=== PATIENT | male | born 1950 | race Caucasian/White ===

== ENCOUNTER 2017-03-01 11:35 | Inpatient (IN) | payer MEDICARE ==
[2017-03-01] VITALS (22 sets, daily range): BP systolic 118–166; BP diastolic 58–81; PULSE 71–105; RESP 15–30; TEMP 98.1–99.2; O2SAT 88–95; Ht 180.3 cm; Wt 121.0 kg
[~2017-03-01] VITALS: Ht 180.3 cm; Wt 121.0 kg
[~2017-03-01 11:35] MED LIST: FERR-67 PO; HYDR-4246 PO; LIRA0.6P SQ; PROM25TA7 PO; ROPI0.5T4 PO; SIME80TA12 PO; SIMV20TA6 PO; TRAM50TA4 PO
[2017-03-01] MEDS ORDERED: DIPH25CA84 PO (11:49)
[2017-03-01] MEDS ORDERED: ASPI81TA2 PO (11:50)
--- OUTSIDE RECORDS SUMMARY | 2017-03-01 11:57 | XMS REPORT | Continuity of Care Document ---
Author Author [facility] Organization [facility] Address Unknown Phone Unavailable Care Team Providers Care Lead Generation Specialist Name Role Phone GLENN NAQVI MD Primary Care Physician [phone] Insurance Providers Payer Name Policy Number Subscriber Name Relationship [employer] Gold Hmo [id number] Alcides De Leon 16 Self Advance Directives Directive Response Recorded Date/Time Advanced Directives Type None 02/22/15 12:55am Ordered Resuscitation Status Full Code 02/22/15 12:38am Chief Complaint and Reason for Visit Chief Complaint DX Vomiting, bowel obstructions, fever Reason for Visit Fever Small bowel obstruction Vomiting DM (diabetes mellitus) HTN (hypertension) History of kidney stones CAD (coronary artery disease) H/O heart artery stent Leukocytosis Cholelithiases Elevated liver enzymes Problems Medical Problems Problem Onset Date Status Fever Unknown Active Small bowel obstruction Unknown Active Vomiting Unknown Active DM (diabetes mellitus) Unknown Active HTN (hypertension) Unknown Active History of kidney stones Unknown Active CAD (coronary artery disease) Unknown Active Leukocytosis Unknown Active Cholelithiases Unknown Active Elevated liver enzymes Unknown Active Surgical Problems Problem Onset Date Recorded Date/Time Status H/O heart artery stent Unknown 02/22/2015 9:23am Active Medications Medication Dose Route Sig Days/Qty Instructions Order Date Discontinued Date Status Ropinirole Hcl 1 Tab PO DAILY 01/26/10 Active Tramadol HCl 50 Mg PO PRN PAIN 02/22/15 Active Tramadol HCl 1-2 Tab PO Every 8 Hours PRN PAIN 02/22/15 Active Simvastatin 20 Mg PO BEDTIME Take 1 tablet, by mouth, 1 time a day (at BEDTIME). 02/22/15 Active Liraglutide 1.2 Mg SQ BEDTIME 02/22/15 Active Ferrous Sulfate 1 Tab PO TWICE DAILY WITH MEALS 02/22/15 Active Hydrocodone/Acetaminophen 1-2 Tab PO THREE TIMES A DAY PRN PAIN 02/22 Active Simethicone 80 Mg PO Q6H/0300,0900,1500,2100 PRN GAS 20 Qty Chew 1 tablet , every six hours. 02/22/15 Active Promethazine HCl 25 Mg PO Q6H/0300,0900,1500,2100 PRN NAUSEA 20 Qty Active Social History Social History Problem Response Recorded Date/Time Chewing Tobacco Status No 02/21/2015 11:15pm Hx Substance Use No 02/21/2015 11:15pm Hx Alcohol Use No 02/21/2015 11:15pm Has the pt used tobacco in the last 12 months No 02/22/2015 1:33am Tobacco Usage none 02/22/2015 12:46am Query Response Start Date Stop Date Smoking Status Former smoker Hospital Discharge Instructions Instructions: Care Instructions: Reason for Hospitalization: Gasteroenteritis I was in the hospital because (patient own words): NAUSEA/VOMIT/FEVER/DIARRHEA Discharge Diet: [place] diet, increased as able Discharge Activity: As tolerated Follow Up Appointments: Dr Naqvi in 1 week Condition at time of discharge: Good OFFICE WILL CALL WITH APT. CAROLYNE Banks in 1 week Patient Instructions: Fasting Lipid Panel in 6 weeks. See Script/Order. Take to Lab. Condition at time of discharge: Good - You may shower after 24 hours. - No tub baths or swimming for 2 weeks. Notify Physician If: Contact Dr. Gonzalez if any of the following occur: - Your pain is not adequately controlled. - You have persistent nausea or vomiting for more than 24 hours. - You have a fever over 101.5 degrees. - You develop redness, swelling, increasing pain, excessive bleeding, or excessive/foul smelling drainage at your incision site. - You develop dark urine, light stools, or yellowing of the skin or eyes. - You have pain and/or swelling in your feet, calves, or legs. - You have difficulty breathing, abnormal cough, or chest pain. During office hours, call [phone]. After hours, please call [facility] at [phone] and have the marking machine operator page Dr. Gonzalez or the covering surgeon. *In the event of an emergency, seek medical care at the nearest emergency room.* Condition at time of discharge: Good Plan of Care Discharge Date 02/22/15 7:25pm Disposition 01 DISCHARGED HOME, SELF-CARE Instructions/Education Provided DI for Nausea -- Adult Prescriptions See Medications Section Functional Status Query Response Date Recorded Physical Hygiene Self February 21, 2015 11:15pm Disabilities Visual February 21, 2015 11:15pm Devices Used Glasses February 21, 2015 11:15pm Dressing Self February 21, 2015 11:15pm Ambulation Self February 21, 2015 11:15pm Diet Self February 21, 2015 11:15pm Mental Status Alert February 22, 2015 12:46am Disabilities Visual February 21, 2015 11:15pm Devices Used Glasses February 21, 2015 11:15pm Physical Hygiene Self February 21, 2015 11:15pm Dressing Self February 21, 2015 11:15pm Ambulation Self February 21, 2015 11:15pm Diet Self February 21, 2015 11:15pm Allergies, Adverse Reactions, Alerts Allergen Type Severity Reaction Status Last Updated metoprolol succinate Allergy Unknown Active 02/21/15 Hydrochlorothiazide Allergy Unknown Active 02/21/15 Immunizations Name Given Type Hx Influenza Vaccination Y AUG 2014 Historical Hx Pneumococcal Vaccination Y AUG 2014 Historical Hx Influenza Vaccination Y AUG 2014 Historical Vital Signs Acute Vital Signs Vital Response Date/Time Temperature (Fahrenheit) 98.2 deg F (96.8 - 99.1) Temperature (Calculated Celsius) 36.01144 degrees C (36.0 - 37.3) Pulse Rate (adult) 68 bpm (60 - 100) Respiratory Rate 16 breaths/min (10 - 20) Height 6 ft 0 in Weight 253 lb Body Mass Index 34.0 kg/m^2 Results Test Source Date Result Interp. Ref. Range Comments Alanine Aminotransferase (ALT/SGPT) February 22, 2015 8:21am 70 U/L N 21- 72 Albumin February 22, 2015 8:21am 3.1 G/DL L 3.5-5.0 Albumin/Globulin Ratio February 22, 2015 8:21am 1.0 RATIO L 1.1-2.2 Alkaline Phosphatase February 22, 2015 8:21am 155 U/L DH 38-126 Amylase Level February 21, 2015 10:53pm 66 U/L N 30-110 Anion Gap February 22, 2015 8:21am 12 MEQ/L N 5-15 Anisocytosis February 22, 2015 8:21am 1+ - Aspartate Amino Transf (AST/SGOT) February 22, 2015 8:21am 51 U/L N 17-59 B-Type Natriuretic Peptide April 15, 2009 11:26am 71 PG/ML N 15-100 BUN/Creatinine Ratio February 22, 2015 8:21am 16 RATIO N 6-26 Band Neutrophils # February 22, 2015 8:21am 1.4 T/MM3 - Band Neutrophils % February 22, 2015 8:21am 17.0 % H 0-6 Basophils # (Auto) December 16, 2012 12:20pm 0.0 T/MM3 N 0-0.2 Basophils (%) (Auto) December 16, 2012 12:20pm 0.3 % N 0-2 Blood Urea Nitrogen February 22, 2015 8:21am 17.0 MG/DL N 9-20 Calcium Level February 22, 2015 8:21am 8.1 MG/DL L 8.4-10.2 Calculated Osmolality February 22, 2015 8:21am 279 MOSM/KG N 261-280 Carbon Dioxide Level February 22, 2015 8:21am 22 MEQ/L N 22-30 Chemistry Specimen Hemolysis February 22, 2015 8:21am < 15 0-25 0-25: No Hemolysis.26-70: Slight Hemolysis - can falsely elevate K and Urine Protein. 71-285: Moderate Hemolysis - can falsely elevate K, Troponin I, CA 19-9, PTH, CSF GLucose, and Urine Protein, and can falsely decrease Phenytoin. 286-999: Gross Hemolysis - can falsely elevate K, Troponin I, CA 19-9, PTH, CSF Glucose, and Urine Protine, and can falsely decrease Phenytoin. Recommend specimen recollection. Chloride Level February 22, 2015 8:21am 109 MEQ/L H 98-107 Creatinine February 22, 2015 8:21am 1.1 MG/DL N 0.8-1.5 EKG April 15, 2009 11:26am Complete - Eosinophils # (Auto) December 16, 2012 12:20pm 0.3 T/MM3 N 0-0.5 Eosinophils # (Manual) February 22, 2015 8:21am 0.2 T/MM3 N 0-0.5 Eosinophils % (Manual) February 22, 2015 8:21am 2.0 % N 0-4 Eosinophils (%) (Auto) December 16, 2012 12:20pm 2.1 % N 0-4 Globulin February 22, 2015 8:21am 3.2 G/DL N 2.4-3.6 Glomerular Filtration Rate Calc February 22, 2015 8:21am 67 - Glucometer February 22, 2015 5:05pm 103 mg/dL N 75-110 Glucose Level February 22, 2015 8:21am 137 MG/DL H 75-110 Hematocrit February 22, 2015 8:21am 33.7 % DL 41-53 Hemoglobin February 22, 2015 8:21am 10.2 GM/DL DL 13.5-17.5 Hypochromasia February 22, 2015 8:21am 1+ - Icterus Index February 22, 2015 8:21am < 2 0-7 Immature Granulocyte # (Auto) December 16, 2012 12:20pm 0.06 T/MM3 H 0.00-0.03 Immature Granulocyte % (Auto) December 16, 2012 12:20pm 0.5 % N 0.0-0.5 Lab Scanned Report September 09, 2014 9:33pm LAB TEST FORM REQUEST [id number] - Lipase February 21, 2015 10:53pm 48 U/L N 23-300 Lymphocytes # (Auto) December 16, 2012 12:20pm 1.8 T/MM3 N 1-4.8 Lymphocytes # (Manual) February 22, 2015 8:21am 0.5 T/MM3 L 1-4.8 Lymphocytes % (Manual) February 22, 2015 8:21am 6.0 % L 23-45 Lymphocytes (%) (Auto) December 16, 2012 12:20pm 14.6 % L 23-45 Mean Corpuscular Hemoglobin February 22, 2015 8:21am 23.7 UUG L 26-34 Mean Corpuscular Hemoglobin Concent February 22, 2015 8:21am 30.3 GM/DL L 31-37 Mean Corpuscular Volume February 22, 2015 8:21am 78.2 UM3 L 80-100 Mean Platelet Volume February 22, 2015 8:21am 9.9 UM3 N 9.4-12.4 Monocytes # (Auto) December 16, 2012 12:20pm 0.7 T/MM3 N 0-0.8 Monocytes # (Manual) February 22, 2015 8:21am 0.2 T/MM3 N 0-0.8 Monocytes % (Manual) February 22, 2015 8:21am 2.0 % N 0-9.0 Monocytes (%) (Auto) December 16, 2012 12:20pm 5.6 % N 0-9.0 Neutrophils # (Auto) December 16, 2012 12:20pm 9.3 T/MM3 H 1.8-7.7 Neutrophils # (Manual) February 22, 2015 8:21am 6.0 T/MM3 N 1.8-7.7 Neutrophils % (Manual) February 22, 2015 8:21am 73.0 % H 33-66 Neutrophils (%) (Auto) December 16, 2012 12:20pm 76.9 % H 33-66 Nucleated Red Blood Cells February 21, 2015 10:53pm 1 - Platelet Count February 22, 2015 8:21am 188 T/MM3 N 130-400 Platelet Function Assay January 26, 2010 6:48am 5 % - <20% inhibition: recommended pre-surgical level.>20% inhibition: indicates anti-platelet effect. NOTE: Test not reliable with NSAID use or low platelet counts. Not for use with inherited platelet disorders. Poikilocytosis February 22, 2015 8:21am 1+ - Potassium Level February 22, 2015 8:21am 4.0 MEQ/L DN 3.6-5 Prealbumin February 22, 2015 8:21am 12.4 MG/DL L 17.6-36.0 COMMENT blood in lab Procalcitonin February 22, 2015 12:48am 0.34 NG/ML - PCT </=0.5 ng/mL - sepsis not likely;PCT >0.5 and </=2 ng/mL - sepsis possible; PCT >2 ng/mL - sepsis likely; PCT >/=10 ng/mL - systemic inflammatory response - sepsis or septic shock highly indicated. RDW Standard Deviation February 22, 2015 8:21am 70.2 FL H 36.9-50.2 Red Blood Count February 22, 2015 8:21am 4.31 M/MM3 L 4.50-5.90 Red Cell Morphology Comment February 22, 2015 8:21am Abnormal - Sodium Level February 22, 2015 8:21am 143 MEQ/L N 134-144 Stone Analysis (T) April 17, 2009 8:00am Send out - Has specimen been collected/obtained? Y Stool C. difficile Toxin B Gene PCR February 22, 2015 1:50am Negative - If Toxin A is clinically indicated, treat accordingly. Tests Not Done April 15, 2009 7:40pm Not done - Has specimen been collected/obtained? Y Thyroid Stimulating Hormone (TSH) February 22, 2015 8:21am 0.39 MIU/L L 0.47-4.68 COMMENT blood in lab Total Bilirubin February 22, 2015 8:21am 0.80 MG/DL N 0.20-1.30 Total Protein February 22, 2015 8:21am 6.3 G/DL N 6.3-8.2 Turbidity February 22, 2015 8:21am < 20 0-20 Urinalysis Comment February 21, 2015 10:26pm Microscopic not ind. - Has specimen been collected/obtained? Y Urine Bacteria December 16, 2012 2:30pm 1+ H - Has specimen been collected/obtained? Y Urine Bilirubin February 21, 2015 10:26pm Negative - Has specimen been collected/obtained? Y Urine Blood February 21, 2015 10:26pm Negative - Has specimen been collected/obtained? Y Urine Collection Type February 21, 2015 10:26pm Voided-not cc-midstr - Has specimen been collected/obtained? Y Urine Color February 21, 2015 10:26pm Yellow - Has specimen been collected/obtained? Y Urine Culture Indicated December 16, 2012 2:30pm Cult reflexed &setup - Has specimen been collected/obtained? Y Urine Glucose (UA) February 21, 2015 10:26pm Negative - Has specimen been collected/obtained? Y Urine Ketones February 21, 2015 10:26pm Trace H - Has specimen been collected/obtained? Y Urine Leukocyte Esterase February 21, 2015 10:26pm Negative - Has specimen been collected/obtained? Y Urine Mucus December 16, 2012 2:30pm Present - Has specimen been collected/obtained? Y Urine Nitrite February 21, 2015 10:26pm Negative - Has specimen been collected/obtained? Y Urine Protein February 21, 2015 10:26pm Negative - Has specimen been collected/obtained? Y Urine RBC December 16, 2012 2:30pm 50-200 /HPF H - Has specimen been collected/obtained? Y Urine Random Creatinine April 17, 2009 10:30am 113.2 MG/DL - Has specimen been collected/obtained? YWhat is the Source? VOIDED Urine Random Sodium April 17, 2009 10:30am 60 MEQ/L N 30-90 Has specimen been collected/obtained? YWhat is the Source? VOIDED Urine Specific Ronald February 21, 2015 10:26pm >=1.030 H - Has specimen been collected/obtained? Y Urine Squamous Epithelial Cells December 16, 2012 2:30pm Few - Has specimen been collected/obtained? Y Urine Turbidity February 21, 2015 10:26pm Clear - Has specimen been collected/obtained? Y Urine Urobilinogen February 21, 2015 10:26pm 0.2 EU/DL - Has specimen been collected/obtained? Y Urine WBC December 16, 2012 2:30pm 0-1 /HPF - Has specimen been collected/obtained? Y Urine Yeast December 16, 2012 2:30pm 2+ H - Has specimen been collected /obtained? Y Urine pH February 21, 2015 10:26pm 5.5 - Has specimen been collected/ obtained? Y Venous Blood Lactate February 22, 2015 12:48am 2.1 MMOL/L N 0.6-2.2 White Blood Count February 22, 2015 8:21am 8.2 T/MM3 DN 4.5-11.0 Group A Streptococcus Culture Throat September 09, 2014 6:30pm Urine Culture Urine, Clean Catch Voided December 16, 2012 2:55pm Strep Mitis /Oralis Name: ALCIDES DE LEON Unit #: [id number] : [id number] Sex: M Loc / [facility] – [place], [place]: SRG DOS: 02/21/15 Signed Report #: [id number] DIAGNOSTIC IMAGING REPORT TYPE OF EXAM: CT ABD/PELVIS W/CONTRAST ONLY Dictated By: CHIDI BANKS MD Indication: ITS.REASON: vomiting and diarrhea CT ABD/PELVIS W/CONTRAST ONLY: Comparison: Renal CT dated December 16, 2012 Technique: Axial CT images were performed through the abdomen and pelvis after the administration of intravenous contrast. Coronal and sagittal two- dimensional reformats. Contrast: Omnipaque 300 100 mL Findings: Motion artifact limits evaluation of the lung bases. No obvious enhancing liver mass. Slight nodularity to the liver contour. Significant motion artifact. Gallstones in the gallbladder. Lower esophageal segment is distended with fluid. The spleen, pancreas and adrenal glands are within normal limits. Tiny bilateral nonobstructing renal stones and some renal cortical atrophy. No acute inflammatory changes. No adenopathy in the abdomen or pelvis. Bladder is decompressed. No free fluid. Sigmoid diverticulosis. Bone windows show degenerative changes. No evidence of bowel obstruction. Some fluid-filled small and large bowel loops. Colonic diverticulosis without acute diverticulitis. Small fat-containing inguinal hernias. Bone windows show bilateral L5 spondylolysis and an age indeterminate superior endplate compression deformity at L5, which is new since December 2012. Impression: 1. Possible gastroenteritis. Early or partial small bowel obstruction cannot be entirely excluded but is felt to be less likely. 2. Findings suggesting cirrhosis. 3. Age-indeterminate L5 superior endplate compression fracture which is developed since December 2012. There is a preliminary report by [facility]. . Procedures No known history of procedures. Encounters Encounter Location Date/Time Discharged Inpatient [facility] 02/22/15 12:33am Recent Diagnosis Fever Small bowel obstruction Vomiting DM (diabetes mellitus) HTN (hypertension) History of kidney stones CAD (coronary artery disease) Leukocytosis Cholelithiases Elevated liver enzymes
--- OUTSIDE RECORDS SUMMARY | 2017-03-01 11:57 | XMS REPORT | Continuity of Care Document ---
Author Author [facility] Organization [facility] Address Unknown Phone Unavailable Allergies Active Description Code Type Severity Reaction Onset Reported/Identified Relationship to Patient Clinical Status Yes No Known Food Allergies Food Allergy N/A N/A 08/10/2013 Yes No Known Medication Allergies NKMA N/A N/A 09/09/2014 Yes iodine containing compounds NKMA N/A Nausea 10/29/2015 Medications Problems Date Dx Coded Attending Type Code Diagnosis Diagnosed By 08/10/2013 Kervin Thapa MD Final 250.00 DM2/NOS UNCOMP NSU 08/10/2013 Kervin Thapa MD Final 715.96 OSTEOARTHOSIS NOS-LOW LE 08/10/2013 Kervin Thapa MD Final V72.63 PRE-PX LABORATORY EXAM 08/10/2013 Kervin Thapa MD Final V72.81 PREOP CV EXAM Procedures Results Test Result Range Hemoglobin A1C - 05/24/16 09:49 Hemoglobin A1C 7.4 % 4.1-5.6 Estimated Average Glucose - 05/24/16 09:49 Estimated Average Glucose 165.7 mg/dL Hemoglobin A1C - 09/17/16 10:10 Hemoglobin A1C 7.3 % 4.1-5.6 Estimated Average Glucose - 09/17/16 10:10 Estimated Average Glucose 162.8 mg/dL Encounters ACCT No. Visit Date/Time Discharge Status Pt. Type Provider Facility Loc./Unit Complaint [id number] 08/10/2013 09:00:00 2012 23:59:59 CLS Outpatient Kervin Thapa MD [facility] on [address] [id number] 08/17/2013 07:30:00 Document Registration
--- OUTSIDE RECORDS SUMMARY | 2017-03-01 11:57 | XMS REPORT | Referral Summary ---
Author Author [facility] Organization [facility] Address Unknown Phone Unavailable Care Team Providers Care Musical Engineer Name Role Phone Kiran Jane Primary Care Physician [phone] Encounter [facility] [id number] Date(s): 10/24/15 - 10/24/15 [facility] [address] [place] [address] [facility] Discharge Diagnosis: Benign essential hypertension Discharge Diagnosis: Hyperlipidemia Discharge Diagnosis: Diabetes type 2, controlled Discharge Disposition: 01-Home or Self Care Attending Physician: Arabella Varghese APRN Admitting Physician: Arabella Varghese APRN Referring Physician: Arabella Varghese APRN Vital Signs Most recent to 1 oldest [Reference Range]: Peripheral Pulse 72 bpm Rate [60-100 bpm] (10/24/15 9:27 AM) Blood Pressure 128/80 mmHg [90-140/60-90 mmHg] (10/24/15 9:27 AM) Problem List Condition Effective Dates Status Health Status Informant Acute Active bronchitis(Confirmed ) Maxillary sinusitis, Active acute(Confirmed) Acute Active pharyngitis(Confirme d) Allergic Active rhinitis/Hay fever(Confirmed) anal Resolved fissure(Confirmed) Asthma(Confirmed) Active Benign essential Active hypertension (disorder)(Confirmed ) Hx of elevated BUN, Active and creatinine(Confirmed ) Chronic back Active pain(Confirmed) Chronic obstructive Active pulmonary disease (COPD)(Confirmed) Chronic kidney Active disease (CKD)(Confirmed) Compression Active fracture(Confirmed) Coronary artery Resolved disease(Confirmed) 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) High sun exposure Active 2-3 serious sunburns(Confirmed) Headaches(Confirmed) Resolved hx polyps, tubular Resolved adenoma(Confirmed) HYPERTENSION(Confirm Resolved ed) Hypertension(Confirm Active ed) Kidney Resolved stones(Confirmed) Migraine Active headaches(Confirmed) Hyperlipidemia(Confi Active rmed) Obesity(Confirmed) Active patient Obstructive sleep Active apnea, adult(Confirmed) Osteoarthritis(Confi Resolved rmed) Prostatism(Confirmed Resolved ) RLS(Confirmed) Active Stable Active angina(Confirmed) Stroke(Confirmed) Resolved Tension Active headaches(Confirmed) Diabetes type 2, Active controlled(Confirmed ) Type II diabetes Active mellitus uncontrolled (finding)(Confirmed) Right distal Active ureteral calculus(Confirmed) Allergies, Adverse Reactions, Alerts No Known Medication Allergies Medications ammonium lactate 12% topical cream See Instructions, cheryle Topical BID prn, # 140 g, 3 Refill(s), Pharmacy: [facility] Start Date: 11/29/14 Status: Ordered aspirin 81 mg, Oral, Daily, 0 Refill(s) Start Date: 04/26/14 Status: Ordered Calcium 500+D 2 tabs, Chewed, Daily, 0 Refill(s) Start Date: 04/19/15 Status: Ordered desonide 0.05% topical cream 1 cheryle, Topical, Daily, # 15 g, 1 Refill(s), Pharmacy: [facility] Start Date: 04/01/15 Status: Ordered desonide 0.05% topical gel 1 cheryle, Topical, apply to face bid prn, # 60 g, 0 Refill(s) Start Date: 04/26/14 Status: Ordered ferrous sulfate 325 mg (65 mg elemental iron) oral tablet 1 tabs, Oral, BID, # 60 tabs, 0 Refill(s), Pharmacy: [facility], 1 tabs Oral BID,x30 days Start Date: 02/02/15 Stop Date: 03/04/15 Status: Ordered Flomax 0.4 mg oral capsule 1 caps, Oral, Daily, # 90 caps, 1 Refill(s), [facility], 1 caps Oral Daily,x90 days Start Date: 03/01/15 Stop Date: 08/28/15 Status: Ordered ketoconazole 2% topical gel See Instructions, wash face, scalp and chest daily as needed, leave on 5 mins then wash off, 0 Refill(s) Start Date: 04/26/14 Status: Ordered ketoconazole 2% topical shampoo 1 cheryle, Topical, 2x/Wk, # 120 mL, 6 Refill(s), Pharmacy: [facility] Start Date: 04/01/15 Status: Ordered Nitrostat 0.4 mg sublingual tablet 1 tabs, SubLingual, q5min, as needed for chest pain, # 30 tabs, 3 Refill(s), Pharmacy: [facility], 1 tabs SubLingual q5min,PRN:as needed for chest pain Start Date: 09/09/14 Status: Ordered [place] 5 mg-325 mg oral tablet 1-2 tabs, Oral, TID, # 60 tabs, 0 Refill(s) Start Date: 09/06/15 Status: Ordered rOPINIRole 0.5 mg oral tablet See Instructions, TAKE ONE TABLET BY MOUTH ONCE DAILY, # 30 tabs, 5 Refill(s), eRx: [facility], TAKE ONE TABLET BY MOUTH ONCE DAILY Start Date: 06/01/15 Status: Ordered simvastatin 20 mg oral tablet 20 mg 1 tabs, Oral, Bedtime (once a day), Will need med check for next refill., # 90 tabs, 0 Refill(s), Pharmacy: [facility], 1 tabs Oral Bedtime ( once a day),x90 days,Instr:Will need med check for next refill. Start Date: 10/03/15 Stop Date: 12/31/15 Status: Ordered Ultram 50 mg oral tablet See Instructions, 1-2 tablets every 8 hrs as needed for pain, # 60 tabs, 0 Refill(s) Start Date: 05/27/15 Status: Ordered Victoza 18 mg/3 mL subcutaneous solution See Instructions, INJECT 1.2MG SUB-Q DAILY, # 6 unknown unit, 2 Refill(s), eRx: [facility], INJECT 1.2MG SUB-Q DAILY Start Date: 07/27/15 Status: Ordered Vitamin C 1,000 mg, Oral, BID, takes with iron, 0 Refill(s) Start Date: 03/01/15 Status: Ordered Results Chemistry Most recent to 1 oldest [Reference Range]: Hgb A1c [4.1-5.6 %] 7.0 % *HI* (10/24/15 10:02 AM) eAvg Glucose 154.2 mg/dL (10/24/15 10:02 AM) Immunizations Vaccine Date Refusal Reason tetanus/diphth/pertuss (Tdap) adult/adol 10/19/13 influenza virus vaccine, inactivated 10/15/14 influenza virus vaccine, live 09/24/13 influenza virus vaccine, live 11/20/12 pneumococcal 23-polyvalent vaccine 10/19/13 pneumococcal 23-polyvalent vaccine 07/08/01 tetanus-diphth toxoids (Td) adult/adol 06/29/02 zoster vaccine live 10/19/13 Procedures Procedure Date Related Diagnosis Body Site Colonoscopy 2013 Colonoscopy 2012 eye lid surgery blepth/ptosis ou 08/24/11 left temporal artery biopsy 01/26/10 heart cath 04/25/09 fissurectomy with sphincterectomy/colonoscopy pylonidal cystectomy rt carpal tunnel release rt knee scope, torn miniscus Social History Social History Type Response Smoking Status Former smoker1 1Quit smoking about 25 years ago. Assessment and Plan Extracted from: Title: Office Visit Note Author: Arabella Varghese CLINICAL RADIOLOGIST Date: 10/24/15 Assessment/Plan 1.Diabetes type 2, controlled 1. check blood sugars fasting and 2 hours after meals 3-7 days per week 2. continue same doses of victoza 3. rotate injection sites 4. monitor diet and exercise 5. monitor feet daily I discussed the patient with the preceptor. Ordered: Hemoglobin A1c Office Visit Level 3 Est 80073 2.Benign essential hypertension Ordered: Hemoglobin A1c Office Visit Level 3 Est 40418 3.Hyperlipidemia Ordered: Hemoglobin A1c Office Visit Level 3 Est 25305 Extracted from: Title: Ambulatory Patient Education Author: Arabella Varghese CLINICAL RADIOLOGIST Date: 10/24/15 Family Medicine Diabetes and Sick Day Management Blood sugar (glucose) can be more difficult to control when you are sick. Colds , fever, flu, nausea, vomiting, and diarrhea are all examples of common illnesses that can cause problems for people with diabetes. Loss of body fluids (dehydration) from fever, vomiting, diarrhea, infection, and the stress of a sickness can all cause blood glucose levels to increase. Because of this, it is very important to take your diabetes medicines and to eat some form of carbohydrate food when you are sick. Liquid or soft foods are often tolerated, and they help to replace fluids. HOME CARE INSTRUCTIONS These main guidelines are intended for managing a short-term (24 hours or less) sickness: Take your usual dose of insulin or oral diabetes medicine. An exception would be if you take any form of metformin. If you cannot eat or drink, you can become dehydrated and should not take this medicine. Continue to take your insulin even if you are unable to eat solid foods or are vomiting. Your insulin dose may stay the same, or it may need to be increased when you are sick. You will need to test your blood glucose more often, generally every 24 hours. If you have type 1 diabetes, test your urine for ketones every 4 hours. If you have type 2 diabetes, test your urine for ketones as directed by your health care provider. Eat some form of food that contains carbohydrates. The carbohydrates can be in solid or liquid form. You should eat 4550 g of carbohydrates every 3 4 hours. Replace fluids if you have a fever, vomit, or have diarrhea. Ask your health care provider for specific rehydration instructions. Watch carefully for the signs of ketoacidosis if you have type 1 diabetes. Call your health care provider if any of the following symptoms are present, especially in children: Moderate to large ketones in the urine along with a high blood glucose level. Severe nausea. Vomiting. Diarrhea. Abdominal pain. Rapid breathing. Drink extra liquids that do not contain sugar such as water. Be careful with jjip-hqe-efkulso medicines. Read the labels. They may contain sugar or types of sugars that can increase your blood glucose level. Food Choices for Illness All of the food choices below contain about 15 g of carbohydrates. Plan ahead and keep some of these foods around. to cup carbonated beverage containing sugar. Carbonated beverages will usually be better tolerated if they are opened and left at room temperature for a few minutes. of a twin frozen ice pop. cup regular gelatin. cup juice. cup ice cream or frozen yogurt. cup cooked cereal. cup sherbet. 1 cup clear broth or soup. 1 cup cream soup. cup regular custard. cup regular pudding. 1 cup sports drink. 1 cup plain yogurt. 1 slice toast. 6 squares saltine crackers. 5 vanilla wafers. SEEK MEDICAL CARE IF: You are unable to drink fluids, even small amounts. You have nausea and vomiting for more than 6 hours. You have diarrhea for more than 6 hours. Your blood glucose level is more than 240 mg/dL, even with additional insulin. There is a change in mental status. You develop an additional serious sickness. You have been sick for 2 days and are not getting better. You have a fever. SEEK IMMEDIATE MEDICAL CARE IF: You have difficulty breathing. You have moderate to large ketone levels. MAKE SURE YOU: Understand these instructions. Will watch your condition. Will get help right away if you are not doing well or get worse. Document Released: 10/30/2004 Document Revised: 03/14/2015 Document Reviewed: [facility] Patient Information 2015 [facility], [facility]. This information is not intended to replace advice given to you by your health care provider. Make sure you discuss any questions you have with your health care provider. No follow up information was provided.
--- OUTSIDE RECORDS SUMMARY | 2017-03-01 11:57 | XMS REPORT | Referral Summary ---
Author Author [facility] Organization [facility] Address Unknown Phone Unavailable Care Team Providers Care Bookmobile Clerk Name Role Phone Kiran Jane Primary Care Physician [phone] Encounter Date(s): 03/10/15 - 03/10/15 [facility] [address] , [facility] [address] [place], [place] [address] Discharge Diagnosis: Obstructive sleep apnea, adult Discharge Disposition: 01-Home or Self Care Attending Physician: Saulo Mujica MD Admitting Physician: Saulo Mujica MD Vital Signs Most recent to 1 oldest [Reference Range]: Peripheral Pulse 74 bpm Rate [60-100 bpm] (03/10/15 9:26 AM) Blood Pressure 100/60 mmHg [90-140/60-90 mmHg] (03/10/15 9:26 AM) SpO2 96 % (03/10/15 9:26 AM) Problem List Condition Effective Dates Status [...] Compression Active fracture(Confirmed) Coronary artery Resolved disease(Confirmed) alf current Active 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(Confirmed) High sun exposure Active 2-3 serious sunburns(Confirmed) Headaches(Confirmed) Resolved hx polyps, tubular Resolved adenoma(Confirmed) Hyperlipidemia(Confi Active rmed) HYPERTENSION(Confirm Resolved ed) Hypertension(Confirm Active ed) Kidney Resolved stones(Confirmed) Migraine Active headaches(Confirmed) Obesity(Confirmed) Active patient Obstructive sleep Active apnea, [...] prn, # 140 g, 3 Refill(s), Pharmacy: [facility] Start Date: 11/29/14 Status: Ordered aspirin 81 mg, Oral, Daily, 0 Refill(s) Start Date: 04/26/14 Status: Ordered Calcium 500+D 2 tabs, Chewed, Daily, 0 Refill(s) Start Date: 04/19/15 Status: Ordered desonide 0.05% topical cream 1 cheryle, Topical, Daily, # 15 g, 1 Refill(s), Pharmacy: [facility] Start Date: 04/01/15 Status: Ordered desonide 0.05% topical gel 1 cheryle, Topical, apply to face bid prn, # 60 g, 0 Refill(s) Start Date: 04/26/14 Status: Ordered ferrous sulfate 325 mg (65 mg elemental iron) oral tablet 1 tabs, Oral, BID, # 60 tabs, 0 Refill(s), Pharmacy: [facility], 1 tabs Oral BID,x30 days Start Date: 02/02/15 Stop Date: 03/04/15 Status: Ordered Flomax 0.4 mg oral capsule 1 caps, Oral, Daily, # 90 caps, 1 Refill(s), Pharmacy: [facility], 1 caps Oral Daily,x90 days Start Date: 03/01/15 Stop Date: 08/28/15 Status: Ordered ketoconazole 2% topical gel See Instructions, wash face, scalp and chest daily as needed, leave on 5 mins then wash off, 0 Refill(s) Start Date: 04/26/14 Status: Ordered ketoconazole 2% topical shampoo 1 cheryle, Topical, 2x/Wk, # 120 mL, 6 Refill(s), Pharmacy: [facility] Start Date: 04/01/15 Status: Ordered Nitrostat 0.4 mg sublingual tablet 1 tabs, SubLingual, q5min, as needed for chest pain, # 30 tabs, 3 Refill(s), Pharmacy: [facility], 1 tabs SubLingual q5min,PRN:as needed for chest pain Start Date: 09/09/14 Status: Ordered [place] 5 mg-325 mg oral tablet 1-2 tabs, Oral, TID, # 60 tabs, 0 Refill(s) Start Date: 09/06/15 Status: Ordered rOPINIRole 0.5 mg oral tablet See Instructions, TAKE ONE TABLET BY MOUTH ONCE DAILY, # 30 tabs, 5 Refill(s), eRx: [facility], TAKE ONE TABLET BY MOUTH ONCE DAILY Start Date: 06/01/15 Status: Ordered simvastatin 20 mg oral tablet See Instructions, TAKE ONE TABLET BY MOUTH ONCE DAILY NEEDS APPT PRIOR TO ADDITIONAL REFILLS, # 30 tabs, 0 Refill(s), Pharmacy: [facility], TAKE ONE TABLET BY MOUTH ONCE DAILY; NEEDS APPT PRIOR TO ADDITIONAL REFILLS Start Date: 07/27/15 Status: Ordered Ultram 50 mg oral tablet See Instructions, 1-2 tablets every 8 hrs as needed for pain, # 60 tabs, 0 Refill(s) Start Date: 05/27/15 Status: Ordered Victoza 18 mg/3 mL subcutaneous solution See Instructions, INJECT 1.2MG SUB-Q DAILY, # 6 unknown unit, 2 Refill(s), eRx: [facility], INJECT 1.2MG SUB-Q DAILY Start Date: 07/27/15 Status: Ordered Vitamin C 1,000 mg, Oral, BID, takes with iron, 0 Refill(s) Start Date: 03/01/15 Status: Ordered Results No data available for this section Immunizations Vaccine Date Refusal Reason tetanus/diphth/pertuss (Tdap) [...] Extracted from: Title: Office Visit Note Author: Saulo Mujica MD Date: 03/10/15 Assessment/Plan Obstructive sleep apnea, adult Assessment: Obstructive sleep apnea syndrome. The patient is complying with CPAP and he is benefiting. His pressure is too high. His machine is broken. A replacement machine would be appropriate. Given his fluctuating weight, an auto titrating machine is recommended. Plan: Those thoughts are discussed with the patient. I talked about Medicare rules. He will need to go to [place] to get his machine. A new CPAP is ordered at current pressure range of 7-15 cm. We we will see him back in 2 months to document compliance for Medicare. Referrals to Other Providers Referred by: Saulo Mujica MD
--- OUTSIDE RECORDS SUMMARY | 2017-03-01 11:57 | XMS REPORT | Referral Summary ---
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 Role Phone Kiran Jane Primary Care Physician [phone] Encounter VC Date(s): 09/06/15 - 09/06/15 [facility] [address] [place] [address] Discharge Diagnosis: Rib pain on right side Discharge Diagnosis: Elevated alkaline phosphatase level Discharge Disposition: 01-Home or Self Care Attending Physician: Jumana Jacobs PA-C Admitting Physician: Jumana Jacobs PA-C Vital Signs Most recent to 1 oldest [Reference Range]: Temperature Tympanic 36.6 degC [36.6-38.1 degC] (09/06/15 10:39 AM) Peripheral Pulse 68 bpm Rate [60-100 bpm] (09/06/15 10:39 AM) Respiratory Rate 16 br/min [14-20 br/min] (09/06/15 10:39 AM) Blood Pressure 142/68 mmHg [90-140/60-90 mmHg] *HI* (09/06/15 10:39 AM) Problem List Condition Effective Dates Status [...] Compression Active fracture(Confirmed) Coronary artery Resolved disease(Confirmed) shelter current Active 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(Confirmed) High sun [...] prn, # 140 g, 3 Refill(s), Pharmacy: [email or web address] Start Date: 11/29/14 Status: Ordered aspirin 81 mg, Oral, Daily, 0 Refill(s) Start Date: 04/26/14 Status: Ordered Calcium 500+D 2 tabs, Chewed, Daily, 0 Refill(s) Start Date: 04/19/15 Status: Ordered desonide 0.05% topical cream 1 cheryle, Topical, Daily, # 15 g, 1 Refill(s), Pharmacy: [id number] Start Date: 04/01/15 Status: Ordered desonide 0.05% topical gel 1 cheryle, Topical, apply to face bid prn, # 60 g, 0 Refill(s) Start Date: 04/26/14 Status: Ordered ferrous sulfate 325 mg (65 mg elemental iron) oral tablet 1 tabs, Oral, BID, # 60 tabs, 0 Refill(s), Pharmacy: [email or web address], 1 tabs Oral BID,x30 days Start Date: 02/02/15 Stop Date: 03/04/15 Status: Ordered Flomax 0.4 mg oral capsule 1 caps, Oral, Daily, # 90 caps, 1 Refill(s), Pharmacy: [email or web address], 1 caps Oral Daily,x90 days Start Date: 03/01/15 Stop Date: 08/28/15 Status: Ordered ketoconazole 2% topical gel See Instructions, wash face, scalp and chest daily as needed, leave on 5 mins then wash off, 0 Refill(s) Start Date: 04/26/14 Status: Ordered ketoconazole 2% topical shampoo 1 cheryle, Topical, 2x/Wk, # 120 mL, 6 Refill(s), Pharmacy: [facility] [id number] Start Date: 04/01/15 Status: Ordered Nitrostat 0.4 mg sublingual tablet 1 tabs, SubLingual, q5min, as needed for chest pain, # 30 tabs, 3 Refill(s), Pharmacy: [facility] [id number], 1 tabs SubLingual q5min,PRN:as needed for chest pain Start Date: 09/09/14 Status: Ordered Saratoga 5 mg-325 mg oral tablet 1-2 tabs, Oral, TID, # 60 tabs, 0 Refill(s) Start Date: 09/06/15 Status: Ordered predniSONE 20 mg oral tablet 40 mg 2 tabs, Oral, Daily, X 3 days, # 6 tabs, 0 Refill(s), Pharmacy: [facility] [id number], 2 tabs Oral Daily,x3 days Start Date: 09/06/15 Stop Date: 09/09/15 Status: Ordered rOPINIRole 0.5 mg oral tablet See Instructions, TAKE ONE TABLET BY MOUTH ONCE DAILY, # 30 tabs, 5 Refill(s), eRx: [facility] [id number], TAKE ONE TABLET BY MOUTH ONCE DAILY Start Date: 06/01/15 Status: Ordered simvastatin 20 mg oral tablet See Instructions, TAKE ONE TABLET BY MOUTH ONCE DAILY NEEDS APPT PRIOR TO ADDITIONAL REFILLS, # 30 tabs, 0 Refill(s), Pharmacy: [facility] [id number], TAKE ONE TABLET BY MOUTH ONCE DAILY; NEEDS APPT PRIOR TO ADDITIONAL REFILLS Start Date: 07/27/15 Status: Ordered Ultram 50 mg oral tablet See Instructions, 1-2 tablets every 8 hrs as needed for pain, # 60 tabs, 0 Refill(s) Start Date: 05/27/15 Status: Ordered Victoza 18 mg/3 mL subcutaneous solution See Instructions, INJECT 1.2MG SUB-Q DAILY, # 6 unknown unit, 2 Refill(s), eRx: [facility] [id number], INJECT 1.2MG SUB-Q DAILY Start Date: 07/27/15 [...] ago. Assessment and Plan Extracted from: Title: Ambulatory Patient Education Author: Jumana Jacobs PA-C Date : 09/06/15 Family Medicine Costochondritis Costochondritis, sometimes called Tietze syndrome, is a swelling and irritation (inflammation) of the tissue (cartilage) that connects your ribs with your breastbone (sternum). It causes pain in the chest and rib area. Costochondritis usually goes away on its own over time. It can take up to 6 weeks or longer to get better, especially if you are unable to limit your activities. CAUSES Some cases of costochondritis have no known cause. Possible causes include: Injury (trauma). Exercise or activity such as lifting. Severe coughing. SIGNS AND SYMPTOMS Pain and tenderness in the chest and rib area. Pain that gets worse when coughing or taking deep breaths. Pain that gets worse with specific movements. DIAGNOSIS Your health care provider will do a physical exam and ask about your symptoms. Chest X-rays or other tests may be done to rule out other problems. TREATMENT Costochondritis usually goes away on its own over time. Your health care provider may prescribe medicine to help relieve pain. HOME CARE INSTRUCTIONS Avoid exhausting physical activity. Try not to strain your ribs during normal activity. This would include any activities using chest, abdominal, and side muscles, especially if heavy weights are used. Apply ice to the affected area for the first 2 days after the pain begins. Put ice in a plastic bag. Place a towel between your skin and the bag. Leave the ice on for 20 minutes, 23 times a day. Only take [id number] or prescription medicines as directed by your health care provider. SEEK MEDICAL CARE IF: You have redness or swelling at the rib joints. These are signs of infection. Your pain does not go away despite rest or medicine. SEEK IMMEDIATE MEDICAL CARE IF: Your pain increases or you are very uncomfortable. You have shortness of breath or difficulty breathing. You cough up blood. You have worse chest pains, sweating, or vomiting. You have a fever or persistent symptoms for more than 23 days. You have a fever and your symptoms suddenly get worse. MAKE SURE YOU: Understand these instructions. Will watch your condition. Will get help right away if you are not doing well or get worse. Document Released: 08/07/2006 Document Revised: 08/18/2014 Document Reviewed: [facility] Patient Information 2015 [employer] [facility]. This information is not intended to replace advice given to you by your health care provider. Make sure you discuss any questions you have with your health care provider. Nutrition Fatty Liver Fatty liver is the accumulation of fat in liver cells. It is also called hepatosteatosis or steatohepatitis. It is normal for your liver to contain some fat. If fat is more than 5 to 10% of your liver's weight, you have fatty liver. There are often no symptoms (problems) for years while damage is still occurring. People often learn about their fatty liver when they have medical tests for other reasons. Fat can damage your liver for years or even decades without causing problems. When it becomes severe, it can cause fatigue, weight loss, weakness, and confusion. This makes you more likely to develop more serious liver problems. The liver is the largest organ in the body. It does a lot of work and often gives no warning signs when it is sick until late in a disease. The liver has many important jobs including: Breaking down foods. Storing vitamins, iron, and other minerals. Making proteins. Making bile for food digestion. Breaking down many products including medications, alcohol and some poisons. CAUSES There are a number of different conditions, medications, and poisons that can cause a fatty liver. Eating too many calories causes fat to build up in the liver. Not processing and breaking fats down normally may also cause this. Certain conditions, such as obesity, diabetes, and high triglycerides also cause this. Most fatty liver patients tend to be middle-aged and over weight. Some causes of fatty liver are: Alcohol over consumption. Malnutrition. Steroid use. Valproic acid toxicity. Obesity. Mynor's syndrome. Poisons. Tetracycline in high dosages. . Diabetes. Hyperlipidemia. Rapid weight loss. Some people develop fatty liver even having none of these conditions. SYMPTOMS Fatty liver most often causes no problems. This is called asymptomatic. It can be diagnosed with blood tests and also by a liver biopsy. It is one of the most common causes of minor elevations of liver enzymes on routine blood tests. Specialized Imaging of the liver using ultrasound, CT (computed tomography ) scan, or MRI (magnetic resonance imaging) can suggest a fatty liver but a biopsy is needed to confirm it. A biopsy involves taking a small sample of liver tissue. This is done by using a needle. It is then looked at under a microscope by a specialist. TREATMENT It is important to treat the cause. Simple fatty liver without a medical reason may not need treatment. Weight loss, fat restriction, and exercise in overweight patients produces inconsistent results but is worth trying. Fatty liver due to alcohol toxicity may not improve even with stopping drinking. Good control of diabetes may reduce fatty liver. Lower your triglycerides through diet, medication or both. Eat a balanced, healthy diet. Increase your physical activity. Get regular checkups from a liver specialist. There are no medical or surgical treatments for a fatty liver or RILEY, but improving your diet and increasing your exercise may help prevent or reverse some of the damage. PROGNOSIS Fatty liver may cause no damage or it can lead to an inflammation of the liver. This is, called steatohepatitis. When it is linked to alcohol abuse, it is called alcoholic steatohepatitis. It often is not linked to alcohol. It is then called nonalcoholic steatohepatitis, or RILEY. Over time the liver may become scarred and hardened. This condition is called cirrhosis. Cirrhosis is serious and may lead to liver failure or cancer. RILEY is one of the leading causes of cirrhosis. About 10-20% of Americans have fatty liver and a smaller 2-5% has RILEY. Document Released: 12/13/2006 Document Revised: 01/19/2013 Document Reviewed: [facility] Patient Information 2015 [employer] [facility]. This information is not intended to replace advice given to you by your health care provider. Make sure you discuss any questions you have with your health care provider. No follow up information was provided. Extracted from: Title: Office Visit Note Author: Jumana Jacobs PA-C Date: 09/06/15 Assessment/Plan Elevated alkaline phosphatase level Briefly d/w pt about elevated liver enzymes. I believe mildly elevated AST and ALT are due to fatty liver disease. The elevated ALP is concerning to me. I wonder if it is possibly due to cancerous metastasis? I asked the pt to follow up with Dr. Weiner about this. Otherwise, the only other option I gave the pt was to recheck the levels. He will wait until his recheck appointment with Dr. Weiner. Rib pain on right side His pain seems too low for gallbladder pain, different than kidney stone pain, and there has been no injury. He also ate some greasy foods this AM, and pain did not flare or worsen. Possibly pain could be due to costochondritis? Since he is not able to take NSAID's, will treat with short course of prednisone, with pt's understanding that his BG levels will be elevated more than usual. He also needs refills on his Saratoga (usually gets #60 once a year, but had bowel obstruction and used more than he usually does for this pain). He will let us know if pain worsening or changing. Ordered: Office Visit Level 3 Est 05390 Orders: HYDROcodone-acetaminophen, 1-2 tabs, Oral, TID, # 60 tabs, 0 Refill(s) predniSONE, 40 mg 2 tabs, Oral, Daily, X 3 days, # 6 tabs, 0 Refill(s), Pharmacy: [id number], 2 tabs Oral Daily,x3 days
--- OUTSIDE RECORDS SUMMARY | 2017-03-01 11:58 | XMS REPORT | Referral Summary ---
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 Role Phone Kiran Jane Primary Care Physician [phone] Encounter Date(s): 05/05/15 - 05/05/15 [facility], [facility] [address] , [facility] [address] [place], [place] [address] Discharge Diagnosis: Obstructive sleep apnea, adult Discharge Disposition: 01-Home or Self Care Attending Physician: Amira Soto Admitting Physician: Amira Soto Referring Physician: David Jane MD Vital Signs Most recent to 1 oldest [Reference Range]: Peripheral Pulse 67 bpm Rate [60-100 bpm] (05/05/15 12:58 PM) Blood Pressure 160/68 mmHg [90-140/60-90 mmHg] *HI* (05/05/15 12:58 PM) SpO2 98 % (05/05/15 12:58 PM) Problem List Condition Effective Dates Status Health [...] Compression Active fracture(Confirmed) Coronary artery Resolved disease(Confirmed) senior living current Active 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(Confirmed) High sun [...] prn, # 140 g, 3 Refill(s), Pharmacy: [facility] Start Date: 11/29/14 Status: Ordered aspirin 81 mg, Oral, Daily, 0 Refill(s) Start Date: 04/26/14 Status: Ordered Calcium 500+D 2 tabs, Chewed, Daily, 0 Refill(s) Start Date: 04/19/15 Status: Ordered desonide 0.05% topical cream 1 cheryle, Topical, Daily, # 15 g, 1 Refill(s), Pharmacy: [facility] Start Date: 04/01/15 Status: Ordered desonide 0.05% topical gel 1 cheryle, Topical, apply to face bid prn, # 60 g, 0 Refill(s) Start Date: 04/26/14 Status: Ordered ferrous sulfate 325 mg (65 mg elemental iron) oral tablet 1 tabs, Oral, BID, # 60 tabs, 0 Refill(s), Pharmacy: [facility], 1 tabs Oral BID,x30 days Start Date: 02/02/15 Stop Date: 03/04/15 Status: Ordered Flomax 0.4 mg oral capsule 1 caps, Oral, Daily, # 90 caps, 1 Refill(s), Pharmacy: [facility], 1 caps Oral Daily,x90 days Start Date: 03/01/15 Stop Date: 08/28/15 Status: Ordered ketoconazole 2% topical gel See Instructions, wash face, scalp and chest daily as needed, leave on 5 mins then wash off, 0 Refill(s) Start Date: 04/26/14 Status: Ordered ketoconazole 2% topical shampoo 1 cheryle, Topical, 2x/Wk, # 120 mL, 6 Refill(s), Pharmacy: [facility] Start Date: 04/01/15 Status: Ordered Nitrostat 0.4 mg sublingual tablet 1 tabs, SubLingual, q5min, as needed for chest pain, # 30 tabs, 3 Refill(s), Pharmacy: [facility], 1 tabs SubLingual q5min,PRN:as needed for chest pain Start Date: 09/09/14 Status: Ordered Idanha 5 mg-325 mg oral tablet 1-2 tabs, Oral, TID, # 60 tabs, 0 Refill(s) Start Date: 09/06/15 Status: Ordered rOPINIRole 0.5 mg oral tablet See Instructions, TAKE ONE TABLET BY MOUTH ONCE DAILY, # 30 tabs, 5 Refill(s), eRx: [facility] [id number], TAKE ONE TABLET BY MOUTH ONCE DAILY Start Date: 06/01/15 Status: Ordered simvastatin 20 mg oral tablet See Instructions, TAKE ONE TABLET BY MOUTH ONCE DAILY NEEDS APPT PRIOR TO ADDITIONAL REFILLS, # 30 tabs, 0 Refill(s), Pharmacy: [facility] [id number], TAKE ONE TABLET BY MOUTH ONCE DAILY; NEEDS APPT PRIOR TO ADDITIONAL REFILLS Start Date: 07/27/15 Status: Ordered Ultram 50 mg oral tablet See Instructions, 1-2 tablets every 8 hrs as needed for pain, # 60 tabs, 0 Refill(s) Start Date: 05/27/15 Status: Ordered Victoza 18 mg/3 mL subcutaneous solution See Instructions, INJECT 1.2MG SUB-Q DAILY, # 6 unknown unit, 2 Refill(s), eRx: [facility] [place] [id number], INJECT 1.2MG SUB-Q DAILY Start Date: 07/27/15 [...] Extracted from: Title: Office Visit Note Author: Amira Soto Date: 05/05/15 Assessment/Plan Obstructive sleep apnea, adult - Adequate treatment with CPAP symptomatically and objectively at current pressure withexcellentadherence to therapy. He does meet Medicare requirements for ongoing treatment. Continue CPAP with all sleep at 7-15cm. He will work with RT today in regard to his mask as it is not fitting properly. Order to [facility] for supplies as needed. -CPAP download reviewed with the patient and patient is complying with and benefitting from treatment. -Avoid driving , partaking in hazardous activities, or operating heavy machinery if drowsy. -Continue appropriate cleaning of the machine/humidifier and update of all supplies including mask , tubing , and filters . -Return for follow-up in 1 year . Return/call sooner if any problems arise in the meantime.
--- OUTSIDE RECORDS SUMMARY | 2017-03-01 11:58 | XMS REPORT | Referral Summary ---
Author Author [facility] Organization [facility] Address Unknown Phone Unavailable Care Team Providers Care Jack Spooler Tender Name Role Phone Kiran Jane Primary Care Physician [phone] Encounter VC Date(s): 05/05/15 - 05/05/15 [facility] [address] [place] [address] Discharge Disposition: 01-Home or Self Care Attending Physician: David Jane MD Admitting Physician: David Jane MD Vital Signs Most recent to 1 oldest [Reference Range]: Blood Pressure 140/70 mmHg [90-140/60-90 mmHg] (05/05/15 2:18 PM) Problem List Condition Effective Dates Status [...] Compression Active fracture(Confirmed) Coronary artery Resolved disease(Confirmed) retirement current Active 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(Confirmed) High sun [...] Active ureteral calculus(Confirmed) Allergies, Adverse Reactions, Alerts Substance Reaction Severity Status iodine containing Nausea Active compounds Medications ammonium lactate 12% topical cream See Instructions, cheryle Topical BID prn, # 140 g, 3 Refill(s), Pharmacy: [facility] 242 Start Date: 11/29/14 Status: Ordered aspirin 81 mg, Oral, Daily, 0 Refill(s) Start Date: 04/26/14 Status: Ordered Calcium 500+D 2 tabs, Chewed, Daily, 0 Refill(s) Start Date: 04/19/15 Status: Ordered desonide 0.05% topical cream 1 cheryle, Topical, Daily, # 15 g, 1 Refill(s), Pharmacy: [place] [address] Start Date: 04/01/15 Status: Ordered desonide 0.05% topical gel 1 cheryle, Topical, apply to face bid prn, # 60 g, 0 Refill(s) Start Date: 04/26/14 Status: Ordered ferrous sulfate 325 mg (65 mg elemental iron) oral tablet 1 tabs, Oral, BID, # 60 tabs, 0 Refill(s), Pharmacy: [place] [address], 1 tabs Oral BID,x30 days Start Date: 02/02/15 Stop Date: 03/04/15 Status: Ordered Flomax 0.4 mg oral capsule 1 caps, Oral, Daily, # 90 caps, 1 Refill(s), Pharmacy: [facility] 242, 1 caps Oral Daily,x90 days Start Date: 03/01/15 Stop Date: 08/28/15 Status: Ordered ketoconazole 2% topical gel See Instructions, wash face, scalp and chest daily as needed, leave on 5 mins then wash off, 0 Refill(s) Start Date: 04/26/14 Status: Ordered ketoconazole 2% topical shampoo 1 cheryle, Topical, 2x/Wk, # 120 mL, 6 Refill(s), Pharmacy: [facility] 242 Start Date: 04/01/15 Status: Ordered Nitrostat 0.4 mg sublingual tablet 1 tabs, SubLingual, q5min, as needed for chest pain, # 30 tabs, 3 Refill(s), Pharmacy: [facility] 242, 1 tabs SubLingual q5min,PRN:as needed for chest pain Start Date: 09/09/14 Status: Ordered [place] 5 mg-325 mg oral tablet 1-2 tabs, Oral, TID, # 60 tabs, 0 Refill(s) Start Date: 09/06/15 Status: Ordered rOPINIRole 0.5 mg oral tablet See Instructions, TAKE ONE TABLET BY MOUTH ONCE DAILY, # 30 tabs, 5 Refill(s), eRx: [facility], TAKE ONE TABLET BY MOUTH ONCE DAILY Start Date: 06/01/15 Status: Ordered simvastatin 20 mg oral tablet 20 mg 1 tabs, Oral, Bedtime (once a day), Will need med check for next refill., # 90 tabs, 0 Refill(s), Pharmacy: [facility], 1 tabs Oral Bedtime ( [...] # 6 unknown unit, 2 Refill(s), eRx: [facility], INJECT 1.2MG SUB-Q DAILY Start [...] Procedures Procedure Date Related Diagnosis Body Site Colonoscopy, flexible; with removal of 10/29/15 tumor(s), polyp(s), or other lesion(s) by hot biopsy forceps Colonoscopy 2013 Colonoscopy 2012 eye lid surgery blepth/ptosis ou 08/24/11 left temporal artery biopsy 01/26/10 heart cath 04/25/09 fissurectomy with sphincterectomy/colonoscopy pylonidal cystectomy rt carpal tunnel release rt knee scope, torn miniscus Social History Social History Type Response Smoking Status Former smoker1 1Quit smoking about 25 years ago. Assessment and Plan Extracted from: Title: Ambulatory Patient Education Author: David Jane MD Date: Family Medicine Arterial Hypertension Arterial hypertension (high blood pressure ) is a condition of elevated pressure in your blood vessels. Hypertension over a long period of time is a risk factor for strokes, heart attacks, and heart failure. It is also the leading cause of kidney (renal ) failure. CAUSES In Adults -- Over 90% of all hypertension has no known cause. This is called essential or primary hypertension. In the other 10% of people with hypertension, the increase in blood pressure is caused by another disorder. This is called secondary hypertension . Important causes of secondary hypertension are: Heavy alcohol use. Obstructive sleep apnea. Hyperaldosterosim (Conn's syndrome). Steroid use. Chronic kidney failure. Hyperparathyroidism. Medications. Renal artery stenosis. Pheochromocytoma. Fincastle's disease. Coarctation of the aorta. Scleroderma renal crisis. Licorice (in excessive amounts). Drugs (cocaine, methamphetamine). Your caregiver can explain any items above that apply to you. In Children -- Secondary hypertension is more common and should always be considered. -- Few women of childbearing age have high blood pressure. However, up to 10% of them develop hypertension of . Generally, this will not harm the woman. It may be a sign of 3 complications of : preeclampsia, HELLP syndrome, and eclampsia. Follow up and control with medication is necessary. SYMPTOMS This condition normally does not produce any noticeable symptoms. It is usually found during a routine exam. Malignant hypertension is a late problem of high blood pressure. It may have the following symptoms: Headaches. Blurred vision. End-organ damage (this means your kidneys, heart, lungs, and other organs are being damaged). Stressful situations can increase the blood pressure. If a person with normal blood pressure has their blood pressure go up while being seen by their caregiver, this is often termed "white coat hypertension." Its importance is not known. It may be related with eventually developing hypertension or complications of hypertension. Hypertension is often confused with mental tension, stress, and anxiety. DIAGNOSIS The diagnosis is made by 3 separate blood pressure measurements. They are taken at least 1 week apart from each other. If there is organ damage from hypertension, the diagnosis may be made without repeat measurements. Hypertension is usually identified by having blood pressure readings: Above 140/90 mmHg measured in both arms, at 3 separate times, over a couple weeks. Over 130/80 mmHg should be considered a risk factor and may require treatment in patients with diabetes. Blood pressure readings over 120/80 mmHg are called "pre-hypertension" even in non-diabetic patients. To get a true blood pressure measurement, use the following guidelines. Be aware of the factors that can alter blood pressure readings. Take measurements at least 1 hour after caffeine. Take measurements 30 minutes after smoking and without any stress. This is another reason to quit smoking it raises your blood pressure. Use a proper cuff size. Ask your caregiver if you are not sure about your cuff size. Most home blood pressure cuffs are automatic. They will measure systolic and diastolic pressures. The systolic pressure is the pressure reading at the start of sounds. Diastolic pressure is the pressure at which the sounds disappear. If you are elderly, measure pressures in multiple postures. Try sitting, lying or standing. Sit at rest for a minimum of 5 minutes before taking measurements. You should not be on any medications like decongestants. These are found in many cold medications. Record your blood pressure readings and review them with your caregiver. If you have hypertension: Your caregiver may do tests to be sure you do not have secondary hypertension (see "causes" above). Your caregiver may also look for signs of metabolic syndrome. This is also called Syndrome X or Insulin Resistance Syndrome. You may have this syndrome if you have type 2 diabetes, abdominal obesity, and abnormal blood lipids in addition to hypertension. Your caregiver will take your medical and family history and perform a physical exam. Diagnostic tests may include blood tests (for glucose, cholesterol, potassium, and kidney function), a urinalysis, or an EKG. Other tests may also be necessary depending on your condition. PREVENTION There are important lifestyle issues that you can adopt to reduce your chance of developing hypertension: Maintain a normal weight. Limit the amount of salt (sodium ) in your diet. Exercise often. Limit alcohol intake. Get enough potassium in your diet. Discuss specific advice with your caregiver. Follow a DASH diet (dietary approaches to stop hypertension). This diet is rich in fruits, vegetables, and low-fat dairy products, and avoids certain fats. PROGNOSIS Essential hypertension cannot be cured. Lifestyle changes and medical treatment can lower blood pressure and reduce complications. The prognosis of secondary hypertension depends on the underlying cause. Many people whose hypertension is controlled with medicine or lifestyle changes can live a normal, healthy life. RISKS AND COMPLICATIONS While high blood pressure alone is not an illness, it often requires treatment due to its short- and long-term effects on many organs. Hypertension increases your risk for: CVAs or strokes (cerebrovascular accident ). Heart failure due to chronically high blood pressure (hypertensive cardiomyopathy ). Heart attack (myocardial infarction ). Damage to the retina (hypertensive retinopathy ). Kidney failure (hypertensive nephropathy ). Your caregiver can explain list items above that apply to you. Treatment of hypertension can significantly reduce the risk of complications. TREATMENT For overweight patients, weight loss and regular exercise are recommended. Physical fitness lowers blood pressure. Mild hypertension is usually treated with diet and exercise. A diet rich in fruits and vegetables, fat-free dairy products, and foods low in fat and salt (sodium ) can help lower blood pressure. Decreasing salt intake decreases blood pressure in a 1/3 of people. Stop smoking if you are a smoker. The steps above are highly effective in reducing blood pressure. While these actions are easy to suggest, they are difficult to achieve. Most patients with moderate or severe hypertension end up requiring medications to bring their blood pressure down to a normal level. There are several classes of medications for treatment. Blood pressure pills (antihypertensives ) will lower blood pressure by their different actions. Lowering the blood pressure by 10 mmHg may decrease the risk of complications by as much as 25%. The goal of treatment is effective blood pressure control. This will reduce your risk for complications. Your caregiver will help you determine the best treatment for you according to your lifestyle. What is excellent treatment for one person, may not be for you. HOME CARE INSTRUCTIONS Do not smoke. Follow the lifestyle changes outlined in the "Prevention" section. If you are on medications, follow the directions carefully. Blood pressure medications must be taken as prescribed. Skipping doses reduces their benefit. It also puts you at risk for problems. Follow up with your caregiver, as directed. If you are asked to monitor your blood pressure at home, follow the guidelines in the "Diagnosis" section above. SEEK MEDICAL CARE IF: You think you are having medication side effects. You have recurrent headaches or lightheadedness. You have swelling in your ankles. You have trouble with your vision. SEEK IMMEDIATE MEDICAL CARE IF: You have sudden onset of chest pain or pressure, difficulty breathing, or other symptoms of a heart attack. You have a severe headache. You have symptoms of a stroke (such as sudden weakness, difficulty speaking , difficulty walking). MAKE SURE YOU: Understand these instructions. Will watch your condition. Will get help right away if you are not doing well or get worse. Document Released: 10/28/2006 Document Revised: 01/19/2013 Document Reviewed: [facility] Patient Information 2014 [employer]. No follow up information was provided. Extracted from: Title: Office Visit Note Author: David Jane MD Date: 05/05/15 Assessment/Plan Chronic back pain This issue is stable and appropriate refills, lab, and f/u have been discussed. Coronary artery disease This issue is stable and appropriate refills, lab, and f/u have been discussed. HYPERTENSION This issue is stable and appropriate refills, lab, and f/u have been discussed. The patient reports their blood pressure has been stable at home and is not having any significant or related problems. There has been no chest pain, chest pressure, soa/sahni. Kidney stones The patient is here for an ongoing issue. They have been evaluated and treated in the past. Any past testing, xray's, lab, or consults have been reviewed if available. The patient may have been seen by an outside physician and/or IC too. He continues to have back pain. To [facility] for evaluation and treatment. He has been on flomax without improvement. CT already done. Type II diabetes mellitus uncontrolled (finding) This issue is stable and appropriate refills, lab, and f/u have been discussed. The patient was notified for the need for regular quarterly f/u of their diabetes. Further any pertinent medication, supplies, etc were refilled. Additionally, they are to have annual eye exams, foot exams, and regular care.
--- OUTSIDE RECORDS SUMMARY | 2017-03-01 11:58 | XMS REPORT | Referral Summary ---
Author Author [facility] Organization [facility] Address Unknown Phone Unavailable Care Team Providers Care Car Shakeout Operator Name Role Phone Kiran Jane Primary Care Physician [phone] Encounter VC Date(s): 09/28/15 - 09/28/15 [facility] [address] [place], [place] [address] Discharge Diagnosis: Personal history of colonic polyps Discharge Disposition: 01-Home or Self Care Attending Physician: Christophe Estevez MD Admitting Physician: Christophe Estevez MD Vital Signs No data available for this section Problem List Condition Effective Dates Status Health [...] Compression Active fracture(Confirmed) Coronary artery Resolved disease(Confirmed) longterm current Active 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(Confirmed) High sun [...] prn, # 140 g, 3 Refill(s), Pharmacy: [facility] 242 Start Date: 11/29/14 Status: Ordered aspirin 81 mg, Oral, Daily, 0 Refill(s) Start Date: 04/26/14 Status: Ordered Calcium 500+D 2 tabs, Chewed, Daily, 0 Refill(s) Start Date: 04/19/15 Status: Ordered desonide 0.05% topical cream 1 cheryle, Topical, Daily, # 15 g, 1 Refill(s), Pharmacy: [place] [address] Start Date: 04/01/15 Status: Ordered desonide 0.05% topical gel 1 cheryle, Topical, apply to face bid prn, # 60 g, 0 Refill(s) Start Date: 04/26/14 Status: Ordered ferrous sulfate 325 mg (65 mg elemental iron) oral tablet 1 tabs, Oral, BID, # 60 tabs, 0 Refill(s), Pharmacy: [place] [address], 1 tabs Oral BID,x30 days Start Date: 02/02/15 Stop Date: 03/04/15 Status: Ordered Flomax 0.4 mg oral capsule 1 caps, Oral, Daily, # 90 caps, 1 Refill(s), Pharmacy: [place] [address], 1 caps Oral Daily,x90 days Start Date: 03/01/15 Stop Date: 08/28/15 Status: Ordered ketoconazole 2% topical gel See Instructions, wash face, scalp and chest daily as needed, leave on 5 mins then wash off, 0 Refill(s) Start Date: 04/26/14 Status: Ordered ketoconazole 2% topical shampoo 1 cheryle, Topical, 2x/Wk, # 120 mL, 6 Refill(s), Pharmacy: [facility] 242 Start Date: 04/01/15 Status: Ordered Nitrostat 0.4 mg sublingual tablet 1 tabs, SubLingual, q5min, as needed for chest pain, # 30 tabs, 3 Refill(s), Pharmacy: [facility] 242, 1 tabs SubLingual q5min,PRN:as needed for chest pain Start Date: 09/09/14 Status: Ordered [place] 5 mg-325 mg oral tablet 1-2 tabs, Oral, TID, # 60 tabs, 0 Refill(s) Start Date: 09/06/15 Status: Ordered rOPINIRole 0.5 mg oral tablet See Instructions, TAKE ONE TABLET BY MOUTH ONCE DAILY, # 30 tabs, 5 Refill(s), eRx: [facility], TAKE ONE TABLET BY MOUTH ONCE DAILY Start Date: 06/01/15 Status: Ordered simvastatin 20 mg oral tablet See Instructions, TAKE ONE TABLET BY MOUTH ONCE DAILY NEEDS APPT PRIOR TO ADDITIONAL REFILLS, # 30 tabs, 0 Refill(s), Pharmacy: [facility], TAKE ONE TABLET BY MOUTH ONCE DAILY; NEEDS APPT PRIOR TO ADDITIONAL REFILLS Start Date: 07/27/15 Status: Ordered Ultram 50 mg oral tablet See Instructions, 1-2 tablets every 8 hrs as needed for pain, # 60 tabs, 0 Refill(s) Start Date: 05/27/15 Status: Ordered Victoza 18 mg/3 mL subcutaneous solution See Instructions, INJECT 1.2MG SUB-Q DAILY, # 6 unknown unit, 2 Refill(s), eRx: [facility], INJECT 1.2MG SUB-Q DAILY Start [...] Extracted from: Title: Office Visit Note Author: Christophe Estevez MD Date: 09/28/15 Assessment/Plan Personal history of colonic polyps I'm going to go ahead and set him up for colonoscopy. H e is due due to his history of having a prior advanced adenoma. We just to make sure that there is no obvious recurrence. We will also look at the priorfissure siteto be sure that the fissure has not recurred as well. Risks and benefits of colonoscopy were discussed with him. All of his questions were answered. He has elected to proceed. Ordered: Office Visit Level 3 Est 14888
--- OUTSIDE RECORDS SUMMARY | 2017-03-01 11:58 | XMS REPORT | Referral Summary ---
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 Active 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(Confirmed) High sun [...] prn, # 140 g, 3 Refill(s), Pharmacy: [facility] 242 Start Date: 11/29/14 Status: Ordered aspirin 81 mg, Oral, Daily, 0 Refill(s) Start Date: 04/26/14 Status: Ordered Calcium 500+D 2 tabs, Chewed, Daily, 0 Refill(s) Start Date: 04/19/15 Status: Ordered desonide 0.05% topical cream 1 cheryle, Topical, Daily, # 15 g, 1 Refill(s), Pharmacy: [facility] 242 Start Date: 04/01/15 Status: Ordered desonide 0.05% topical gel 1 cheryle, Topical, apply to face bid prn, # 60 g, 0 Refill(s) Start Date: 04/26/14 Status: Ordered ferrous sulfate 325 mg (65 mg elemental iron) oral tablet 1 tabs, Oral, BID, # 60 tabs, 0 Refill(s), Pharmacy: [facility], 1 tabs Oral BID,x30 days Start Date: 02/02/15 Stop Date: 03/04/15 Status: Ordered Flomax 0.4 mg oral capsule 1 caps, Oral, Daily, # 90 caps, 1 Refill(s), Pharmacy: [facility], 1 caps Oral Daily,x90 days Start Date: 03/01/15 Stop Date: 08/28/15 Status: Ordered ketoconazole 2% topical gel See Instructions, wash face, scalp and chest daily as needed, leave on 5 mins then wash off, 0 Refill(s) Start Date: 04/26/14 Status: Ordered ketoconazole 2% topical shampoo 1 cheryle, Topical, 2x/Wk, # 120 mL, 6 Refill(s), Pharmacy: [facility] 242 Start Date: 04/01/15 Status: Ordered Nitrostat 0.4 mg sublingual tablet 1 tabs, SubLingual, q5min, as needed for chest pain, # 30 tabs, 3 Refill(s), Pharmacy: [facility], 1 tabs SubLingual q5min,PRN:as needed for chest pain Start Date: 09/09/14 Status: Ordered [place] 5 mg-325 mg oral tablet 1-2 tabs, Oral, TID, # 60 tabs, 0 Refill(s) Start Date: 09/06/15 Status: Ordered rOPINIRole 0.5 mg oral tablet See Instructions, TAKE ONE TABLET BY MOUTH ONCE DAILY, # 30 tabs, 5 Refill(s), eRx: [facility], TAKE ONE TABLET BY MOUTH ONCE DAILY Start Date: 06/01/15 Status: Ordered simvastatin 20 mg oral tablet See Instructions, TAKE ONE TABLET BY MOUTH ONCE DAILY NEEDS APPT PRIOR TO ADDITIONAL REFILLS, # 30 tabs, 0 Refill(s), Pharmacy: [facility], TAKE ONE TABLET BY MOUTH [...] # 6 unknown unit, 2 Refill(s), eRx: [facility], INJECT 1.2MG SUB-Q [...] rules. He will need to go to [place] to get his machine. A new CPAP is ordered at current pressure range of 7-15 cm. We we will see him back in 2 months to document compliance for Medicare. Referrals to Other Providers Referred by: Saulo Mujica MD
--- OUTSIDE RECORDS SUMMARY | 2017-03-01 11:58 | XMS REPORT | Referral Summary ---
Author Author [facility] , [facility] Organization [facility] Address Unknown Phone Unavailable Care Team Providers Care Supercharger Mechanic Name Role Phone Kiran Jane Primary Care Physician [phone] Encounter Date(s): 04/01/15 - 04/01/15 [facility] , [facility] [address] [place], [place] [address] Discharge Diagnosis: Rhinophyma Discharge Diagnosis: Seborrheic dermatitis, unspecified Discharge Disposition: 01-Home or Self Care Attending Physician: Per Julio MD Admitting Physician: Per Julio MD Vital Signs No data available for [...] Compression Active fracture(Confirmed) Coronary artery Resolved disease(Confirmed) 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) High sun [...] BID, # 60 tabs, 0 Refill(s), Pharmacy: [place] [address], 1 tabs Oral BID,x30 days Start Date: 02/02/15 Stop Date: 03/04/15 Status: Ordered Flomax 0.4 mg oral capsule 1 caps, Oral, Daily, # 90 caps, 1 Refill(s), Pharmacy: [facility], 1 caps Oral Daily,x90 days Start [...] pain, # 30 tabs, 3 Refill(s), Pharmacy: [facility], 1 tabs SubLingual q5min,PRN:as needed for chest pain Start Date: 09/09/14 Status: Ordered [place] 5 mg-325 mg oral tablet 1-2 tabs, Oral, TID, # 60 tabs, 0 Refill(s) Start Date: 09/06/15 Status: Ordered rOPINIRole 0.5 mg oral tablet See Instructions, TAKE ONE TABLET BY MOUTH ONCE DAILY, # 30 tabs, 5 Refill(s), eRx: [facility], TAKE ONE TABLET BY MOUTH ONCE DAILY Start Date: 06/01/15 Status: Ordered simvastatin 20 mg oral tablet See Instructions, TAKE ONE TABLET BY MOUTH ONCE DAILY NEEDS APPT PRIOR TO ADDITIONAL REFILLS, # 30 tabs, 0 Refill(s), Pharmacy: [facility], TAKE ONE TABLET BY [...] # 6 unknown unit, 2 Refill(s), eRx: [facility], INJECT 1.2MG SUB-Q DAILY [...] Extracted from: Title: Office Visit Note Author: Per Julio MD Date: 04/01/15 Assessment/Plan Rhinophyma Seborrheic dermatitis, unspecified Orders: desonide topical, 1 cheryle, Topical, Daily, # 15 g, 1 Refill(s), Pharmacy : [facility]29 ketoconazole topical, 1 cheryle, Topical, 2x/Wk, # 120 mL, 6 Refill(s), Pharmacy: [facility]
--- OUTSIDE RECORDS SUMMARY | 2017-03-01 11:58 | XMS REPORT | Continuity of Care Document ---
Author Author Keysha Hollins LPN Ambulatory Address [facility] [place] [address] Phone Unavailable Care Team Providers Care Transition Lead Name Role Phone Victorinaalison David HEADLEY Unavailable Payers Payer name Insurance type Covered alliance party ID Authorization(s) Unknown Problems Condition Effective Dates (start - stop) Clinical Status Lumbago - *Chronic Calculus of kidney - *Chronic Chronic kidney disease, unspecified - *Chronic Hypertension, Benign - *Chronic Other and unspecified hyperlipidemia - *Chronic CAD, Unspecified - *Chronic COPD - *Chronic Diabetes Mellitus Type 2, Uncomplicated - *Chronic Diabetes Mellitus, Adult Onset, Uncontrolled - Chronic Hypertension, Benign - Chronic Diabetes Mellitus Type 2, Uncomplicated - *Chronic Other and unspecified hyperlipidemia - *Chronic Anemia - *Chronic Dizziness - Episodic Encounter for therapeutic drug monitoring - *Routine Diabetes Mellitus, Adult Onset, Uncontrolled - *Chronic Hypertension, Benign - *Chronic CAD, Unspecified - *Chronic Renal Insufficiency, Acute - *Chronic Other and unspecified hyperlipidemia - *Chronic Well male exam - *Acute Calculus of kidney - *Resolved Unilat ing hernia - *Controlled Calculus of kidney - *Resolved Diabetes Mellitus Type 2, Uncomplicated - *Chronic Hypertension, Benign - *Chronic Other and unspecified hyperlipidemia - *Chronic Obesity - *Chronic BPH - *Chronic Pneumonia Vaccine - NEED FOR PROPHYLACTIC VACCINATION WITH COMBINED [id number] ( DTP) (DTAP) VACCINE - NEED FOR PROPHYLACTIC VACCINATION AND INOCULATION, OTHER VIRAL DISEASES - Dizziness - *Chronic Hypertension, benign - *Chronic Orthostatic hypotension - *Acute Hypertension, Benign - *Chronic CAD, Unspecified - *Chronic Other and unspecified hyperlipidemia - *Chronic Diabetes Mellitus, Adult Onset, Uncontrolled - *Chronic Osteoarthrosis, generalized, involving unspecified site - * Chronic Obesity - *Chronic Influenza Vaccine - Calculus of kidney - *Chronic Hypertension, Benign - *Chronic Other and unspecified hyperlipidemia - *Chronic Diabetes Mellitus Type 2, Uncomplicated - *Chronic Osteoarthrosis, generalized, involving unspecified site - * Chronic CAD, Unspecified - *Chronic BPH - *Chronic Upper Respiratory Infection, Acute - *Chronic Dizziness - *Acute Anemia - *Chronic Anal fissure - Healing Personal history of colonic polyps - Healing Personal history of colonic polyps - *Acute Hypotension, unspecified - Episodic Encounter for therapeutic drug monitoring - *Chronic Dizziness - *Acute Anal fissure - *Stable Special screening for malignant neoplasms, colon - *Acute Diabetes Mellitus, Adult Onset, Uncontrolled - *Chronic CAD, Unspecified - *Chronic Lumbago - *Chronic Calculus of kidney - *Chronic Chronic kidney disease, Stage III (moderate) - Moderate Hypertension, Benign - *Chronic Other and unspecified hyperlipidemia - *Chronic Osteoarthrosis, generalized, involving unspecified site - * Chronic Diabetes Mellitus, Adult Onset, Uncontrolled - *Chronic Hypertension, Benign - *Chronic Other and unspecified hyperlipidemia - *Chronic Renal Insufficiency, Acute - *Chronic CAD, Unspecified - *Chronic Anal fissure - *Chronic Personal history of colonic polyps - *Chronic Diabetes Mellitus, Adult Onset, Uncontrolled - *Chronic Hypertension, Benign - *Chronic Other and unspecified hyperlipidemia - *Chronic Renal Insufficiency, Acute - *Chronic Family History Family Member Diagnosis Age At Onset Status Brother (Alive) severe spinal arthritis (Unknown) Mother (Alive) Dementia 78 (Unknown) Father (Alive) unspecified vasculititis 73 (Unknown) Paternal grandfather (Alive) Cancer, skin (Unknown) Social History Social History Element Description Quantity Unknown Allergies, Adverse Reactions, Alerts Substance Reaction Severity Status Unknown Medications Medication Instructions Dosage Effective Dates (start - stop) Status Aspirin Low-Strength 81 mg chewable tablet chew 1 tablet (81MG) by oral route every day 81 MG - Active Ultram 50 mg tablet TAKE 1-2 TABLETS EVERY 8 HOURS NEEDED FOR PAIN. Sep - Active Flomax 0.4 mg capsule take 1 capsule (0.4MG) by oral route every day 0.4 MG - No Longer Active simvastatin 20 mg tablet Take 1 tablet by mouth every day. - Active Requip 0.5 mg tablet Take 1 tablet by mouth every day. - Active glipizide 10 mg tablet one tab 10 minutes prior to breakfast and supper - Active Tradjenta 5 mg tablet take 1 tablet (5MG) by oral route every day 5 MG Aug - Active doxycycline hyclate 100 mg capsule take 1 capsule (100MG) by oral route every 12 hours 100 MG - Active prednisone 20 mg tablet take 1 tablet (20MG) by oral route every day 20 MG - Active Flomax 0.4 mg capsule take 1 capsule (0.4MG) by oral route every day 0.4 MG - Active Suprep 17.5 gram-3.13 gram-1.6 gram Oral Solution TAKE INDICATED - Active Immunizations Vaccine Date Status Comments Tdap (Boostrix r) completed Zoster completed Pneumo (2 yrs or older)(PPV) completed Flu (split) (3 yrs or older) completed pneumo (2 yrs or older) (PPV23) completed - Completed reason: source unspecified Td (adult) completed - Completed reason: source unspecified Flu (split) (3 yrs or older) completed Results Test Name Date and Time Measure Units Reference Range Abnormal Flag Comments Panel Description: CBC WBC 10:54:00 12.9 K/uL 4.8-10.8 H RBC 10:54:00 4.48 M/uL 4.60-6.20 L HGB 10:54:00 12.7 g/dl 14.0-18.0 L HCT 10:54:00 39.1 % 42.0-52.0 L MCV 10:54:00 87.3 fL 82.0-99.0 MCH 10:54:00 28.3 pg 27.0-32.0 MCHC 10:54:00 32.5 g/dL 32.0-36.0 RDW 10:54:00 15.3 % 11.5-14.5 H MPV 10:54:00 11.3 fL 8.8-14.8 Platelet Count 10:54:00 220 K/uL 150-400 Immature Granulocytes 10:54:00 0.3 % 0.0-1.0 Absolute Neutrophils 10:54:00 9.99 THOUS 1.90-7.00 H Absolute Lymphocytes 10:54:00 1.64 THOUS 0.80-3.30 Absolute Monocytes 10:54:00 0.90 THOUS 0.30-1.00 Absolute Eosinophils 10:54:00 0.27 THOUS 0.00-0.50 Absolute Basophils 10:54:00 0.04 THOUS 0.00-0.20 Neutrophils 10:54:00 78 % 51-75 H Lymphocytes 10:54:00 13 % 20-46 L Monocytes 10:54:00 7 % 4-11 Eosinophils 10:54:00 2 % 0-4 Basophils 10:54:00 0 % 0-2 Testing performed at [facility] [address] [place] [address] Presentation Team Member Darren Tate MD Panel Description: Chemistry Profile Glucose 10:54:00 184 mg/dL 70-99 H BUN 10:54:00 18 mg/dL 8-26 Creatinine 10:54:00 1.32 mg/dL 0.72-1.25 H Calcium 10:54:00 9.6 mg/dL 8.9-10.5 Sodium 10:54:00 140 mEq/L 135-144 Potassium 10:54:00 4.6 mEq/L 3.5-5.2 Chloride 10:54:00 105 mEq/L 99-111 CO2 10:54:00 26 mEq/L 23-31 Albumin 10:54:00 3.7 g/dL 3.4-4.8 Bilirubin Total 10:54:00 0.5 mg/dL 0.2-1.2 Alkaline Phosphatase 10:54:00 208 U/L 40-150 H Protein 10:54:00 6.9 g/dL 6.2-8.1 ALT (SGPT) 10:54:00 32 U/L 0-55 AST (SGOT) 10:54:00 42 U/L 5-34 H Anion Gap 10:54:00 9 3-20 Globulin 10:54:00 3.2 g/dL 1.8-4.0 Testing performed at [facility] [address] [place], [place] [id number] Presentation Team Member Darren Tate MD Panel Description: Lipid Profile-[facility] Cholesterol 10:54:00 137 mg/dL 0-199 Triglycerides 10:54:00 134 mg/dL 0-149 HDL Cholesterol 10:54:00 31 mg/dL 40-84 L LDL Cholesterol 10:54:00 79 mg/dL 0-130 VLDL Cholesterol 10:54:00 27 mg/dL 0-28 Cardiac Risk 10:54:00 4.4 0.0-5.7 Testing performed at [facility] [address] [place] [address] Presentation Team Member Darren Tate MD Panel Description: Non-HDL Cholesterol-[facility] Non-HDL Cholesterol 10:54:00 106 mg/dL 0-159 Testing performed at [facility] [address] [place] [address] Presentation Team Member Darren Tate MD Panel Description: EGFR-[facility] eGFR 10:54:00 54 mL/min >60 A Multiply eGFR results by 1.21 for race.Testing performed at [facility] [address] [place] [address] Presentation Team Member Darren Tate MD Panel Description: Direct Bilirubin Bilirubin Direct 10:54:00 0.3 mg/dL 0.0-0.5 Testing performed at [facility] [address] [place] [address] Presentation Team Member Darren Tate MD Panel Description: Prostatic Specific Antigen-[facility] PSA 10:54:00 0.2 ng/mL 0.0-4.5 AUA PSA Best Practice Guidelines: Age-Adjusted PSA Values by Ethnic GroupAge Range Asians - Caucasians [id number] 0-2.0 0-2.0 0-2.550-59 0-3.0 0-4.0 0-3.560-69 0-4.0 0-4.5 0-4.570-79 0-5.0 0-5.5 0-6.5Testing performed at [facility] [address] [place] [address] Presentation Team Member Darren Tate MD Panel Description: Urinalysis with Reflex Microscopic Appearance 10:54:00 Clear Color 10:54:00 Yellow Glucose, Urine 10:54:00 Negative Negative Ketones 10:54:00 Negative Negative Blood 10:54:00 Negative Negative Protein 10:54:00 Negative Negative Nitrites 10:54:00 Negative Negative Bilirubin 10:54:00 Negative Negative Specific [place] 10:54:00 1.018 1.003-1.03 pH 10:54:00 5.0 5.0-8.0 Urobilinogen 10:54:00 0.2 mg/dL <1.0 Leukocyte Esterase 10:54:00 Negative Negative Testing performed at [facility] [address] [facility] [address] Presentation Team Member Darren Tate MD Vital Signs Date / Time: Height Weight Pulse Rate Blood Pressure Temperature /10:30:00 71.22 in 248.00 lbs 130/70 mm[Hg] 97.7 F Procedures Procedure Date Unknown Encounters Encounter Location Date Patient Visit [facility] Patient [facility] Patient Visit [facility] Patient Visit [facility] Patient Visit [facility] Patient Visit [facility] Surg Patient Visit [facility] Patient Visit [facility] Patient Visit [facility] Patient [facility] Patient Visit [facility] Surg Patient Visit [facility] Surg Patient [facility] Patient Visit [facility] Surg Patient Visit [facility] ASC Patient [facility] Patient Visit [facility] Patient Visit [facility] ASC Patient Visit [facility] Patient Visit [facility] Patient Visit [facility] Advance Directives Directive Effective Date Unknown
--- OUTSIDE RECORDS SUMMARY | 2017-03-01 11:58 | XMS REPORT | Referral Summary ---
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(Confirmed) High [...] 140 g, 3 Refill(s), Pharmacy: [facility] 242 Start Date: 11/29/14 Status: Ordered aspirin 81 mg, Oral, Daily, 0 Refill(s) Start Date: 04/26/14 Status: Ordered Calcium 500+D 2 tabs, Chewed, Daily, 0 Refill(s) Start Date: 04/19/15 Status: Ordered desonide 0.05% topical cream 1 cheryle, Topical, Daily, # 15 g, 1 Refill(s), Pharmacy: [facility] 242 Start Date: 04/01/15 Status: Ordered desonide 0.05% topical gel 1 cheryle, Topical, apply to face bid prn, # 60 g, 0 Refill(s) Start Date: 04/26/14 Status: Ordered ferrous sulfate 325 mg (65 mg elemental iron) oral tablet 1 tabs, Oral, BID, # 60 tabs, 0 Refill(s), Pharmacy: [place] [id number], 1 tabs Oral BID,x30 days Start Date: 02/02/15 Stop Date: 03/04/15 Status: Ordered Flomax 0.4 mg oral capsule 1 caps, Oral, Daily, # 90 caps, 1 Refill(s), Pharmacy: [facility], 1 caps Oral Daily,x90 days Start Date: 03/01/15 Stop Date: 08/28/15 Status: Ordered ketoconazole 2% topical gel See Instructions, wash face, scalp and chest daily as needed, leave on 5 mins then wash off, 0 Refill(s) Start Date: 04/26/14 Status: Ordered ketoconazole 2% topical shampoo 1 cheryle, Topical, 2x/Wk, # 120 mL, 6 Refill(s), Pharmacy: [facility] 242 Start Date: 04/01/15 Status: Ordered Nitrostat 0.4 mg sublingual tablet 1 tabs, SubLingual, q5min, as needed for chest pain, # 30 tabs, 3 Refill(s), Pharmacy: [facility], 1 tabs SubLingual q5min,PRN:as needed for chest pain Start Date: 09/09/14 Status: Ordered [place] 5 mg-325 mg oral tablet 1-2 tabs, Oral, TID, # 60 tabs, 0 Refill(s) Start Date: 09/06/15 Status: Ordered rOPINIRole 0.5 mg oral tablet See Instructions, TAKE ONE TABLET BY MOUTH ONCE DAILY, # 30 tabs, 5 Refill(s), eRx: [facility], TAKE ONE TABLET BY MOUTH ONCE DAILY Start Date: 06/01/15 Status: Ordered simvastatin 20 mg oral tablet See Instructions, TAKE ONE TABLET BY MOUTH ONCE DAILY NEEDS APPT PRIOR TO ADDITIONAL REFILLS, # 30 tabs, 0 Refill(s), Pharmacy: [facility], TAKE ONE TABLET BY MOUTH [...] # 6 unknown unit, 2 Refill(s), eRx: [facility], INJECT 1.2MG SUB-Q DAILY Start [...] # 15 g, 1 Refill(s), Pharmacy : [facility] ketoconazole topical, 1 cheryle, Topical, 2x/Wk, # 120 mL, 6 Refill(s), Pharmacy: [facility]
--- OUTSIDE RECORDS SUMMARY | 2017-03-01 11:58 | XMS REPORT | Continuity of Care Document ---
Author Author Keysha Hollins LPN Ambulatory Address [facility] [place] [address] Phone Unavailable Care Team Providers Care Tool Mechanic Name Role Phone Victorinaalison David HEADLEY Unavailable Payers Payer name Insurance type Covered democrat ID Authorization(s) Unknown Problems Condition Effective Dates (start - stop) Clinical Status Well male exam - *Acute Calculus of kidney - *Resolved Unilat ing hernia - *Controlled Calculus of kidney - *Resolved Diabetes Mellitus Type 2, Uncomplicated - *Chronic Hypertension, Benign - *Chronic Other and unspecified hyperlipidemia - *Chronic Obesity - *Chronic BPH - *Chronic Pneumonia Vaccine - NEED FOR PROPHYLACTIC VACCINATION WITH COMBINED [id number] ( DTP) (DTAP) VACCINE - NEED FOR PROPHYLACTIC VACCINATION AND INOCULATION, OTHER VIRAL DISEASES - Diabetes Mellitus, Adult Onset, Uncontrolled - Chronic Hypertension, Benign - Chronic Diabetes Mellitus Type 2, Uncomplicated - *Chronic Other and unspecified hyperlipidemia - *Chronic Anemia - *Chronic Dizziness - Episodic Encounter for therapeutic drug monitoring - *Routine Diabetes Mellitus, Adult Onset, Uncontrolled - *Chronic Hypertension, Benign - *Chronic CAD, Unspecified - *Chronic Renal Insufficiency, Acute - *Chronic Other and unspecified hyperlipidemia - *Chronic Lumbago - *Chronic Calculus of kidney - *Chronic Chronic kidney disease, unspecified - *Chronic Hypertension, Benign - *Chronic Other and unspecified hyperlipidemia - *Chronic CAD, Unspecified - *Chronic COPD - *Chronic Diabetes Mellitus Type 2, Uncomplicated - *Chronic Dizziness - *Chronic Hypertension, benign - *Chronic [...] Dosage Effective Dates (start - stop) Status doxycycline hyclate 100 mg capsule take 1 capsule (100MG) by oral route every 12 hours 100 MG - Active prednisone 20 mg tablet take 1 tablet (20MG) by oral route every day 20 MG - Active Flomax 0.4 mg capsule take 1 capsule (0.4MG) by oral route every day 0.4 MG - Active Flomax 0.4 mg capsule [...] every day 5 MG Aug - Active Aspirin Low-Strength 81 mg chewable tablet chew 1 tablet (81MG) by oral route every day 81 MG - Active Ultram 50 mg tablet TAKE 1-2 TABLETS EVERY 8 HOURS NEEDED FOR PAIN. Sep - Active Suprep 17.5 gram-3.13 gram-1.6 gram oral solution TAKE INDICATED - Active Immunizations Vaccine Date [...] Measure Units Reference Range Abnormal Flag Comments Unknown Vital Signs Date / Time: Height Weight Pulse Rate Blood Pressure Temperature /11:01:00 71.00 in 246.00 lbs 120/70 mm[Hg] 97.8 F Procedures Procedure Date PNEUMOCOCCAL VACCINE,ADULT,SQ OR IM TDAP VACCINE >7 IM ZOSTER VACC, SC Encounters Encounter Location Date Patient Visit [facility] Patient Visit [facility] Patient Visit [facility] Patient Visit [facility] Patient Visit [facility] Patient Visit [facility] Surg Patient Visit [facility] Patient [facility] Patient [facility] Patient [facility] Patient Visit [facility] Surg Patient Visit [facility] Surg Patient [facility] Patient Visit [facility] Surg Patient Visit [facility] ASC Patient [facility] Patient Visit [facility] Patient Visit [facility] ASC Patient Visit [facility] End[facility] Patient Visit [facility] Patient Visit [facility] Advance Directives Directive Effective Date Unknown
--- OUTSIDE RECORDS SUMMARY | 2017-03-01 11:59 | XMS REPORT | Referral Summary ---
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(Confirmed) High sun [...] prn, # 140 g, 3 Refill(s), Pharmacy: [facility] 242 Start Date: 11/29/14 Status: Ordered aspirin 81 mg, Oral, Daily, 0 Refill(s) Start Date: 04/26/14 Status: Ordered Calcium 500+D 2 tabs, Chewed, Daily, 0 Refill(s) Start Date: 04/19/15 Status: Ordered desonide 0.05% topical cream 1 cheryle, Topical, Daily, # 15 g, 1 Refill(s), Pharmacy: [facility] 242 Start Date: 04/01/15 Status: Ordered desonide 0.05% topical gel 1 cheryle, Topical, apply to face bid prn, # 60 g, 0 Refill(s) Start Date: 04/26/14 Status: Ordered ferrous sulfate 325 mg (65 mg elemental iron) oral tablet 1 tabs, Oral, BID, # 60 tabs, 0 Refill(s), Pharmacy: [place] [address], 1 tabs Oral BID,x30 days Start Date: 02/02/15 Stop Date: 03/04/15 Status: Ordered Flomax 0.4 mg oral capsule 1 caps, Oral, Daily, # 90 caps, 1 Refill(s), Pharmacy: [facility] 242, 1 caps Oral Daily,x90 days Start Date: 03/01/15 Stop Date: 08/28/15 Status: Ordered ketoconazole 2% topical gel See Instructions, wash face, scalp and chest daily as needed, leave on 5 mins then wash off, 0 Refill(s) Start Date: 04/26/14 Status: Ordered ketoconazole 2% topical shampoo 1 cheryle, Topical, 2x/Wk, # 120 mL, 6 Refill(s), Pharmacy: [facility] 242 Start Date: 04/01/15 Status: Ordered Nitrostat 0.4 mg sublingual tablet 1 tabs, SubLingual, q5min, as needed for chest pain, # 30 tabs, 3 Refill(s), Pharmacy: [facility], 1 tabs SubLingual q5min,PRN:as needed for chest pain Start Date: 09/09/14 Status: Ordered [place] 5 mg-325 mg oral tablet 1-2 tabs, Oral, TID, # 60 tabs, 0 Refill(s) Start Date: 09/06/15 Status: Ordered rOPINIRole 0.5 mg oral tablet See Instructions, TAKE ONE TABLET BY MOUTH ONCE DAILY, # 30 tabs, 5 Refill(s), eRx: [facility], TAKE ONE TABLET BY MOUTH ONCE DAILY Start Date: 06/01/15 Status: Ordered simvastatin 20 mg oral tablet See Instructions, TAKE ONE TABLET BY MOUTH ONCE DAILY NEEDS APPT PRIOR TO ADDITIONAL REFILLS, # 30 tabs, 0 Refill(s), Pharmacy: [facility], TAKE ONE TABLET BY [...] # 6 unknown unit, 2 Refill(s), eRx: [facility], INJECT 1.2MG SUB-Q DAILY [...] # 15 g, 1 Refill(s), Pharmacy : [facility] ketoconazole topical, 1 cheryle, Topical, 2x/Wk, # 120 mL, 6 Refill(s), Pharmacy: [facility]
--- OUTSIDE RECORDS SUMMARY | 2017-03-01 11:59 | XMS REPORT | Referral Summary ---
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 current Active 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(Confirmed) High sun [...] prn, # 140 g, 3 Refill(s), Pharmacy: [facility] 242 Start Date: 11/29/14 Status: Ordered aspirin 81 mg, Oral, Daily, 0 Refill(s) Start Date: 04/26/14 Status: Ordered Calcium 500+D 2 tabs, Chewed, Daily, 0 Refill(s) Start Date: 04/19/15 Status: Ordered desonide 0.05% topical cream 1 cheryle, Topical, Daily, # 15 g, 1 Refill(s), Pharmacy: [facility] 242 Start Date: 04/01/15 Status: Ordered desonide 0.05% topical gel 1 cheryle, Topical, apply to face bid prn, # 60 g, 0 Refill(s) Start Date: 04/26/14 Status: Ordered ferrous sulfate 325 mg (65 mg elemental iron) oral tablet 1 tabs, Oral, BID, # 60 tabs, 0 Refill(s), Pharmacy: [facility], 1 tabs Oral BID,x30 days Start Date: 02/02/15 Stop Date: 03/04/15 Status: Ordered Flomax 0.4 mg oral capsule 1 caps, Oral, Daily, # 90 caps, 1 Refill(s), Pharmacy: [facility], 1 caps Oral Daily,x90 days Start Date: 03/01/15 Stop Date: 08/28/15 Status: Ordered ketoconazole 2% topical gel See Instructions, wash face, scalp and chest daily as needed, leave on 5 mins then wash off, 0 Refill(s) Start Date: 04/26/14 Status: Ordered ketoconazole 2% topical shampoo 1 cheryle, Topical, 2x/Wk, # 120 mL, 6 Refill(s), Pharmacy: [facility] 242 Start Date: 04/01/15 Status: Ordered Nitrostat 0.4 mg sublingual tablet 1 tabs, SubLingual, q5min, as needed for chest pain, # 30 tabs, 3 Refill(s), Pharmacy: [facility], 1 tabs SubLingual q5min,PRN:as needed for chest pain Start Date: 09/09/14 Status: Ordered [place] 5 mg-325 mg oral tablet 1-2 tabs, Oral, TID, # 60 tabs, 0 Refill(s) Start Date: 09/06/15 Status: Ordered rOPINIRole 0.5 mg oral tablet See Instructions, TAKE ONE TABLET BY MOUTH ONCE DAILY, # 30 tabs, 5 Refill(s), eRx: [facility], TAKE ONE TABLET BY MOUTH ONCE DAILY Start Date: 06/01/15 Status: Ordered simvastatin 20 mg oral tablet See Instructions, TAKE ONE TABLET BY MOUTH ONCE DAILY NEEDS APPT PRIOR TO ADDITIONAL REFILLS, # 30 tabs, 0 Refill(s), Pharmacy: [facility], TAKE ONE TABLET BY [...] # 6 unknown unit, 2 Refill(s), eRx: [facility], INJECT 1.2MG SUB-Q DAILY [...] rules. He will need to go to [place] to get his machine. A new CPAP is ordered at current pressure range of 7-15 cm. We we will see him back in 2 months to document compliance for Medicare. Referrals to Other Providers Referred by: Saulo Mujica MD
--- OUTSIDE RECORDS SUMMARY | 2017-03-01 11:59 | XMS REPORT | Referral Summary ---
Author Author [facility] Organization [facility] Address Unknown Phone Unavailable Care Team Providers Care Huc Ob Name Role Phone Kiran Jane Primary Care Physician [phone] Encounter Date(s): 03/10/15 - 03/10/15 [facility] [address] , [facility] [address] [place], [place] [address] Discharge Diagnosis: Obstructive sleep apnea, adult [...] Compression Active fracture(Confirmed) Coronary artery Resolved disease(Confirmed) halfway current Active 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(Confirmed) High sun [...] 140 g, 3 Refill(s), Pharmacy: [facility] 242 Start Date: 11/29/14 Status: Ordered aspirin 81 mg, Oral, Daily, 0 Refill(s) Start Date: 04/26/14 Status: Ordered Calcium 500+D 2 tabs, Chewed, Daily, 0 Refill(s) Start Date: 04/19/15 Status: Ordered desonide 0.05% topical cream 1 cheryle, Topical, Daily, # 15 g, 1 Refill(s), Pharmacy: [facility] 242 Start Date: 04/01/15 Status: Ordered desonide 0.05% topical gel 1 cheryle, Topical, apply to face bid prn, # 60 g, 0 Refill(s) Start Date: 04/26/14 Status: Ordered ferrous sulfate 325 mg (65 mg elemental iron) oral tablet 1 tabs, Oral, BID, # 60 tabs, 0 Refill(s), Pharmacy: [facility], 1 tabs Oral BID,x30 days Start Date: 02/02/15 Stop Date: 03/04/15 Status: Ordered Flomax 0.4 mg oral capsule 1 caps, Oral, Daily, # 90 caps, 1 Refill(s), Pharmacy: [facility], 1 caps Oral Daily,x90 days Start Date: 03/01/15 Stop Date: 08/28/15 Status: Ordered ketoconazole 2% topical gel See Instructions, wash face, scalp and chest daily as needed, leave on 5 mins then wash off, 0 Refill(s) Start Date: 04/26/14 Status: Ordered ketoconazole 2% topical shampoo 1 cheryle, Topical, 2x/Wk, # 120 mL, 6 Refill(s), Pharmacy: [facility] 242 Start Date: 04/01/15 Status: Ordered Nitrostat 0.4 mg sublingual tablet 1 tabs, SubLingual, q5min, as needed for chest pain, # 30 tabs, 3 Refill(s), Pharmacy: [facility], 1 tabs SubLingual q5min,PRN:as needed for chest pain Start Date: 09/09/14 Status: Ordered [place] 5 mg-325 mg oral tablet 1-2 tabs, Oral, TID, # 60 tabs, 0 Refill(s) Start Date: 09/06/15 Status: Ordered rOPINIRole 0.5 mg oral tablet See Instructions, TAKE ONE TABLET BY MOUTH ONCE DAILY, # 30 tabs, 5 Refill(s), eRx: [id number], TAKE ONE TABLET BY MOUTH ONCE DAILY Start Date: 06/01/15 Status: Ordered simvastatin 20 mg oral tablet See Instructions, TAKE ONE TABLET BY MOUTH ONCE DAILY NEEDS APPT PRIOR TO ADDITIONAL REFILLS, # 30 tabs, 0 Refill(s), Pharmacy: [facility], TAKE ONE TABLET BY [...] # 6 unknown unit, 2 Refill(s), eRx: [facility], INJECT 1.2MG SUB-Q DAILY [...] rules. He will need to go to [place] to get his machine. A new CPAP is ordered at current pressure range of 7-15 cm. We we will see him back in 2 months to document compliance for Medicare. Referrals to Other Providers Referred by: Saulo Mujica MD
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
--- OUTSIDE RECORDS SUMMARY | 2017-03-01 11:59 | XMS REPORT | Referral Summary ---
Author Author [facility], Endocrinology Organization [facility], Endocrinology Address Unknown Phone Unavailable Care Team Providers Care Drafter Structural Name Role Phone Kiran Jane Primary Care Physician [phone] Encounter [facility] [id number] Date(s): 09/17/16 - 09/17/16 [facility]dock, Endocrinology [address] [place] [address] [facility] Discharge Diagnosis: Diabetes type 2, controlled Discharge Diagnosis: Chronic kidney disease (CKD) Discharge Diagnosis: Chronic kidney disease, stage 2 (mild) Discharge Disposition: 01-Home or Self Care Attending Physician: Arabella Varghese APRN Admitting Physician: Arabella Varghese APRN Vital Signs Most recent to 1 oldest [Reference Range]: Peripheral Pulse 68 bpm Rate [60-100 bpm] (09/17/16 9:16 AM) Blood Pressure 108/60 mmHg [90-140/60-90 mmHg] (09/17/16 9:16 AM) Problem List Condition Effective Dates Status Health Status Informant Acute Active bronchitis(Confirmed ) Maxillary sinusitis, Active acute(Confirmed) Acute Active pharyngitis(Confirme d) Allergic Active rhinitis/Hay fever(Confirmed) anal Resolved fissure(Confirmed) Asthma(Confirmed) Active Benign essential Active hypertension (disorder)(Confirmed ) Hx of elevated BUN, Active and creatinine(Confirmed ) Chronic back Active pain(Confirmed) Chronic kidney Active disease (CKD)(Confirmed) Chronic obstructive Active pulmonary disease (COPD)(Confirmed) Compression Active fracture(Confirmed) Coronary artery Resolved disease(Confirmed) penitentiary current Active 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(Confirmed) High sun [...] prn, # 140 g, 3 Refill(s), Pharmacy: [facility] Start Date: 11/29/14 Status: Ordered aspirin 81 mg, Oral, Daily, 0 Refill(s) Start Date: 04/26/14 Status: Ordered Calcium 500+D 2 tabs, Chewed, Daily, 0 Refill(s) Start Date: 04/19/15 Status: Ordered desonide 0.05% topical gel 1 cheryle, Topical, apply to face bid prn, # 60 g, 0 Refill(s) Start Date: 04/26/14 Status: Ordered ferrous sulfate 325 mg (65 mg elemental iron) oral tablet 1 tabs, Oral, BID, # 60 tabs, 0 Refill(s), Pharmacy: [facility], 1 tabs Oral BID,x30 days Start Date: 02/02/15 Stop Date: 03/04/15 Status: Ordered Flomax 0.4 mg oral capsule 1 caps, Oral, Daily, # 90 caps, 1 Refill(s), Pharmacy: [facility], 1 caps Oral Daily,x90 days Start Date: 03/01/15 Stop Date: 08/28/15 Status: Ordered Nitrostat 0.4 mg sublingual tablet 1 tabs, SubLingual, q5min, as needed for chest pain, # 30 tabs, 3 Refill(s), Pharmacy: [facility], 1 tabs SubLingual q5min,PRN:as needed for chest pain Start Date: 09/09/14 Status: Ordered [place] 5 mg-325 mg oral tablet 1-2 tabs, Oral, TID, # 60 tabs, 0 Refill(s) Start Date: 06/21/16 Status: Ordered promethazine-codeine 6.25 mg-10 mg/5 mL oral syrup 5 mL, Oral, q4hr, as needed for cough, # 120 mL, 0 Refill(s), called to pharmacy (Rx) Start Date: 06/21/16 Status: Ordered rOPINIRole 0.5 mg oral tablet See Instructions, TAKE ONE TABLET BY MOUTH ONCE DAILY, # 30 tabs, 4 Refill(s), eRx: [facility], TAKE ONE TABLET BY MOUTH ONCE DAILY Start Date: 04/16/16 Status: Ordered simvastatin 20 mg oral tablet See Instructions, TAKE ONE TABLET BY MOUTH ONCE DAILY AT BEDTIME, # 90 tabs, eRx : [facility], TAKE ONE TABLET BY MOUTH ONCE DAILY AT BEDTIME Start Date: 07/17/16 Status: Ordered Ultram 50 mg oral tablet See Instructions, 1-2 tablets every 8 hrs as needed for pain, # 60 tabs, 0 Refill(s) Start Date: 05/27/15 Status: Ordered Victoza 18 mg/3 mL subcutaneous solution See Instructions, INJECT 1.2MG SUB-Q DAILY, # 6 unknown unit, 11 Refill(s), eRx : [facility], INJECT 1.2MG SUB-Q DAILY Start Date: 11/18/15 Status: Ordered Vitamin C 1,000 mg, Oral, BID, takes with iron, 0 Refill(s) Start Date: 03/01/15 Status: Ordered Results Chemistry Most recent to 1 oldest [Reference Range]: Hgb A1c [4.1-5.6 %] 7.3 % *HI* (09/17/16 10:10 AM) eAvg Glucose 162.8 mg/dL (09/17/16 10:10 AM) Immunizations Vaccine Date Refusal Reason tetanus/diphth/pertuss [...] Title: Office Visit Note Author: Arabella Varghese REVENUE CYCLE MANAGER Date: 09/17/16 Assessment/Plan 1.Diabetes type 2, controlled 1. check blood sugars fasting and 2 hours after meals 3-7 days per week 2. continue current dose of victoza 3. monitor diet closely, keep grams of carbs per meal between 35-40 and keep snacks at 15 grams 4. exercise as tolerated 5. rotate injection sites I discussed the patient with the preceptor. Ordered: Hemoglobin A1c Office Visit Level 3 Est 13095 2.Chronic kidney disease (CKD), Chronic kidney disease, stage 2 (mild) Ordered: Hemoglobin A1c Office Visit Level 3 Est 26058 Extracted from: Title: Ambulatory Patient Education Author: Arabella Varghese REVENUE CYCLE MANAGER Date: 09/17/16 Family Medicine Diabetes Mellitus and Food It is important for you to manage your blood sugar (glucose) level. Your blood glucose level can be greatly affected by what you eat. Eating healthier foods in the appropriate amounts throughout the day at about the same time each day will help you control your blood glucose level. It can also help slow or prevent worsening of your diabetes mellitus. Healthy eating may even help you improve the level of your blood pressure and reach or maintain a healthy weight. General recommendations for healthful eating and cooking habits include: Eating meals and snacks regularly. Avoid going long periods of time without eating to lose weight. Eating a diet that consists mainly of plant-based foods, such as fruits, vegetables, nuts, legumes, and whole grains. Using low-heat cooking methods, such as baking, instead of high-heat cooking methods, such as deep frying. Work with your dietitian to make sure you understand how to use the Nutrition Facts information on food labels. HOW CAN FOOD AFFECT ME? Carbohydrates Carbohydrates affect your blood glucose level more than any other type of food. Your dietitian will help you determine how many carbohydrates to eat at each meal and teach you how to count carbohydrates. Counting carbohydrates is important to keep your blood glucose at a healthy level, especially if you are using insulin or taking certain medicines for diabetes mellitus. Alcohol Alcohol can cause sudden decreases in blood glucose (hypoglycemia), especially if you use insulin or take certain medicines for diabetes mellitus. Hypoglycemia can be a life-threatening condition. Symptoms of hypoglycemia ( sleepiness, dizziness, and disorientation) are similar to symptoms of having too much alcohol. If your health care provider has given you approval to drink alcohol, do so in moderation and use the following guidelines: Women should not have more than one drink per day, and men should not have more than two drinks per day. One drink is equal to: 12 oz of beer. 5 oz of wine. 1 oz of hard liquor. Do not drink on an empty stomach. Keep yourself hydrated. Have water, diet soda, or unsweetened iced tea. Regular soda, juice, and other mixers might contain a lot of carbohydrates and should be counted. WHAT FOODS ARE NOT RECOMMENDED? As you make food choices, it is important to remember that all foods are not the same. Some foods have fewer nutrients per serving than other foods, even though they might have the same number of calories or carbohydrates. It is difficult to get your body what it needs when you eat foods with fewer nutrients. Examples of foods that you should avoid that are high in calories and carbohydrates but low in nutrients include: Trans fats (most processed foods list trans fats on the Nutrition Facts label). Regular soda. Juice. Candy. Sweets, such as cake, pie, doughnuts, and cookies. Fried foods. WHAT FOODS CAN I EAT? Eat nutrient-rich foods, which will nourish your body and keep you healthy. The food you should eat also will depend on several factors, including: The calories you need. The medicines you take. Your weight. Your blood glucose level. Your blood pressure level. Your cholesterol level. You should eat a variety of foods, including: Protein. Lean cuts of meat. Proteins low in saturated fats, such as fish, egg whites, and beans. Avoid processed meats. Fruits and vegetables. Fruits and vegetables that may help control blood glucose levels, such as apples, mangoes, and yams. Dairy products. Choose fat-free or low-fat dairy products, such as milk, yogurt, and cheese. Grains, bread, pasta, and rice. Choose whole grain products, such as multigrain bread, whole oats, and brown rice. These foods may help control blood pressure. Fats. Foods containing healthful fats, such as nuts, avocado, olive oil, canola oil, and fish. DOES EVERYONE WITH DIABETES MELLITUS HAVE THE SAME MEAL PLAN? Because every person with diabetes mellitus is different, there is not one meal plan that works for everyone. It is very important that you meet with a dietitian who will help you create a meal plan that is just right for you. This information is not intended to replace advice given to you by your health care provider. Make sure you discuss any questions you have with your health care provider. Document Released: 07/25/2006 Document Revised: 11/18/2015 Document Reviewed: [employer] Patient Education 2016 [employer] No follow up information was provided.
--- OUTSIDE RECORDS SUMMARY | 2017-03-01 11:59 | XMS REPORT | Referral Summary ---
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 Role Phone Kiran Jane Primary Care Physician [phone] Encounter [facility] Date(s): 03/30/16 - 03/30/16 [facility] Newton [address] [place] [address] Discharge Disposition: 01-Home or Self Care Attending Physician: David Jane MD Admitting Physician: David Jane MD Vital Signs Most recent to 1 oldest [Reference Range]: Blood Pressure 120/60 mmHg [90-140/60-90 mmHg] (03/30/16 1:18 PM) Problem List Condition Effective Dates Status [...] 140 g, 3 Refill(s), Pharmacy: [facility] Start Date: 11/29/14 Status: Ordered aspirin 81 mg, Oral, Daily, 0 Refill(s) Start Date: 04/26/14 Status: Ordered Calcium 500+D 2 tabs, Chewed, Daily, 0 Refill(s) Start Date: 04/19/15 Status: Ordered desonide 0.05% topical cream 1 cheryle, Topical, Daily, # 15 g, 1 Refill(s), Pharmacy: [place] [id number] Start Date: 04/01/15 Status: Ordered desonide 0.05% topical gel 1 cheryle, Topical, apply to face bid prn, # 60 g, 0 Refill(s) Start Date: 04/26/14 Status: Ordered ferrous sulfate 325 mg (65 mg elemental iron) oral tablet 1 tabs, Oral, BID, # 60 tabs, 0 Refill(s), Pharmacy: [place] [address], 1 tabs Oral BID,x30 days Start Date: 02/02/15 Stop Date: 03/04/15 Status: Ordered Flomax 0.4 mg oral capsule 1 caps, Oral, Daily, # 90 caps, 1 Refill(s), Pharmacy: [facility], 1 caps Oral Daily,x90 days Start Date: 03/01/15 Stop Date: 08/28/15 Status: Ordered ketoconazole 2% topical gel See Instructions, wash face, scalp and chest daily as needed, leave on 5 mins then wash off, 0 Refill(s) Start Date: 04/26/14 Status: Ordered ketoconazole 2% topical shampoo 1 cheryle, Topical, 2x/Wk, # 120 mL, 6 Refill(s), Pharmacy: [facility] Start Date: 04/01/15 Status: Ordered Nitrostat 0.4 mg sublingual tablet 1 tabs, SubLingual, q5min, as needed for chest pain, # 30 tabs, 3 Refill(s), Pharmacy: [facility], 1 tabs SubLingual q5min,PRN:as needed for chest pain Start Date: 09/09/14 Status: Ordered [place] 5 mg-325 mg oral tablet 1-2 tabs, Oral, TID, # 60 tabs, 0 Refill(s) Start Date: 09/06/15 Status: Ordered rOPINIRole 0.5 mg oral tablet See Instructions, TAKE ONE TABLET BY MOUTH ONCE DAILY, # 30 tabs, 0 Refill(s), Pharmacy: [facility], TAKE ONE TABLET BY MOUTH ONCE DAILY Start Date: 03/14/16 Status: Ordered simvastatin 20 mg oral tablet 20 mg 1 tabs, Oral, Bedtime (once a day), Will need med check for next refill., # 90 tabs, 0 Refill(s), Pharmacy: [facility], 1 tabs Oral Bedtime ( once a day),x90 days,Instr:Will need med check for next refill. Start Date: 10/03/15 Stop Date: 12/31/15 Status: Ordered simvastatin 20 mg oral tablet See Instructions, TAKE ONE TABLET BY MOUTH ONCE DAILY AT BEDTIME, # 90 tabs, eRx : [facility], TAKE ONE TABLET BY MOUTH ONCE DAILY AT BEDTIME Start Date: 01/11/16 Status: Ordered Ultram 50 mg oral tablet See Instructions, 1-2 tablets every 8 hrs as needed for pain, # 60 tabs, 0 Refill(s) Start Date: 05/27/15 Status: Ordered Victoza 18 mg/3 mL subcutaneous solution See Instructions, INJECT 1.2MG SUB-Q DAILY, # 6 unknown unit, 11 Refill(s), eRx : [facility], INJECT 1.2MG SUB-Q [...] Patient Education Author: David Jane MD Date: Nephrology Chronic Kidney Disease Chronic kidney disease occurs when the kidneys are damaged over a long period. The kidneys are two organs that lie on either side of the spine between the middle of the back and the front of the abdomen. The kidneys: Remove wastes and extra water from the blood. Produce important hormones. These help keep bones strong, regulate blood pressure, and help create red blood cells. Balance the fluids and chemicals in the blood and tissues. A small amount of kidney damage may not cause problems, but a large amount of damage may make it difficult or impossible for the kidneys to work the way they should. If steps are not taken to slow down the kidney damage or stop it from getting worse, the kidneys may stop working permanently. Most of the time, chronic kidney disease does not go away. However, it can often be controlled, and those with the disease can usually live normal lives. CAUSES The most common causes of chronic kidney disease are diabetes and high blood pressure (hypertension). Chronic kidney disease may also be caused by: Diseases that cause the kidneys' filters to become inflamed. Diseases that affect the immune system. Genetic diseases. Medicines that damage the kidneys, such as anti-inflammatory medicines. Poisoning or exposure to toxic substances. A reoccurring kidney or urinary infection. A problem with urine flow. This may be caused by: Cancer. Kidney stones. An enlarged prostate in males. SIGNS AND SYMPTOMS Because the kidney damage in chronic kidney disease occurs slowly, symptoms develop slowly and may not be obvious until the kidney damage becomes severe. A person may have a kidney disease for years without showing any symptoms. Symptoms can include: Swelling (edema) of the legs, ankles, or feet. Tiredness (lethargy). Nausea or vomiting. Confusion. Problems with urination, such as: Decreased urine production. Frequent urination, especially at night. Frequent accidents in children who are potty trained. Muscle twitches and cramps. Shortness of breath. Weakness. Persistent itchiness. Loss of appetite. Metallic taste in the mouth. Trouble sleeping. Slowed development in children. Short stature in children. DIAGNOSIS Chronic kidney disease may be detected and diagnosed by tests, including blood, urine, imaging, or kidney biopsy tests. TREATMENT Most chronic kidney diseases cannot be cured. Treatment usually involves relieving symptoms and preventing or slowing the progression of the disease. Treatment may include: A special diet. You may need to avoid alcohol and foods thatare salty and high in potassium. Medicines. These may: Lower blood pressure. Relieve anemia. Relieve swelling. Protect the bones. HOME CARE INSTRUCTIONS Follow your prescribed diet. Your health care provider may instruct you to limit daily salt (sodium) and protein intake. Take medicines only as directed by your health care provider. Do not take any new medicines (prescription, nkvo-wqe-kzshhug, or nutritional supplements) unless approved by your health care provider. Many medicines can worsen your kidney damage or need to have the dose adjusted. Quit smoking if you smoke. Talk to your health care provider about a smoking cessation program. Keep all follow-up visits as directed by your health care provider. Monitor your blood pressure. Start or continue an exercise plan. Get immunizations as directed by your health care provider. Take vitamin and mineral supplements as directed by your health care provider. SEEK IMMEDIATE MEDICAL CARE IF: Your symptoms get worse or you develop new symptoms. You develop symptoms of end-stage kidney disease. These include: Headaches. Abnormally dark or light skin. Numbness in the hands or feet. Easy bruising. Frequent hiccups. Menstruation stops. You have a fever. You have decreased urine production. You havepain or bleeding when urinating. MAKE SURE YOU: Understand these instructions. Will watch your condition. Will get help right away if you are not doing well or get worse. FOR MORE INFORMATION [place] [employer]: www.aakp.org National Kidney Foundation: www.kidney.org [place] [employer]: www.akfinc.org Life [employer] [facility] Program: www.lifeoptions.org and www.kidneyschool.org This information is not intended to replace advice given to you by your health care provider. Make sure you discuss any questions you have with your health care provider. Document Released: 08/06/2009 Document Revised: 08/16/2015 Document Reviewed: [employer] Patient Information 2015 [employer]. No follow up information was provided. Extracted from: Title: Office Visit Note Author: David Jane MD Date: 03/30/16 Assessment/Plan Accidental fall from ladder The patient's issue is nearly or completely resolved. There is no further issues or testing desired by them at this time. Acute pain of right foot Xray pending. We discussed several options for treatment for this condition. The patient declined any changes or other treatments at this time. Benign essential hypertension (disorder) This issue was reviewed, appears stable, and current therapy continued except as mentioned. Appropriate lab was reviewed from the most recent appropriate entry and lab was ordered if needed in the cpoe/nursing orders, and follow up recommended generally in 90 days and no later then six months. The patient reports their blood pressure has been stable at home and is not having any significant or related problems. There has been no chest pain, chest pressure, soa/sahni. Ordered: CBC w/ Differential Comprehensive Metabolic Panel Urinalysis with Culture if Indicated Chronic kidney disease (CKD) This issue was reviewed, appears stable, and current therapy continued except as mentioned. Appropriate lab was reviewed from the most recent appropriate entry and lab was ordered if needed in the cpoe /nursing orders, and follow up recommended generally in 90 days and no later then six months. Lab pending. Coronary artery disease This issue was reviewed, appears stable, and current therapy continued except as mentioned. Appropriate lab was reviewed from the most recent appropriate entry and lab was ordered if needed in the cpoe/nursing orders, and follow up recommended generally in 90 days and no later then six months. Seeing Cardiology shortly. Diabetes type 2, controlled This issue was reviewed, appears stable, and current therapy continued except as mentioned. Appropriate lab was reviewed from the most recent appropriate entry and lab was ordered if needed in the cpoe /nursing orders, and follow up recommended generally in 90 days and no later then six months. The patient was notified for the need for regular quarterly f/u of their diabetes. Further any pertinent medication, supplies, etc were refilled. Additionally, they are to have annual eye exams, foot exams, and regular care. Seeing Dr. Castro in April. Ordered: TSH with Reflex Free T4 Kidney stones The patient's issue is nearly or completely resolved. There is no further issues or testing desired by them at this time. Lab pending. Ordered: Uric Acid Obesity Diet and exercise as tolerated and feasible. Consider medication when interested. We discussed several options for treatment for this condition. The patient declined any changes or other treatments at this time. Discussed increasing his victoza and declined due to cost. Consider jardiance/invokana. Obstructive sleep apnea, adult This issue was reviewed, appears stable, and current therapy continued except as mentioned. Appropriate lab was reviewed from the most recent appropriate entry and lab was ordered if needed in the cpoe /nursing orders, and follow up recommended generally in 90 days and no later then six months. Using cpap. Orders: XR Foot Complete Right
--- OUTSIDE RECORDS SUMMARY | 2017-03-01 11:59 | XMS REPORT | Referral Summary ---
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(Confirmed) High sun [...] prn, # 140 g, 3 Refill(s), Pharmacy: [facility] Start Date: 11/29/14 Status: Ordered aspirin 81 mg, Oral, Daily, 0 Refill(s) Start Date: 04/26/14 Status: Ordered Calcium 500+D 2 tabs, Chewed, Daily, 0 Refill(s) Start Date: 04/19/15 Status: Ordered desonide 0.05% topical cream 1 cheryle, Topical, Daily, # 15 g, 1 Refill(s), Pharmacy: [facility] Start Date: 04/01/15 Status: Ordered desonide 0.05% topical gel 1 cheryle, Topical, apply to face bid prn, # 60 g, 0 Refill(s) Start Date: 04/26/14 Status: Ordered ferrous sulfate 325 mg (65 mg elemental iron) oral tablet 1 tabs, Oral, BID, # 60 tabs, 0 Refill(s), Pharmacy: [place] [address], 1 tabs Oral BID,x30 days Start Date: 02/02/15 Stop Date: 03/04/15 Status: Ordered Flomax 0.4 mg oral capsule 1 caps, Oral, Daily, # 90 caps, 1 Refill(s), Pharmacy: [facility], 1 caps Oral Daily,x90 days Start Date: 03/01/15 Stop Date: 08/28/15 Status: Ordered ketoconazole 2% topical gel See Instructions, wash face, scalp and chest daily as needed, leave on 5 mins then wash off, 0 Refill(s) Start Date: 04/26/14 Status: Ordered ketoconazole 2% topical shampoo 1 cheryle, Topical, 2x/Wk, # 120 mL, 6 Refill(s), Pharmacy: [facility] Start Date: 04/01/15 Status: Ordered Nitrostat 0.4 mg sublingual tablet 1 tabs, SubLingual, q5min, as needed for chest pain, # 30 tabs, 3 Refill(s), Pharmacy: [facility], 1 tabs SubLingual q5min,PRN:as needed for chest pain Start Date: 09/09/14 Status: Ordered [place] 5 mg-325 mg oral tablet 1-2 tabs, Oral, TID, # 60 tabs, 0 Refill(s) Start Date: 09/06/15 Status: Ordered rOPINIRole 0.5 mg oral tablet See Instructions, TAKE ONE TABLET BY MOUTH ONCE DAILY, # 30 tabs, 5 Refill(s), eRx: [facility], TAKE ONE TABLET BY MOUTH ONCE DAILY Start Date: 06/01/15 Status: Ordered simvastatin 20 mg oral tablet See Instructions, TAKE ONE TABLET BY MOUTH ONCE DAILY NEEDS APPT PRIOR TO ADDITIONAL REFILLS, # 30 tabs, 0 Refill(s), Pharmacy: [facility], TAKE ONE TABLET BY [...] # 6 unknown unit, 2 Refill(s), eRx: [facility], INJECT 1.2MG SUB-Q DAILY [...] # 15 g, 1 Refill(s), Pharmacy : [facility] ketoconazole topical, 1 cheryle, Topical, 2x/Wk, # 120 mL, 6 Refill(s), Pharmacy: [facility]
--- OUTSIDE RECORDS SUMMARY | 2017-03-01 12:00 | XMS REPORT | Continuity of Care Document ---
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 Name Role Phone David Jane PP Unavailable Payers Payer name Insurance type Covered democrat ID Authorization(s) Unknown Problems Condition Effective Dates (start - stop) Clinical Status Diabetes Mellitus, Adult Onset, Uncontrolled - *Chronic Hypertension, Benign - *Chronic Other and unspecified hyperlipidemia - *Chronic Renal Insufficiency, Acute - *Chronic Diabetes Mellitus, Adult Onset, Uncontrolled - Chronic Hypertension, Benign - Chronic Diabetes Mellitus Type 2, Uncomplicated - *Chronic Other and unspecified hyperlipidemia - *Chronic Anemia - *Chronic Dizziness - Episodic Encounter for therapeutic drug monitoring - *Routine Lumbago - *Chronic Calculus of kidney - *Chronic Chronic kidney disease, unspecified - *Chronic Hypertension, Benign - *Chronic Other and unspecified hyperlipidemia - *Chronic CAD, Unspecified - *Chronic COPD - *Chronic Diabetes Mellitus Type 2, Uncomplicated - *Chronic Seborrheic dermatitis, unspecified - *Chronic Nevus, non-neoplastic - *Chronic Other seborrheic keratosis - *Chronic Other specified diseases of sebaceous glands - *Chronic Dizziness - *Chronic Hypertension, benign [...] *Chronic Upper Respiratory Infection, Acute - *Chronic Well male exam - *Acute Calculus of kidney - *Resolved Unilat ing hernia - *Controlled Calculus of kidney - *Resolved Diabetes Mellitus Type 2, Uncomplicated - *Chronic Hypertension, Benign - *Chronic Other and unspecified hyperlipidemia - *Chronic Obesity - *Chronic BPH - *Chronic Pneumonia Vaccine - NEED FOR PROPHYLACTIC VACCINATION WITH COMBINED [id number] ( DTP) (DTAP) VACCINE - NEED FOR PROPHYLACTIC VACCINATION AND INOCULATION, OTHER VIRAL DISEASES - Dizziness - *Acute Anemia - *Chronic Anal fissure - Healing Personal history of colonic polyps - Healing Diabetes Mellitus, Adult Onset, Uncontrolled - *Chronic Hypertension, Benign - *Chronic CAD, Unspecified - *Chronic Renal Insufficiency, Acute - *Chronic Other and unspecified hyperlipidemia - *Chronic Personal history of colonic polyps - *Acute Hypotension, unspecified - Episodic Encounter for therapeutic drug monitoring - *Chronic Dizziness - *Acute Personal history of colonic polyps - *Stable Anal fissure - *Stable Special screening for [...] Dosage Effective Dates (start - stop) Status Victoza 3-Jordy 0.6 mg/0.1 mL (18 mg/3 mL) subcutaneous pen injector inject 0.3 milliliter (1.8MG) by subcutaneous route every day 1.8 MG - No Longer Active Victoza 3-Jordy 0.6 mg/0.1 mL (18 mg/3 mL) subcutaneous pen injector inject 0.3 milliliter (1.8MG) by subcutaneous route every day 1.8 MG - No Longer Active simvastatin 20 mg tablet Take 1 tablet by mouth every day. - Active Requip 0.5 mg tablet Take 1 tablet by mouth every day. - Active Aspirin Low-Strength 81 mg chewable tablet chew 1 tablet (81MG) by oral route every day 81 MG - Active Ultram 50 mg tablet TAKE 1-2 TABLETS EVERY 8 HOURS NEEDED FOR PAIN. Sep - Active Flomax 0.4 mg capsule take 1 capsule (0.4MG) by oral route every day 0.4 MG - Active STOOL SOFTENER (unknown strength) - Active Novolog Mix 70-30 FlexPen 100 unit/mL subcutaneous pen inject by subcutaneous route 36 am and 18 pm - Active ammonium lactate 12 % topical cream Apply to affected area BID PRN 2013 - Active ketoconazole 2 % shampoo Wash Face, Scalp and chest daily as needed. Leave on 5 minutes then wash off. - Active desonide 0.05 % topical cream Apply to face BID PRN. - Active Immunizations Vaccine Date Status Comments Flu (split) (3 yrs or older) completed Tdap (Boostrix r) completed Pneumo (2 yrs or older)(PPV) completed Zoster completed Flu (split) (3 yrs or older) completed Td (adult) completed - Completed reason: source unspecified pneumo (2 yrs or older) (PPV23) completed - Completed reason: source unspecified Results Test Name Date and Time Measure Units Reference Range Abnormal Flag Comments Panel Description: Hemoglobin A4b-DLR Hemoglobin A1C 11:19:00 5.3 % 4.1-5.6 Testing performed at [facility] Reference Lab [address] [address] Senior Warehouse Clerk Darren Tate MD Panel Description: EAG Calculation-AMS Estimated Average Glucose 11:19:00 105.4 mg/dL Testing performed at [facility] Reference Lab [address] [facility] [address] Senior Warehouse Clerk Darren Tate MD Vital Signs Date / Time: Height Weight Pulse Rate Blood Pressure Temperature /10:03:00 71.14 in 238.20 lbs 60 /min 112/60 mm[Hg] Procedures Procedure Date Unknown Encounters Encounter Location Date Patient Visit [facility] Patient Visit [facility] Patient Visit [facility] Patient Visit [facility] Patient Visit [facility] Patient [facility] Patient [facility] Patient [facility]urg Patient [facility] Patient [facility] Patient Visit [facility] Patient Visit [facility] Patient Visit [facility] Patient Visit [facility] Advance Directives Directive Effective Date Unknown
--- OUTSIDE RECORDS SUMMARY | 2017-03-01 12:00 | XMS REPORT | Referral Summary ---
Author Author [facility], Endocrinology Organization [facility], Endocrinology Address Unknown Phone Unavailable Care Team Providers Care Baseball Sewer Hand Name Role Phone Kiran Jane Primary Care Physician [phone] Encounter [facility] [id number] Date(s): 02/07/16 - 02/07/16 [facility], Endocrinology [address] [place] [address] [facility] Discharge Diagnosis: Diabetes type 2, controlled Discharge Diagnosis: Benign essential hypertension Discharge Diagnosis: Mixed hyperlipidemia Discharge Diagnosis: Screening for thyroid disorder Discharge Disposition: 01-Home or Self Care Attending Physician: Arabella Varghese APRN Admitting Physician: Arabella Varghese APRN Vital Signs Most recent to 1 oldest [Reference Range]: Peripheral Pulse 72 bpm Rate [60-100 bpm] (02/07/16 9:09 AM) Blood Pressure 120/70 mmHg [90-140/60-90 mmHg] (02/07/16 9:09 AM) Problem List Condition Effective Dates Status [...] prn, # 140 g, 3 Refill(s), [facility] Start Date: 11/29/14 Status: Ordered aspirin 81 mg, Oral, Daily, 0 Refill(s) Start Date: 04/26/14 Status: Ordered Calcium 500+D 2 tabs, Chewed, Daily, 0 Refill(s) Start Date: 04/19/15 Status: Ordered desonide 0.05% topical cream 1 cheryle, Topical, Daily, # 15 g, 1 Refill(s), Pharmacy: [facility] Start Date: 04/01/15 Status: Ordered desonide 0.05% topical gel 1 cheryle, Topical, apply to face bid prn, # 60 g, 0 Refill(s) Start Date: 04/26/14 Status: Ordered ferrous sulfate 325 mg (65 mg elemental iron) oral tablet 1 tabs, Oral, BID, # 60 tabs, 0 Refill(s), Pharmacy: [facility], 1 tabs Oral BID,x30 days Start Date: 02/02/15 Stop Date: 03/04/15 Status: Ordered Flomax 0.4 mg oral capsule 1 caps, Oral, Daily, # 90 caps, 1 Refill(s), Pharmacy: [facility], 1 caps Oral Daily,x90 days Start Date: 03/01/15 Stop Date: 08/28/15 Status: Ordered ketoconazole 2% topical gel See Instructions, wash face, scalp and chest daily as needed, leave on 5 mins then wash off, 0 Refill(s) Start Date: 04/26/14 Status: Ordered ketoconazole 2% topical shampoo 1 cheryle, Topical, 2x/Wk, # 120 mL, 6 Refill(s), Pharmacy: [facility] Start Date: 04/01/15 Status: Ordered Nitrostat 0.4 mg sublingual tablet 1 tabs, SubLingual, q5min, as needed for chest pain, # 30 tabs, 3 Refill(s), Pharmacy: [facility] 2428, 1 tabs SubLingual q5min,PRN:as needed for chest pain Start Date: 09/09/14 Status: Ordered Hancock 5 mg-325 mg oral tablet 1-2 tabs, Oral, TID, # 60 tabs, 0 Refill(s) Start Date: 09/06/15 Status: Ordered rOPINIRole 0.5 mg oral tablet See Instructions, TAKE ONE TABLET BY MOUTH ONCE DAILY, # 30 tabs, 2 Refill(s), eRx: [facility], TAKE ONE TABLET BY MOUTH ONCE DAILY Start Date: 12/12/15 Status: Ordered simvastatin 20 mg oral tablet 20 mg 1 tabs, Oral, Bedtime (once a day), Will need med check for next refill., # 90 tabs, 0 Refill(s), Pharmacy: [place] [id number], 1 tabs Oral Bedtime ( once a day),x90 days,Instr:Will need med check for next refill. Start Date: 10/03/15 Stop Date: 12/31/15 Status: Ordered simvastatin 20 mg oral tablet See Instructions, TAKE ONE TABLET BY MOUTH ONCE DAILY AT BEDTIME, # 90 tabs, eRx : [facility], TAKE ONE TABLET BY MOUTH ONCE DAILY AT BEDTIME Start Date: 01/11/16 Status: Ordered Ultram 50 mg oral tablet See Instructions, 1-2 tablets every 8 hrs as needed for pain, # 60 tabs, 0 Refill(s) Start Date: 05/27/15 Status: Ordered Victoza 18 mg/3 mL subcutaneous solution See Instructions, INJECT 1.2MG SUB-Q DAILY, # 6 unknown unit, 11 Refill(s), eRx : [facility], INJECT 1.2MG SUB-Q DAILY Start Date: 11/18/15 Status: Ordered Vitamin C 1,000 mg, Oral, BID, takes with iron, 0 Refill(s) Start Date: 03/01/15 Status: Ordered Results Chemistry Most recent to 1 oldest [Reference Range]: ALT [0-55 U/L] 40 U/L (02/07/16 9:59 AM) AST [5-34 U/L] 39 U/L *HI* (02/07/16 9:59 AM) T4 Free [0.7-1.5 0.9 ng/dL ng/dL] (02/07/16 9:59 AM) TSH [0.35-4.94] 2.57 (02/07/16 9:59 AM) Hgb A1c [4.1-5.6 %] 6.8 % *HI* (02/07/16 9:59 AM) eAvg Glucose 148.5 mg/dL (02/07/16 9:59 AM) Immunizations Vaccine Date Refusal Reason tetanus/diphth/pertuss [...] Title: Office Visit Note Author: Arabella Varghese SCHOOL CURRICULUM DEVELOPER Date: 02/07/16 Assessment/Plan 1.Diabetes type 2, controlled 1. check blood sugars fasting and 2 hours after meals 3-7 days per week 2. continue same dose of victoza 3. rotate injection sites 4. monitor diet and exercise 5. monitor feet daily I discussed the patient with the preceptor. Ordered: Albumin/Creatinine Ratio, Urine ALT AST Free T4 Hemoglobin A1c Office Visit Level 3 Est [id number] Return to Clinic TSH 3rd Generation 2.Benign essential hypertension Ordered: Albumin/Creatinine Ratio, Urine ALT AST Free T4 Hemoglobin A1c Office Visit Level 3 Est [id number] Return to Clinic TSH 3rd Generation 3.Mixed hyperlipidemia Ordered: Albumin/Creatinine Ratio, Urine ALT AST Free T4 Hemoglobin A1c Office Visit Level 3 Est [id number] Return to Clinic TSH 3rd Generation 4.Screening for thyroid disorder Ordered: Albumin/Creatinine Ratio, Urine ALT AST Free T4 Hemoglobin A1c Office Visit Level 3 Est [id number] Return to Clinic TSH 3rd Generation Extracted from: Title: Ambulatory Patient Education Author: Arabella Varghese APRN Date: Family Medicine Blood Glucose Monitoring Monitoring your blood glucose (also know as blood sugar) helps you to manage your diabetes. It also helps you and your health care provider monitor your diabetes and determine how well your treatment plan is working. WHY SHOULD YOU MONITOR YOUR BLOOD GLUCOSE? It can help you understand how food, exercise, and medicine affect your blood glucose. It allows you to know what your blood glucose is at any given moment. You can quickly tell if you are having low blood glucose (hypoglycemia) or high blood glucose (hyperglycemia). It can help you and your health care provider know how to adjust your medicines. It can help you understand how to manage an illness or adjust medicine for exercise. WHEN SHOULD YOU TEST? Your health care provider will help you decide how often you should check your blood glucose. This may depend on the type of diabetes you have, your diabetes control, or the types of medicines you are taking. Be sure to write down all of your blood glucose readings so that this information can be reviewed with your health care provider. See below for examples of testing times that your health care provider may suggest. Type 1 Diabetes Test at least 2 times per day if your diabetes is well controlled, if you are using an insulin pump, or if you perform multiple daily injections. If your diabetes is not well controlled or if you are sick, you may need to test more often. It is a good idea to also test: Before every insulin injection. Before and after exercise. Between meals and 2 hours after a meal. Occasionally between 2:00 a.m. and 3:00 a.m. Type 2 Diabetes If you are taking insulin, test at least 2 times per day. However, it is best to test before every insulin injection. If you take medicines by mouth (orally), test 2 times a day. If you are on a controlled diet, test once a day. If your diabetes is not well controlled or if you are sick, you may need to monitor more often. HOW TO MONITOR YOUR BLOOD GLUCOSE Supplies Needed Blood glucose meter. Test strips for your meter. Each meter has its own strips. You must use the strips that go with your own meter. A pricking needle (lancet). A device that holds the lancet (lancing device). A journal or log book to write down your results. Procedure Wash your hands with soap and water. Alcohol is not preferred. Prick the side of your finger (not the tip) with the lancet. Gently milk the finger until a small drop of blood appears. Follow the instructions that come with your meter for inserting the test strip, applying blood to the strip, and using your blood glucose meter. Other Areas to Get Blood for Testing Some meters allow you to use other areas of your body (other than your finger) to test your blood. These areas are called alternative sites. The most common alternative sites are: The forearm. The thigh. The back area of the lower leg. The palm of the hand. The blood flow in these areas is slower. Therefore, the blood glucose values you get may be delayed, and the numbers are different from what you would get from your fingers. Do not use alternative sites if you think you are having hypoglycemia. Your reading will not be accurate. Always use a finger if you are having hypoglycemia. Also, if you cannot feel your lows (hypoglycemia unawareness), always use your fingers for your blood glucose checks. ADDITIONAL TIPS FOR GLUCOSE MONITORING Do not reuse lancets. Always carry your supplies with you. All blood glucose meters have a 24-hour "hotline" number to call if you have questions or need help. Adjust (calibrate) your blood glucose meter with a control solution after finishing a few boxes of strips. BLOOD GLUCOSE RECORD KEEPING It is a good idea to keep a daily record or log of your blood glucose readings. Most glucose meters, if not all, keep your glucose records stored in the meter. Some meters come with the ability to download your records to your home computer. Keeping a record of your blood glucose readings is especially helpful if you are wanting to look for patterns. Make notes to go along with the blood glucose readings because you might forget what happened at that exact time. Keeping good records helps you and your health care provider to work together to achieve good diabetes management. This information is not intended to replace advice given to you by your health care provider. Make sure you discuss any questions you have with your health care provider. Document Released: 10/30/2004 Document Revised: 08/16/2015 Document Reviewed: Exit[employer] Patient Information 2015 [place], [facility]. No follow up information was provided.
--- OUTSIDE RECORDS SUMMARY | 2017-03-01 12:00 | XMS REPORT | Referral Summary ---
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) High sun [...] prn, # 140 g, 3 Refill(s), Pharmacy: [facility] 242 Start Date: 11/29/14 Status: Ordered aspirin 81 mg, Oral, Daily, 0 Refill(s) Start Date: 04/26/14 Status: Ordered Calcium 500+D 2 tabs, Chewed, Daily, 0 Refill(s) Start Date: 04/19/15 Status: Ordered desonide 0.05% topical cream 1 cheryle, Topical, Daily, # 15 g, 1 Refill(s), Pharmacy: [facility] 242 Start Date: 04/01/15 Status: Ordered desonide 0.05% topical gel 1 cheryle, Topical, apply to face bid prn, # 60 g, 0 Refill(s) Start Date: 04/26/14 Status: Ordered ferrous sulfate 325 mg (65 mg elemental iron) oral tablet 1 tabs, Oral, BID, # 60 tabs, 0 Refill(s), Pharmacy: [place] [address], 1 tabs Oral BID,x30 days Start Date: 02/02/15 Stop Date: 03/04/15 Status: Ordered Flomax 0.4 mg oral capsule 1 caps, Oral, Daily, # 90 caps, 1 Refill(s), Pharmacy: [facility], 1 caps Oral Daily,x90 days Start Date: 03/01/15 Stop Date: 08/28/15 Status: Ordered ketoconazole 2% topical gel See Instructions, wash face, scalp and chest daily as needed, leave on 5 mins then wash off, 0 Refill(s) Start Date: 04/26/14 Status: Ordered ketoconazole 2% topical shampoo 1 cheryle, Topical, 2x/Wk, # 120 mL, 6 Refill(s), Pharmacy: [facility] 242 Start Date: 04/01/15 Status: Ordered Nitrostat 0.4 mg sublingual tablet 1 tabs, SubLingual, q5min, as needed for chest pain, # 30 tabs, 3 Refill(s), Pharmacy: [facility], 1 tabs SubLingual q5min,PRN:as needed for chest pain Start Date: 09/09/14 Status: Ordered Gaffney 5 mg-325 mg oral tablet 1-2 tabs, Oral, TID, # 60 tabs, 0 Refill(s) Start Date: 09/06/15 Status: Ordered rOPINIRole 0.5 mg oral tablet See Instructions, TAKE ONE TABLET BY MOUTH ONCE DAILY, # 30 tabs, 5 Refill(s), eRx: [facility], TAKE ONE TABLET BY MOUTH ONCE DAILY Start Date: 06/01/15 Status: Ordered simvastatin 20 mg oral tablet See Instructions, TAKE ONE TABLET BY MOUTH ONCE DAILY NEEDS APPT PRIOR TO ADDITIONAL REFILLS, # 30 tabs, 0 Refill(s), Pharmacy: [facility], TAKE ONE TABLET BY [...] # 6 unknown unit, 2 Refill(s), eRx: [facility], INJECT 1.2MG SUB-Q DAILY [...] # 15 g, 1 Refill(s), Pharmacy : [facility] ketoconazole topical, 1 cheryle, Topical, 2x/Wk, # 120 mL, 6 Refill(s), Pharmacy: [facility]
--- OUTSIDE RECORDS SUMMARY | 2017-03-01 12:00 | XMS REPORT | Continuity of Care Document ---
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 - Active Requip 0.5 mg tablet Take 1 tablet by mouth every day. - Active Analpram-HC 2.5 %-1 % Rectal Cream Apply 3 times a day. - Active glipizide 10 mg tablet [...] route every day 0.4 MG - Active Immunizations Vaccine Date Status Comments [...] Height Weight Pulse Rate Blood Pressure Temperature /10:14:00 72.00 in 250.00 lbs Procedures Procedure Date Unknown Encounters Encounter Location Date Patient Visit [facility] Surg Patient Visit [facility] Patient Visit [facility] Patient Visit [facility] Patient Visit [facility] Patient Visit [facility] Patient Visit [facility] Patient Visit [facility] Patient Visit [facility] Patient [facility]urg Patient Visit [facility] Patient Visit [facility]urg Patient Visit [facility] Patient Visit [facility] Patient Visit [facility] Patient Visit [facility] Patient Visit [facility] Patient Visit [facility] Patient Visit [facility] Advance Directives Directive Effective Date Unknown
--- OUTSIDE RECORDS SUMMARY | 2017-03-01 12:00 | XMS REPORT | Referral Summary ---
Author Author [facility] , Dermatology Organization [facility] D[facility]atology Address Unknown Phone Unavailable Care Team Providers Care Bakery Associate Name Role Phone Kiran Jane Primary Care Physician [phone] Encounter Date(s): 04/01/15 - 04/01/15 [facility] , Dermatology [address] [place], [place] [address] Discharge Diagnosis: Rhinophyma Discharge Diagnosis: Seborrheic [...] fracture(Confirmed) Coronary artery Resolved disease(Confirmed) long term current Active 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(Confirmed) High sun [...] prn, # 140 g, 3 Refill(s), Pharmacy: [facility] 242 Start Date: 11/29/14 Status: Ordered aspirin 81 mg, Oral, Daily, 0 Refill(s) Start Date: 04/26/14 Status: Ordered Calcium 500+D 2 tabs, Chewed, Daily, 0 Refill(s) Start Date: 04/19/15 Status: Ordered desonide 0.05% topical cream 1 cheryle, Topical, Daily, # 15 g, 1 Refill(s), Pharmacy: [facility] 242 Start Date: 04/01/15 Status: Ordered desonide 0.05% topical gel 1 cheryle, Topical, apply to face bid prn, # 60 g, 0 Refill(s) Start Date: 04/26/14 Status: Ordered ferrous sulfate 325 mg (65 mg elemental iron) oral tablet 1 tabs, Oral, BID, # 60 tabs, 0 Refill(s), Pharmacy: [place] [id number], 1 tabs Oral BID,x30 days Start Date: 02/02/15 Stop Date: 03/04/15 Status: Ordered Flomax 0.4 mg oral capsule 1 caps, Oral, Daily, # 90 caps, 1 Refill(s), Pharmacy: [facility] 242, 1 caps Oral Daily,x90 days Start Date: 03/01/15 Stop Date: 08/28/15 Status: Ordered ketoconazole 2% topical gel See Instructions, wash face, scalp and chest daily as needed, leave on 5 mins then wash off, 0 Refill(s) Start Date: 04/26/14 Status: Ordered ketoconazole 2% topical shampoo 1 cheryle, Topical, 2x/Wk, # 120 mL, 6 Refill(s), Pharmacy: [facility] 242 Start Date: 04/01/15 Status: Ordered Nitrostat 0.4 mg sublingual tablet 1 tabs, SubLingual, q5min, as needed for chest pain, # 30 tabs, 3 Refill(s), Pharmacy: [facility] 242, 1 tabs SubLingual q5min,PRN:as needed for chest pain Start Date: 09/09/14 Status: Ordered [place] 5 mg-325 mg oral tablet 1-2 tabs, Oral, TID, # 60 tabs, 0 Refill(s) Start Date: 09/06/15 Status: Ordered rOPINIRole 0.5 mg oral tablet See Instructions, TAKE ONE TABLET BY MOUTH ONCE DAILY, # 30 tabs, 5 Refill(s), eRx: [facility], TAKE ONE TABLET BY MOUTH ONCE DAILY Start Date: 06/01/15 Status: Ordered simvastatin 20 mg oral tablet See Instructions, TAKE ONE TABLET BY MOUTH ONCE DAILY NEEDS APPT PRIOR TO ADDITIONAL REFILLS, # 30 tabs, 0 Refill(s), Pharmacy: [facility], TAKE ONE TABLET BY [...] # 6 unknown unit, 2 Refill(s), eRx: [facility], INJECT 1.2MG SUB-Q DAILY [...] # 15 g, 1 Refill(s), Pharmacy : [facility] ketoconazole topical, 1 cheryle, Topical, 2x/Wk, # 120 mL, 6 Refill(s), Pharmacy: [facility]
--- OUTSIDE RECORDS SUMMARY | 2017-03-01 12:00 | XMS REPORT | Referral Summary ---
Author Author [facility], Family Medicine Organization [facility] Address Unknown Phone Unavailable Care Team Providers Care Conditioner Tumbler Name Role Phone Kiran Jane Primary Care Physician [phone] Encounter VC Date(s): 04/25/15 - 04/25/15 [facility] [address] [place] [address] Discharge Disposition: 01-Home or Self Care Attending Physician: David Jane MD Admitting Physician: David Jane MD Vital Signs Most recent to 1 oldest [Reference Range]: Blood Pressure 140/70 mmHg [90-140/60-90 mmHg] (04/25/15 3:56 PM) Problem List Condition Effective Dates Status [...] 140 g, 3 Refill(s), Pharmacy: [facility] 242 Start Date: 11/29/14 Status: Ordered aspirin 81 mg, Oral, Daily, 0 Refill(s) Start Date: 04/26/14 Status: Ordered Calcium 500+D 2 tabs, Chewed, Daily, 0 Refill(s) Start Date: 04/19/15 Status: Ordered desonide 0.05% topical cream 1 cheryle, Topical, Daily, # 15 g, 1 Refill(s), Pharmacy: [place] [address] Start Date: 04/01/15 Status: Ordered desonide 0.05% topical gel 1 cheryle, Topical, apply to face bid prn, # 60 g, 0 Refill(s) Start Date: 04/26/14 Status: Ordered ferrous sulfate 325 mg (65 mg elemental iron) oral tablet 1 tabs, Oral, BID, # 60 tabs, 0 Refill(s), Pharmacy: [place] [address], 1 tabs Oral BID,x30 days Start Date: 02/02/15 Stop Date: 03/04/15 Status: Ordered Flomax 0.4 mg oral capsule 1 caps, Oral, Daily, # 90 caps, 1 Refill(s), Pharmacy: [facility], 1 caps Oral Daily,x90 days Start Date: 03/01/15 Stop Date: 08/28/15 Status: Ordered ketoconazole 2% topical gel See Instructions, wash face, scalp and chest daily as needed, leave on 5 mins then wash off, 0 Refill(s) Start Date: 04/26/14 Status: Ordered ketoconazole 2% topical shampoo 1 cheryle, Topical, 2x/Wk, # 120 mL, 6 Refill(s), Pharmacy: [facility] 242 Start Date: 04/01/15 Status: Ordered Nitrostat 0.4 mg sublingual tablet 1 tabs, SubLingual, q5min, as needed for chest pain, # 30 tabs, 3 Refill(s), Pharmacy: [facility] 242, 1 tabs SubLingual q5min,PRN:as needed for chest pain Start Date: 09/09/14 Status: Ordered [place] 5 mg-325 mg oral tablet 1-2 tabs, Oral, TID, # 60 tabs, 0 Refill(s) Start Date: 09/06/15 Status: Ordered rOPINIRole 0.5 mg oral tablet See Instructions, TAKE ONE TABLET BY MOUTH ONCE DAILY, # 30 tabs, 5 Refill(s), eRx: [facility], TAKE ONE TABLET BY MOUTH ONCE DAILY Start Date: 06/01/15 Status: Ordered simvastatin 20 mg oral tablet 20 mg 1 tabs, Oral, Bedtime (once a day), Will need med check for next refill., # 90 tabs, 0 Refill(s), Pharmacy: [facility], 1 tabs Oral Bedtime ( [...] # 6 unknown unit, 2 Refill(s), eRx: [facility], INJECT 1.2MG SUB-Q DAILY Start [...] blepth/ptosis ou 08/24/11 left temporal artery biopsy 3/18/10 heart cath 04/25/09 fissurectomy with sphincterectomy/colonoscopy pylonidal cystectomy rt carpal tunnel release rt knee scope, torn miniscus Social History Social History Type Response Smoking Status Former smoker1 1Quit smoking about 25 years ago. Assessment and Plan Extracted from: Title: Ambulatory Patient Education Author: David Jane MD Date: Emergency Medicine Abdominal Pain, Adult Many things can cause abdominal pain. Usually, abdominal pain is not caused by a disease and will improve without treatment. It can often be observed and treated at home. Your health care provider will do a physical exam and possibly order blood tests and X-rays to help determine the seriousness of your pain. However, in many cases, more time must pass before a clear cause of the pain can be found. Before that point, your health care provider may not know if you need more testing or further treatment. HOME CARE INSTRUCTIONS Monitor your abdominal pain for any changes. The following actions may help to alleviate any discomfort you are experiencing: Only take vkny-xof-cbqiuho or prescription medicines as directed by your health care provider. Do not take laxatives unless directed to do so by your health care provider. Try a clear liquid diet (broth, tea, or water) as directed by your health care provider. Slowly move to a bland diet as tolerated. SEEK MEDICAL CARE IF: You have unexplained abdominal pain. You have abdominal pain associated with nausea or diarrhea. You have pain when you urinate or have a bowel movement. You experience abdominal pain that wakes you in the night. You have abdominal pain that is worsened or improved by eating food. You have abdominal pain that is worsened with eating fatty foods. SEEK IMMEDIATE MEDICAL CARE IF: Your pain does not go away within 2 hours. You have a fever. You keep throwing up (vomiting ). Your pain is felt only in portions of the abdomen, such as the right side or the left lower portion of the abdomen. You pass bloody or black tarry stools. MAKE SURE YOU: Understand these instructions. Will watch your condition. Will get help right away if you are not doing well or get worse. Document Released: 08/07/2006 Document Revised: 08/18/2014 Document Reviewed: [facility] Patient Information 2014 [email or web address] [facility]. No follow up information was provided. Extracted from: Title: Office Visit Note Author: David Jane MD Date: 04/25/15 Assessment/Plan Abdominal pain The patient is here for an ongoing issue. They have been evaluated and treated in the past. Any past testing, xray's, lab, or consults have been reviewed if available. The patient may have been seen by an outside physician and/or IC too. CT pending. History of kidney stones. To [facility] if needed. Has norco. Ordered: CT Abdomen w/ + w/o Pelvis w/ + w/o Cont Back pain See above. CT pending. Ordered: CT Abdomen w/ + w/o Pelvis w/ + w/o Cont Kidney stones See above. Has norco and flomax. Type II diabetes mellitus uncontrolled (finding) This issue is stable and appropriate refills, lab, and f/u have been discussed. The patient was notified for the need for regular quarterly f/u of their diabetes. Further any pertinent medication, supplies, etc were refilled. Additionally, they are to have annual eye exams, foot exams, and regular care.
--- OUTSIDE RECORDS SUMMARY | 2017-03-01 12:00 | XMS REPORT | Continuity of Care Document ---
Author Author Pat Colmenares RN Ambulatory Address [facility] [place] [address] Phone Unavailable Care Team Providers Care It Risk Analyst Name Role Phone David Jane PP Unavailable Payers Payer name Insurance type Covered constitution party ID Authorization(s) Unknown Problems Condition Effective Dates (start - stop) Clinical Status Personal history of colonic polyps - *Stable Diabetes Mellitus, Adult Onset, Uncontrolled - Chronic [...] - NEED FOR PROPHYLACTIC VACCINATION WITH COMBINED [id number] ( DTP) (DTAP) VACCINE - NEED FOR [...] drug monitoring - *Chronic Dizziness - *Acute Diabetes Mellitus, Adult Onset, Uncontrolled - *Chronic Hypertension, Benign - *Chronic Other and unspecified hyperlipidemia - *Chronic Renal Insufficiency, Acute - *Chronic Anal fissure - *Stable Special screening for [...] route every day 0.4 MG - Active Victoza 3-Jordy 0.6 mg/0.1 mL (18 mg/3 mL) subcutaneous pen injector inject 0.3 milliliter (1.2MG) by subcutaneous route every day 1.8 MG - Active Immunizations Vaccine Date Status [...] Height Weight Pulse Rate Blood Pressure Temperature /07:09:00 72.00 in 241.41 lbs 135/69 mm[Hg] Procedures Procedure Date Unknown Encounters Encounter Location Date Patient Visit [facility] Patient Visit [facility] Patient Visit [facility] Patient Visit [facility] Patient Visit [facility] [place] [facility] Patient Visit [facility] Patient [facility] Patient [facility] Patient [facility] Patient [facility] Patient Visit [facility] Patient Visit [facility] Patient Visit [facility] Patient Visit [facility] Patient [facility] Patient Visit [facility] S[facility] Patient Visit [facility] Patient Visit [facility] Patient Visit [facility] Patient Visit [facility] Patient Visit [facility] [place] Patient Visit [facility] Patient Visit [facility] Advance Directives Directive Effective Date Unknown
--- OUTSIDE RECORDS SUMMARY | 2017-03-01 12:00 | XMS REPORT | Referral Summary ---
Author Author [facility], Endocrinology Organization [facility], Endocrinology Address Unknown Phone Unavailable Care Team Providers Care Paper And Pulp Mill Operator Name Role Phone Kiran Jane Primary Care Physician [phone] Encounter Date(s): 05/24/16 - 05/24/16 [facility], Endocrinology [address] [place] [address] [facility] Discharge Diagnosis: Diabetes type 2, controlled Discharge Diagnosis: Benign essential hypertension (disorder) Discharge Diagnosis: Mixed hyperlipidemia Discharge Disposition: 01-Home or Self Care Attending Physician: Arabella Varghese APRN Admitting Physician: Arabella Varghese APRN Vital Signs Most recent to 1 oldest [Reference Range]: Peripheral Pulse 72 bpm Rate [60-100 bpm] (05/24/16 9:06 AM) Blood Pressure 120/72 mmHg [90-140/60-90 mmHg] (05/24/16 9:06 AM) Problem List Condition Effective Dates Status [...] Compression Active fracture(Confirmed) Coronary artery Resolved disease(Confirmed) 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 [place] [address] Start Date: 04/01/15 Status: Ordered desonide 0.05% topical gel 1 cheryle, Topical, apply to face bid prn, # 60 g, 0 Refill(s) Start Date: 04/26/14 Status: Ordered ferrous sulfate 325 mg (65 mg elemental iron) oral tablet 1 tabs, Oral, BID, # 60 tabs, 0 Refill(s), Pharmacy: [facility], 1 tabs Oral BID,x30 days Start Date: 02/02/15 Stop Date: 03/04/15 Status: Ordered Flomax 0.4 mg oral capsule 1 caps, Oral, Daily, # 90 caps, 1 Refill(s), Pharmacy: [facility], 1 caps Oral Daily,x90 days Start Date: 03/01/15 Stop Date: 08/28/15 Status: Ordered ketoconazole 2% topical gel See Instructions, wash face, scalp and chest daily as needed, leave on 5 mins then wash off, 0 Refill(s) Start Date: 04/26/14 Status: Ordered ketoconazole 2% topical shampoo 1 cheryle, Topical, 2x/Wk, # 120 mL, 6 Refill(s), [facility] Start Date: 04/01/15 Status: Ordered Nitrostat 0.4 mg sublingual tablet 1 tabs, SubLingual, q5min, as needed for chest pain, # 30 tabs, 3 Refill(s), Pharmacy: [facility] 242, 1 tabs SubLingual q5min,PRN:as needed for chest pain Start Date: 09/09/14 Status: Ordered [place] 5 mg-325 mg oral tablet 1-2 tabs, Oral, TID, # 60 tabs, 0 Refill(s) Start Date: 09/06/15 Status: Ordered rOPINIRole 0.5 mg oral tablet See Instructions, TAKE ONE TABLET BY MOUTH ONCE DAILY, # 30 tabs, 4 Refill(s), eRx: [facility] 242, TAKE ONE TABLET BY MOUTH ONCE DAILY Start Date: 04/16/16 Status: Ordered simvastatin 20 mg oral tablet See Instructions, TAKE ONE TABLET BY MOUTH ONCE DAILY AT BEDTIME, # 90 tabs, eRx : [facility] 2428, TAKE ONE TABLET BY MOUTH ONCE DAILY AT BEDTIME Start Date: 01/11/16 Status: Ordered simvastatin 20 mg oral tablet See Instructions, TAKE ONE TABLET BY MOUTH ONCE DAILY AT BEDTIME, # 90 tabs, eRx : [facility] 2428, TAKE ONE TABLET BY MOUTH ONCE DAILY AT BEDTIME Start Date: 04/12/16 Status: Ordered Ultram 50 mg oral tablet See Instructions, 1-2 tablets every 8 hrs as needed for pain, # 60 tabs, 0 Refill(s) Start Date: 05/27/15 Status: Ordered Victoza 18 mg/3 mL subcutaneous solution See Instructions, INJECT 1.2MG SUB-Q DAILY, # 6 unknown unit, 11 Refill(s), eRx : [facility] 2428, INJECT 1.2MG SUB-Q DAILY Start Date: 11/18/15 Status: Ordered Vitamin C 1,000 mg, Oral, BID, takes with iron, 0 Refill(s) Start Date: 03/01/15 Status: Ordered Results Chemistry Most recent to 1 oldest [Reference Range]: Hgb A1c [4.1-5.6 %] 7.4 % *HI* (05/24/16 9:49 AM) eAvg Glucose 165.7 mg/dL (05/24/16 9:49 AM) Immunizations Vaccine Date Refusal Reason tetanus/diphth/pertuss [...] Title: Office Visit Note Author: Arabella Varghese WORKERS COMPENSATION SPECIALIST Date: 05/24/16 Assessment/Plan 1.Diabetes type 2, controlled 1. check blood sugars fasting and 2 hours after meals 3-7 days per week 2. continue victoza and will have pt apply for drug assistance 3. will need to check Metabolic profile before considering medication change 4. needs to rotate injection sites 5. monitor diet and exercise 6. monitor feet daily I discussed the patient with the preceptor. Ordered: Basic Metabolic Panel Hemoglobin A1c Office Visit Level 3 Est 18732 Return to Clinic 2.Benign essential hypertension (disorder) Ordered: Basic Metabolic Panel Hemoglobin A1c Office Visit Level 3 Est 18114 Return to Clinic 3.Mixed hyperlipidemia Ordered: Basic Metabolic Panel Hemoglobin A1c Office Visit Level 3 Est 55607 Return to Clinic Extracted from: Title: Ambulatory Patient Education Author: Arabella Varghese WORKERS COMPENSATION SPECIALIST Date: Home Health Care Diabetes and Exercise Exercising regularly is important. It is not just about losing weight. It has many health benefits, such as: Improving your overall fitness, flexibility, and endurance. Increasing your bone density. Helping with weight control. Decreasing your body fat. Increasing your muscle strength. Reducing stress and tension. Improving your overall health. People with diabetes who exercise gain additional benefits because exercise: Reduces appetite. Improves the body's use of blood sugar (glucose). Helps lower or control blood glucose. Decreases blood pressure. Helps control blood lipids (such as cholesterol and triglycerides). Improves the body's use of the hormone insulin by: Increasing the body's insulin sensitivity. Reducing the body's insulin needs. Decreases the risk for heart disease because exercising: Lowers cholesterol and triglycerides levels. Increases the levels of good cholesterol (such as high-density lipoproteins [HDL]) in the body. Lowers blood glucose levels. YOUR ACTIVITY PLAN Choose an activity that you enjoy, and set realistic goals. To exercise safely, you should begin practicing any new physical activity slowly, and gradually increase the intensity of the exercise over time. Your health care provider or staff development educator can help create an activity plan that works for you. General recommendations include: Encouraging children to engage in at least 60 minutes of physical activity each day. Stretching and performing strength training exercises, such as yoga or weight lifting, at least 2 times per week. Performing a total of at least 150 minutes of moderate-intensity exercise each week, such as brisk walking or water aerobics. Exercising at least 3 days per week, making sure you allow no more than 2 consecutive days to pass without exercising. Avoiding long periods of inactivity (90 minutes or more). When you have to spend an extended period of time sitting down, take frequent breaks to walk or stretch. RECOMMENDATIONS FOR EXERCISING WITH TYPE 1 OR TYPE 2 DIABETES Check your blood glucose before exercising. If blood glucose levels are greater than 240 mg/dL, check for urine ketones. Do not exercise if ketones are present. Avoid injecting insulin into areas of the body that are going to be exercised. For example, avoid injecting insulin into: The arms when playing tennis. The legs when jogging. Keep a record of: Food intake before and after you exercise. Expected peak times of insulin action. Blood glucose levels before and after you exercise. The type and amount of exercise you have done. Review your records with your health care provider. Your health care provider will help you to develop guidelines for adjusting food intake and insulin amounts before and after exercising. If you take insulin or oral hypoglycemic agents, watch for signs and symptoms of hypoglycemia. They include: Dizziness. Shaking. Sweating. Chills. Confusion. Drink plenty of water while you exercise to prevent dehydration or heat stroke. Body water is lost during exercise and must be replaced. Talk to your health care provider before starting an exercise program to make sure it is safe for you. Remember, almost any type of activity is better than none. This information is not intended to replace advice given to you by your health care provider. Make sure you discuss any questions you have with your health care provider. Document Released: 01/17/2005 Document Revised: 11/18/2015 Document Reviewed: [facility] Patient Information 2016 [employer], [facility]. No follow up information was provided.
--- OUTSIDE RECORDS SUMMARY | 2017-03-01 12:01 | XMS REPORT | Referral Summary ---
Author Organization Unknown Address Unknown Phone Unavailable Care Team Providers Care Forest Products Gatherer Name Role Phone Kiran Jane Primary Care Physician [phone] Encounter [facility] Date(s): 12/22/14 - 12/22/14 [facility] Too, Family [address] [place] [address] Discharge Diagnosis: HYPERTENSION Discharge Diagnosis: Back pain NOS Discharge Diagnosis: Anemia Discharge Diagnosis: Abnormal laboratory test Discharge Diagnosis: ANEMIA, UNSPECIFIED Discharge Diagnosis: Hyperlipidemia Discharge Diagnosis: Coronary artery disease Discharge Diagnosis: Type II diabetes mellitus uncontrolled (finding) Discharge Diagnosis: Anemia Discharge Diagnosis: Chronic kidney disease (CKD) Discharge Disposition: Home or Self Care Attending Physician: David Jane MD Admitting Physician: David Jane MD Vital Signs Most recent to 1 oldest [Reference Range]: Blood Pressure 140/70 mmHg [90-140/60-90 mmHg] (12/22/14 2:18 PM) Problem List Condition Effective Dates [...] prn, # 140 g, 3 Refill(s), Pharmacy: [facility] Special Instructions: cheryle Topical BID [...] pain, # 30 tabs, 3 Refill(s), Pharmacy: [facility], 1 tabs SubLingual q5min,PRN:as needed for chest pain Start Date: 09/09/14 Status: Ordered [place] 5 mg-325 mg oral tablet 1-2 tabs, Oral, TID, # 60 tabs, 0 Refill(s) Start Date: 12/16/14 Status: Ordered Requip 0.5 mg oral tablet 1 tabs, Oral, Daily, 0 Refill(s) Start Date: 04/26/14 Status: Ordered simvastatin 20 mg oral tablet 1 tabs, Oral, Daily, # 90 tabs, 0 Refill(s), Pharmacy: [facility], 1 tabs Oral Daily Start [...] Daily, # 2 Each, 5 Refill(s), Pharmacy: [facility], 1.2 mg SubCutaneous Daily Start Date: 11/09/14 Status: Ordered Results No data available for [...] Patient Education Author: David Jane MD Date: 09/25 Family Medicine Chronic Back Pain When back pain lasts longer than 3 months, it is called chronic back pain. People with chronic back pain often go through certain periods that are more intense (flare-ups ). CAUSES Chronic back pain can be caused by wear and tear (degeneration ) on different structures in your back. These structures include: The bones of your spine (vertebrae ) and the joints surrounding your spinal cord and nerve roots (facets ). The strong, fibrous tissues that connect your vertebrae (ligaments ). Degeneration of these structures may result in pressure on your nerves. This can lead to constant pain. HOME CARE INSTRUCTIONS Avoid bending, heavy lifting, prolonged sitting, and activities which make the problem worse. Take brief periods of rest throughout the day to reduce your pain. Lying down or standing usually is better than sitting while you are resting. Take rdrl-xbi-fesxxbi or prescription medicines only as directed by your caregiver. SEEK IMMEDIATE MEDICAL CARE IF: You have weakness or numbness in one of your legs or feet. You have trouble controlling your bladder or bowels. You have nausea, vomiting, abdominal pain, shortness of breath, or fainting. Document Released: 12/05/2005 Document Revised: 01/19/2013 Document Reviewed: ExitCare Patient Information 2014 [employer]. No follow up information was provided. Extracted from: Title: Office Visit Note Author: David Jane MD Date: 12/22/14 Assessment/Plan Abnormal laboratory test All pertinent lab recent, historical, and outside lab was reviewed if possible and available. Sed rate and alk phos mildly elevated. MRI pending. Anemia Hemoccult pending. Back to Dr. Estevez for sure if positive. Anemia To Dr. Estevez ifblood is in the stool or to Dr. Weiner if negative. Ordered: Occult Blood X 3, Stool Back pain NOS MRI lumbar spine pending in am tomorrow for severe back pain. Doing ok with pain meds for now. Ordered: MRI Spine Lumbar w/o Contrast Chronic kidney disease (CKD) This issue is stable and appropriate refills, lab , and f/u have been discussed. Coronary artery disease This issue is stable and appropriate refills, lab, and f/u have been discussed. Hyperlipidemia This issue is stable and appropriate refills, lab, and f/u have been discussed. HYPERTENSION This issue is stable and appropriate refills, lab, and f/u have been discussed. The patient reports their blood pressure has been stable at home and is not having any significant or related problems. There has been no chest pain, chest pressure, soa/sahni. Type II diabetes mellitus uncontrolled (finding) This issue is stable and appropriate refills, lab, and f/u have been discussed. The patient was notified for the need for regular quarterly f/u of their diabetes. Further any pertinent medication, supplies, etc were refilled. Additionally, they are to have annual eye exams, foot exams, and regular care.
--- OUTSIDE RECORDS SUMMARY | 2017-03-01 12:01 | XMS REPORT | Referral Summary ---
Author Author [facility] Organization [facility] Address Unknown Phone Unavailable Care Team Providers Care Bander And Cellophaner Machine Name Role Phone Kiran Jane Primary Care Physician [phone] Encounter [facility] [id number] Date(s): 05/11/15 - 05/11/15 [facility] [address] [place], [place] [address] Discharge Diagnosis: Obesity Discharge Diagnosis: Tobacco use disorder Discharge Diagnosis: Hyperlipidemia Discharge Diagnosis: Kidney stones Discharge Diagnosis: Asthma Discharge Diagnosis: Chronic kidney disease (CKD) Discharge Diagnosis: Benign essential hypertension (disorder) Discharge Diagnosis: Chronic back pain Discharge Diagnosis: Diabetes type 2, controlled Discharge Diagnosis: Compression fracture Discharge Diagnosis: BPH (benign prostatic hypertrophy) with urinary obstruction Discharge Diagnosis: Hypertension. 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) High sun [...] prn, # 140 g, 3 Refill(s), Pharmacy: [facility] Start Date: 11/29/14 Status: Ordered aspirin 81 mg, Oral, Daily, 0 Refill(s) Start Date: 04/26/14 Status: Ordered Calcium 500+D 2 tabs, Chewed, Daily, 0 Refill(s) Start Date: 04/19/15 Status: Ordered desonide 0.05% topical cream 1 cheryle, Topical, Daily, # 15 g, 1 Refill(s), Pharmacy: [facility] Start Date: 04/01/15 Status: Ordered desonide 0.05% topical gel 1 cheryle, Topical, apply to face bid prn, # 60 g, 0 Refill(s) Start Date: 04/26/14 Status: Ordered ferrous sulfate 325 mg (65 mg elemental iron) oral tablet 1 tabs, Oral, BID, # 60 tabs, 0 Refill(s), Pharmacy: [facility], 1 tabs Oral BID,x30 days Start Date: 02/02/15 Stop Date: 03/04/15 Status: Ordered Flomax 0.4 mg oral capsule 1 caps, Oral, Daily, # 90 caps, 1 Refill(s), Pharmacy: [facility], 1 caps Oral Daily,x90 days Start Date: 03/01/15 Stop Date: 08/28/15 Status: Ordered ketoconazole 2% topical gel See Instructions, wash face, scalp and chest daily as needed, leave on 5 mins then wash off, 0 Refill(s) Start Date: 04/26/14 Status: Ordered ketoconazole 2% topical shampoo 1 cheryle, Topical, 2x/Wk, # 120 mL, 6 Refill(s), Pharmacy: [facility] 242 Start Date: 04/01/15 Status: Ordered Nitrostat 0.4 mg sublingual tablet 1 tabs, SubLingual, q5min, as needed for chest pain, # 30 tabs, 3 Refill(s), Pharmacy: [facility], 1 tabs SubLingual q5min,PRN:as needed for chest pain Start Date: 09/09/14 Status: Ordered [place] 5 mg-325 mg oral tablet 1-2 tabs, Oral, TID, # 60 tabs, 0 Refill(s) Start Date: 09/06/15 Status: Ordered rOPINIRole 0.5 mg oral tablet See Instructions, TAKE ONE TABLET BY MOUTH ONCE DAILY, # 30 tabs, 5 Refill(s), eRx: [facility], TAKE ONE TABLET BY MOUTH ONCE DAILY Start Date: 06/01/15 Status: Ordered simvastatin 20 mg oral tablet 20 mg 1 tabs, Oral, Bedtime (once a day), Will need med check for next refill., # 90 tabs, 0 Refill(s), Pharmacy: [facility], 1 tabs Oral Bedtime ( once a [...] 6 unknown unit, 11 Refill(s), eRx : [facility], INJECT 1.2MG SUB-Q DAILY Start [...] about 25 years ago. Assessment and Plan No data available for this section
--- OUTSIDE RECORDS SUMMARY | 2017-03-01 12:01 | XMS REPORT | Referral Summary ---
Author Author [facility] Organization [facility] Address Unknown Phone Unavailable Care Team Providers Care Core Dropper Name Role Phone Kiran Jane Primary Care Physician [phone] Encounter Date(s): 10/29/15 - 10/29/15 [facility] [address] [place], [place] [address] Discharge Diagnosis: Encounter for screening colonoscopy Discharge Diagnosis: Diverticulosis Discharge Diagnosis: Personal history of colonic polyps Discharge Disposition: 01-Home or Self Care Attending Physician: Christophe Estevez MD Admitting Physician: Christophe Estevez MD Vital Signs Most recent to 1 oldest [Reference Range]: Temperature Tympanic 36.6 degC [36.6-38.1 degC] (10/29/15 7:02 AM) Peripheral Pulse 73 bpm Rate [60-100 bpm] (10/29/15 7:02 AM) Respiratory Rate 20 br/min [14-20 br/min] (10/29/15 7:02 AM) Blood Pressure 142/87 mmHg [90-140/60-90 mmHg] *HI* (10/29/15 7:02 AM) SpO2 97 % (10/29/15 7:02 AM) Problem List Condition Effective Dates Status [...] prn, # 140 g, 3 Refill(s), Pharmacy: [facility] 242 Start Date: 11/29/14 Status: Ordered aspirin 81 mg, Oral, Daily, 0 Refill(s) Start Date: 04/26/14 Status: Ordered Calcium 500+D 2 tabs, Chewed, Daily, 0 Refill(s) Start Date: 04/19/15 Status: Ordered desonide 0.05% topical cream 1 cheryle, Topical, Daily, # 15 g, 1 Refill(s), Pharmacy: [facility]27 Start Date: 04/01/15 Status: Ordered desonide 0.05% topical gel 1 cheryle, Topical, apply to face bid prn, # 60 g, 0 Refill(s) Start Date: 04/26/14 Status: Ordered ferrous sulfate 325 mg (65 mg elemental iron) oral tablet 1 tabs, Oral, BID, # 60 tabs, 0 Refill(s), Pharmacy: [facility], 1 tabs Oral BID,x30 days Start Date: 02/02/15 Stop Date: 03/04/15 Status: Ordered Flomax 0.4 mg oral capsule 1 caps, Oral, Daily, # 90 caps, 1 Refill(s), Pharmacy: [facility], 1 caps Oral Daily,x90 days Start Date: 03/01/15 Stop Date: 08/28/15 Status: Ordered ketoconazole 2% topical gel See Instructions, wash face, scalp and chest daily as needed, leave on 5 mins then wash off, 0 Refill(s) Start Date: 04/26/14 Status: Ordered ketoconazole 2% topical shampoo 1 cheryle, Topical, 2x/Wk, # 120 mL, 6 Refill(s), Pharmacy: [facility]28 Start Date: 04/01/15 Status: Ordered Nitrostat 0.4 mg sublingual tablet 1 tabs, SubLingual, q5min, as needed for chest pain, # 30 tabs, 3 Refill(s), Pharmacy: [facility], 1 tabs SubLingual q5min,PRN:as needed for chest pain Start Date: 09/09/14 Status: Ordered [place] 5 mg-325 mg oral tablet 1-2 tabs, [...] refill., # 90 tabs, 0 Refill(s), Pharmacy: [facility], 1 tabs Oral Bedtime [...] recent to 1 oldest [Reference Range]: Blood Glucose, 147 mg/dL Capillary [74-106 *HI* mg/dL] (10/29/15 7:13 AM) Immunizations Vaccine Date Refusal Reason tetanus/diphth/pertuss [...] Extracted from: Title: Ambulatory Patient Education Author: Christophe Estevez MD Date: 10/29 [facility] [phone] [facility] [phone] Endoscopy discharge instructions Diet Start with liquids, then light foods, then progress to normal foods. Medication Resume routine medications. Follow- up Care If any problems occur or if you have any further questions, please contact your physician. In an emergency, call [phone] ([phone]), if you cannot reach your physician. If you find that you cannot contact your physician, but feel that your signs and symptoms warrant a physicians attention, go to an Emergency room which is the closest to you. You have had: X Colonoscopy Upper Endoscopy Liver Biopsy You should rest today. You have had sedating medicines. Until tomorrow please: Do NOT drive or operate hazardous machinery or power tools. Do NOT drink alcoholic beverages, not even beer or wine. Do NOT make important or legal decisions. Do NOT shower or bathe as this may cause dizziness. Because of the sedation you have received, we ask that a responsible adult be with you for the rest of the day for your safety and protection. Call your doctor promptly if you have: Redness or swelling at IV site. If fever over 101degree Pain not relieved by pain medication by Tylenol. Coughing or spitting up blood. Persistent nausea and vomiting. Excessive blood with bowel movement. Findings: You had sigmoid diverticulosis. I recommend a healthy high fiber diet. I removed one small polyp. Further reccomendations will follow pending pathology. No follow up information was provided.
--- OUTSIDE RECORDS SUMMARY | 2017-03-01 12:01 | XMS REPORT | Referral Summary ---
Author Organization Unknown Address Unknown Phone Unavailable Care Team Providers Care Sustainability Executive Director Name Role Phone Kiran Jane Primary Care Physician [phone] Encounter Date(s): 03/01/15 - 03/01/15 [facility], Too, Family [address] [place] [address] Discharge Diagnosis: Chronic back pain Discharge Diagnosis: Compression fracture Discharge Diagnosis: Chronic kidney disease (CKD) Discharge Diagnosis: SBO (small bowel obstruction) Discharge Diagnosis: Acute gastroenteritis Discharge Diagnosis: Diabetes type 2, controlled Discharge Diagnosis: Benign essential hypertension (disorder) Discharge Diagnosis: Anemia Discharge Disposition: Home or Self Care Attending Physician: David Jane MD Admitting Physician: David Jane MD Vital Signs Most recent to 1 oldest [Reference Range]: Blood Pressure 120/70 mmHg [90-140/60-90 mmHg] (03/01/15 9:33 AM) Problem List Condition Effective Dates Status [...] prn, # 140 g, 3 Refill(s), Pharmacy: [facility] Special Instructions: cheryle Topical BID prn Start Date: 11/29/14 Status: Ordered aspirin 81 mg, Oral, Daily, 0 Refill(s) Start Date: 04/26/14 Status: Ordered desonide 0.05% topical gel 1 cheryle, Topical, apply to face bid prn, # 60 g, 0 Refill(s) Special Instructions: apply to face bid prn Start Date: 04/26/14 Status: Ordered ferrous sulfate 325 mg (65 mg elemental iron) oral tablet 1 tabs, Oral, BID, # 60 tabs, 0 Refill(s), Pharmacy: [facility], 1 tabs Oral BID,x30 days Start Date: 02/02/15 Stop Date: 03/04/15 Status: Ordered Flomax 0.4 mg oral capsule 1 caps, Oral, Daily, # 90 caps, 1 Refill(s), Pharmacy: [facility], 1 caps Oral Daily,x90 [...] pain, # 30 tabs, 3 Refill(s), Pharmacy: [facility], 1 tabs SubLingual q5min,PRN:as needed for chest pain Start Date: 09/09/14 Status: Ordered [place] 5 mg-325 mg oral tablet 1-2 tabs, Oral, TID, # 60 tabs, 0 Refill(s) Start Date: 02/02/15 Status: Ordered Requip 0.5 mg oral tablet 1 tabs, Oral, Daily, # 30 tabs, 3 Refill(s), Pharmacy: [facility], 1 tabs Oral Daily Start Date: 01/25/15 Status: Ordered simvastatin 20 mg oral tablet 1 tabs, Oral, Daily, # 90 tabs, 1 Refill(s), Pharmacy: [facility], 1 tabs Oral Daily Start Date: 02/02/15 Status: Ordered Ultram 50 mg oral tablet See Instructions, 1-2 tablets every 8 hrs as needed for pain, # 60 tabs, 0 Refill(s) Special Instructions: 1-2 tablets every 8 hrs as needed for pain Start Date: 12/16/14 Status: Ordered Victoza 18 mg/3 mL subcutaneous solution 1.2 mg, SubCutaneous, Daily, # 2 Each, 5 Refill(s), Pharmacy: [facility], 1.2 mg SubCutaneous Daily Start Date: 11/09/14 Status: Ordered Vitamin C 1,000 mg, Oral, BID, takes with iron, 0 Refill(s) Special Instructions: takes with iron Start Date: 03/01/15 Status: Ordered Results No [...] Author: David Jane MD Date: Family Medicine Back Pain, Adult Low back pain is very common. About 1 in 5 people have back pain.The cause of low back pain is rarely dangerous. The pain often gets better over time.About half of people with a sudden onset of back pain feel better in just 2 weeks. About 8 in 10 people feel better by 6 weeks. CAUSES Some common causes of back pain include: Strain of the muscles or ligaments supporting the spine. Wear and tear (degeneration ) of the spinal discs. Arthritis. Direct injury to the back. DIAGNOSIS Most of the time, the direct cause of low back pain is not known.However, back pain can be treated effectively even when the exact cause of the pain is unknown.Answering your caregiver's questions about your overall health and symptoms is one of the most accurate ways to make sure the cause of your pain is not dangerous. If your caregiver needs more information, he or she may order lab work or imaging tests (X-rays or MRIs).However, even if imaging tests show changes in your back, this usually does not require surgery. HOME CARE INSTRUCTIONS For many people, back pain returns.Since low back pain is rarely dangerous, it is often a condition that people can learn to manageon their own. Remain active. It is stressful on the back to sit or receiving and processing supervisor one place. Do not sit, drive, or receiving and processing supervisor one place for more than 30 minutes at a time. Take short walks on level surfaces as soon as pain allows.Try to increase the length of time you walk each day. Do not stay in bed.Resting more than 1 or 2 days can delay your recovery. Do not avoid exercise or work.Your body is made to move.It is not dangerous to be active, even though your back may hurt.Your back will likely heal faster if you return to being active before your pain is gone. Pay attention to your body when you bend and lift. Many people have less discomfortwhen lifting if they bend their knees, keep the load close to their bodies,and avoid twisting. Often, the most comfortable positions are those that put less stress on your recovering back. Find a comfortable position to sleep. Use a firm mattress and lie on your side with your knees slightly bent. If you lie on your back, put a pillow under your knees. Only take txxs-gmq-usuhvuu or prescription medicines as directed by your caregiver. Apqq-orv-gwzpenx medicines to reduce pain and inflammation are often the most helpful.Your caregiver may prescribe muscle relaxant drugs.These medicines help dull your pain so you can more quickly return to your normal activities and healthy exercise. Put ice on the injured area. Put ice in a plastic bag. Place a towel between your skin and the bag. Leave the ice on for 15-20 minutes, 03-04 times a day for the first 2 to 3 days. After that, ice and heat may be alternated to reduce pain and spasms. Ask your caregiver about trying back exercises and gentle massage. This may be of some benefit. Avoid feeling anxious or stressed.Stress increases muscle tension and can worsen back pain.It is important to recognize when you are anxious or stressed and learn ways to manage it.Exercise is a great option. SEEK MEDICAL CARE IF: You have pain that is not relieved with rest or medicine. You have pain that does not improve in 1 week. You have new symptoms. You are generally not feeling well. SEEK IMMEDIATE MEDICAL CARE IF: You have pain that radiates from your back into your legs. You develop new bowel or bladder control problems. You have unusual weakness or numbness in your arms or legs. You develop nausea or vomiting. You develop abdominal pain. You feel faint. Document Released: 10/28/2006 Document Revised: 04/28/2013 Document Reviewed: ExitCare Patient Information 2014 [employer] No follow up information was provided. Extracted from: Title: Office Visit Note Author: David Jane MD Date: 03/01/15 Assessment/Plan Acute gastroenteritis The patient's issue is nearly or completely resolved. There is no further issues or testing desired by them at this time. Cdiff testing was negative at [facility]. Anemia This issue is stable and appropriate refills, lab, and f/u have been discussed. Seeing [facility]. Benign essential hypertension (disorder) This issue is stable and appropriate refills, lab, and f/u have been discussed. The patient reports their blood pressure has been stable at home and is not having any significant or related problems. There has been no chest pain, chest pressure, soa/sahni. Chronic back pain This issue is stable and appropriate refills, lab, and f/u have been discussed. The patient's issue is nearly or completely resolved. There is no further issues or testing desired by them at this time. Chronic kidney disease (CKD) This issue is stable and appropriate refills, lab , and f/u have been discussed. Diabetes type 2, controlled This issue is stable and appropriate refills, lab , and f/u have been discussed. The patient was notified for the need for regular quarterly f/u of their diabetes. Further any pertinent medication, supplies, etc were refilled. Additionally, they are to have annual eye exams, foot exams, and regular care. SBO (small bowel obstruction) The patient's issue is nearly or completely resolved. There is no further issues or testing desired by them at this time. [facility] records reviewed.
--- OUTSIDE RECORDS SUMMARY | 2017-03-01 12:01 | XMS REPORT | Referral Summary ---
Author Organization Unknown Address Unknown Phone Unavailable Care Team Providers Care School Bus Operator Name Role Phone Kiran Jane Primary Care Physician [phone] Encounter Date(s): 03/10/15 - 03/10/15 [facility], [place] [address], [facility] [address] [place], [place] [address] Discharge Diagnosis: Obstructive sleep apnea, adult Discharge Disposition: Home or Self Care Attending Physician: Saulo Mujica MD Admitting Physician: Saulo Mujica MD Vital Signs Most recent to 1 oldest [Reference Range]: Peripheral Pulse 74 bpm Rate [60-100 bpm] (03/10/15 9:26 AM) Blood Pressure 100/60 mmHg [90-140/60-90 mmHg] (03/10/15 9:26 AM) Most recent to 1 oldest [Reference Range]: SpO2 96 % (03/10/15 9:26 AM) Problem [...] Compression Active fracture(Confirmed) Coronary artery Resolved disease(Confirmed) 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 current Active 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(Confirmed) High sun exposure Active 2-3 serious sunburns(Confirmed) Headaches(Confirmed) Resolved hx polyps, tubular Resolved adenoma(Confirmed) Hyperlipidemia(Confi Active rmed) HYPERTENSION(Confirm Resolved ed) Hypertension(Confirm Active ed) Kidney Resolved stones(Confirmed) Migraine Active headaches(Confirmed) Obstructive sleep Active apnea, adult(Confirmed) Osteoarthritis(Confi Resolved [...] prn, # 140 g, 3 Refill(s), Pharmacy: [facility] Special Instructions: cheryle Topical BID [...] BID, # 60 tabs, 0 Refill(s), Pharmacy: [facility], 1 tabs Oral BID,x30 days Start Date: 02/02/15 Stop Date: 03/04/15 Status: Ordered Flomax 0.4 mg oral capsule 1 caps, Oral, Daily, # 90 caps, 1 Refill(s), Pharmacy: [facility], 1 caps Oral [...] pain, # 30 tabs, 3 Refill(s), Pharmacy: [facility], 1 tabs SubLingual q5min,PRN:as needed for chest pain Start Date: 09/09/14 Status: Ordered Montgomery 5 mg-325 mg oral tablet 1-2 tabs, Oral, TID, # 60 tabs, 0 Refill(s) Start Date: 02/02/15 Status: Ordered Requip 0.5 mg oral tablet 1 tabs, Oral, Daily, # 30 tabs, 3 Refill(s), Pharmacy: [facility], 1 tabs Oral Daily Start Date: 01/25/15 Status: Ordered simvastatin 20 mg oral tablet 1 tabs, Oral, Daily, # 90 tabs, 1 Refill(s), Pharmacy: [facility], 1 tabs Oral Daily Start [...] Daily, # 2 Each, 5 Refill(s), Pharmacy: [facility], 1.2 mg SubCutaneous Daily Start [...] Related Diagnosis Body Site Colonoscopy 2013 Colonoscopy 2013 eye lid surgery blepth/ptosis ou 08/24/11 left temporal artery biopsy 01/26/10 heart cath 04/25/09 fissurectomy with sphincterectomy/colonoscopy pylonidal cystectomy rt carpal tunnel release rt knee scope, torn miniscus Social History Social History Type Response Smoking Status Former smoker1 1Quit smoking about 25 years ago. Assessment and Plan No data available for this section
--- OUTSIDE RECORDS SUMMARY | 2017-03-01 12:01 | XMS REPORT | Referral Summary ---
Author Author [facility] Organization [facility] Address Unknown Phone Unavailable Care Team Providers Care Managed Services Consultant Name Role Phone Kiran Jane Primary Care Physician [phone] Encounter Date(s): 04/01/15 - 04/01/15 [facility] , [facility] [address] [place], [place] [address] Discharge Diagnosis: Rhinophyma Discharge Diagnosis: Seborrheic [...] prn, # 140 g, 3 Refill(s), Pharmacy: [facility] 242 Start Date: 11/29/14 Status: Ordered aspirin 81 mg, Oral, Daily, 0 Refill(s) Start Date: 04/26/14 Status: Ordered Calcium 500+D 2 tabs, Chewed, Daily, 0 Refill(s) Start Date: 04/19/15 Status: Ordered desonide 0.05% topical cream 1 cheryle, Topical, Daily, # 15 g, 1 Refill(s), Pharmacy: [facility] 242 Start Date: 04/01/15 Status: Ordered desonide 0.05% topical gel 1 cheryle, Topical, apply to face bid prn, # 60 g, 0 Refill(s) Start Date: 04/26/14 Status: Ordered ferrous sulfate 325 mg (65 mg elemental iron) oral tablet 1 tabs, Oral, BID, # 60 tabs, 0 Refill(s), Pharmacy: [place] [address], 1 tabs Oral BID,x30 days Start Date: 02/02/15 Stop Date: 03/04/15 Status: Ordered Flomax 0.4 mg oral capsule 1 caps, Oral, Daily, # 90 caps, 1 Refill(s), Pharmacy: [facility] 242, 1 caps Oral Daily,x90 days Start Date: 03/01/15 Stop Date: 08/28/15 Status: Ordered ketoconazole 2% topical gel See Instructions, wash face, scalp and chest daily as needed, leave on 5 mins then wash off, 0 Refill(s) Start Date: 04/26/14 Status: Ordered ketoconazole 2% topical shampoo 1 cheryle, Topical, 2x/Wk, # 120 mL, 6 Refill(s), Pharmacy: [facility] 242 Start Date: 04/01/15 Status: Ordered Nitrostat 0.4 mg sublingual tablet 1 tabs, SubLingual, q5min, as needed for chest pain, # 30 tabs, 3 Refill(s), Pharmacy: [facility] 242, 1 tabs SubLingual q5min,PRN:as needed for chest pain Start Date: 09/09/14 Status: Ordered [place] 5 mg-325 mg oral tablet 1-2 tabs, Oral, TID, # 60 tabs, 0 Refill(s) Start Date: 09/06/15 Status: Ordered rOPINIRole 0.5 mg oral tablet See Instructions, TAKE ONE TABLET BY MOUTH ONCE DAILY, # 30 tabs, 5 Refill(s), [facility], TAKE ONE TABLET BY MOUTH ONCE DAILY Start Date: 06/01/15 Status: Ordered simvastatin 20 mg oral tablet See Instructions, TAKE ONE TABLET BY MOUTH ONCE DAILY NEEDS APPT PRIOR TO ADDITIONAL REFILLS, # 30 tabs, 0 Refill(s), Pharmacy: [facility], TAKE ONE TABLET [...] # 6 unknown unit, 2 Refill(s), eRx: [facility], INJECT 1.2MG SUB-Q [...] # 15 g, 1 Refill(s), Pharmacy : [email or web address] 242 ketoconazole topical, 1 cheryle, Topical, 2x/Wk, # 120 mL, 6 Refill(s), Pharmacy: [email or web address]
--- OUTSIDE RECORDS SUMMARY | 2017-03-01 12:01 | XMS REPORT | Referral Summary ---
Author Author [facility], [facility] Organization [facility] Address Unknown Phone Unavailable Care Team Providers Care Mailing Jogger Name Role Phone Kiran Jane Primary Care Physician [phone] Encounter VC Date(s): 06/21/16 - 06/21/16 [facility], [address] [place] [address] Discharge Disposition: 01-Home or Self Care Attending Physician: David Jane MD Admitting Physician: David Jane MD Vital Signs Most recent to 1 oldest [Reference Range]: Blood Pressure 130/70 mmHg [90-140/60-90 mmHg] (06/21/16 4:02 PM) Problem List Condition Effective Dates Status [...] Compression Active fracture(Confirmed) Coronary artery Resolved disease(Confirmed) 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 Active 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(Confirmed) High sun [...] 140 g, 3 Refill(s), Pharmacy: [facility] 2428 Start Date: 11/29/14 Status: Ordered aspirin [...] BID, # 60 tabs, 0 Refill(s), Pharmacy: [facility], 1 tabs Oral BID,x30 days Start Date: 02/02/15 Stop Date: 03/04/15 Status: Ordered Flomax 0.4 mg oral capsule 1 caps, Oral, Daily, # 90 caps, 1 Refill(s), Pharmacy: [facility], 1 caps Oral Daily,x90 days Start Date: 03/01/15 Stop Date: 08/28/15 Status: Ordered Nitrostat 0.4 mg sublingual tablet 1 tabs, SubLingual, q5min, as needed for chest pain, # 30 tabs, 3 Refill(s), Pharmacy: [facility], 1 tabs SubLingual q5min,PRN:as needed for chest pain Start Date: 09/09/14 Status: Ordered [place] 5 mg-325 mg oral tablet 1-2 tabs, Oral, TID, # 60 tabs, 0 Refill(s) Start Date: 06/21/16 Status: Ordered predniSONE 20 mg oral tablet 20 mg 1 tabs, Oral, Daily, X 5 days, # 5 tabs, 0 Refill(s), Pharmacy: [facility], 1 tabs Oral Daily,x5 days Start Date: 06/21/16 Stop Date: 06/26/16 Status: Ordered promethazine-codeine 6.25 mg-10 mg/5 mL oral syrup 5 mL, Oral, q4hr, as needed for cough, # 120 mL, 0 Refill(s), called to pharmacy (Rx) Start Date: 06/21/16 Status: Ordered rOPINIRole 0.5 mg oral tablet See Instructions, TAKE ONE TABLET BY MOUTH ONCE DAILY, # 30 tabs, 4 Refill(s), eRx: [facility], TAKE ONE TABLET BY MOUTH ONCE DAILY Start Date: 04/16/16 Status: Ordered simvastatin 20 mg oral tablet See Instructions, TAKE ONE TABLET BY MOUTH ONCE DAILY AT BEDTIME, # 90 tabs, eRx : [facility], TAKE ONE TABLET [...] 6 unknown unit, 11 Refill(s), [facility] : [facility], INJECT 1.2MG SUB-Q DAILY Start Date: 11/18/15 Status: Ordered Vitamin C 1,000 mg, Oral, BID, takes with iron, 0 Refill(s) Start Date: 03/01/15 Status: Ordered Results Chemistry Most recent to 1 oldest [Reference Range]: Estimated Creatinine 62.73 mL/min Clearance (06/21/16 4:05 PM) Immunizations Vaccine Date Refusal Reason tetanus/diphth/pertuss (Tdap) [...] Patient Education Author: David Jane MD Date: 09/26 Family Medicine Asthma, Adult Asthma is a recurring condition in which the airways tighten and narrow. Asthma can make it difficult to breathe. It can cause coughing, wheezing, and shortness of breath. Asthma episodes, also called asthma attacks, range from minor to life-threatening. Asthma cannot be cured, but medicines and lifestyle changes can help control it. CAUSES Asthma is believed to be caused by inherited (genetic) and environmental factors , but its exact cause is unknown. Asthma may be triggered by allergens, lung infections, or irritants in the air. Asthma triggers are different for each person. Common triggers include: Animal dander. Dust mites. Cockroaches. Pollen from trees or grass. Mold. Smoke. Air pollutants such as dust, household cotton presser, hair sprays, aerosol sprays, paint fumes, strong chemicals, or strong odors. Cold air, weather changes, and winds (which increase molds and pollens in the air). Strong emotional expressions such as crying or laughing hard. Stress. Certain medicines (such as aspirin) or types of drugs (such as beta- blockers). Sulfites in foods and drinks. Foods and drinks that may contain sulfites include dried fruit, potato chips, and sparkling grape juice. Infections or inflammatory conditions such as the flu, a cold, or an inflammation of the nasal membranes (rhinitis). Gastroesophageal reflux disease (GERD). Exercise or strenuous activity. SYMPTOMS Symptoms may occur immediately after asthma is triggered or many hours later. Symptoms include: Wheezing. Excessive nighttime or wood inspector coughing. Frequent or severe coughing with a common cold. Chest tightness. Shortness of breath. DIAGNOSIS The diagnosis of asthma is made by a review of your medical history and a physical exam. Tests may also be performed. These may include: Lung function studies. These tests show how much air you breathe in and out. Allergy tests. Imaging tests such as X-rays. TREATMENT Asthma cannot be cured, but it can usually be controlled. Treatment involves identifying and avoiding your asthma triggers. It also involves medicines. There are 2 classes of medicine used for asthma treatment: Controller medicines. These prevent asthma symptoms from occurring. They are usually taken every day. Reliever or rescue medicines. These quickly relieve asthma symptoms. They are used as needed and provide short-term relief. Your health care provider will help you create an asthma action plan. An asthma action plan is a written plan for managing and treating your asthma attacks. It includes a list of your asthma triggers and how they may be avoided. It also includes information on when medicines should be taken and when their dosage should be changed. An action plan may also involve the use of a device called a peak flow meter. A peak flow meter measures how well the lungs are working. It helps you monitor your condition. HOME CARE INSTRUCTIONS Take medicines only as directed by your health care provider. Speak with your health care provider if you have questions about how or when to take the medicines. Use a peak flow meter as directed by your health care provider. Record and keep track of readings. Understand and use the action plan to help minimize or stop an asthma attack without needing to seek medical care. Control your home environment in the following ways to help prevent asthma attacks: Do not smoke. Avoid being exposed to secondhand smoke. Change your heating and air conditioning filter regularly. Limit your use of fireplaces and wood stoves. Get rid of pests (such as roaches and mice) and their droppings. Throw away plants if you see mold on them. Clean your floors and dust regularly. Use unscented cleaning products. Try to have someone else vacuum for you regularly. Stay out of rooms while they are being vacuumed and for a short while afterward. If you vacuum, use a dust mask from a hardware store, a double-layered or microfilter vacuum drum cleaner bag, or a vacuum drum cleaner with a HEPA filter. Replace carpet with wood, tile, or vinyl corry. Carpet can trap dander and dust. Use allergy-proof pillows, mattress covers, and box spring covers. Wash bed sheets and blankets every week in hot water and dry them in a dryer. Use blankets that are made of polyester or cotton. Clean bathrooms and jenn with bleach. If possible, have someone repaint the harrison in these rooms with mold-resistant paint. Keep out of the rooms that are being cleaned and painted. Wash hands frequently. SEEK MEDICAL CARE IF: You have wheezing, shortness of breath, or a cough even if taking medicine to prevent attacks. The colored mucus you cough up (sputum) is thicker than usual. Your sputum changes from clear or white to yellow, green, tinoco, or bloody. You have any problems that may be related to the medicines you are taking (such as a rash, itching, swelling, or trouble breathing). You are using a reliever medicine more than 23 times per week. Your peak flow is still at 5079% of your personal best after following your action plan for 1 hour. You have a fever. SEEK IMMEDIATE MEDICAL CARE IF: You seem to be getting worse and are unresponsive to treatment during an asthma attack. You are short of breath even at rest. You get short of breath when doing very little physical activity. You have difficulty eating, drinking, or talking due to asthma symptoms. You develop chest pain. You develop a fast heartbeat. You have a bluish color to your lips or fingernails. You are light-headed, dizzy, or faint. Your peak flow is less than 50% of your personal best. MAKE SURE YOU: Understand these instructions. Will watch your condition. Will get help right away if you are not doing well or get worse. This information is not intended to replace advice given to you by your health care provider. Make sure you discuss any questions you have with your health care provider. Document Released: 10/28/2006 Document Revised: 11/18/2015 Document Reviewed: [facility] Patient Information 2016 [employer] [facility]. No follow up information was provided. Extracted from: Title: Office Visit Note Author: David Jane MD Date: 06/21/16 Assessment/Plan Acute bronchitis Zpack and prednisone 20mg po daily for five days was given. Phen w/cod for cough given. A work/school note was offered and deferred by the patient. CXR and rocephin offered and declined. Benign essential hypertension (disorder) This issue was [...] pressure, soa/sahni. Chronic back pain This issue was reviewed, appears stable, and current therapy continued except as mentioned. Appropriate lab was reviewed from the most recent appropriate entry and lab was ordered if needed in the cpoe/nursing orders, and follow up recommended generally in 90 days and no later then six months. Refilled norco. Chronic kidney disease (CKD) This issue was reviewed, appears stable, and current therapy continued except as mentioned. Appropriate lab was reviewed from the most recent appropriate entry and lab was ordered if needed in the cpoe /nursing orders, and follow up recommended generally in 90 days and no later then six months. GFR normal at this time. Chronic obstructive pulmonary disease (COPD) This issue was reviewed, appears stable, and current therapy continued except as mentioned. Appropriate lab was reviewed from the most recent appropriate entry and lab was ordered if needed in the cpoe/nursing orders, and follow up recommended generally in 90 days and no later then six months. Diabetes type 2, controlled This issue was [...] eye exams, foot exams, and regular care. Kidney stones The patient's issue is nearly or completely resolved. There is no further issues or testing desired by them at this time. Orders: HYDROcodone-acetaminophen, 1-2 tabs, Oral, TID, # 60 tabs, 0 Refill(s) predniSONE, 20 mg 1 tabs, Oral, Daily, X 5 days, # 5 tabs, 0 Refill(s), Pharmacy: [facility], 1 tabs Oral Daily,x5 days promethazine-codeine, 5 mL, Oral, q4hr, as needed for cough, # 120 mL, 0 Refill(s), called to pharmacy (Rx)
--- OUTSIDE RECORDS SUMMARY | 2017-03-01 12:01 | XMS REPORT | Referral Summary ---
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 Active 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(Confirmed) High sun [...] prn, # 140 g, 3 Refill(s), Pharmacy: [facility] 242 Start Date: 11/29/14 Status: Ordered aspirin 81 mg, Oral, Daily, 0 Refill(s) Start Date: 04/26/14 Status: Ordered Calcium 500+D 2 tabs, Chewed, Daily, 0 Refill(s) Start Date: 04/19/15 Status: Ordered desonide 0.05% topical cream 1 cheryle, Topical, Daily, # 15 g, 1 Refill(s), Pharmacy: [facility] 242 Start Date: 04/01/15 Status: Ordered desonide 0.05% topical gel 1 cheryle, Topical, apply to face bid prn, # 60 g, 0 Refill(s) Start Date: 04/26/14 Status: Ordered ferrous sulfate 325 mg (65 mg elemental iron) oral tablet 1 tabs, Oral, BID, # 60 tabs, 0 Refill(s), Pharmacy: [place] [address], 1 tabs Oral BID,x30 days Start Date: 02/02/15 Stop Date: 03/04/15 Status: Ordered Flomax 0.4 mg oral capsule 1 caps, Oral, Daily, # 90 caps, 1 Refill(s), Pharmacy: [facility] 242, 1 caps Oral Daily,x90 days Start Date: 03/01/15 Stop Date: 08/28/15 Status: Ordered ketoconazole 2% topical gel See Instructions, wash face, scalp and chest daily as needed, leave on 5 mins then wash off, 0 Refill(s) Start Date: 04/26/14 Status: Ordered ketoconazole 2% topical shampoo 1 cheryle, Topical, 2x/Wk, # 120 mL, 6 Refill(s), Pharmacy: [facility] 242 Start Date: 04/01/15 Status: Ordered Nitrostat 0.4 mg sublingual tablet 1 tabs, SubLingual, q5min, as needed for chest pain, # 30 tabs, 3 Refill(s), Pharmacy: [facility] 242, 1 tabs SubLingual q5min,PRN:as needed for chest pain Start Date: 09/09/14 Status: Ordered [place] 5 mg-325 mg oral tablet 1-2 tabs, Oral, TID, # 60 tabs, 0 Refill(s) Start Date: 09/06/15 Status: Ordered rOPINIRole 0.5 mg oral tablet See Instructions, TAKE ONE TABLET BY MOUTH ONCE DAILY, # 30 tabs, 5 Refill(s), eRx: [facility], TAKE ONE TABLET BY MOUTH ONCE DAILY Start Date: 06/01/15 Status: Ordered simvastatin 20 mg oral tablet 20 mg 1 tabs, Oral, Bedtime (once a day), Will need med check for next refill., # 90 tabs, 0 Refill(s), Pharmacy: [facility], 1 tabs Oral Bedtime [...] # 6 unknown unit, 2 Refill(s), eRx: [facility], INJECT 1.2MG SUB-Q DAILY [...] # 15 g, 1 Refill(s), Pharmacy : [facility]20 ketoconazole topical, 1 cheryle, Topical, 2x/Wk, # 120 mL, 6 Refill(s), Pharmacy: [facility]25
--- OUTSIDE RECORDS SUMMARY | 2017-03-01 12:02 | XMS REPORT | Referral Summary ---
Author Author [facility] [place] Organization [facility] [place] Address Unknown Phone Unavailable Care Team Providers Care Galley Hand Name Role Phone Kiran Jane Primary Care Physician [phone] Encounter Date(s): 04/19/16 - 04/19/16 [facility] [place] [address] [place], [place] [address] Discharge Disposition: 01-Home or Self Care Attending Physician: Amira Soto Admitting Physician: Amira Soto Vital Signs Most recent to 1 oldest [Reference Range]: Peripheral Pulse 75 bpm Rate [60-100 bpm] (04/19/16 9:35 AM) Blood Pressure 132/74 mmHg [90-140/60-90 mmHg] (04/19/16 9:35 AM) SpO2 96 % (04/19/16 9:35 AM) Problem List Condition Effective Dates Status [...] Compression Active fracture(Confirmed) Coronary artery Resolved disease(Confirmed) 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 Active 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(Confirmed) High sun [...] prn, # 140 g, 3 Refill(s), Pharmacy: [facility] 242 Start Date: 11/29/14 Status: Ordered aspirin 81 mg, Oral, Daily, 0 Refill(s) Start Date: 04/26/14 Status: Ordered Calcium 500+D 2 tabs, Chewed, Daily, 0 Refill(s) Start Date: 04/19/15 Status: Ordered desonide 0.05% topical cream 1 cheryle, Topical, Daily, # 15 g, 1 Refill(s), Pharmacy: [facility] [id number] Start Date: 04/01/15 Status: Ordered desonide 0.05% topical gel 1 cheryle, Topical, apply to face bid prn, # 60 g, 0 Refill(s) Start Date: 04/26/14 Status: Ordered ferrous sulfate 325 mg (65 mg elemental iron) oral tablet 1 tabs, Oral, BID, # 60 tabs, 0 Refill(s), Pharmacy: [facility] 242, 1 tabs Oral BID,x30 days Start Date: 02/02/15 Stop Date: 03/04/15 Status: Ordered Flomax 0.4 mg oral capsule 1 caps, Oral, Daily, # 90 caps, 1 Refill(s), Pharmacy: [facility], 1 caps Oral Daily,x90 days Start Date: 03/01/15 Stop Date: 08/28/15 Status: Ordered ketoconazole 2% topical gel See Instructions, wash face, scalp and chest daily as needed, leave on 5 mins then wash off, 0 Refill(s) Start Date: 04/26/14 Status: Ordered ketoconazole 2% topical shampoo 1 cheryle, Topical, 2x/Wk, # 120 mL, 6 Refill(s), Pharmacy: [facility] 242 Start Date: 04/01/15 Status: Ordered Nitrostat 0.4 mg sublingual tablet 1 tabs, SubLingual, q5min, as needed for chest pain, # 30 tabs, 3 Refill(s), Pharmacy: [facility] [address], 1 tabs SubLingual q5min,PRN:as needed for chest pain Start Date: 09/09/14 Status: Ordered [place] 5 mg-325 mg oral tablet 1-2 tabs, Oral, TID, # 60 tabs, 0 Refill(s) Start Date: 09/06/15 Status: Ordered rOPINIRole 0.5 mg oral tablet See Instructions, TAKE ONE TABLET BY MOUTH ONCE DAILY, # 30 tabs, 4 Refill(s), eRx: [facility] [id number], TAKE ONE TABLET BY MOUTH ONCE DAILY Start Date: 04/16/16 Status: Ordered simvastatin 20 mg oral tablet 20 mg 1 tabs, Oral, Bedtime (once a day), Will need med check for next refill., # 90 tabs, 0 Refill(s), Pharmacy: [facility] [address], 1 tabs Oral Bedtime ( once a day),x90 days,Instr:Will need med check for next refill. Start Date: 10/03/15 Stop Date: 12/31/15 Status: Ordered simvastatin 20 mg oral tablet See Instructions, TAKE ONE TABLET BY MOUTH ONCE DAILY AT BEDTIME, # 90 tabs, eRx : [facility] [address], TAKE ONE TABLET BY MOUTH ONCE DAILY AT BEDTIME Start Date: 01/11/16 Status: Ordered simvastatin 20 mg oral tablet See Instructions, TAKE ONE TABLET BY MOUTH ONCE DAILY AT BEDTIME, # 90 tabs, eRx : [place] [address], TAKE ONE TABLET BY MOUTH ONCE DAILY AT BEDTIME Start Date: 04/12/16 Status: Ordered Ultram 50 mg oral tablet See Instructions, 1-2 tablets every 8 hrs as needed for pain, # 60 tabs, 0 Refill(s) Start Date: 05/27/15 Status: Ordered Victoza 18 mg/3 mL subcutaneous solution See Instructions, INJECT 1.2MG SUB-Q DAILY, # 6 unknown unit, 11 Refill(s), eRx : [place] [address], INJECT 1.2MG SUB-Q DAILY Start Date: 11/18/15 [...]
--- OUTSIDE RECORDS SUMMARY | 2017-03-01 12:02 | XMS REPORT ---
Author Author Boo Meehan Organization [facility] Address [address] [place] [address] Care Team Providers Care Latexer Name Role Phone Boo Meehan Unavailable [phone] PROBLEMS Type Condition ICD9-CM Code JCN07-BM Code Onset Dates Condition Status SNOMED Code Problem Angina Pectoris 413.9 Active 823358992 Problem s/p stenting, coronary V45.82 Active 727788309 Problem Orthostatic hypotension 458.0 Active 25142711 Problem Hyperlipidemia 272.4 Active 36215725 Problem Coronary Artery Disease 414.01 Active 21316099 Problem Dyspnea on effort R06.09 Active 78335263 Problem Coronary atherosclerosis of [place] coronary artery I25.10 Active 258093777 Problem H/O heart artery stent Z95.5 Active 029645553 Problem Hyperlipidemia, unspecified E78.5 Active 86990401 Problem Angina pectoris, unspecified I20.9 Active 506008556 Problem Orthostatic hypotension I95.1 Active 82065824 ALLERGIES Unknown Allergies SOCIAL HISTORY No smoking Hx information available PLAN OF CARE VITAL SIGNS MEDICATIONS Unknown Medications RESULTS No Results PROCEDURES No Known procedures IMMUNIZATIONS No Known Immunizations
--- OUTSIDE RECORDS SUMMARY | 2017-03-01 12:02 | XMS REPORT | Referral Summary ---
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 Name Role Phone Kiran Jane Primary Care Physician [phone] Encounter VC Date(s): 09/06/15 - 09/06/15 [facility] [address] [place] [address] Discharge Diagnosis: Rib pain on right [...] Compression Active fracture(Confirmed) Coronary artery Resolved disease(Confirmed) [facility] current Active 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(Confirmed) High sun [...] prn, # 140 g, 3 Refill(s), Pharmacy: [facility] Start Date: 11/29/14 Status: Ordered aspirin 81 mg, Oral, Daily, 0 Refill(s) Start Date: 04/26/14 Status: Ordered Calcium 500+D 2 tabs, Chewed, Daily, 0 Refill(s) Start Date: 04/19/15 Status: Ordered desonide 0.05% topical cream 1 cheryle, Topical, Daily, # 15 g, 1 Refill(s), Pharmacy: [facility] 242 Start Date: 04/01/15 Status: Ordered desonide 0.05% topical gel 1 cheryle, Topical, apply to face bid prn, # 60 g, 0 Refill(s) Start Date: 04/26/14 Status: Ordered ferrous sulfate 325 mg (65 mg elemental iron) oral tablet 1 tabs, Oral, BID, # 60 tabs, 0 Refill(s), Pharmacy: [facility], 1 tabs Oral BID,x30 days Start Date: 02/02/15 Stop Date: 03/04/15 Status: Ordered Flomax 0.4 mg oral capsule 1 caps, Oral, Daily, # 90 caps, 1 Refill(s), Pharmacy: [facility], 1 caps Oral Daily,x90 days Start Date: 03/01/15 Stop Date: 08/28/15 Status: Ordered ketoconazole 2% topical gel See Instructions, wash face, scalp and chest daily as needed, leave on 5 mins then wash off, 0 Refill(s) Start Date: 04/26/14 Status: Ordered ketoconazole 2% topical shampoo 1 cheryle, Topical, 2x/Wk, # 120 mL, 6 Refill(s), Pharmacy: [facility] [address] Start Date: 04/01/15 Status: Ordered Nitrostat 0.4 mg sublingual tablet 1 tabs, SubLingual, q5min, as needed for chest pain, # 30 tabs, 3 Refill(s), Pharmacy: [facility] [address], 1 tabs SubLingual q5min,PRN:as needed for chest pain Start Date: 09/09/14 Status: Ordered [place] 5 mg-325 mg oral tablet 1-2 tabs, Oral, TID, # 60 tabs, 0 Refill(s) Start Date: 09/06/15 Status: Ordered rOPINIRole 0.5 mg oral tablet See Instructions, TAKE ONE TABLET BY MOUTH ONCE DAILY, # 30 tabs, 0 Refill(s), Pharmacy: [facility] [address], TAKE ONE TABLET BY MOUTH ONCE DAILY Start Date: 03/14/16 Status: Ordered simvastatin 20 mg oral tablet 20 mg 1 tabs, Oral, Bedtime (once a day), Will need med check for next refill., # 90 tabs, 0 Refill(s), Pharmacy: [facility] [address], 1 tabs Oral Bedtime ( once a day),x90 days,Instr:Will need med check for next refill. Start Date: 10/03/15 Stop Date: 12/31/15 Status: Ordered simvastatin 20 mg oral tablet See Instructions, TAKE ONE TABLET BY MOUTH ONCE DAILY AT BEDTIME, # 90 tabs, eRx : [place] [address], TAKE ONE TABLET BY MOUTH ONCE DAILY AT BEDTIME Start Date: 01/11/16 Status: Ordered Ultram 50 mg oral tablet See Instructions, 1-2 tablets every 8 hrs as needed for pain, # 60 tabs, 0 Refill(s) Start Date: 05/27/15 Status: Ordered Victoza 18 mg/3 mL subcutaneous solution See Instructions, INJECT 1.2MG SUB-Q DAILY, # 6 unknown unit, 11 Refill(s), eRx : [facility] [place] [address], INJECT 1.2MG SUB-Q DAILY Start Date: 11/18/15 [...] minutes, 23 times a day. Only take [id number] or prescription medicines as directed by your [...] Released: 08/07/2006 Document Revised: 08/18/2014 Document Reviewed: ExitCare Patient Information 2015 [email or web address]. This information is not intended to replace [...] Released: 12/13/2006 Document Revised: 01/19/2013 Document Reviewed: ExitCare Patient Information 2015 [employer] [facility]. This information is not intended to replace [...] usual. He also needs refills on his [place] (usually gets #60 once a year, but had bowel obstruction and used more than he usually does for this pain). He will let us know if pain worsening or changing. Ordered: Office Visit Level 3 Est [id number] Orders: HYDROcodone-acetaminophen, 1-2 tabs, Oral, TID, # 60 tabs, 0 Refill(s) predniSONE, 40 mg 2 tabs, Oral, Daily, X 3 days, # 6 tabs, 0 Refill(s), Pharmacy: [facility], 2 tabs Oral Daily,x3 days
--- OUTSIDE RECORDS SUMMARY | 2017-03-01 12:02 | XMS REPORT | Referral Summary ---
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 Role Phone Kiran Jane Primary Care Physician [phone] Encounter Date(s): 05/05/15 - 05/05/15 [facility] [address] , [facility] [address] [place], [place] [address] [[email or web address] Discharge Diagnosis: Obstructive sleep apnea, adult Discharge Disposition: 01-Home or Self Care Attending Physician: Amira oSto Admitting Physician: Amira Soto Referring Physician: David [...] Compression Active fracture(Confirmed) Coronary artery Resolved disease(Confirmed) skilled nursing current Active 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(Confirmed) High sun [...] 140 g, 3 Refill(s), Pharmacy: [facility] [address] Start Date: 11/29/14 Status: Ordered aspirin 81 mg, Oral, Daily, 0 Refill(s) Start Date: 04/26/14 Status: Ordered Calcium 500+D 2 tabs, Chewed, Daily, 0 Refill(s) Start Date: 04/19/15 Status: Ordered desonide 0.05% topical cream 1 cheryle, Topical, Daily, # 15 g, 1 Refill(s), Pharmacy: [facility] Start Date: 04/01/15 Status: Ordered desonide 0.05% topical gel 1 cheryle, Topical, apply to face bid prn, # 60 g, 0 Refill(s) Start Date: 04/26/14 Status: Ordered ferrous sulfate 325 mg (65 mg elemental iron) oral tablet 1 tabs, Oral, BID, # 60 tabs, 0 Refill(s), Pharmacy: [facility], 1 tabs Oral BID,x30 days Start Date: 02/02/15 Stop Date: 03/04/15 Status: Ordered Flomax 0.4 mg oral capsule 1 caps, Oral, Daily, # 90 caps, 1 Refill(s), Pharmacy: [facility], 1 caps Oral Daily,x90 days Start Date: 03/01/15 Stop Date: 08/28/15 Status: Ordered ketoconazole 2% topical gel See Instructions, wash face, scalp and chest daily as needed, leave on 5 mins then wash off, 0 Refill(s) Start Date: 04/26/14 Status: Ordered ketoconazole 2% topical shampoo 1 cheryle, Topical, 2x/Wk, # 120 mL, 6 Refill(s), Pharmacy: [facility] Start Date: 04/01/15 Status: Ordered Nitrostat 0.4 mg sublingual tablet 1 tabs, SubLingual, q5min, as needed for chest pain, # 30 tabs, 3 Refill(s), Pharmacy: [facility], 1 tabs SubLingual q5min,PRN:as needed for chest pain Start Date: 09/09/14 Status: Ordered [place] 5 mg-325 mg oral tablet 1-2 tabs, Oral, TID, # 60 tabs, 0 Refill(s) Start Date: 09/06/15 Status: Ordered rOPINIRole 0.5 mg oral tablet See Instructions, TAKE ONE TABLET BY MOUTH ONCE DAILY, # 30 tabs, 5 Refill(s), eRx: [facility], TAKE ONE TABLET BY MOUTH ONCE DAILY Start Date: 06/01/15 Status: Ordered simvastatin 20 mg oral tablet 20 mg 1 tabs, Oral, Bedtime (once a day), Will need med check for next refill., # 90 tabs, 0 Refill(s), Pharmacy: [facility] [address], 1 tabs Oral Bedtime ( once a [...] # 6 unknown unit, 2 Refill(s), eRx: [facility], INJECT 1.2MG SUB-Q DAILY [...] from: Title: Office Visit Note Author: Amira Soot Date: 05/05/15 Assessment/Plan Obstructive sleep apnea, adult [...]
--- OUTSIDE RECORDS SUMMARY | 2017-03-01 12:02 | XMS REPORT | Referral Summary ---
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 Name Role Phone Kiran Jane Primary Care Physician [phone] Encounter Date(s): 06/02/15 - 06/02/15 [facility], Endocrinology [address] [place] [address] [facility] Discharge Diagnosis: Diabetes type 2, controlled Discharge Diagnosis: Hyperlipidemia Discharge Diagnosis: Benign essential hypertension Discharge Disposition: 01-Home or Self Care Attending Physician: Arabella Varghese APRN Admitting Physician: Arabella Varghese APRN Referring Physician: Arabella Varghese APRN Vital Signs Most recent to 1 oldest [Reference Range]: Peripheral Pulse 76 bpm Rate [60-100 bpm] (06/02/15 9:38 AM) Blood Pressure 130/80 mmHg [90-140/60-90 mmHg] (06/02/15 9:38 AM) Problem List Condition Effective Dates Status [...] Active fracture(Confirmed) Coronary artery Resolved disease(Confirmed) 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 Active 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(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) High sun [...] prn, # 140 g, 3 Refill(s), Pharmacy: [email or web address] Start Date: 11/29/14 Status: Ordered aspirin 81 mg, Oral, Daily, 0 Refill(s) Start Date: 04/26/14 Status: Ordered Calcium 500+D 2 tabs, Chewed, Daily, 0 Refill(s) Start Date: 04/19/15 Status: Ordered desonide 0.05% topical cream 1 cheryle, Topical, Daily, # 15 g, 1 Refill(s), Pharmacy: [facility] Start Date: 04/01/15 Status: Ordered desonide 0.05% topical gel 1 cheryle, Topical, apply to face bid prn, # 60 g, 0 Refill(s) Start Date: 04/26/14 Status: Ordered ferrous sulfate 325 mg (65 mg elemental iron) oral tablet 1 tabs, Oral, BID, # 60 tabs, 0 Refill(s), Pharmacy: [facility], 1 tabs Oral BID,x30 days Start Date: 02/02/15 Stop Date: 03/04/15 Status: Ordered Flomax 0.4 mg oral capsule 1 caps, Oral, Daily, # 90 caps, 1 Refill(s), Pharmacy: [facility], 1 caps Oral Daily,x90 days Start Date: 03/01/15 Stop Date: 08/28/15 Status: Ordered ketoconazole 2% topical gel See Instructions, wash face, scalp and chest daily as needed, leave on 5 mins then wash off, 0 Refill(s) Start Date: 04/26/14 Status: Ordered ketoconazole 2% topical shampoo 1 cheryle, Topical, 2x/Wk, # 120 mL, 6 Refill(s), Pharmacy: [email or web address] Start Date: 04/01/15 Status: Ordered Nitrostat 0.4 mg sublingual tablet 1 tabs, SubLingual, q5min, as needed for chest pain, # 30 tabs, 3 Refill(s), Pharmacy: [facility], 1 tabs SubLingual q5min,PRN:as needed for chest pain Start Date: 09/09/14 Status: Ordered [place] 5 mg-325 mg oral tablet 1-2 tabs, Oral, TID, # 60 tabs, 0 Refill(s) Start Date: 09/06/15 Status: Ordered rOPINIRole 0.5 mg oral tablet See Instructions, TAKE ONE TABLET BY MOUTH ONCE DAILY, # 30 tabs, 2 Refill(s), eRx: [facility], TAKE ONE TABLET BY MOUTH ONCE DAILY Start Date: 12/12/15 Status: Ordered simvastatin 20 mg oral tablet 20 mg 1 tabs, Oral, Bedtime (once a day), Will need med check for next refill., # 90 tabs, 0 Refill(s), Pharmacy: [place] [facility] [address], 1 tabs Oral Bedtime ( once a [...] 6 unknown unit, 11 Refill(s), eRx : [place] [facility] [id number], INJECT 1.2MG SUB-Q DAILY Start Date: 11/18/15 Status: Ordered Vitamin C 1,000 mg, Oral, BID, takes with iron, 0 Refill(s) Start Date: 03/01/15 Status: Ordered Results Chemistry Most recent to 1 oldest [Reference Range]: ALT [0-55 U/L] 41 U/L (06/02/15 10:33 AM) AST [5-34 U/L] 38 U/L *HI* (06/02/15 10:33 AM) Hgb A1c [4.1-5.6 %] 6.7 % *HI* (06/02/15 10:33 AM) eAvg Glucose 145.6 mg/dL (06/02/15 10:33 AM) Immunizations Vaccine Date Refusal Reason tetanus/diphth/pertuss [...] Title: Office Visit Note Author: Arabella Varghese CENTRAL SUPPLY MANAGER Date: 06/02/15 Assessment/Plan 1.Diabetes type 2, controlled 1. check blood sugars fasting and 2 hours after meals 3-7 days per week 2. continue same dose of victoza 3. rotate injection sites 4. monitor diet and exercise 5. monitor feet daily .res Ordered: Hemoglobin A1c Office Visit Level 3 Est 98460 2.Benign essential hypertension Ordered: Office Visit Level 3 Est 17008 3.Hyperlipidemia Ordered: Office Visit Level 3 Est 25229 Extracted from: Title: Ambulatory Patient Education Author: Arabella Varghese CENTRAL SUPPLY MANAGER Date: Family Medicine How to Avoid Diabetes Problems You can do a lot to prevent or slow down diabetes problems. Following your diabetes plan and taking care of yourself can reduce your risk of serious or life-threatening complications. Below, you will find certain things you can do to prevent diabetes problems. MANAGE YOUR DIABETES Follow your caregiver's, nurse educator's, and dietitian's instructions for managing your diabetes. They will teach you the basics of diabetes care. They can help answer questions you may have. Learn about diabetes and make healthy choices regarding eating and physical activity. Monitor your blood glucose level regularly. Your caregiver will help you decide how often to check your blood glucose level depending on your treatment goals and how well you are meeting them. DO NOT SMOKE Smoking and diabetes are a dangerous combination. Smoking raises your risk for diabetes problems. If you quit smoking, you will lower your risk for heart attack, stroke, nerve disease, and kidney disease. Your cholesterol and your blood pressure levels may improve. Your blood circulation will also improve. If you smoke, ask your caregiver for help in quitting. KEEP YOUR BLOOD PRESSURE UNDER CONTROL Keeping your blood pressure under control will help prevent damage to your eyes , kidneys, heart, and blood vessels. Blood pressure consists of two numbers. The top number should be below 120, and the bottom number should be below 80 ( 120/80). Keep your blood pressure as close to these numbers as you can. If you already have kidney disease, you may want even lower blood pressure to protect your kidneys. Talk to your caregiver to make sure that your blood pressure goal is right for your needs. Meal planning, medicines, and exercise can help you reach your blood pressure target. Have your blood pressure checked at every visit with your caregiver. KEEP YOUR CHOLESTEROL UNDER CONTROL Normal cholesterol levels will help prevent heart disease and stroke. These are the biggest health problems for people with diabetes. Keeping cholesterol levels under control can also help with blood flow. Have your cholesterol level checked at least once a year. Meal planning, exercise, and medicines can help you reach your cholesterol targets. SCHEDULE AND KEEP YOUR ANNUAL PHYSICAL EXAMS AND EYE EXAMS Your caregiver will tell you how often he or she wants to see you depending on your plan of treatment. It is important that you keep these appointments so that possible problems can be identified early and complications can be avoided or treated. Every visit with your caregiver should include your weight, blood pressure , and an evaluation of your blood glucose control. Your hemoglobin A1c should be checked: At least twice a year if you are at your goal. Every 3 months if there are changes in treatment. If you are not meeting your goals. Your blood lipids should be checked yearly. You should also be checked yearly to see if you have protein in your urine (microalbumin). Schedule a dilated eye exam if you have type 1 diabetes within 5 years of your diagnosis and then yearly. Schedule a dilated eye exam if you have type 2 diabetes at diagnosis and then yearly. All exams thereafter can be extended to every 2 to 3 years if one or more exams have been normal. KEEP YOUR VACCINES CURRENT The flu vaccine is recommended yearly. The formula for the vaccine changes every year and needs to be updated for the best protection against current viruses. In addition, you should get a vaccination against pneumonia at least once in your life. However, there are some instances where another vaccine is recommended. Check with your caregiver. TAKE CARE OF YOUR FEET Diabetes may cause you to have a poor blood supply (circulation) to your legs and feet. Because of this, the skin may be thinner, break easier, and heal more slowly. You also may have nerve damage in your legs and feet causing decreased feeling. You may not notice minor injuries to your feet that could lead to serious problems or infections. Taking care of your feet is very important. Visual foot exams are performed at every routine medical visit. The exams check for cuts, injuries, or other problems with the feet. A comprehensive foot exam should be done yearly. This includes visual inspection as well as assessing foot pulses and testing for loss of sensation. You should also do the following: Inspect your feet daily for cuts, calluses, blisters, ingrown toenails, and signs of infection, such as redness, swelling, or pus. Wash and dry your feet thoroughly, especially between the toes. Avoid soaking your feet regularly in hot water baths. Moisturize dry skin with lotion, avoiding areas between your toes. Cut toenails straight across and file the edges. Avoid shoes that do not fit well or have areas that irritate your skin. Avoid going barefooted or wearing only socks. Your feet need protection. TAKE CARE OF YOUR TEETH People with poorly controlled diabetes are more likely to have gum (periodontal ) disease. These infections make diabetes harder to control. Periodontal diseases, if left untreated, can lead to tooth loss. Binger your teeth twice a day, floss, and see your dentist for checkups and cleaning every 6 months, or 2 times a year. ASK YOUR CAREGIVER ABOUT TAKING ASPIRIN Taking aspirin daily is recommended to help prevent cardiovascular disease in people with and without diabetes. Ask your caregiver if this would benefit you and what dose he or she would recommend. DRINK RESPONSIBLY Moderate amounts of alcohol (less than 1 drink per day for adult women and less than 2 drinks per day for adult men) have a minimal effect on blood glucose if ingested with food. It is important to eat food with alcohol to avoid hypoglycemia. People should avoid alcohol if they have a history of alcohol abuse or dependence, if they are , and if they have liver disease, pancreatitis, advanced neuropathy, or severe hypertriglyceridemia. LESSEN STRESS Living with diabetes can be stressful. When you are under stress, your blood glucose may be affected in two ways: Stress hormones may cause your blood glucose to rise. You may be distracted from taking good care of yourself. It is a good idea to be aware of your stress level and make changes that are necessary to help you better manage challenging situations. Support groups, planned relaxation, a hobby you enjoy, meditation, healthy relationships, and exercise all work to lower your stress level. If your efforts do not seem to be helping, get help from your caregiver or a trained mental health professional. Document Released: 07/15/2012 Document Revised: 10/14/2013 Document Reviewed: [employer] Patient Information 2015 [place], [facility]. This information is not intended to replace advice given to you by your health care provider. Make sure you discuss any questions you have with your health care provider. No follow up information was provided.
--- OUTSIDE RECORDS SUMMARY | 2017-03-01 12:02 | XMS REPORT | Referral Summary ---
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(Confirmed) High sun [...] 140 g, 3 Refill(s), Pharmacy: [facility] 242 Start Date: 11/29/14 Status: Ordered aspirin 81 mg, Oral, Daily, 0 Refill(s) Start Date: 04/26/14 Status: Ordered Calcium 500+D 2 tabs, Chewed, Daily, 0 Refill(s) Start Date: 04/19/15 Status: Ordered desonide 0.05% topical cream 1 cheryle, Topical, Daily, # 15 g, 1 Refill(s), Pharmacy: [facility] 242 Start Date: 04/01/15 Status: Ordered desonide 0.05% topical gel 1 cheryle, Topical, apply to face bid prn, # 60 g, 0 Refill(s) Start Date: 04/26/14 Status: Ordered ferrous sulfate 325 mg (65 mg elemental iron) oral tablet 1 tabs, Oral, BID, # 60 tabs, 0 Refill(s), Pharmacy: [place] [address], 1 tabs Oral BID,x30 days Start Date: 02/02/15 Stop Date: 03/04/15 Status: Ordered Flomax 0.4 mg oral capsule 1 caps, Oral, Daily, # 90 caps, 1 Refill(s), Pharmacy: [facility] 242, 1 caps Oral Daily,x90 days Start Date: 03/01/15 Stop Date: 08/28/15 Status: Ordered ketoconazole 2% topical gel See Instructions, wash face, scalp and chest daily as needed, leave on 5 mins then wash off, 0 Refill(s) Start Date: 04/26/14 Status: Ordered ketoconazole 2% topical shampoo 1 cheryle, Topical, 2x/Wk, # 120 mL, 6 Refill(s), Pharmacy: [facility] 242 Start Date: 04/01/15 Status: Ordered Nitrostat 0.4 mg sublingual tablet 1 tabs, SubLingual, q5min, as needed for chest pain, # 30 tabs, 3 Refill(s), Pharmacy: [facility] 242, 1 tabs SubLingual q5min,PRN:as needed for chest pain Start Date: 09/09/14 Status: Ordered [place] 5 mg-325 mg oral tablet 1-2 tabs, Oral, TID, # 60 tabs, 0 Refill(s) Start Date: 09/06/15 Status: Ordered rOPINIRole 0.5 mg oral tablet See Instructions, TAKE ONE TABLET BY MOUTH ONCE DAILY, # 30 tabs, 5 Refill(s), eRx: [facility], TAKE ONE TABLET BY MOUTH ONCE DAILY Start Date: 06/01/15 Status: Ordered simvastatin 20 mg oral tablet See Instructions, TAKE ONE TABLET BY MOUTH ONCE DAILY NEEDS APPT PRIOR TO ADDITIONAL REFILLS, # 30 tabs, 0 Refill(s), Pharmacy: [facility], TAKE ONE TABLET [...] # 6 unknown unit, 2 Refill(s), eRx: [facility], INJECT 1.2MG SUB-Q [...] # 15 g, 1 Refill(s), Pharmacy : [facility]26 ketoconazole topical, 1 cheryle, Topical, 2x/Wk, # 120 mL, 6 Refill(s), Pharmacy: [facility]
--- OUTSIDE RECORDS SUMMARY | 2017-03-01 12:02 | XMS REPORT | Referral Summary ---
Author Author [facility], Family Medicine Organization [facility] Address Unknown Phone Unavailable Care Team Providers Care Director Instructional Material Name Role Phone Kiran Jane Primary Care Physician [phone] Encounter VC Date(s): 04/19/15 - 04/19/15 [facility] Newton [address] [place] [address] Discharge Disposition: 01-Home or Self Care Attending Physician: David Jane MD Admitting Physician: David Jane MD Vital Signs Most recent to 1 oldest [Reference Range]: Blood Pressure 140/80 mmHg [90-140/60-90 mmHg] (04/19/15 8:06 AM) Problem List Condition Effective Dates Status [...] Active fracture(Confirmed) Coronary artery Resolved disease(Confirmed) 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 Active 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(Confirmed) High sun [...] prn, # 140 g, 3 Refill(s), Pharmacy: [facility] 242 Start Date: 11/29/14 Status: Ordered aspirin 81 mg, Oral, Daily, 0 Refill(s) Start Date: 04/26/14 Status: Ordered Calcium 500+D 2 tabs, Chewed, Daily, 0 Refill(s) Start Date: 04/19/15 Status: Ordered desonide 0.05% topical cream 1 cheryle, Topical, Daily, # 15 g, 1 Refill(s), Pharmacy: [facility] [id number] Start Date: 04/01/15 Status: Ordered desonide 0.05% topical gel 1 cheryle, Topical, apply to face bid prn, # 60 g, 0 Refill(s) Start Date: 04/26/14 Status: Ordered ferrous sulfate 325 mg (65 mg elemental iron) oral tablet 1 tabs, Oral, BID, # 60 tabs, 0 Refill(s), Pharmacy: [facility] [address], 1 tabs Oral BID,x30 days Start Date: 02/02/15 Stop Date: 03/04/15 Status: Ordered Flomax 0.4 mg oral capsule 1 caps, Oral, Daily, # 90 caps, 1 Refill(s), Pharmacy: [facility], 1 caps Oral Daily,x90 days Start Date: 03/01/15 Stop Date: 08/28/15 Status: Ordered ketoconazole 2% topical gel See Instructions, wash face, scalp and chest daily as needed, leave on 5 mins then wash off, 0 Refill(s) Start Date: 04/26/14 Status: Ordered ketoconazole 2% topical shampoo 1 cheryle, Topical, 2x/Wk, # 120 mL, 6 Refill(s), Pharmacy: [facility] 242 Start Date: 04/01/15 Status: Ordered Nitrostat 0.4 mg sublingual tablet 1 tabs, SubLingual, q5min, as needed for chest pain, # 30 tabs, 3 Refill(s), Pharmacy: [facility] 242, 1 tabs SubLingual q5min,PRN:as needed for chest pain Start Date: 09/09/14 Status: Ordered [place] 5 mg-325 mg oral tablet 1-2 tabs, Oral, TID, # 60 tabs, 0 Refill(s) Start Date: 09/06/15 Status: Ordered rOPINIRole 0.5 mg oral tablet See Instructions, TAKE ONE TABLET BY MOUTH ONCE DAILY, # 30 tabs, 5 Refill(s), eRx: [facility], TAKE ONE TABLET BY MOUTH ONCE DAILY Start Date: 06/01/15 Status: Ordered simvastatin 20 mg oral tablet 20 mg 1 tabs, Oral, Bedtime (once a day), Will need med check for next refill., # 90 tabs, 0 Refill(s), Pharmacy: [facility], 1 tabs Oral [...] # 6 unknown unit, 2 Refill(s), eRx: [facility], INJECT 1.2MG SUB-Q DAILY Start Date: 07/27/15 Status: Ordered Vitamin C 1,000 mg, Oral, BID, takes with iron, 0 Refill(s) Start Date: 03/01/15 Status: Ordered Results Hematology Most recent to 1 oldest [Reference Range]: WBC [4.8-10.8 7.8 10*3/uL 10*3/uL] (04/19/15 8:27 AM) RBC [4.60-6.20 4.77 10*6/uL 10*6/uL] (04/19/15 8:27 AM) Hgb [14.0-18.0 13.6 gm/dL gm/dL] *LOW* (04/19/15 8:27 AM) Hct [42.0-52.0 %] 41.1 % *LOW* (04/19/15 8:27 AM) MCV [82.0-99.0 fL] 86.2 fL (04/19/15 8: AM) MCH [27.0-32.0 pg] 28.5 pg (04/19/15 8: AM) MCHC [32.0-36.0 33.1 gm/dL gm/dL] (04/19/15 8: AM) RDW [11.5-14.5 %] 20.5 % *HI* (04/19/15 8: AM) Platelet [150-400 175 10*3/uL 10*3/uL] (04/19/15 8:27 AM) MPV [8.8-14.8 fL] 11.0 fL (04/19/15: AM) Immature 0.1 % Granulocytes (04/19/15 AM) [0.0-1.0 %] Neutrophils [51-75 67 % %] (04/19/15 8: AM) Lymphocytes [20-46 20 % %] (04/19/15 8: AM) Monocytes [4-11 %] 9 % (04/19/15 8:27 AM) Eosinophils [0-4 %] 3 % (04/19/15: AM) Basophils [0-2 %] 1 % (04/19/15 8: AM) Neutro Absolute 5.27 10*3 [1.90-7.00 10*3] (04/19/15 8:27 AM) Lymph Absolute 1.54 10*3 [0.80-3.30 10*3] (04/19/15 8:27 AM) [place] Absolute 0.73 10*3 [0.30-1.00 10*3] (04/19/15 8:27 AM) Eos Absolute 0.24 10*3 [0.00-0.50 10*3] (04/19/15 8:27 AM) Baso Absolute 0.05 10*3 [0.00-0.20 10*3] (04/19/15 8:27 AM) Chemistry Most recent to 1 oldest [Reference Range]: Sodium Lvl [135-144 142 mEq/L mEq/L] (04/19/15 8:27 AM) Potassium Lvl 4.2 mEq/L [3.5-5.2 mEq/L] (04/19/15 8:27 AM) Chloride [99-111 109 mEq/L mEq/L] (04/19/15 8:27 AM) CO2 [23-31 mEq/L] 25 mEq/L (04/19/15 8:27 AM) AGAP [3-20] 8 (04/19/15 8:27 AM) BUN [8-26 mg/dL] 19 mg/dL (04/19/15 8:27 AM) Glucose Lvl [70-99 124 mg/dL mg/dL] *HI* (04/19/15 8:27 AM) Creatinine Lvl 1.20 mg/dL [0.72-1.25 mg/dL] (04/19/15 8:27 AM) eGFR [>60 mL/min] >60 mL/min 1 (04/19/15 8:27 AM) Calcium Lvl 9.4 mg/dL [8.9-10.5 mg/dL] (04/19/15 8:27 AM) Albumin Lvl [3.4-4.8 3.9 gm/dL gm/dL] (04/19/15 8:27 AM) Total Protein 7.1 gm/dL [6.2-8.1 gm/dL] (04/19/15 8:27 AM) Globulin [1.8-4.0 3.2 gm/dL gm/dL] (04/19/15 8:27 AM) ALT [0-55 U/L] 43 U/L (04/19/15 8:27 AM) AST [5-34 U/L] 36 U/L *HI* (04/19/15 8:27 AM) Alk Phos [40-150 199 U/L U/L] *HI* (04/19/15 8:27 AM) Bili Total [0.2-1.2 0.5 mg/dL mg/dL] (04/19/15 8:27 AM) Amylase Lvl [25-125 57 U/L U/L] (04/19/15 8:27 AM) 1Result Comment: Multiply eGFR results by 1.21 for race. Urinalysis Most recent to 1 oldest [Reference Range]: UA Color Yellow (04/19/15 8:35 AM) UA Appear Clear (04/19/15 8:35 AM) UA pH [5.0-8.0] 5.5 (04/19/15 8:35 AM) UA Leuk Est Negative [Negative] (04/19/15 8:35 AM) UA Nitrite Negative [Negative] (04/19/15 8:35 AM) UA Protein Negative [Negative] (04/19/15 8:35 AM) UA Glucose Negative [Negative] (04/19/15 8:35 AM) UA Ketones Negative [Negative] (04/19/15 8:35 AM) UA Urobilinogen 1.0 mg/dL [<1.0 mg/dL] (04/19/15 8:35 AM) UA Bili [Negative] Negative (04/19/15 8:35 AM) UA Blood [Negative] Negative (04/19/15 8:35 AM) UA Spec Grav 1.017 [1.003-1.030] (04/19/15 8:35 AM) Type Voided (04/19/15 8:35 AM) Immunizations Vaccine Date Refusal Reason tetanus/diphth/pertuss [...] Patient Education Author: David Jane MD Date: 04/19/15 Family Medicine Arterial Hypertension Arterial hypertension (high [...] failure. Hyperparathyroidism. Medications. Renal artery stenosis. Pheochromocytoma. Mynor's disease. Coarctation of the aorta. Scleroderma renal [...] Released: 10/28/2006 Document Revised: 01/19/2013 Document Reviewed: [facility] Patient Information 2014 [employer] [facility]. No follow up information was provided. Extracted from: Title: Office Visit Note Author: David Jane MD Date: 04/19/15 Assessment/Plan Abdominal pain Lab and xray pending. Trial of keflex 500mg po qid for five days for now. Consider abd/pelvic CT scan.Close f/u. ER if worse. Ordered: Amylase Level CBC w/ Differential Comprehensive Metabolic Panel Urinalysis with Culture if Indicated XR Abdomen AP Elevated blood sugar This issue is stable and appropriate refills, lab, and f/ u have been discussed. HYPERTENSION This issue is stable and appropriate refills, lab, and f/u have been discussed. The patient reports their blood pressure has been stable at home and is not having any significant or related problems. There has been no chest pain, chest pressure, soa/sahni. Osteoarthritis This issue is stable and appropriate refills, lab, and f/u have been discussed. [place] refilled. Right distal ureteral calculus The patient's issue is nearly or completely resolved. There is no further issues or testing desired by them at this time. KUB pending. Type II diabetes mellitus uncontrolled (finding) This issue is stable and appropriate refills, lab, and f/u have been discussed. The patient was notified for the need for regular quarterly f/u of their diabetes. Further any pertinent medication, supplies, etc were refilled. Additionally, they are to have annual eye exams, foot exams, and regular care. Orders: cephalexin, 500 mg 1 caps, Oral, QID, X 5 days, # 20 caps, 0 Refill(s) , Pharmacy: [facility], 1 caps Oral QID,x5 days HYDROcodone-acetaminophen, 1-2 tabs, Oral, TID, # 60 tabs, 0 Refill(s)
--- NOTE | 2017-03-01 12:05 | NUR ---
PROVIDER DR. MACIEL IN ROOM WITH PT.
[2017-03-01 12:06] LABS: BASOPHILS % (AUTO) 0.2 % (0-2); EOSINOPHILS # (AUTO) 0.1 T/MM3 (0-0.5); EOSINOPHILS % (AUTO) 0.6 % (0-4); HCT - HEMATOCRIT 46.3 % (41-53); HGB - HEMOGLOBIN 15.5 GM/DL (13.5-17.5); IMMATURE GRANULOCYTE # (AUTO) 0.02 T/MM3 (0.00-0.03); IMMATURE GRANULOCYTE % (AUTO) 0.2 % (0.0-0.5); LYMPHOCYTES # (AUTO) 1.4 T/MM3 (1-4.8); LYMPHOCYTES % (AUTO) 11.1 % (23-45); MEAN CORPUSCULAR HGB 31.4 UUG (26-34); MEAN CORPUSCULAR HGB CONC(MCHC 33.5 GM/DL (31-37); MEAN CORPUSCULAR VOLUME 93.7 UM3 (80-100); MEAN PLATELET VOLUME 11.1 UM3 (9.4-12.4); MONOCYTES % (AUTO) 8.2 % (0-9.0); NEUTROPHILS #(AUTO)-ABSOLUTE 9.9 T/MM3 (1.8-7.7); NEUTROPHILS % (AUTO) 79.7 % (33-66); RED BLOOD COUNT 4.94 M/MM3 (4.50-5.90); WBC - WHITE BLOOD COUNT 12.4 T/MM3 (4.5-11.0)
--- OUTSIDE RECORDS SUMMARY | 2017-03-01 12:10 | XMS REPORT | Continuity of Care Document ---
Author Author [facility] Organization [facility] Address Unknown Phone Unavailable Allergies Active Description Code Type Severity Reaction Onset Reported/Identified Relationship to Patient Clinical Status Yes No Known Medication Allergies NKMA N/A N/A 09/09/2014 Yes iodine containing compounds NKMA N/A Nausea 10/29/2015 Medications Problems Procedures Results Test Result Range Hemoglobin A1C - 05/24/16 09:49 Hemoglobin A1C 7.4 % 4.1-5.6 Estimated Average Glucose - 05/24/16 09:49 Estimated Average Glucose 165.7 mg/dL Hemoglobin A1C - 09/17/16 10:10 Hemoglobin A1C 7.3 % 4.1-5.6 Estimated Average Glucose - 09/17/16 10:10 Estimated Average Glucose 162.8 mg/dL Encounters ACCT No. Visit Date/Time Discharge Status Pt. Type Provider Facility Loc./Unit Complaint [id number] 01/13/2014 09:59:00 01/13/2014 23 :59:59 CLS Outpatient [id number] 01/04/2014 07:08:00 01/04/2014 23 :59:59 CLS Outpatient [id number] 10/19/2013 11:00:00 10/19/2013 23 :59:59 CLS Outpatient [id number] 10/06/2013 10:29:00 10/06/2013 23 :59:59 CLS Outpatient [id number] 09/02/2013 10:11:00 09/02/2013 23 :59:59 CLS Outpatient
--- OUTSIDE RECORDS SUMMARY | 2017-03-01 12:10 | XMS REPORT | Continuity of Care Document ---
Author Author [facility] Organization [facility] Address Unknown Phone Unavailable Care Team Providers Care Information Systems Project Manager Name Role Phone GLENN NAQVI MD Primary Care Physician [phone] Insurance Providers Payer Name Policy Number Subscriber Name Relationship Medicarehumana Gold Hmo [id number] Alcides De Leon 16 Self Advance Directives [...] because (patient own words): NAUSEA/VOMIT/FEVER/DIARRHEA Discharge Diet: [place] diet, increased as able Discharge Activity: As [...] or chest pain. During office hours, call [phone]. After hours, please call [facility] at [phone] and have the compotype operator page Dr. Gonzalez or the covering [...] F (96.8 - 99.1) Temperature (Calculated Celsius) 36.22082 degrees C (36.0 - 37.3) Pulse Rate [...] 09, 2014 9:33pm LAB TEST FORM REQUEST [id number] - Lipase February 21, 2015 10:53pm 48 [...] YWhat is the Source? VOIDED Urine Specific [place] February 21, 2015 10:26pm >=1.030 H - [...] /Oralis Name: ALCIDES DE LEON Unit #: [id number] : 1950 Sex: M Loc / [facility] [place]: [place]G DOS: 02/21/15 Signed Report #: [id number] DIAGNOSTIC IMAGING REPORT TYPE OF EXAM: CT [...] 2012. There is a preliminary report by [facility]. . Procedures No known history of procedures. Encounters Encounter Location Date/Time Discharged Inpatient [facility] 02/22/15 12:33am Recent Diagnosis Fever Small bowel obstruction Vomiting DM (diabetes mellitus) HTN (hypertension) History of kidney stones CAD (coronary artery disease) Leukocytosis Cholelithiases Elevated liver enzymes
[2017-03-01 12:14] LABS: ALBUMIN 3.7 G/DL (3.5-5.0); ALBUMIN/GLOBULIN RATIO 0.9 RATIO (1.1-2.2); ALKALINE PHOSPHATASE 233 U/L (38-126); ALT (SGPT) 49 U/L (21-72); ANION GAP 14 MEQ/L (5-15); AST (SGOT) 44 U/L (17-59); BUN/CREATININE RATIO 12 RATIO (6-26); CHLORIDE 103 MEQ/L (98-107); CO2 - CARBON DIOXIDE 22 MEQ/L (22-30); CREATININE 1.1 MG/DL (0.8-1.5); GLOMERULAR FILTRATION RATE 67; GLUCOSE 297 MG/DL (75-110); LIPASE 95 U/L (23-300); POTASSIUM 4.2 MEQ/L (3.6-5); SODIUM 139 MEQ/L (134-144); TOTAL PROTEIN 7.8 G/DL (6.3-8.2)
[2017-03-01] MEDS ORDERED: NORMAL SALINE 500 ML IV ONE (12:15)
--- NOTE | 2017-03-01 12:20 | NUR ---
CT PT TO CT PER COT.
--- NOTE | 2017-03-01 12:32 | NUR ---
RETURN CT PT RETURNED FROM CT PER COT.
--- NOTE | 2017-03-01 12:36 | ERPDOC ---
Departure Disposition Decision Date: Mar 01, 2017 Disposition Decision Time: 13:45 Disposition: 02 TO [facility] Impression Impression Impression: Primary Impression: Acute cholecystitis Severity: Moderate Condition: Improved Seen By: Physician only Referrals: GLENN NAQVI MD (PCP) Problems/Meds/Labs Reviewed?: Yes Medications reviewed and manag: Yes Follow up care ordered?: Yes Mental Status: Alert, Oriented HPI - Abdominal Pain General Chief Complaint: Abdominal Pain Stated Complaint: RIGHT SIDE PAIN Time Seen by Provider: 11:45 Source: patient History/Exam Limitations: no limitations HPI - Abdominal Pain Initial Comments 66-year-old male is sent to the emergency department for further evaluation treatment after being seen at his primary care physician's office earlier today. Patient was seen by Dr. Arias and referred to the emergency Department. Patient notes generalized abdominal discomfort. Patient states that the greatest pain is in the right upper quadrant and diffuse across the lower abdomen. Pain is moderate. Pain is sharp. Pain does not radiate. Patient notes that the pain increases with direct palpation and manipulation of the affected area. Patient also notes the pain increases with movement. Patient denies any trauma, travel, poorly prepared food, or recent antibiotic use. No other complaints or associated symptoms. Patient was at home when the symptoms began. Symptoms have been persistent in nature since onset in a gradual manner. Symptoms began on Saturday of this past week which is also the day of his last bowel movement. Patient does also note that he was taking an increased amount of narcotic pain medication secondary to injuring his back earlier in the week. The back pain has resolved. Occurred At: home Onset: Gradual Allergies: Coded Allergies: hydrochlorothiazide (Verified Allergy, Unknown, 03/01/17) metoprolol succinate (Verified Allergy, Unknown, 03/01/17) Past History Past Medical History Metabolic: diabetes, hypertension GI: gallbladder disease Male: kidney stones Musculoskeletal: back pain Surgical History General: colonoscopy Cardiac: cardiac stent Family History Family History: Negative Vaccines Hx Influenza Vaccination: Yes (AUG 2014) Hx Pneumococcal Vaccination: Yes (AUG 2014) Social History Smoking Status: Never smoker Substance Use Type: does not use Alcohol Intake: none Review of Systems Constitutional Constitutional: DENIES: chills, fever Eyes General: DENIES: erythema, exudate, pain Lids/Accessories: DENIES: erythema, swelling Vision: DENIES: acuity, blurring ENMT Ears: DENIES: drainage, erythema Hearing: DENIES: hearing loss Balance: DENIES: ataxia, falling to one side Sinuses: DENIES: congestion, pain Nose: DENIES: nosebleeds, pain Mouth/Throat: DENIES: painful swallowing, sore throat Teeth: DENIES: pain Jaw: DENIES: pain Cardiovascular Cardiac: DENIES: chest pain, dyspnea on exertion Rhythm/Rate: DENIES: irregular beat, palpitations Vascular: DENIES: pedal edema, unilateral swelling Pulmonary Respiratory: DENIES: cough, dyspnea, pleuritic chest pain, sputum GI Upper Abdomen: pain, DENIES: nausea, vomiting Lower Abdomen: pain, DENIES: diarrhea General: DENIES: dysuria, frequency Musculoskeletal General: DENIES: joint pain, tenderness Integumentary Skin: DENIES: itching, rash Neurological General: DENIES: headache, numbness, weakness Psychiatric Psychiatric: DENIES: emotional instability, suicidal ideation/attempt Endocrine Endocrine: DENIES: polydipsia, polyphagia Hematologic/Lymphatic Hematologic/Lymphatic: DENIES: frequent nosebleeds, lymphadenopathy Allergic/Immunological Allergic/Immunoligical: DENIES: allergic reactions, hives Physical Exam General General Nourishment: well nourished, well developed, appears stated age, no acute distress, adult General Body Habitus: well groomed Vitals and Pain First Documented Vital Signs Date Time Temp Pulse Resp B/P Pulse Ox O2 Delivery O2 Flow Rate FiO2 03/01/17 11:37 97.7 96 20 170/85 95 Room Air Weight: Kilograms: 116.200 Height (feet): 6 Height (inches): 2.00 Triage Pain Scale: RN VS reviewed by Provider: Yes Normal Exams: Head: Normocephalic w/o trauma Eyes: Pupils are PERRLA w/ EOMI, No scleral icterus, irritation, or foreign bodies noted ENMT: No facial trauma, nasal exudates, pharyngeal erythema, or exudates are noted Dental: No fractured, loose, or missing teeth noted Neck: Full range of motion, without adenopathy, JVD, bruits or thyromegaly Chest/Resp: Clear all iyer, with good airflow, and symmetry bilaterally CV: Regular rate and rhythm, without murmur or gallop, Pulses 2+ all extremities, capillary refill, <2 seconds all ext., no pedal edema noted Abdomen: Bowel sounds positive, non-distended, no hepatosplenomegaly, masses or bruits noted Lymphatic: No lymphadenopathy, or lymphedema noted Musculoskeletal: No tenderness, or deformity noted, good range of motion, all extremities Integumentary: No rashes, hives, or bruising noted, hair and nails, without abnormality Neurologic: Patient is alert, and oriented, cranial nerves, motor/sensory/ cerebellar, exams w/o gross deficits, to observation Psychiatric: Patient exhibits, appropriate attention, emotion and affect Abdomen (brief) Comments Generalized tenderness to palpation with greatest tenderness in the RUQ. No rebound or guarding. No CVAT. Soft. Progress Results/Orders Orders Procedure Category Date Status Time Cbc W/Auto LAB 03/01/17 Complete Diff-Reflex Manual Cmp - Comprehensive LAB 03/01/17 Complete Metabolic Lipase LAB 03/01/17 Complete Iv Lock (Ed Only) EDM 03/01/17 Transmitted 12:08 Normal Saline (Ns) PHA 03/01/17 Complete 12:15 EKG EKG 03/01/17 Logged Troponin I W LAB 03/01/17 Complete Hemolysis Index Us Gallbladder US 03/01/17 Resulted 12:10 Ct Abd/Pelvis W/O CT 03/01/17 Resulted Contrast 12:10 UA, LAB 03/01/17 Complete Dip&Micro(Complete) & 12:31 Npo Now ANGLE 03/01/17 In Process 13:12 Npo: Nothing By Mouth DIET 03/01/17 Transmitted Dinner Fentanyl (Fentanyl) PHA 03/01/17 Complete 13:45 Ondansetron Inj PHA 03/01/17 Complete (Zofran) 13:45 Ertapenem (Invanz) PHA 03/01/17 In Process 14:00 Place In Facility: ED ADM 03/01/17 Transmitted 13:53 Lab Results Laboratory Tests Test 03/01/17 11:56 03/01/17 12:00 03/01/17 12:31 Troponin I < 0.012ng/ml Chemistry Specimen Hemolysis < 15 < 15 White Blood Count 12.4T/MM3 Red Blood Count 4.94M/MM3 Hemoglobin 15.5GM/DL Hematocrit 46.3% Mean Corpuscular Volume 93.7UM3 Mean Corpuscular Hemoglobin 31.4UUG Mean Corpuscular Hemoglobin Concent 33.5GM/DL RDW Standard Deviation 49.0FL Platelet Count 120T/MM3 Mean Platelet Volume 11.1UM3 Immature Granulocyte % (Auto) 0.2% Neutrophils (%) (Auto) 79.7% Lymphocytes (%) (Auto) 11.1% Monocytes (%) (Auto) 8.2% Eosinophils (%) (Auto) 0.6% Basophils (%) (Auto) 0.2% Absolute Immature Granulocyte (auto 0.02T/MM3 Absolute Neutrophils (auto) 9.9T/MM3 Absolute Lymphocytes (auto) 1.4T/MM3 Absolute Monocytes (auto) 1.0T/MM3 Absolute Eosinophils (auto) 0.1T/MM3 Absolute Basophils (auto) 0.0T/MM3 Turbidity < 20 Sodium Level 139MEQ/L Potassium Level 4.2MEQ/L Chloride Level 103MEQ/L Carbon Dioxide Level 22MEQ/L Anion Gap 14MEQ/L Blood Urea Nitrogen 13.0MG/DL Creatinine 1.1MG/DL Glomerular Filtration Rate Calc 67 BUN/Creatinine Ratio 12RATIO Glucose Level 297MG/DL Calculated Osmolality 279MOSM/KG Calcium Level 9.0MG/DL Total Bilirubin 2.60MG/DL Icterus Index < 2 Aspartate Amino Transf (AST/SGOT) 44U/L Alanine Aminotransferase (ALT/SGPT) 49U/L Alkaline Phosphatase 233U/L Total Protein 7.8G/DL Albumin 3.7G/DL Globulin 4.1G/DL Albumin/Globulin Ratio 0.9RATIO Lipase 95U/L Urine Collection Type Cleancatch-midstream Urine Color Yellow Urine Turbidity Clear Urine pH 5.5 Urine Specific [place] 1.025 Urine Protein 1+ Urine Glucose (UA) 2+ Urine Ketones Trace Urine Blood 1+ Urine Nitrite Negative Urine Bilirubin 1+ Urine Urobilinogen 1.0EU/DL Urine Leukocyte Esterase Negative Urine RBC 3-5/HPF Urine WBC None seen/HPF Urine Squamous Epithelial Cells 10-20 Urine Bacteria Negative Urine Mucus Present Urine Culture Indicated Cult not indicated Medications Current ED Medications Sodium Chloride (NS) 500 ml @ 999 mls/hr Q31M ONCE IV Last administered on 13:24; Start 03/01/17 at 12:15; Stop 03/01/17 at 12:45; Status DC Fentanyl (Fentanyl) 50 mcg O ONCE IV Last administered on 03/01/17 13:42; Start 03/01/17 at 13:45; Stop 03/01/17 at 13:46; Status DC Ondansetron HCl (Zofran) 4 mg O ONCE IV Last administered on 03/01/17t 13:42; Start 03/01/17 at 13:45; Stop 03/01/17 at 13:46; Status DC Progress Progress Labs / imaging were discussed in detail with the patient and family and questions are answered. Patient is given IV hydration. Patient is given parental narcotic and antiemetic medications intravenously in the emergency department with improvement of symptoms. Patient was given Invanz 1 g IV 1 in the emergency Department. Patient is made nothing by mouth. Patient is admitted to the service of Dr. Roy after discussion with him in improved condition. Patient and family are in agreement with the current plan of management. Patient is admitted to the hospital in improved condition. There are no further orders from the accepting physician who is in agreement with the current plan of management. EKG EKG : Rate: 60-100 Rhythm: sinus [place]: normal QRS: RBBB Intervals: normal ST/T: normal Interpreted by: signing physician CT CT : CT: Abd/Pelvis no contrast Interpretation: Abnormal, Reviewed Written Report (acute cholecystitis.) Ultrasound US : Ultrasound: Gallbladder US Interpretation: Abnormal, Reviewed Written Report (acute cholecystitis.) PAVAN MACIEL DO Mar 01, 2017 12:36
--- NOTE | 2017-03-01 12:36 | NUR ---
ULTRASOUND ULATRASOUND IN ROOM WITH PT.
[2017-03-01 12:44] LABS: BLOOD, URINE 1+ (NEGATIVE); COLOR,URINE YELLOW (YELLOW); LEUKOCYTE ESTERASE ,URINE NEGATIVE (NEGATIVE); NITRITE,URINE NEGATIVE (NEGATIVE)
--- NOTE | 2017-03-01 12:48 | DI ---
Indication: ITS.REASON: r sided pain PROCEDURE: CT ABD/PELVIS W/O CONTRAST: Encounter: Initial Comparison: CT abdomen and pelvis dated February 21, 2015 Technique: Axial CT images were performed through the abdomen and pelvis without intravenous contrast. Coronal and sagittal two-dimensional reformats. Automated Exposure Control and Iterative Reconstruction dose reducing techniques were utilized. Findings: Coronary artery stent and coronary artery calcifications. Scarring and atelectasis in both lung bases. Increased pleural fat in the left base has developed since the prior study without clear etiology. This is probably of no real clinical importance. The liver is nodular and appears cirrhotic. Two large gallstones again seen within the gallbladder. A 9 mm stone appears wedged in the gallbladder neck. There is adjacent inflammation which has developed since the prior study. The spleen, pancreas and adrenal glands are within normal limits. Scattered small bilateral nonobstructing renal stones measuring 2 to 3 mm seen throughout both kidneys. Small left renal cyst is unchanged. No evidence of obstructing renal or ureteral stone. Ureters appear normal. No abdominal or pelvic lymphadenopathy. Scattered arterial atherosclerotic plaque. Bladder is decompressed. Small bilateral fat-containing inguinal hernias. No evidence of a bowel obstruction. Sigmoid diverticulosis without evidence of acute diverticulitis. Large amount of stool in the cecum with fecalization of the distal small bowel suggesting chronic slow motility. Bone windows show degenerative changes in the spine. Impression: Acute cholecystitis. Surgical consultation is recommended. .
[2017-03-01 12:51] LABS: BACTERIA,URINE NEGATIVE (NEGATIVE); MUCUS,URINE PRESENT; WBC,URINE NONE SEEN /HPF (0-5)
--- NOTE | 2017-03-01 13:09 | DI ---
Indication: ITS.REASON: R sided pain PROCEDURE: US GALLBLADDER: Encounter: Initial Comparison: CT abdomen and pelvis from today Technique: Grayscale and color Doppler sonographic imaging of the right upper quadrant of the abdomen was performed. Findings: Hepatic parenchyma is nodular and cirrhotic without evidence for focal mass. The gallbladder is abnormal with two shadowing gallstones. One stone is seen lodged in the gallbladder neck measuring 1.6 cm in diameter. Sonographic Looney's sign was positive. Gallbladder wall is abnormally thickened at just over 3 mm. Both the intra and extrahepatic biliary system are of normal caliber with the common duct measuring 3 mm in dimension. Visualized portions of the head and body of the pancreas are unremarkable. The right kidney is present without collecting system dilatation. The right kidney measures 10.6 cm in length. Impression: Acute cholecystitis. Emergent surgical consultation is recommended. .
[2017-03-01] MEDS ORDERED: ONDANSETRON 4mg/2ml INJECTION IV ONE (13:45)
[2017-03-01] MEDS ORDERED: FENTANYL 100mcg/2ml INJECTION IV ONE (13:45)
[2017-03-01] MEDS ORDERED: ERTAPENEM 1 G in NORMAL SALINE 100 ML IV ONE (14:00)
--- OUTSIDE RECORDS SUMMARY | 2017-03-01 14:01 | XMS REPORT | Continuity of Care Document ---
Author Author [facility] Organization [facility] Address Unknown Phone Unavailable Allergies Active Description [...] Status Pt. Type Provider Facility Loc./Unit Complaint [id number] 08/10/2013 09:00:00 2012 23:59:59 CLS Outpatient Kervin Thapa MD [facility] [address] [id number] 08/17/2013 07:30:00 Document Registration
--- OUTSIDE RECORDS SUMMARY | 2017-03-01 14:02 | XMS REPORT | Continuity of Care Document ---
Author Author [facility] Organization [facility] Address Unknown Phone Unavailable Care Team Providers Care It Technical Support Specialist Name Role Phone GLENN NAQVI MD Primary Care Physician [phone] Insurance Providers Payer Name Policy Number Subscriber Name Relationship Medicarehumana Gold Hmo [id number] Alcides De Leon 16 Self Advance Directives [...] because (patient own words): NAUSEA/VOMIT/FEVER/DIARRHEA Discharge Diet: [place] diet, increased as able Discharge Activity: As [...] or chest pain. During office hours, call [phone]. After hours, please call [facility] at [phone] and have the glove operator page Dr. Gonzalez or the covering [...] F (96.8 - 99.1) Temperature (Calculated Celsius) 36.28516 degrees C (36.0 - 37.3) Pulse Rate [...] 09, 2014 9:33pm LAB TEST FORM REQUEST [id number] - Lipase February 21, 2015 10:53pm 48 [...] YWhat is the Source? VOIDED Urine Specific [place] February 21, 2015 10:26pm >=1.030 H - [...] /Oralis Name: ALCIDES DE LEON Unit #: [id number] : 1950 Sex: M [place] [facility] [place]: 02/21/15 Signed Report #: [id number] DIAGNOSTIC IMAGING REPORT TYPE OF EXAM: CT [...] 2012. There is a preliminary report by [facility]. . Procedures No known history of procedures. Encounters Encounter Location Date/Time Discharged Inpatient [facility] 02/22/15 12:33am Recent Diagnosis Fever Small bowel obstruction Vomiting DM (diabetes mellitus) HTN (hypertension) History of kidney stones CAD (coronary artery disease) Leukocytosis Cholelithiases Elevated liver enzymes
--- NOTE | 2017-03-01 14:40 | NUR ---
ARRIVAL ARRIVES TO ROOM 134 VIA CART. PATIENT TRANSFERS SELF FROM CART TO BED. O2 RA. ANTIBIOTICS STARTED IN ER AND CURRENTLY INFUSING. PATIENT AND SPOUSE ORIENTED TO SURROUNDINGS. BED IN LOWEST POSITION, CALL LIGHT WITHIN REACH, SIDE RAILS UP X2, AND BED ALARM ACTIVATED.
--- NOTE | 2017-03-01 16:06 | HPPDOC ---
HPI - Adult Date DATE: 03/01/17 TIME: 15:55 General Chief Complaint: RUQ pain History of Present Illness Per Dr. Roy Past Medical History Past Medical History Patient's Medical History: (1) Restless leg syndrome (2) Asthma (3) Rosacea (4) Depression (5) Migraine headache (6) TIA (transient ischemic attack) Permanent Comment: confusion in 2002, and dizziness in 2008 Last Edited By: Charissa Palacios on Mar 01, 2017 15:58 (7) History of kidney stones (8) DM (diabetes mellitus) (9) HTN (hypertension) (10) CAD (coronary artery disease) (11) Sleep apnea with use of continuous positive airway pressure (CPAP) (12) GERD (gastroesophageal reflux disease) Surgical History Patient's Surgical History: -04-25-2009 heart cath with drug-eluding stent in left antrior descending. -right carpal tunnel release. -right knee arthroscopy for torn meniscus,. -pilonidal cystectomy. -l3- left temporal artery biopsy Current Medications Home Meds Reported Medications Aspirin (Aspirin) 81 Mg Tab.chew, 0.5 MG PO DAILY 03/01/17 Diphenhydramine HCl (Benadryl) 25 Mg Capsule, 50 MG PO HS 03/01/17 Hydrocodone/Acetaminophen ([place] 5-325 Tablet) 1 Each Tablet, 1-2 TAB PO TID Y for PAIN, TAB 02/22/15 Liraglutide (Victoza 2-Jordy) 18 Mg/Syringe Inj, 1.2 MG SQ HS 02/22/15 Simvastatin (Simvastatin) 20 Mg Tablet, 20 MG PO HS 02/22/15 Ropinirole Hcl (Requip) 0.5 Mg Tablet, 0.5 MG PO HS 01/26/10 Allergies: Coded Allergies: hydrochlorothiazide (Verified Allergy, Unknown, 03/01/17) metoprolol succinate (Verified Allergy, Unknown, 03/01/17) iodine (Verified Adverse Reaction, Severe, VOMITING, 03/01/17) IV IODINE WITH CONTRAST Family History Family History: mother ided age 78 of dementia. father age 73of unspecified vasculitis, Social History Smoking Status: Former smoker (quit in 1988) Substance Use Type: does not use Alcohol Intake: none Marital Status: Current Occupational Status: retired Advance Directives: No DPOA for Healthcare Only GS Review of Systems Cardiovascular REPORTS palpitations, REPORTS irregular heart beat (history of a-fib in the past ) Respiratory REPORTS sleep apnea, REPORTS use of CPAP Gastrointestional REPORTS constipation, REPORTS other (see HPI) Musculoskeletal REPORTS back pain, REPORTS joint pain Psychiatric REPORTS depression Endocrine REPORTS diabetes 10-point Review of Systems otherwise negative except HPI GS Physical Exam Vital Signs Date Time Temp Pulse Resp B/P Pulse Ox O2 Delivery O2 Flow Rate FiO2 03/01/17 14:53 71 18 03/01/17 14:44 98.9 141/77 93 Room Air Height (Feet): 5 Height (Inches): 11.00 Weight (Kilograms): 118.600 BMI 36.5 Laboratory Laboratory Tests 03/01/17 12:00 Laboratory Tests 03/01/17 12:00 GS Assessment & Plan Code Status Full Code Hospital Course Summary Disclaimer The visit summary below is not to be considered part of the above Progress Note. CHARISSA PALACIOS APRN Mar 01, 2017 16:00
[2017-03-01 16:43] LABS: INR 1.2 (0.76-1.04); PROTHROMBIN TIME 13.1 SEC (9.31-12.49); PTT 29.6 SEC (24-36)
[2017-03-01] MEDS ORDERED: PROPOFOL 200mg 20 ML IV ONE (16:58)
[2017-03-01] MEDS ORDERED: FENTANYL 250mcg/5ml INJECTION ONE ×2 (16:58→19:46)
[2017-03-01] MEDS ORDERED: ROCURONIUM 50mg/5ml INJECTION IV ONE ×2 (16:59→18:54)
--- NOTE | 2017-03-01 17:00 | NUR ---
TO OR PT TRANSPORTED TO OR AT THIS TIME VIA WHEELCHAIR AND ACCOMPANIED BY STAFF. FABIANA PRESENT UPON TRANSFER. VITAL SIGNS STABLE ON ROOM AIR. INFORMED CONSENT PREVIOUSLY OBTAINED. WILL CONTINUE TO MONITOR.
[2017-03-01] MEDS ORDERED: NORMAL SALINE 1,000 ML IV ONE (17:04)
--- NOTE | 2017-03-01 17:13 | ANESPREOP ---
Anesthesia Record Date and Time DATE: 03/01/17 TIME: 17:10 Proposed Surgical Procedure NPO since: 1000 Allergies: Coded Allergies: hydrochlorothiazide (Verified Allergy, Unknown, 03/01/17) metoprolol succinate (Verified Allergy, Unknown, 03/01/17) Ht/Wt/BMI Height: 5 ' 11.00 " Weight: 118.600 kg BMI: 36.5 kg/m2 Vital Signs Date Time Temp Pulse Resp B/P Pulse Ox O2 Delivery O2 Flow Rate FiO2 03/01/17 14:53 71 18 03/01/17 14:44 98.9 141/77 93 Room Air Medications Aspirin (Aspirin) 81 Mg Tab.chew, 0.5 MG PO DAILY, (Reported) Last Taken: on 02/28/172229 Diphenhydramine HCl (Benadryl) 25 Mg Capsule, 50 MG PO HS, (Reported) Last Taken: on 02/28/172229 Hydrocodone/Acetaminophen ([place] 5-325 Tablet) 1 Each Tablet, 1-2 TAB PO TID PRN for PAIN, (Reported) Last Taken: on 02/28/172229 Liraglutide (Victoza 2-Jordy) 18 Mg/Syringe Inj, 1.2 MG SQ HS, (Reported) Last Taken: on 02/28/172229 Ropinirole Hcl (Requip) 0.5 Mg Tablet, 0.5 MG PO HS, (Reported) Simvastatin (Simvastatin) 20 Mg Tablet, 20 MG PO HS, (Reported) Last Taken: on 02/28/172229 Currently on Beta Rhea: No Medical/Surgical History Anesthesia PMH: Reports: *ASHD (CAD with stent x 1 nine years ago. Patient stated had nuclear stress test a month ago which was negative), *Diabetes ( blood sugar 142), *Dyspnea (PRIOR TO HEART CATH W STENT), *Hypertension, Arthritis, CVA/Stroke/TIA (3 TIA'S-NO RESIDUAL), Obesity, Reflux (occasionally) , Renal Disease (KIDNEY STONES), Sleep Apnea (C PAP) Smoking Status: Never smoker (quit in 1988) Use Chewing Tobacco?: No Second Hand Exposure: No Substance Use Type: does not use Alcohol Intake: rarely Past Surgical History Orthopedic Surgeries: Yes - CARPAL TUNNEL SYNDROME Abdominal Surgeries: No Genitourinary Surgeries: No Cardiac Surgeries: Yes - 2 HEART CATH 1 STENT PLACEMENT Endocrine Surgeries: No Reproductive Surgeries: No Neurological Surgeries: No Ear Surgeries: No Nose Surgeries: No Throat Surgeries: No Other Surgeries: Yes - carpal tunnel surgery and cyst removed from tail bone Anesthesia Adverse Reactions: FOUND none Family Hx of Anesthesia Advers: none Hx of Motion Sickness: No Pertinent Findings Laboratory Tests 03/01/17 12:00 Test 03/01/17 16:29 Activated Partial Thromboplast Time 29.6SEC (24-36) Prothromb Time International Ratio 1.20 (0.76-1.04) Physical Exam Respiratory: Bilat breath sounds equal, Lungs clear Cardiovascular: FOUND Regular rate, rhythm Airway Assessment Mallampati Score: II TMD: 3 Fingerbreadths Neck Extension: Fair Overall Assessment: No Airway Concerns ASA: 3, E Plan Anesthesia Plan: GETA Discussion Discussed risks/options/alternatives of anesthesia and questions answered. Patient consents. Nursing pain assessment noted. Present: Family Member Attestation Statement Prior to the delivery of any anesthetic medication, I examined the patient, developed the plan, obtained the patient's consent and discussed the risk and benefits of the procedure with the patient/guardian. ASHLEY DIAZ CRNA Mar 01, 2017 17:13
[2017-03-01] MEDS ORDERED: BUPIVACAINE 0.25%/EPI 1:200,000 30ml SDV ONE (17:19)
[2017-03-01] MEDS ORDERED: SALINE FLUSH 10ml SYRINGE ONE (17:19)
[2017-03-01] MEDS ORDERED: FAMOTIDINE 20mg in NS 50ml IV ONE (17:30)
[2017-03-01] MEDS ORDERED: IOHEXOL 300 MG/ML 50ml INJECTION ONE (17:32)
[2017-03-01] MEDS ORDERED: DiphenhydrAMINE 50 MG/ML INJECTION ONE (17:42)
[2017-03-01] MEDS ORDERED: DEXAMETHASONE 4mg/ml - 1ml INJECTION ONE (17:42)
[2017-03-01] MEDS ORDERED: SUGAMMADEX 200 MG/2 ML INJECTION IV ONE (18:19)
[2017-03-01] MEDS ORDERED: ONDANSETRON 4mg/2ml INJECTION ONE (18:19)
--- NOTE | 2017-03-01 18:23 | HPF ---
FINDINGS Mr. Kim is a 66-year-old gentleman whom I was asked to see earlier today through the emergency room as a result of his history and physical findings of right upper quadrant abdominal pain in conjunction with abnormal radiographic evaluation revealing evidence for acute cholecystitis. Patient informs me that on Saturday of this week he had "thrown his back out." Patient states he began to take some pain pills and had developed some constipation. Patient states on he began to notice that he was experiencing a fair amount of discomfort within his right upper quadrant. Patient states that today the pain has continued to become worse in nature. Pain is made worse by "taking a deep breath in." Pain is also made worse with movement. Denies specific alleviating features. He has not had any element of nausea or vomiting in association with the pain. He has not had pain similar to this in the past. He does state that he has had a "few kidney stones in the past that hurt just as bad." PAST MEDICAL HISTORY, PAST SURGICAL HISTORY, MEDICATIONS, ALLERGIES, SOCIAL HISTORY, FAMILY HISTORY, REVIEW OF SYSTEMS Performed by my nurse practitioner, Julio Cesar Palacios APRN PHYSICAL EXAMINATION Mr. Kim is a 66-year-old male who does not appear to be in acute distress. VITAL SIGNS: Temperature 98.9, pulse 71, respirations 18, blood pressure 141/77, SAO2 93% on room air. HEENT: Normocephalic. Pupils are equally round and react to light and accommodation. NECK: Supple without lymphadenopathy. CHEST: Clear to auscultation bilaterally. HEART: Regular rate and rhythm. Normal S1 and S2 without gallops, murmurs or clicks. ABDOMEN: Soft. Patient does display a fair amount of tenderness with palpation within the right upper quadrant. I do not appreciate evidence for hepatomegaly. The patient does have a positive Looney sign. There is no evidence for rebound tenderness or involuntary guarding upon palpation. EXTREMITIES: Without clubbing, cyanosis, or edema. NEURO: Cranial nerves II-XII grossly intact. Patient is without focal motor or sensory deficits. LABORATORY/RADIOGRAPHIC EVALUATION The patient had a CBC upon admission. His white count was elevated at 12.4. Hemoglobin is 15.5. CMP was obtained and his total bilirubin was elevated at 2.6. Alkaline phosphatase was elevated at 233. AST and ALT were elevated. Lipase was normal at 95. From a radiographic standpoint the patient had a CT scan obtained through the ER. Findings were consistent with that of acute cholecystitis. The patient was found to have two large gallstones seen within the gallbladder. One stone appeared to be within the neck of the gallbladder. There was some adjacent inflammation as well noted in the pericholecystic region. There did appear to be a component of some cirrhosis of the liver. Gallbladder ultrasound was obtained. The gallbladder was abnormal, showing two shadowing gallstones. One stone was described as being lodged in the neck of the gallbladder and was 1.6 cm in diameter. Gallbladder was abnormally thickened at just over 3 mm. Again, the liver parenchyma appeared to be nodular and cirrhotic in nature. ASSESSMENT 66-year-old gentleman with acute cholecystitis. PLAN Robotic-assisted laparoscopic cholecystectomy with intraoperative cholangiogram. I informed the patient and his that it was my clinical intuition, given his physical findings and radiographic findings, that he was indeed suffering from acute cholecystitis. It was therefore my recommendation to the patient and his that he should undergo surgical intervention. I did discuss with the patient and his in detail what a robotic-assisted laparoscopic cholecystectomy entailed and its associated risks which included but was not inclusive of bleeding, infection, potential conversion to an open procedure, as well as potential injury to adjacent structures, especially the common bile duct. The patient and understood and agreed at this time. DIONNE
[2017-03-01] MEDS ORDERED: HYDROMORPHONE 2mg/ml INJECTION ONE (18:35)
[2017-03-01] MEDS ORDERED: ONDANSETRON 4mg/2ml INJECTION IV PRN ×2 (21:00→21:30)
[2017-03-01] MEDS ORDERED: HYDROMORPHONE 2mg/ml INJECTION IV PRN (21:00)
[2017-03-01] MEDS ORDERED: HYDROCODONE/APAP 5 mg/325 mg TABLET PO PRN (21:30)
[2017-03-01] MEDS ORDERED: METOCLOPRAMIDE 10mg/2ml INJECTION IV PRN (21:30)
--- NOTE | 2017-03-01 21:31 | GSPOSTPN ---
Procedure Procedure Date: Mar 01, 2017 Surgeon: Kirill Assisting Surgeon: Julio Cesar Palacios Anesthesia: Local, GETA ASA: 3, E Procedure Robotic assisted laparoscopic cholecystectomy with FireFly imaging GS Diagnosis Postop Diagnosis Acute gangrenous cholecystitis cholelithiasis, Hydrops of the gallbladder, hyperbilirubinemia Complications Complications Estimated Blood Loss See Anesthesia Record. Vital Signs See Anesthesia and PACU record. NEHEMIAH PALACIOS HOUSING QUALITY STANDARD INSPECTOR Mar 01, 2017 21:31
--- NOTE | 2017-03-01 21:32 | NUR ---
PACU Pt arrives to CCU1 at this time via bed, accompanied by OR nurses and anesthesiologist. ANTONIO Guajardo, here to put in orders. PULLBOAT ENGINEER to recover. VSS. BGM obtained on arrival. Result of 192.
[2017-03-01 21:55] LABS: HGB - HEMOGLOBIN 15.2 GM/DL (13.5-17.5)
[2017-03-01] MEDS: ROPINIROLE 0.5 MG TABLET PO SCH (22:00)
--- NOTE | 2017-03-01 22:23 | ANESPO ---
Post-Op Note Date 03/01/17 Time: 22:22 Status Pt Participated in Evaluation: Pt participated in person Vital Signs Date Time Temp Pulse Resp B/P Pulse Ox O2 Delivery O2 Flow Rate FiO2 03/01/17 21:55 105 18 162/81 91 Room Air 03/01/17 21:50 6.00 03/01/17 21:32 99.1 Respiratory Function: Airway patent, Regular respirations Cardiovascular Function: Regular pulse Mental Status: Alert/oriented Pain Level Intensity: 3 Hydration: IV infusing Complications during Recovery None apparent Post-Anesthesia Notes Patient sent to ICU per surgeon. Patient doing well, denies pain at this time. Follow-Up Instructions Instructions Per Surgeon ASHLEY DIAZ CRNA Mar 01, 2017 22:23
--- NOTE | 2017-03-01 22:25 | NUR ---
Recovery Complete Recovery completed at this time by PACU. This RN resumes cares. Report received. Pt awake to voice, asleep off and on. Rates pain as minimal. C/o being "hot and sweaty." RN removes covers and provides fan. ERIC drains x2 with moderate serosanguineous drainage. Dressings to abdomen x4 c/d/i. Nuñez in place, adequate output thus far. SCDs in place. IV to right forearm intact.
[2017-03-01] MEDS: D5-1/2 NS KCL 20 MEQ 1,000 ML IV SCH (22:38)
[2017-03-01] MEDS: KETOROLAC 15mg/ml INJECTION IV PRN (22:39)
[2017-03-02] VITALS (21 sets, daily range): BP systolic 105–170; BP diastolic 56–80; PULSE 61–86; RESP 16–34; TEMP 96.5–98.4; O2SAT 84–96
[2017-03-02] MEDS: KETOROLAC 15mg/ml INJECTION IV PRN ×3 (05:06→20:12)
[2017-03-02] MEDS: MORPHINE SULFATE 4 MG SYRINGE IV PRN ×2 (05:07→09:47)
[2017-03-02 05:23] LABS: HCT - HEMATOCRIT 43.8 % (41-53); HGB - HEMOGLOBIN 14.3 GM/DL (13.5-17.5); MEAN CORPUSCULAR HGB 31.4 UUG (26-34); MEAN CORPUSCULAR HGB CONC(MCHC 32.6 GM/DL (31-37); MEAN CORPUSCULAR VOLUME 96.3 UM3 (80-100); MEAN PLATELET VOLUME 11.2 UM3 (9.4-12.4); RED BLOOD COUNT 4.55 M/MM3 (4.50-5.90); WBC - WHITE BLOOD COUNT 18.2 T/MM3 (4.5-11.0)
--- NOTE | 2017-03-02 05:23 | NUR ---
Status Pt slept off and on tonight, awakes easily for cares. C/o abdominal pain. PRN Toradol and Morphine administered. Pt's brought home cpap for sleep. Required 6L O2 connected. When off cpap, pt was on 6L O2/NC. A&Ox3 and appropriate. Dressings to abdomen c/d/i. ERIC drains - right lateral had 60cc drainage while left lateral only 15cc. Nuñez to dependent drainage, output adequate. BGM this morning of 222, however note that pt did not have his Victoza prior to bedtime last night. D51/2NS+20KCl@125 infusing to new IV in right hand. Right forearm IV infiltrated. VSS. NSR with HR in the 60s.
[2017-03-02 05:30] LABS: ALBUMIN 3.3 G/DL (3.5-5.0); ALBUMIN/GLOBULIN RATIO 0.8 RATIO (1.1-2.2); ALKALINE PHOSPHATASE 189 U/L (38-126); ALT (SGPT) 41 U/L (21-72); ANION GAP 9 MEQ/L (5-15); AST (SGOT) 40 U/L (17-59); BUN/CREATININE RATIO 11 RATIO (6-26); CALCIUM 8.5 MG/DL (8.4-10.2); CHLORIDE 107 MEQ/L (98-107); CO2 - CARBON DIOXIDE 25 MEQ/L (22-30); CREATININE 1.4 MG/DL (0.8-1.5); GLOMERULAR FILTRATION RATE 50; GLUCOSE 293 MG/DL (75-110); POTASSIUM 5.2 MEQ/L (3.6-5); SODIUM 141 MEQ/L (134-144); TOTAL PROTEIN 7.2 G/DL (6.3-8.2)
[2017-03-02 06:24] LABS: TOTAL CELLS COUNTED 100 %
[2017-03-02 06:25] LABS: ANISOCYTOSIS 1+; BAND NEUTROPHILS # 0.4 T/MM3; LYMPHOCYTES # (MANUAL) 1.1 T/MM3 (1-4.8); MONOCYTES # (MANUAL) 0.5 T/MM3 (0-0.8); NEUTROPHILS #(MANUAL)-ABSOLUTE 16.2 T/MM3 (1.8-7.7); POIKILOCYTOSIS 1+
[2017-03-02] MEDS: D5-1/2 NS KCL 20 MEQ 1,000 ML IV SCH (07:13)
--- NOTE | 2017-03-02 08:00 | NUR ---
STATUS AM cares provided. Patient alert and oriented and feels like pain is under control. Assisted to chair.
[2017-03-02] MEDS: ERTAPENEM 1 G in NS 100 ML IV SCH (08:20)
[2017-03-02] MEDS: PANTOPRAZOLE 40mg INJECTION IV SCH (08:20)
[2017-03-02] MEDS ORDERED: ERTAPENEM 1 G INJECTION IV SCH (09:00)
--- NOTE | 2017-03-02 10:05 | NUR ---
STATUS Continues up in chair. Had regular food for breakfast and tolerated well. MS given for discomfort.
--- NOTE | 2017-03-02 10:59 | OPNOTEF ---
DATE OF SERVICE 03/01/2017 SURGEON Kervin Roy MD ASSISTANTS MD Julio Cesar Causey APRN PREOPERATIVE DIAGNOSIS Acute cholecystitis. POSTOPERATIVE DIAGNOSIS Acute/gangrenous cholecystitis/hydrops of gallbladder. PROCEDURE Robotic-assisted laparoscopic cholecystectomy with use of Firefly biliary imaging. Attempted intraoperative cholangiography. ANESTHESIA General endotracheal. EBL/FLUIDS Please see chart. BRIEF HISTORY/INDICATIONS Mr. Kim is a 66-year-old gentleman who I was asked to see earlier today through the emergency room as a result of his history and physical findings of significant right upper quadrant abdominal pain and the radiographic findings indicative for acute cholecystitis. Upon examination the patient was indeed found to have localized tenderness to the right upper quadrant. He was found to have a positive Looney's sign. CT scan did show a stone lodged within the neck of the gallbladder. Liver enzymes were slightly elevated. Lipase was within normal limits. As a result of the above indications, it was recommended that the patient undergo surgical intervention/ cholecystectomy. Additionally upon radiographic evaluation, the patient was found to have some nodular appearance of the liver suggestive of cirrhosis. PT-INR and PTT were obtained preoperatively and found to be within normal limits. For completeness please refer to notes included in the patient's chart. FINDINGS Upon laparoscopy the liver edge was somewhat nodular in nature and indicative of early cirrhosis. The peritoneal surfaces, omentum, small bowel, and colon were visualized within normal limits. The gallbladder itself was not able to be initially visualized and was covered with omentum. Unfortunately the gallbladder was found to be markedly edematous and thickened in nature. There were considerable amounts of inflammatory changes present involving the infundibular portion of the gallbladder and the triangle of Calot. A rent was created within the gallbladder during the process of performing the cholecystectomy. This would be considered to be inherent to the procedure. Material that was spilled from the gallbladder was white mucusy-like material consistent with that of hydrops of the gallbladder. With very careful meticulous dissection, a robotic-assisted laparoscopic cholecystectomy was able to be completed. DESCRIPTION OF PROCEDURE After informed consent was obtained, patient was brought to the operative suite, placed on the table in a supine fashion. The abdomen was then prepped and draped in a sterile fashion. Formal time-out was then completed. Then, 0.25% Marcaine with epinephrine was injected just beneath the level of the umbilicus. A 2-cm curved incision was then made through the area of analgesia. Dissection was then carried down into the deep subcutaneous tissues and underlying fascia. The fascia was then grasped with two Leticia clamps and retracted anteriorly. A 1-cm incision was then made between two Leticia clamps. Hemostat was then introduced in the fascial incision and gently spread. A U stitch was then placed with 0 Vicryl. A 12-mm port was then placed through the fascial opening and pneumoperitoneum was established to a patient pressure of 15 mmHg utilizing carbon dioxide. Next, an additional 5-mm port was then placed along the right lateral abdominal wall. Two additional 8-mm da Linus ports were then placed within the right midabdomen as well as within the left upper quadrant. Each port site was preinjected with 0.25% Marcaine with epinephrine and placed under direct visualization. Patient was placed in reverse Trendelenburg position and rotated towards his left. Robot was then docked overlying the patient's right shoulder. As stated above, the liver edge was smooth without nodularities. The gallbladder itself was not able to initially be visualized. Utilizing a suction-tip catheter and a fenestrated bipolar grasper, the omentum covering the gallbladder was able to be dissected away so that one could then begin to see the fundal portion of the gallbladder. Fundal portion of the gallbladder was then grasped and retracted in a cephalad fashion. Gallbladder was found to be quite tense in nature. The wall of the gallbladder was partially gangrenous in nature, and by lifting the fundal portion of the gallbladder the gallbladder did tear resulting in a rent. The material expressed from the gallbladder was white mucusy-like material as stated above consistent with hydrops of the gallbladder. The omentum was able to be dissected free away from the gallbladder bluntly with the use of a suction-tip catheter. Duodenum was also found to be somewhat adherent near the duodenum of the gallbladder. Electrocautery was performed well away from the duodenum upon the midportion of the infundibulum of the gallbladder. The rind surrounding the gallbladder wall was incised. At no point in time was electrocautery performed adjacent to the hollow viscus of the transverse colon, duodenum, or stomach. Once an incision had been made upon the midportion of the infundibulum of the gallbladder, the duodenum was able to be bluntly dissected away from the gallbladder without incident. At this point in time, perhaps the next couple of hours were spent slowly dissecting out the triangle of Calot. Dissection was carried out high upon the infundibulum of the gallbladder. I had my administrative assistant front desk grasp the fundal portion of the gallbladder and retract the gallbladder in a cephalad and slightly lateral fashion. Additionally, utilizing a fenestrated bipolar grasper, the infundibulum of the gallbladder was also retracted laterally and caudally as to provide exposure of the triangle of Calot. Lateral and medial aspects of the infundibulum of the gallbladder were incised next to the liver edge. The gallbladder was found to have a very thick rind and was fairly vascular in nature as a result of the marked inflammatory process. Medially upon the infundibulum of the gallbladder the cystic artery was identified and dissected up onto the midportion of the infundibulum of the gallbladder. I elected to divide the cystic artery to facilitate dissection. Two Hem-o-efrain clips were placed upon the cystic artery upon the midportion of the infundibulum of the gallbladder and the cystic artery was then divided between the two clips. Dissection was then continued along the posterior aspect of the infundibulum both medially and laterally. Firefly biliary imaging was utilized but secondary to hydrops of the gallbladder the gallbladder itself did not fluorescence nor the infundibulum of the gallbladder. The material that was expressed from the gallbladder also did not fluorescence indicative of complete obstruction of the inlet of the gallbladder. After the next several hours the infundibular portion of the gallbladder was able to be dissected circumferentially to the point that the infundibulum was no longer adherent to the liver bed fossa. One could then begin to see the infundibulum as it began to "cone down" to form the cystic duct. The tissue, however, as the infundibulum began to "cone down" became quite adherent and fibrotic in nature and was very difficult to dissect. Next, I elected to attempt to perform an intraoperative cholangiogram. I made a "ductotomy" actually upon the distal aspect of the infundibulum of the gallbladder. The cholangiocatheter was placed within this ductotomy upon the distal aspect of the infundibulum of the gallbladder and advanced towards the cystic duct. Saline was then flushed and one could see some extravasation of the saline coming forth from a small opening just beneath the "ductotomy" upon the infundibular portion of the gallbladder. One could see that there was tissue beyond this small area where the extravasation was coming forth from. At this point time, I elected to go ahead and obtain an "intraoperative consult" from a surgical colleague to confirm my interpretation of the anatomy. Dr. Jacinto was kind enough to come into the operative suite and did evaluate the dissection that had been carried out at this point in time. He did agree that the infundibulum of the gallbladder had indeed been dissected out circumferentially and that it did appear to be "coning down" to form the cystic duct. Where the cystic duct was present, however, there were marked fibrosis and inflammatory changes present. After discussion it was my recommendation and conclusion that it would be best not to proceed with attempted further dissection of the apparent cystic duct as it coursed towards the common bile duct secondary to these marked inflammatory changes and the difficulty that one would encounter during this process of dissection. Dr. Jacinto also concurred. At this point in time, I elected to go ahead and divide the infundibulum of the gallbladder near its distal aspect. I then obtained two PDS Endoloop sutures and placed them around the transected portion of the infundibulum. This was done, of course, one at a time. I then had Dr. Jacinto grasp the infundibular portion of the gallbladder that had been transected once the PDS Endoloop had been placed around the infundibulum and advanced towards the junction of the infundibulum and the cystic duct. One could see that the PDS Endoloop was below where this site of extravasation had been noted involving the most distal aspect of the infundibulum of the gallbladder. PDS Endoloop was then secured at this location. As stated above, two PDS Endoloops were placed in a similar fashion. Irrigation was then performed and the PDS Endoloops that had been placed upon the cystic duct/infundibular junction were visualized and as stated above appeared to be below the area of extravasation and appeared to completely occlude the cystic duct/infundibular junction. At this point in time, robot was redocked on robotic arm #1 where the PDS Endoloops had been placed through. Gallbladder was then dissected off the liver bed fossa with the use of electrocautery. A portion of the posterior aspect of the fundal portion of the gallbladder was left adherent to the liver bed as a result of the marked inflammatory changes that were present and the fact that the patient did have some intraoperative findings indicative of cirrhosis of the liver. The mucosa that was left intact upon the liver bed fossa was cauterized and obliterated. Additional irrigation was performed and all irrigant was suctioned until clear. Gallbladder fossa was hemostatic in nature. The previously placed Hem-o-Efrain clip upon the cystic artery remained to be intact. One could see the PDS Endoloops upon the cystic duct/infundibular junction that also remained to be intact. At this point in time, the robot was then undocked. The gallbladder as well as a small stone that had been spilled during the process of the dissection was placed within a laparoscopic retrieval bag and the gallbladder and stone was removed from the infraumbilical port site. Laparoscope and port were then replaced and irrigation was performed and all irrigant was suctioned until clear. Gallbladder fossa remained to be hemostatic in nature. Given the marked inflammatory changes and the difficulty in the procedure, I elected to place two 19-Irish drains. Both drains were placed through the 8-mm da Linus ports and placed in a subhepatic location as well as along the lateral edge of the liver. The remaining port was then removed under direct visualization. Previously placed U stitch was then secured imbricating the fascia at the umbilical port site. Skin incisions were closed with nino. The drains were secured to the anterior abdominal wall with 2-0 Prolene. Patient tolerated the procedure without difficulty and is in the process of awakening from his anesthetic and will be sent back to the ICU once deemed in stable condition. Additionally, it should be noted that Julio Cesar Palacios APRN, was present throughout the entire case and played a pivotal role in providing assistance and exposure during the course of the procedure. DIONNE
--- NOTE | 2017-03-02 11:46 | NUR ---
CM CM IN TO VISIT WITH PT. HE IS ALERT AND ORIENTED. HIS IS PRESENT. PT PLANS TO DC HOME. HE DENIES DC NEEDS. HE IS GIVEN CM CONTACT INFORMATION. NINOE SCORE IS 9. Addendum: 03/02/17 at 1147 by SANTINO BHATIA RN Amended: Links added.
--- NOTE | 2017-03-02 13:36 | PNF ---
DATE OF SERVICE FINDINGS Mr. Kim today surprisingly states that he is feeling fairly well. He has some minimal discomfort within his right lower quadrant. He had eaten a regular breakfast. PHYSICAL EXAMINATION VITAL SIGNS: Afebrile. Normotensive. Please refer to EMR. HEENT: Normocephalic. Pupils are equally round and react to light and accommodation. CHEST: Clear to auscultation bilaterally. HEART: Regular rate and rhythm. Normal S1 and S2 without gallops, murmurs or clicks. ABDOMEN: Palpation of the abdomen does reveal some tenderness within the right upper quadrant. He does have a slight component of some voluntary guarding but no evidence for involuntary guarding or rebound tenderness. Attention was focused to ERIC drainage. Fortunately the ERIC drainage is nonbilious in nature and is serosanguineous. LABORATORY/RADIOGRAPH EVALUATION Patient had a CMP today, and his potassium is 5.2. Blood sugars were elevated this morning at 293. CBC was obtained and his white count was elevated at 18.2. ASSESSMENT A 66-year-old gentleman status post robotic-assisted laparoscopic cholecystectomy secondary to gangrenous cholecystitis. Patient doing well this morning. PLAN We will go ahead and consult the hospitalist system in regards to his medical management of his diabetes and other medical comorbidities. I do believe the patient could be transferred to the floor. We will continue with broad-spectrum antibiotic coverage given the finding of his gangrenous cholecystitis. We will repeat lab work tomorrow. Overall, I am pleased with the patient's appearance this morning. DIONNE
--- NOTE | 2017-03-02 13:54 | CONSPD ---
MARCO ZUÑIGA V 03/02/17 1335: Consultation Info Date DATE: 03/02/17 TIME: 13:24 Date of Consultation: Mar 02, 2017 Attending Physician: Irina Reason for Consultation: Management of DM, HTN HPI - Adult Date DATE: 03/02/17 TIME: 13:24 General Chief Complaint: acute cholecystitis History of Present Illness Patient is pleasant 66-year-old gentleman who was admitted under the care of Dr. Roy on 03/01/17 for acute cholecystitis. He underwent a robotic assisted Laparoscopic cholecystectomy was found to have acute gangrenous cholecystitis. Patient tolerated the procedure well and has been on Invanz for antimicrobial coverage. Given his existing medical comorbidities including hypertension and diabetes, the hospitalist services were consulted today for medical management. Did review this morning laboratory studies. WBC count is elevated 18.2, hemoglobin 14.3, hematocrit 43.8, platelet count 129, neutrophils 89%. Sodium is 141, potassium 5.2, BUN 16, creatinine 1.4. Fasting glucose this morning was elevated at 293. Hemoglobin A1c was obtained at 7.4. INR 1.20. Urinalysis showed 1+ protein, 2+ glucose, trace ketones, 1+ blood, 1+ bilirubin with 3-5 RBCs. Mr Kim is seen today, he is a pleasant gentleman with at the bedside. He does continue to have some mild postoperative abdominal pain. Is advancing diet this afternoon. No shortness of breath, chest pain or nausea. Past Medical History Past Medical History Patient's Medical History: (1) Restless leg syndrome (2) Asthma (3) Rosacea (4) Depression (5) Migraine headache (6) TIA (transient ischemic attack) Permanent Comment: confusion in 2002, and dizziness in 2008 Last Edited By: Charissa Palacios on Mar 01, 2017 15:58 (7) History of kidney stones (8) DM (diabetes mellitus) (9) HTN (hypertension) (10) CAD (coronary artery disease) (11) Sleep apnea with use of continuous positive airway pressure (CPAP) (12) GERD (gastroesophageal reflux disease) Surgical History Patient's Surgical History: Heart cath with drug-eluding stent in left antrior descending (04-25-2009) Right carpal tunnel release. Right knee arthroscopy for torn meniscus,. Pilonidal cystectomy. Left temporal artery biopsy-(01-27-2010) Current Medications Home Meds Reported Medications Aspirin (Aspirin) 81 Mg Tab.chew, 0.5 MG PO DAILY 03/01/17 Diphenhydramine HCl (Benadryl) 25 Mg Capsule, 50 MG PO HS 03/01/17 Hydrocodone/Acetaminophen ([place] 5-325 Tablet) 1 Each Tablet, 1-2 TAB PO TID Y for PAIN, TAB 02/22/15 Liraglutide (Victoza 2-Jordy) 18 Mg/Syringe Inj, 1.2 MG SQ HS 02/22/15 Simvastatin (Simvastatin) 20 Mg Tablet, 20 MG PO HS 02/22/15 Ropinirole Hcl (Requip) 0.5 Mg Tablet, 0.5 MG PO HS 01/26/10 Allergies: Coded Allergies: hydrochlorothiazide (Verified Allergy, Unknown, 03/01/17) metoprolol succinate (Verified Allergy, Unknown, 03/01/17) iodine (Verified Adverse Reaction, Severe, VOMITING, 03/01/17) IV IODINE WITH CONTRAST Family History Family History: Mother- age 78 of dementia Father_ age 73of unspecified vasculitis, history of alcoholism Social History Smoking Status: Never smoker (quit in 1988) Does patient use chewing tobac: No Second Hand Exposure: No Substance Use Type: does not use Alcohol Intake: none Marital Status: Sexuality: female partner Housing: house Current Occupational Status: retired Advance Directives: Yes Full Code, No DPOA for Healthcare Only Social History Comments Primary care provider Dr. Jane Review of Systems GI Upper Abdomen: pain, see HPI All Other Systems All Other Systems: Reviewed (remainder of 10-point ROS Neg.) Physical Exam General General Nourishment: well nourished, well developed Vital Signs Vital Signs Date Time Temp Pulse Resp B/P Pulse Ox O2 Delivery O2 Flow Rate FiO2 03/02/17 12:00 97.7 64 26 142/71 92 Room Air 03/02/17 08:00 4.00 Height (Feet): 5 Height (Inches): 11.00 Eyes Brief: FOUND: EOMI Respiratory Brief: FOUND: clear all iyer, equal bilaterally, NOT FOUND: wheezes Cardiovascular (brief) Cardiac Brief: FOUND: regular rate, regular rhythm, NOT FOUND: murmur, pedal edema Abdomen (brief) Abdominal Brief: FOUND: soft, tender (postop), NOT FOUND: BS normo active x4 ( hypoactive bowel sounds) Integumentary (brief) Integumentary Brief: FOUND: dry, pink, warm Neurologic (brief) Neurological Brief: FOUND: cranial 2-12 intact Neurologic RN Documented GCS Eye Opening: Verbal: Motor: Total: Psychiatric (brief) FOUND: alert, attentive, normal affect, oriented Laboratory Laboratory Tests Test 03/01/17 11:56 03/01/17 12:00 03/01/17 12:31 03/01/17 16:29 Troponin I < 0.012ng/ml Chemistry Specimen Hemolysis < 15 < 15 White Blood Count 12.4T/MM3 Red Blood Count 4.94M/MM3 Hemoglobin 15.5GM/DL Hematocrit 46.3% Mean Corpuscular Volume 93.7UM3 Mean Corpuscular Hemoglobin 31.4UUG Mean Corpuscular Hemoglobin Concent 33.5GM/DL RDW Standard Deviation 49.0FL Platelet Count 120T/MM3 Mean Platelet Volume 11.1UM3 Immature Granulocyte % (Auto) 0.2% Neutrophils (%) (Auto) 79.7% Lymphocytes (%) (Auto) 11.1% Monocytes (%) (Auto) 8.2% Eosinophils (%) (Auto) 0.6% Basophils (%) (Auto) 0.2% Absolute Immature Granulocyte (auto 0.02T/MM3 Absolute Neutrophils (auto) 9.9T/MM3 Absolute Lymphocytes (auto) 1.4T/MM3 Absolute Monocytes (auto) 1.0T/MM3 Absolute Eosinophils (auto) 0.1T/MM3 Absolute Basophils (auto) 0.0T/MM3 Turbidity < 20 Sodium Level 139MEQ/L Potassium Level 4.2MEQ/L Chloride Level 103MEQ/L Carbon Dioxide Level 22MEQ/L Anion Gap 14MEQ/L Blood Urea Nitrogen 13.0MG/DL Creatinine 1.1MG/DL Glomerular Filtration Rate Calc 67 BUN/Creatinine Ratio 12RATIO Glucose Level 297MG/DL Calculated Osmolality 279MOSM/KG Calcium Level 9.0MG/DL Total Bilirubin 2.60MG/DL Icterus Index < 2 Aspartate Amino Transf (AST/SGOT) 44U/L Alanine Aminotransferase (ALT/SGPT) 49U/L Alkaline Phosphatase 233U/L Total Protein 7.8G/DL Albumin 3.7G/DL Globulin 4.1G/DL Albumin/Globulin Ratio 0.9RATIO Lipase 95U/L Urine Collection Type Cleancatch-midstream Urine Color Yellow Urine Turbidity Clear Urine pH 5.5 Urine Specific [place] 1.025 Urine Protein 1+ Urine Glucose (UA) 2+ Urine Ketones Trace Urine Blood 1+ Urine Nitrite Negative Urine Bilirubin 1+ Urine Urobilinogen 1.0EU/DL Urine Leukocyte Esterase Negative Urine RBC 3-5/HPF Urine WBC None seen/HPF Urine Squamous Epithelial Cells 10-20 Urine Bacteria Negative Urine Mucus Present Urine Culture Indicated Cult not indicated Prothromb Time International Ratio 1.20 Activated Partial Thromboplast Time 29.6SEC Test 03/01/17 17:07 03/01/17 21:38 03/01/17 21:49 03/02/17 05:01 Glucometer 144mg/dL 192mg/dL Hemoglobin 15.2GM/DL 14.3GM/DL White Blood Count 18.2T/MM3 Red Blood Count 4.55M/MM3 Hematocrit 43.8% Mean Corpuscular Volume 96.3UM3 Mean Corpuscular Hemoglobin 31.4UUG Mean Corpuscular Hemoglobin Concent 32.6GM/DL RDW Standard Deviation 50.4FL Platelet Count 129T/MM3 Mean Platelet Volume 11.2UM3 Immature Granulocyte % (Auto) % Neutrophils (%) (Auto) % Lymphocytes (%) (Auto) % Monocytes (%) (Auto) % Eosinophils (%) (Auto) % Basophils (%) (Auto) % Absolute Immature Granulocyte (auto T/MM3 Absolute Neutrophils (auto) T/MM3 Absolute Lymphocytes (auto) T/MM3 Absolute Monocytes (auto) T/MM3 Absolute Eosinophils (auto) T/MM3 Absolute Basophils (auto) T/MM3 Neutrophils % (Manual) 89.0% Band Neutrophils % 2.0% Lymphocytes % (Manual) 6.0% Monocytes % (Manual) 3.0% Absolute Neutrophils (Manual) 16.2T/MM3 Band Neutrophils # 0.4T/MM3 Lymphocytes # (Manual) 1.1T/MM3 Monocytes # (Manual) 0.5T/MM3 Poikilocytosis 1+ Anisocytosis 1+ Red Cell Morphology Comment Abnormal Turbidity < 20 Sodium Level 141MEQ/L Potassium Level 5.2MEQ/L Chloride Level 107MEQ/L Carbon Dioxide Level 25MEQ/L Anion Gap 9MEQ/L Blood Urea Nitrogen 16.0MG/DL Creatinine 1.4MG/DL Glomerular Filtration Rate Calc 50 BUN/Creatinine Ratio 11RATIO Glucose Level 293MG/DL Hemoglobin A1c 7.4% Calculated Osmolality 283MOSM/KG Calcium Level 8.5MG/DL Total Bilirubin 2.00MG/DL Icterus Index < 2 Aspartate Amino Transf (AST/SGOT) 40U/L Alanine Aminotransferase (ALT/SGPT) 41U/L Alkaline Phosphatase 189U/L Total Protein 7.2G/DL Albumin 3.3G/DL Globulin 3.9G/DL Albumin/Globulin Ratio 0.8RATIO Chemistry Specimen Hemolysis < 15 Test 03/02/17 05:16 03/02/17 10:56 Glucometer 222mg/dL 206mg/dL Impression/Recommendation Problems: (1) Acute cholecystitis Status: Acute (2) Hyperglycemia Status: Acute (3) Leukocytosis Status: Acute (4) DM (diabetes mellitus) Status: Chronic (5) HTN (hypertension) Status: Chronic (6) CAD (coronary artery disease) Status: Chronic (7) Asthma Status: Chronic (8) TIA (transient ischemic attack) Status: Chronic (9) GERD (gastroesophageal reflux disease) Status: Chronic (10) Depression Status: Chronic (11) Migraine headache Status: Chronic (12) Restless leg syndrome Status: Chronic (13) Rosacea (14) History of kidney stones Status: Resolved (15) H/O heart artery stent Status: Resolved Recommendation Continued surgical management and postoperatively recommendations as per Dr Kirill Graf for antimicrobial coverage of the acute gangrenous cholecystitis. Continue to monitor leukocytosis. Hemoglobin A1c is found to be 7.4. Will resume patient's home dose of Victoza 1.2 milligrams at at bedtime. Will also add sliding scale Novalog insulin. Change diet to 1800 calorie ADA. Monitor Accu-checks with meals and at HS Zofran and Reglan as needed for nausea [place] and morphine as needed for pain control Monitor for postop bowel motivation Discussed with Dr Roy- Rosa Isela transfer patient out of CCU today. Recheck CBC and CMP tomorrow morning to follow leukocytosis, renal function and electrolytes. Appreciate medical consultation, the hospitalist services will continue to follow patient medical management during his stay at [facility]. At time of discharge his medical care will return to his primary care provider, TJ Kat MD 03/02/17 1443: Past Medical History Current Medications Home Meds Reported Medications Aspirin (Aspirin) 81 Mg Tab.chew, 0.5 MG PO DAILY 03/01/17 Diphenhydramine HCl (Benadryl) 25 Mg Capsule, 50 MG PO HS 03/01/17 Hydrocodone/Acetaminophen ([place] 5-325 Tablet) 1 Each Tablet, 1-2 TAB PO TID Y for PAIN, TAB 02/22/15 Liraglutide (Victoza 2-Jordy) 18 Mg/Syringe Inj, 1.2 MG SQ HS 02/22/15 Simvastatin (Simvastatin) 20 Mg Tablet, 20 MG PO HS 02/22/15 Ropinirole Hcl (Requip) 0.5 Mg Tablet, 0.5 MG PO HS 01/26/10 Allergies: Coded Allergies: hydrochlorothiazide (Verified Allergy, Unknown, 03/01/17) metoprolol succinate (Verified Allergy, Unknown, 03/01/17) iodine (Verified Adverse Reaction, Severe, VOMITING, 03/01/17) IV IODINE WITH CONTRAST Impression/Recommendation Recommendation Mr. Kim was seen and examined independently of Marco and the plan of care discussed; agree with the note above as an accurate reflection of our shared plan and decision making. Post-op from cholecystectomy with gangrenous GB; ERIC still intact on the right with serosanguinous drainage. Ate a "huge" lunch and now having some abdominal cramping and discomfort. Discussed need to go slowly given narcotic administration, insufflated air, risk for ileus. at bedside as well with appropriate questions. On exam he is awake and alert, NAD, conversant and pleasant. CV regular, nontachy. RESP clear bilaterally without rales, rhonchi, wheezing. Abdomen distended, soft, tender throughout without rebound, rigidity, guarding. Abdominal incisions bandaged and ERIC intact as above. Hyperactive bowel sounds present diffusely. No extremity edema. Will monitor blood sugars on victoza and correction scale aspart. No evidence of ileus currently but no bowel movement for several days; will give a dose of senna and schedule BID for stimulant laxative. Encouraged him to be judicious with intake, if still having discomfort would have liquids for dinner. We will continue to follow with you. Thank you for the consultation. MARCO ZUÑIGA APRN Mar 02, 2017 13:35 TJ GUIDRY MD Mar 02, 2017 14:43
[2017-03-02] MEDS ORDERED: SENNA + DOCUSATE TAB PO ONE (14:15)
[2017-03-02] MEDS ORDERED: POLYETHYL.GLYCOL 3350 PACKET 17gm PO PRN (14:15)
--- NOTE | 2017-03-02 14:45 | NUR ---
TRANSFER Patient transferred to Rm. 134 per orders. c/o feeling bloated w/ abd pain. Encouraged to amb
--- NOTE | 2017-03-02 14:49 | NUR ---
TRANSFER PATIENT TRANSFEREE TO ROOM 134 VIA WHEELCHAIR WITH PANKAJ HAGEN. PT SETTLED INTO BED AT THIS TIME. IVL'D AT THIS TIME. PT ON ROOM AIR AT THIS TIME.
[2017-03-02] MEDS: INSULIN ASPART 100 UNIT/ML SQ PRN (18:49)
--- NOTE | 2017-03-02 19:00 | NUR ---
PROGRESS NOTE PT IS ALERT AND ORIENTED X3, VITAL SIGNS STABLE, ON RA. THE PT IS UP X1 WITH GAITBELT. THE PT ARRIVED FROM CCU THIS SHIFT. PT HAS BOYLE CATHETER IN PLACE, THAT IS PATENT AND DRAINING ADEQUATE URINE OUTPUT. THE PT HAS NOT HAD A BOWEL MOVEMENT THIS SHIFT AND WAS STARTED ON A BOWEL REGIMEN. THE PT HAS HAD ELEVATED BGMS AND REQUIRED 3 UNITS OF NOVOLOG FOR A BGM OF 240. THE PT HAS 4 LAP SITES WITH DRESSING C/D/I. ERIC DRAINS PATENT. PT GIVEN FIRST DOSE OF SENNA THIS SHIFT. PT SITTING UP IN RECLINER, EATING DINNER, CALL LIGHT WITHIN REACH. NO OTHER CONCERNS NOTED.
--- NOTE | 2017-03-02 20:30 | NUR ---
STATUS PATIENT ALERT AND ORIENTED.PATIENT C/O FEELING BLOATED W/ABD PAIN. PATIENT AMBULATED SPRING WITH RN STANDBY ASSIST.PATIENT FELT SHORT OF BREATH. PATIENT REFUSED NORCO AND MORPHINE. PRN TORADOL WAS ADMINISTRATED. 2L O2 VIA NC. CONTINUE TO MONITOR.
[2017-03-02] MEDS: SENNA + DOCUSATE TAB PO SCH (21:59)
[2017-03-02] MEDS: LIRAGLUTIDE INJECTABLE PEN SQ SCH ×2 (22:00→22:01)
[2017-03-02] MEDS ORDERED: SENNA LIQUID 74 ML BOTTLE PO ONE (22:30)
[2017-03-02] MEDS: ROPINIROLE 0.5 MG TABLET PO SCH (22:33)
[2017-03-02] MEDS: SIMVASTATIN 20 MG TABLET PO SCH (22:33)
--- NOTE | 2017-03-02 22:40 | NUR ---
STATUS PATIENT C/O FELT BLOATED AND HE COULDN'T BREATH WITH O2 ON. PATIENT 'S VITAL SIGN STABLE. NOTIFIED DR CUNNINGHAM VIA PAGE.SENNA LIQUID WAS ADMINISTRATED PER DR BANSAL. CONTINUE TO MONITOR.
[2017-03-03] VITALS (7 sets, daily range): BP systolic 127–156; BP diastolic 67–84; PULSE 62–86; RESP 16–22; TEMP 96.5–99.3; O2SAT 91–96
--- NOTE | 2017-03-03 05:00 | NUR ---
Chart Check 24 hour chart check completed
[2017-03-03 05:35] LABS: BASOPHILS % (AUTO) 0.3 % (0-2); EOSINOPHILS # (AUTO) 0.1 T/MM3 (0-0.5); EOSINOPHILS % (AUTO) 1.2 % (0-4); HGB - HEMOGLOBIN 13.1 GM/DL (13.5-17.5); IMMATURE GRANULOCYTE # (AUTO) 0.02 T/MM3 (0.00-0.03); IMMATURE GRANULOCYTE % (AUTO) 0.2 % (0.0-0.5); LYMPHOCYTES # (AUTO) 1.7 T/MM3 (1-4.8); LYMPHOCYTES % (AUTO) 14.4 % (23-45); MEAN CORPUSCULAR HGB 31.7 UUG (26-34); MEAN CORPUSCULAR HGB CONC(MCHC 32.8 GM/DL (31-37); MEAN CORPUSCULAR VOLUME 96.9 UM3 (80-100); MEAN PLATELET VOLUME 11.6 UM3 (9.4-12.4); MONOCYTES % (AUTO) 8.6 % (0-9.0); NEUTROPHILS % (AUTO) 75.3 % (33-66); RED BLOOD COUNT 4.13 M/MM3 (4.50-5.90); WBC - WHITE BLOOD COUNT 11.9 T/MM3 (4.5-11.0)
[2017-03-03 05:48] LABS: ALBUMIN 3.1 G/DL (3.5-5.0); ALBUMIN/GLOBULIN RATIO 0.9 RATIO (1.1-2.2); ALKALINE PHOSPHATASE 162 U/L (38-126); ALT (SGPT) 42 U/L (21-72); ANION GAP 12 MEQ/L (5-15); AST (SGOT) 46 U/L (17-59); BUN/CREATININE RATIO 18 RATIO (6-26); CALCIUM 8.3 MG/DL (8.4-10.2); CHLORIDE 105 MEQ/L (98-107); CO2 - CARBON DIOXIDE 24 MEQ/L (22-30); CREATININE 1.2 MG/DL (0.8-1.5); GLOMERULAR FILTRATION RATE 60; GLUCOSE 170 MG/DL (75-110); POTASSIUM 4.2 MEQ/L (3.6-5); SODIUM 141 MEQ/L (134-144); TOTAL PROTEIN 6.7 G/DL (6.3-8.2)
[2017-03-03] MEDS: INSULIN ASPART 100 UNIT/ML SQ PRN ×3 (06:30→20:55)
--- NOTE | 2017-03-03 06:30 | NUR ---
STATUS PATIENT SLEPT WELL THROUGH NIGHT.NO BM . PATIENT USED CPAP DURING SLEEP. BOYLE CATHETER PATENT AND DRAINING ADEQUATE URINARY OUTPUT. EIRC DRAINS PATENT.ELEVATED BGMS AND REQUESTED 2 UNITS OF NOVOLOG FOR BGM 155. DENIES CHEST PAIN, N/V. ENCOURAGED TO USE IS. CALL LIGHT WITHIN REACH.BED ALARM ON. CONTINUE TO MONITOR.
[2017-03-03] MEDS: SENNA + DOCUSATE TAB PO SCH (09:00)
[2017-03-03] MEDS: KETOROLAC 15mg/ml INJECTION IV PRN ×2 (09:08→20:28)
[2017-03-03] MEDS: PANTOPRAZOLE 40mg INJECTION IV SCH (09:11)
[2017-03-03] MEDS: ERTAPENEM 1 G in NS 100 ML IV SCH (09:16)
[2017-03-03] MEDS ORDERED: SENNA LIQUID 74 ML BOTTLE PO ONE (11:45)
--- NOTE | 2017-03-03 11:49 | PNPDOC ---
Subjective Date DATE: 03/03/17 TIME: 11:45 Subjective Still having abdominal pain, distention, bloating. Had broth for breakfast today. Wants to be able to eat solids but discussed that this may make things worse. Denies flatus. No fevers, chills. Dyspneic at times but not hypoxic. Objective Vital Signs Vital signs Vital Signs Date Time Temp Pulse Resp B/P Pulse Ox O2 Delivery O2 Flow Rate FiO2 03/03/17 09:00 68 18 03/03/17 07:07 96.5 146/76 95 CPAP 03/02/17 23:50 2.00 Height (Feet): 5 Height (Inches): 11.00 Weight (Kilograms): 121.000 General General Appearance: Alert, Orientated x 3 Eyes (Brief) Eyes: FOUND: EOMI, PERRL, NOT FOUND: scleral icterus Respiratory (Brief) Respiratory: FOUND: clear all iyer, equal bilaterally, NOT FOUND: rales, wheezes Cardiovascular (Brief) Cardiac: FOUND: regular rate, regular rhythm, NOT FOUND: pedal edema Abdomen (Brief) Comments obese, distended, mildly tender throughout without rebound, guarding, rigidity BS audible in all quadrants but hypoactive Extremities (Brief) Extremity : Extremity Finding: FOUND: warm, NOT FOUND: cyanosis, edema Integumentary (Brief) Integumentary: FOUND: dry, NOT FOUND: rash Psychiatric (Brief) Psychiatric: FOUND: alert, attentive, normal affect, oriented Laboratory Laboratory Laboratory Tests 03/01/17 12:00 03/02/17 05:01 03/03/17 04:17 Laboratory Tests 03/01/17 12:00 03/01/17 21:49 03/02/17 05:01 03/03/17 04:17 Assessment & Plan Problems: (1) Acute cholecystitis Status: Acute (2) Hyperglycemia Status: Acute (3) Leukocytosis Status: Acute (4) DM (diabetes mellitus) Status: Chronic Assessment & Plan: On victoza chronically (5) HTN (hypertension) Status: Chronic (6) CAD (coronary artery disease) Status: Chronic (7) Asthma Status: Chronic (8) TIA (transient ischemic attack) Status: Chronic (9) GERD (gastroesophageal reflux disease) Status: Chronic (10) Depression Status: Chronic (11) Migraine headache Status: Chronic (12) Restless leg syndrome Status: Chronic (13) Rosacea (14) History of kidney stones Status: Resolved (15) H/O heart artery stent Status: Resolved Assessment Continued surgical management and postoperatively recommendations as per Dr Roy, will discuss abdominal pain with him today. Invanz for antimicrobial coverage of the acute gangrenous cholecystitis. Continue to monitor leukocytosis (improving). Hemoglobin A1c is found to be 7.4. Will continue patient's home dose of Victoza 1.2 milligrams at at bedtime in addition to correction scale insulin. Diabetic diet, will discuss with Dr. Roy if he needs to be on liquids today. Monitor Accu-checks with meals and at HS Zofran and Reglan as needed for nausea [place] and morphine as needed for pain control, encouraged judicious use to avoid development of ileus Monitor for postop bowel motivation, will given liquid senna BID for now and see if Dr. Roy would like to assess KUB. . Recheck CBC and CMP tomorrow morning to follow leukocytosis, renal function and electrolytes. Plan/Intensity of Service Labs and radiology reviewed, discussed with RN, patient. Will discuss further with Dr. Roy as well. Labs ordered for AM and medications adjusted. Code Status Full Code Hospital Course Summary Disclaimer The hospital course summary below is not to be considered part of the above Progress Note. Hospital Course Summary TJ GUIDRY MD Mar 03, 2017 11:48
--- NOTE | 2017-03-03 14:10 | NUR ---
BOYLE PT VERBALIZED UNDERSTANDING ORDER TO REMOVE BOYLE. TOLERATED WELL.
--- NOTE | 2017-03-03 15:56 | PNF ---
DATE 03/03/17 FINDINGS Mr. Kim this morning states that he is quite concerned that he has not had a bowel movement. He also states that he has noticed a little discomfort upon deep inspiration and feels as if he cannot breathe appropriately. PHYSICAL EXAMINATION VITAL SIGNS: Temperature 98.6, pulse 86, respirations 16, blood pressure 143/80, SAO2 96% on room air. ABDOMEN: Visualization of the abdomen did not reveal any marked abnormalities. ERIC drainage is serosanguineous in nature. There is no bilious contents noted within the ERIC drains. The abdomen was soft with only minimal incisional tenderness being present. LABORATORY/RADIOGRAPHIC EVALUATION The patient had a CMP today and his bilirubin is normal today at 1.1. AST and ALT normal at 46 and 42 respectively. Alk phos slightly elevated 162. CBC was obtained and his white count is on a downward trend 11.9 today. Overall hemoglobin stable at 13.1. ASSESSMENT 66-year-old gentleman status post laparoscopic cholecystectomy secondary to gangrenous cholecystitis. The patient progressing as expected. PLAN The patient was informed that I am not surprised that he is "not back to his complete normal self." I informed the patient that he did have a life-threatening severe cholecystitis present. I informed the patient that he was having a component of the splinting with deep breaths prior to surgery as a result of the marked inflammatory changes present involving the gallbladder. I would not expect for this inflammatory process to have completely resolved. The patient is not tachypneic. He has a good O2 sat on room air. I encouraged the patient to perform hourly incentive spirometer, deep breath and coughing and ambulate several times today. I do see that the medical team has also addressed these pulmonary concerns. I informed the patient that overall I am quite pleased with his progress at this juncture in time. His lab tests are improving including his leukocytosis and liver enzymes. He does not have any bilious drainage coming forth from his drains. The patient has been given some oral cathartics in regards to his complain of constipation. Will continue to follow the patient closely. DIONNE
--- NOTE | 2017-03-03 18:16 | NUR ---
SUMMARY PT HAS WALKED SAME DISTANCE 3 TIMES THIS SHIFT (529 FEET). PT DENIED DISCOMFORT OR DIZZINESS WITH WALKING. HAS BEEN ABLE TO PASS GAS BOTH RECTALLY AND ORALLY. TORADOL IV MANAGING PAIN WELL. LAP SITES REMAIN INTACT WITH NO S/SX OF INFECTION. PT ALSO TOLERATING CC DIET WITHOUT N/V
[2017-03-03] MEDS: LIRAGLUTIDE INJECTABLE PEN SQ SCH (20:28)
[2017-03-03] MEDS: ROPINIROLE 0.5 MG TABLET PO SCH (20:28)
[2017-03-03] MEDS: SIMVASTATIN 20 MG TABLET PO SCH (20:28)
[2017-03-04 04:09] VITALS: BP 136/67; PULSE 78; RESP 20; TEMP 98.7; O2SAT 94
[2017-03-04 05:25] LABS: BASOPHILS % (AUTO) 0.3 % (0-2); EOSINOPHILS # (AUTO) 0.2 T/MM3 (0-0.5); EOSINOPHILS % (AUTO) 1.9 % (0-4); HCT - HEMATOCRIT 41.1 % (41-53); HGB - HEMOGLOBIN 13.4 GM/DL (13.5-17.5); IMMATURE GRANULOCYTE # (AUTO) 0.02 T/MM3 (0.00-0.03); IMMATURE GRANULOCYTE % (AUTO) 0.2 % (0.0-0.5); LYMPHOCYTES # (AUTO) 1.4 T/MM3 (1-4.8); LYMPHOCYTES % (AUTO) 11.9 % (23-45); MEAN CORPUSCULAR HGB 31.3 UUG (26-34); MEAN CORPUSCULAR HGB CONC(MCHC 32.6 GM/DL (31-37); MONOCYTES # (AUTO) 1.2 T/MM3 (0-0.8); MONOCYTES % (AUTO) 10.7 % (0-9.0); NEUTROPHILS #(AUTO)-ABSOLUTE 8.5 T/MM3 (1.8-7.7); RED BLOOD COUNT 4.28 M/MM3 (4.50-5.90); WBC - WHITE BLOOD COUNT 11.4 T/MM3 (4.5-11.0)
[2017-03-04 05:35] LABS: ALBUMIN 3.1 G/DL (3.5-5.0); ALBUMIN/GLOBULIN RATIO 0.8 RATIO (1.1-2.2); ALKALINE PHOSPHATASE 199 U/L (38-126); ALT (SGPT) 43 U/L (21-72); ANION GAP 12 MEQ/L (5-15); AST (SGOT) 66 U/L (17-59); BUN/CREATININE RATIO 16 RATIO (6-26); CALCIUM 8.6 MG/DL (8.4-10.2); CHLORIDE 105 MEQ/L (98-107); CO2 - CARBON DIOXIDE 24 MEQ/L (22-30); CREATININE 1.3 MG/DL (0.8-1.5); GLOMERULAR FILTRATION RATE 55; GLUCOSE 173 MG/DL (75-110); POTASSIUM 4.5 MEQ/L (3.6-5); SODIUM 141 MEQ/L (134-144); TOTAL PROTEIN 6.8 G/DL (6.3-8.2)
--- NOTE | 2017-03-04 05:45 | NUR ---
SHIFT SUMMARY PT ALERT AND ORIENTED X3, VITAL SIGNS REMAIN STABLE ON ROOM AIR, PT WEARS A CPAP AT NIGHT. PT HAS VOIDED TWICE POST BOYLE WITH 1200 CC OUT IN TOTAL-DARK JORGE IN COLOR. PT AMBULATED ONCE ON THIS SHIFT PER HIS REQUEST. PT HAS SLEPT WELL THROUGH THE NIGHT ONLY REQUIRING ONE DOSE OF PRN IV PAIN MEDICATION. WILL CONTINUE TO MONITOR.
[2017-03-04] MEDS: INSULIN ASPART 100 UNIT/ML SQ PRN ×3 (06:02→14:56)
[2017-03-04] MEDS ORDERED: BISACODYL 10 MG SUPPOSITORY RECTALLY ONE (07:45)
--- NOTE | 2017-03-04 08:24 | NUR ---
Diet RD recommendation: [id number] kcal Estimated daily total energy requirement: 2579 kcal; Where RMR ([facility]) = 1984 kcal; Activity factor = 1.3 ; Injury factor = 1.0 Diet is -200 kcal d/t obesity.
--- NOTE | 2017-03-04 08:26 | NUR ---
Glycemic control A1c: 7.4 Diet: CC 1800, intake: 100% since 03/02; It is unlikely that low-calorie, consistent carb diet has contributed to hyperglycemia. SS insulin: 03/02 initiation; BG is controlled since surgical intervention.
[2017-03-04] MEDS: KETOROLAC 15mg/ml INJECTION IV PRN (08:44)
[2017-03-04 08:48] VITALS: BP 150/79; PULSE 86; RESP 18; TEMP 98.7; O2SAT 92
--- NOTE | 2017-03-04 09:27 | NUR ---
CHIDI CM IN TO VISIT WITH PT. HE IS ALERT AND ORIENTED. HIS IS PRESENT. PT PLANS TO RETURN HOME. HE CONTINUES TO DENY DC NEEDS.
[2017-03-04 10:00] VITALS: PULSE 86; RESP 18
[2017-03-04] MEDS: ERTAPENEM 1 G in NS 100 ML IV SCH (10:14)
[2017-03-04] MEDS: PANTOPRAZOLE 40mg INJECTION IV SCH (10:15)
[2017-03-04] MEDS ORDERED: NS 500 ML IV PRN (10:30)
--- NOTE | 2017-03-04 12:53 | PNPDOC ---
TOSHIA DEVRIES NETWORK DEVELOPER 03/04/17 1216: Subjective Date DATE: 03/04/17 TIME: 12:14 Subjective Alcides is feeling better. His pain is under reasonable control. His umbilical incision started bleeding, and his nurse has already paged Dr. Roy. He thinks that his breathing is better, and denies feeling short of breath. He doesn't feel dyspneic with activity. He denies weakness or dizziness. He had a bowel movement this am. Objective Vital Signs Vital signs Vital Signs Date Time Temp Pulse Resp B/P Pulse Ox O2 Delivery O2 Flow Rate FiO2 03/04/17 10:00 86 18 03/04/17 08:48 98.7 150/79 92 Room Air 03/02/17 23:50 2.00 Height (Feet): 5 Height (Inches): 11.00 Weight (Kilograms): 121.000 General General Appearance: Alert, Obese, Orientated x 3, Well Nourished, Well Developed, No Acute Distress Eyes (Brief) Eyes: FOUND: PERRL, NOT FOUND: scleral icterus ENMT (Brief) ENMT: FOUND: mucosa moist, NOT FOUND: pharnyx erythema Respiratory (Brief) Respiratory: FOUND: equal bilaterally, rales (bilateral) Cardiovascular (Brief) Cardiac: FOUND: regular rate, regular rhythm Abdomen (Brief) Abdominal: FOUND: BS normo active x4, distended (mild) Comments bloody drainage from umbilical incision, suspect hematoma. Dressing reinforced by nursing staff and Dr. Roy pageronnie. Extremities (Brief) Extremity : Extremity Finding: NOT FOUND: edema Musculoskeletal (Brief) Musculoskeletal: NOT FOUND: deformity, tenderness Integumentary (Brief) Integumentary: FOUND: dry, pink, warm Psychiatric (Brief) Psychiatric: FOUND: alert, attentive, normal affect, oriented Laboratory Laboratory Laboratory Tests 03/03/17 04:17 03/04/17 04:31 Laboratory Tests 03/03/17 04:17 03/04/17 04:31 Assessment & Plan Problems: (1) Acute cholecystitis Status: Acute Assessment & Plan: 03/01/17 Robotic-assisted laparoscopic cholecystectomy with use of Firefly biliary imaging. (2) Hyperglycemia Status: Acute (3) Leukocytosis Status: Acute (4) DM (diabetes mellitus) Status: Chronic Qualifiers: Diabetes mellitus type: type 2 Assessment & Plan: On victoza chronically (5) HTN (hypertension) Status: Chronic (6) CAD (coronary artery disease) Status: Chronic (7) Asthma Status: Chronic (8) TIA (transient ischemic attack) Status: Chronic (9) GERD (gastroesophageal reflux disease) Status: Chronic (10) Depression Status: Chronic (11) Migraine headache Status: Chronic (12) Restless leg syndrome Status: Chronic (13) Rosacea (14) History of kidney stones Status: Resolved (15) H/O heart artery stent Status: Resolved Plan/Intensity of Service Leukocytosis - continues to improve; 11.4 today. Continue Invanz. Hyperglycemia - improving since Victoza was resumed. Continue SSI. Constipation - had large BM this am. Dr. Roy was notified regarding bloody drainage from umbilical incision Continue to encourage IS and ambulation. DVT Prophylaxis: SCD'S Code Status Full Code Hospital Course Summary Disclaimer The hospital course summary below is not to be considered part of the above Progress Note. Hospital Course Summary 03/03 Continued surgical management and postoperatively recommendations as per Dr Roy, will discuss abdominal pain with him today. Invanz for antimicrobial coverage of the acute gangrenous cholecystitis. Continue to monitor leukocytosis (improving). Hemoglobin A1c is found to be 7.4. Will continue patient's home dose of Victoza 1.2 milligrams at at bedtime in addition to correction scale insulin. Diabetic diet, will discuss with Dr. Roy if he needs to be on liquids today. Monitor Accu-checks with meals and at HS Zofran and Reglan as needed for nausea [place] and morphine as needed for pain control, encouraged judicious use to avoid development of ileus Monitor for postop bowel motivation, will given liquid senna BID for now and see if Dr. Roy would like to assess KUB. . Recheck CBC and CMP tomorrow morning to follow leukocytosis, renal function and electrolytes. 03/04/17 Leukocytosis - continues to improve; 11.4 today. Continue Invanz. Hyperglycemia - improving since Victoza was resumed. Continue SSI. Constipation - had large BM this am. Dr. Roy was notified regarding bloody drainage from umbilical incision Continue to encourage IS and ambulation. KASSANDRA GAMBOA MD 03/04/17 1710: Assessment & Plan Assessment I have independently evaluated and examined this patient. I reviewed the chart, the patient's history, and the NETWORK DEVELOPER's documented findings as above. We discussed and formulated the assessment and plan as above with additions as below: Mr. Kim reports that he is tolerating food better today than he did yesterday. He denied dyspnea and is ambulating without lightheadedness. Respirations are nonlabored with good airflow and clear breath sounds. Abdomen is soft with active bowel sounds. Creatinine 1.3 with GFR of 55, slightly below baseline. Blood sugars remain slightly elevated ranging 173-202 today. Overall doing well, continue increased activity. Anticipate discharge soon. TOSHIA DEVRIES APRN Mar 04, 2017 12:16 KASSANDRA GAMBOA MD Mar 04, 2017 17:10
[2017-03-04 14:10] VITALS: BP 146/70; PULSE 78; RESP 16; TEMP 99.1; O2SAT 96
--- NOTE | 2017-03-04 15:33 | PNSURG ---
Subjective DATE: 03/04/17 TIME: 15:23 Interval History He is eating a regular lunch earlier today when saw him. There is trocar site pain, and the umbilical incision has oozed blood to saturate a single large bandaid. The other bandaids are dry. His breathing is better, and denies feeling short of breath. He denies weakness or dizziness. He had a bowel movement this am and that helped his overall feeling of well being. He is feeling like he may be close to ready for discharge. Objective Vital Signs Date Time Temp Pulse Resp B/P Pulse Ox O2 Delivery O2 Flow Rate FiO2 03/04/17 14:10 99.1 78 16 146/70 96 Room Air 03/02/17 23:50 2.00 Height (Feet): 5 Height (Inches): 11.00 Weight (Kilograms): 121.000 BMI 36.5 General Appearance: Alert, Awake, Orientated x 3 Respiratory: FOUND: rales Cardiac: FOUND: regular rate, regular rhythm Abdominal Brief: FOUND: appropriately tender (at trocar sites), soft Incision: FOUND: other (bloody oozing from umbilical incision enough to saturate one large bandaid), nino present, NOT FOUND: erythema Drains Present: FOUND Sagar Steiner (x2) Drain Output: FOUND: serosanguinous Laboratory Item Value Date Time Alanine Aminotransferase (ALT/SGPT) 43 U/L 03/04/17 0431 Aspartate Amino Transf (AST/SGOT) 66 U/L H 03/04/17 0431 Total Bilirubin 1.20 MG/DL 03/04/17 0431 Alanine Aminotransferase (ALT/SGPT) 42 U/L 03/03/17 0417 Aspartate Amino Transf (AST/SGOT) 46 U/L 03/03/17 0417 Total Bilirubin 1.10 MG/DL 03/03/17 0417 Alanine Aminotransferase (ALT/SGPT) 41 U/L 03/02/17 0501 Aspartate Amino Transf (AST/SGOT) 40 U/L 03/02/17 0501 Total Bilirubin 2.00 MG/DL H 03/02/17 0501 Alanine Aminotransferase (ALT/SGPT) 49 U/L 03/01/17 1200 Aspartate Amino Transf (AST/SGOT) 44 U/L 03/01/17 1200 Total Bilirubin 2.60 MG/DL H 03/01/17 1200 Laboratory Tests 03/02/17 05:01 03/03/17 04:17 03/04/17 04:31 Laboratory Tests 03/01/17 21:49 03/02/17 05:01 03/03/17 04:17 03/04/17 04:31 Procedure Procedure Date: Mar 01, 2017 Surgeon: Kirill Caballero Robotic assisted laparoscopic cholecystectomy with FireFly imaging GS Assessment & Plan Problems: (1) Cholelithiasis with acute cholecystitis without biliary obstruction Onset Date: ~ 02/2017 Status: Resolved (2) Depression Status: Chronic (3) Sleep apnea with use of continuous positive airway pressure (CPAP) Status: Chronic (4) DM (diabetes mellitus) Status: Chronic Qualifiers: Diabetes mellitus type: type 2 (5) HTN (hypertension) Status: Chronic (6) CAD (coronary artery disease) Status: Chronic (7) Elevated liver enzymes Status: Resolved (8) History of kidney stones Status: Resolved (9) GERD (gastroesophageal reflux disease) Status: Chronic (10) H/O heart artery stent Status: Resolved Assessment Doing well today, he would like to go home. States he maybe 50 [place] left at home, will use that prn for pain. He has learned out to manage the drains. Continue with Augemtin 875 BID for 7 days. Will see him on March 08 for drain management. Encourage IS and Acapella at home. DVT Prophylaxis: SCD'S Code Status Full Code Hospital Course Summary Disclaimer The visit summary below is not to be considered part of the above Progress Note. Hospital Course Summary 03-01-2017 ASSESSMENT 66-year-old gentleman with acute cholecystitis. PLAN Robotic-assisted laparoscopic cholecystectomy with intraoperative cholangiogram. I informed the patient and his that it was my clinical intuition, given his physical findings and radiographic findings, that he was indeed suffering from acute cholecystitis. It was therefore my recommendation to the patient and his that he should undergo surgical intervention. I did discuss with the patient and his in detail what a robotic-assisted laparoscopic cholecystectomy entailed and its associated risks which included but was not inclusive of bleeding, infection, potential conversion to an open procedure, as well as potential injury to adjacent structures, especially the common bile duct. The patient and understood and agreed at this time. 03/03 Continued surgical management and postoperatively recommendations as per Dr Roy, will discuss abdominal pain with him today. Invanz for antimicrobial coverage of the acute gangrenous cholecystitis. Continue to monitor leukocytosis (improving). Hemoglobin A1c is found to be 7.4. Will continue patient's home dose of Victoza 1.2 milligrams at at bedtime in addition to correction scale insulin. Diabetic diet, will discuss with Dr. Roy if he needs to be on liquids today. Monitor Accu-checks with meals and at HS Zofran and Reglan as needed for nausea [place] and morphine as needed for pain control, encouraged judicious use to avoid development of ileus Monitor for postop bowel motivation, will given liquid senna BID for now and see if Dr. Roy would like to assess KUB. . Recheck CBC and CMP tomorrow morning to follow leukocytosis, renal function and electrolytes. 03/04/17 Leukocytosis - continues to improve; 11.4 today. Continue Invanz. Hyperglycemia - improving since Victoza was resumed. Continue SSI. Constipation - had large BM this am. Dr. Roy was notified regarding bloody drainage from umbilical incision Continue to encourage IS and ambulation. Surgical: Doing well today, he would like to go home. States he maybe 50 [place] left at home, will use that prn for pain. He has learned out to manage the drains. Continue with Augemtin 875 BID for 7 days. Will see him on March 08 for drain management. Encourage IS and Acapella at home. Continue with general medical care through Dr. Jane. NEHEMIAH ARAIZA APRN Mar 04, 2017 15:26
[2017-03-04 16:35] VITALS: BP 148/76; PULSE 72; RESP 16; TEMP 98.7; O2SAT 91
[2017-03-04] MEDS ORDERED: POLY17PO6 PO (17:12)
[2017-03-04] MEDS ORDERED: AMOX-351 PO (17:12)
--- NOTE | 2017-03-04 17:21 | GSDISC ---
General Date Date DATE: 03/04/17 TIME: 17:16 Attending Physician Kervin Roy MD,Facs,Cws Admitting Physician Kervin Roy MD,Facs,Cws Consulting Physician Flora Arevalo MD Discharge Diagnosis: (1) Cholelithiasis with acute cholecystitis without biliary obstruction Status: Resolved (2) Sleep apnea with use of continuous positive airway pressure (CPAP) Status: Chronic (3) Elevated liver enzymes Status: Resolved (4) GERD (gastroesophageal reflux disease) Status: Chronic (5) Restless leg syndrome Status: Chronic (6) Depression Status: Chronic (7) DM (diabetes mellitus) Status: Chronic (8) HTN (hypertension) Status: Chronic (9) CAD (coronary artery disease) Status: Chronic (10) Leukocytosis Status: Acute Procedures Robotic assisted laparoscopic cholecystectomy with FireFly imaging Laboratory Laboratory Item Value Date Time Total Bilirubin 1.20 MG/DL 03/04/17 0431 Aspartate Amino Transf (AST/SGOT) 66 U/L H 03/04/17 0431 Alanine Aminotransferase (ALT/SGPT) 43 U/L 03/04/17 0431 Total Bilirubin 1.10 MG/DL 03/03/17 0417 Aspartate Amino Transf (AST/SGOT) 46 U/L 03/03/17 0417 Alanine Aminotransferase (ALT/SGPT) 42 U/L 03/03/17 0417 Total Bilirubin 2.00 MG/DL H 03/02/17 0501 Aspartate Amino Transf (AST/SGOT) 40 U/L 03/02/17 0501 Alanine Aminotransferase (ALT/SGPT) 41 U/L 03/02/17 0501 Alkaline Phosphatase 189 U/L H 03/02/17 0501 Total Bilirubin 2.60 MG/DL H 03/01/17 1200 Aspartate Amino Transf (AST/SGOT) 44 U/L 03/01/17 1200 Alanine Aminotransferase (ALT/SGPT) 49 U/L 03/01/17 1200 Alkaline Phosphatase 233 U/L H 03/01/17 1200 Troponin I < 0.012 ng/ml 03/01/17 1156 Lipase 95 U/L 03/01/17 1200 Prothromb Time International Ratio 1.20 H 03/01/17 1629 White Blood Count 11.4 T/MM3 H 03/04/17 0431 White Blood Count 11.9 T/MM3 H 03/03/17 0417 White Blood Count 18.2 T/MM3 H # 03/02/17 0501 White Blood Count 12.4 T/MM3 H 03/01/17 1200 Laboratory Tests Test 03/03/17 20:40 03/04/17 04:31 03/04/17 05:52 03/04/17 10:08 Glucometer 159mg/dL 171mg/dL 154mg/dL White Blood Count 11.4T/MM3 Red Blood Count 4.28M/MM3 Hemoglobin 13.4GM/DL Hematocrit 41.1% Mean Corpuscular Volume 96.0UM3 Mean Corpuscular Hemoglobin 31.3UUG Mean Corpuscular Hemoglobin Concent 32.6GM/DL RDW Standard Deviation 49.8FL Platelet Count 161T/MM3 Mean Platelet Volume 11.0UM3 Immature Granulocyte % (Auto) 0.2% Neutrophils (%) (Auto) 75.0% Lymphocytes (%) (Auto) 11.9% Monocytes (%) (Auto) 10.7% Eosinophils (%) (Auto) 1.9% Basophils (%) (Auto) 0.3% Absolute Immature Granulocyte (auto 0.02T/MM3 Absolute Neutrophils (auto) 8.5T/MM3 Absolute Lymphocytes (auto) 1.4T/MM3 Absolute Monocytes (auto) 1.2T/MM3 Absolute Eosinophils (auto) 0.2T/MM3 Absolute Basophils (auto) 0.0T/MM3 Turbidity < 20 Sodium Level 141MEQ/L Potassium Level 4.5MEQ/L Chloride Level 105MEQ/L Carbon Dioxide Level 24MEQ/L Anion Gap 12MEQ/L Blood Urea Nitrogen 21.0MG/DL Creatinine 1.3MG/DL Glomerular Filtration Rate Calc 55 BUN/Creatinine Ratio 16RATIO Glucose Level 173MG/DL Calculated Osmolality 278MOSM/KG Calcium Level 8.6MG/DL Total Bilirubin 1.20MG/DL Icterus Index < 2 Aspartate Amino Transf (AST/SGOT) 66U/L Alanine Aminotransferase (ALT/SGPT) 43U/L Alkaline Phosphatase 199U/L Total Protein 6.8G/DL Albumin 3.1G/DL Globulin 3.7G/DL Albumin/Globulin Ratio 0.8RATIO Chemistry Specimen Hemolysis < 15 Test 03/04/17 14:09 Glucometer 202mg/dL Pathology Pathology GB pathology pending at time of discharge. Radiology 03-01-27 GB sono Findings: Hepatic parenchyma is nodular and cirrhotic without evidence for focal mass. The gallbladder is abnormal with two shadowing gallstones. One stone is seen lodged in the gallbladder neck measuring 1.6 cm in diameter. Sonographic Looney's sign was positive. Gallbladder wall is abnormally thickened at just over 3 mm. Both the intra and extrahepatic biliary system are of normal caliber with the common duct measuring 3 mm in dimension. Visualized portions of the head and body of the pancreas are unremarkable. The right kidney is present without collecting system dilatation. The right kidney measures 10.6 cm in length. Impression: Acute cholecystitis. Emergent surgical consultation is recommended. 03-01 CT abdomen pelvis Findings: Coronary artery stent and coronary artery calcifications. Scarring and atelectasis in both lung bases. Increased pleural fat in the left base has developed since the prior study without clear etiology. This is probably of no real clinical importance. The liver is nodular and appears cirrhotic. Two large gallstones again seen within the gallbladder. A 9 mm stone appears wedged in the gallbladder neck. There is adjacent inflammation which has developed since the prior study. The spleen, pancreas and adrenal glands are within normal limits. Scattered small bilateral nonobstructing renal stones measuring 2 to 3 mm seen throughout both kidneys. Small left renal cyst is unchanged. No evidence of obstructing renal or ureteral stone. Ureters appear normal. No abdominal or pelvic lymphadenopathy. Scattered arterial atherosclerotic plaque. Bladder is decompressed. Small bilateral fat-containing inguinal hernias. No evidence of a bowel obstruction. Sigmoid diverticulosis without evidence of acute diverticulitis. Large amount of stool in the cecum with fecalization of the distal small bowel suggesting chronic slow motility. Bone windows show degenerative changes in the spine. Impression: Acute cholecystitis. Surgical consultation is recommended. Hospital Course 03-01-2017 ASSESSMENT 66-year-old gentleman with acute cholecystitis. PLAN Robotic-assisted laparoscopic cholecystectomy with intraoperative cholangiogram. I informed the patient and his that it was my clinical intuition, given his physical findings and radiographic findings, that he was indeed suffering from acute cholecystitis. It was therefore my recommendation to the patient and his that he should undergo surgical intervention. I did discuss with the patient and his in detail what a robotic-assisted laparoscopic cholecystectomy entailed and its associated risks which included but was not inclusive of bleeding, infection, potential conversion to an open procedure, as well as potential injury to adjacent structures, especially the common bile duct. The patient and understood and agreed at this time. 03/03 Continued surgical management and postoperatively recommendations as per Dr Roy, will discuss abdominal pain with him today. Invanz for antimicrobial coverage of the acute gangrenous cholecystitis. Continue to monitor leukocytosis (improving). Hemoglobin A1c is found to be 7.4. Will continue patient's home dose of Victoza 1.2 milligrams at at bedtime in addition to correction scale insulin. Diabetic diet, will discuss with Dr. Roy if he needs to be on liquids today. Monitor Accu-checks with meals and at HS Zofran and Reglan as needed for nausea [place] and morphine as needed for pain control, encouraged judicious use to avoid development of ileus Monitor for postop bowel motivation, will given liquid senna BID for now and see if Dr. Roy would like to assess KUB. . Recheck CBC and CMP tomorrow morning to follow leukocytosis, renal function and electrolytes. 03/04/17 Leukocytosis - continues to improve; 11.4 today. Continue Invanz. Hyperglycemia - improving since Victoza was resumed. Continue SSI. Constipation - had large BM this am. Dr. Roy was notified regarding bloody drainage from umbilical incision Continue to encourage IS and ambulation. Surgical: Doing well today, he would like to go home. States he maybe 50 [place] left at home, will use that prn for pain. He has learned out to manage the drains. Continue with Augemtin 875 BID for 7 days. Will see him on March 08 for drain management. Encourage IS and Acapella at home. Continue with general medical care through Dr. Jane. Home Meds Active Scripts Polyethylene Glycol 3350 (Miralax) 17 Gm Powd.pack, 1 PACKET PO DAILY for 10 Days, #30 PACKET 3 Refills Prov:NEHEMIAH ARAIZA APRN 03/04/17 Amoxicillin/Potassium Clav (Augmentin 875-125 Tablet) 1 Each Tablet, 1 TAB PO Q12H for 7 Days, #14 TAB TAKE WITH MEALS Prov:NEHEMIAH ARAIZA APRN 03/04/17 Reported Medications Aspirin (Aspirin) 81 Mg Tab.chew, 0.5 MG PO DAILY 03/01/17 Diphenhydramine HCl (Benadryl) 25 Mg Capsule, 50 MG PO HS 03/01/17 Hydrocodone/Acetaminophen ([place] 5-325 Tablet) 1 Each Tablet, 1-2 TAB PO TID Y for PAIN, TAB 02/22/15 Liraglutide (Victoza 2-Jordy) 18 Mg/Syringe Inj, 1.2 MG SQ HS 02/22/15 Simvastatin (Simvastatin) 20 Mg Tablet, 20 MG PO HS 02/22/15 Ropinirole Hcl (Requip) 0.5 Mg Tablet, 0.5 MG PO HS 01/26/10 Discharge Disposition good condition, discharged to home. NEHEMIAH ARAIZA PROCESS CHECKER Mar 04, 2017 17:19
--- NOTE | 2017-03-04 17:30 | NUR ---
DRESSING CHANGE PER REQUEST OF Tiffany ARAIZA PATIENT DRESSINGS WERE REMOVED AND COVERED WITH GAUZE AND MEDIPORE TAPE. PATIENT TOLERATED DRESSING CHANGE WELL. WILL CONTINUE TO MONITOR.
--- NOTE | 2017-03-04 17:50 | NUR ---
DISCHARGE PATIENT IS ALERT AND ORIENTED X3. PATIENT VITALS ARE STABLE AND PATIENT IS ON ROOM AIR. PATIENT DENIES CP, NAUSEA, AND SOA. DISCHARGE INSTRUCTIONS INCLUDE: CONTINUED MEDICATIONS, NEW MEDICATIONS, WHEN TO MAKE FOLLOW UP APPOINTMENT, REASONS TO CALL DOCTOR AND/OR SEEK IMMEDIATE CARE, SIGNS AND SYMPTOMS OF INFECTION, ACTIVITY/BATHING, DIET, DRAIN CARE AND MANAGEMENT. DI FOR LAPAROSCOPIC CHOLECYSTECTOMY AND ERIC DRAIN MANAGEMENT AND CARE GIVEN TO PATIENT. IV DISCONTINUED. PERSONAL BELONGINGS RETURNED AND ID BAND REMOVED. PATIENT AMBULATED TO ER ENTRANCE WITH THIS NURSE. PATIENT WAS TRANSPORTED HOME FOR SELF CARE BY .
--- NOTE | 2017-03-12 11:29 | NUR ---
ATTEMPTED POST HOSPITAL FOLLOW UP PHONE CALL, NO ANSWER, NO VOICE MAIL.
== END 2017-03-04 17:50 | disposition home or self-care (01) | DRG 419 ==
LOC: ED 11:35 → EDHOLD 13:55 → SRG 14:41 → CCU 21:04 → OBSVTOIN 03-02 10:50 → SRG 03-02 14:49
PROVIDERS: ADMIT Surgery; ATTEND Surgery
PROC: 8E0W4CZ Robotic Assisted Procedure of Trunk Region, Percutaneous Endoscopic Approach (ICD-10-PCS; 2017-03-01)
PROC: 0FT44ZZ Resection of Gallbladder, Percutaneous Endoscopic Approach (ICD-10-PCS; principal; 2017-03-01 18:05)
DX: K81.0 Acute cholecystitis (principal); E11.65 Type 2 diabetes mellitus with hyperglycemia; I10 Essential (primary) hypertension; J45.909 Unspecified asthma, uncomplicated; I25.10 Atherosclerotic heart disease of native coronary artery without angina pectoris; G25.81 Restless legs syndrome; G47.30 Sleep apnea, unspecified; K21.9 Gastro-esophageal reflux disease without esophagitis; F32.9 Major depressive disorder, single episode, unspecified; G43.909 Migraine, unspecified, not intractable, without status migrainosus; L71.9 Rosacea, unspecified; Z86.73 Personal history of transient ischemic attack (TIA), and cerebral infarction without residual deficits; Z79.82 Long term (current) use of aspirin; Z87.891 Personal history of nicotine dependence
CPT/HCPCS: 36000; 36415; 80053; 81001; 82948; 83036; 83690; 84484; 85018; 85025; 85610; 85730; 88304; 93005; 94667; 94668; 96361; 96365; 96375; 99218

== ENCOUNTER 2018-06-12 16:03 | Inpatient (IN) ==
--- OUTSIDE RECORDS SUMMARY | 2018-06-12 16:39 | External Medical Summary | Referral Summary ---
:1950 Author Organization [facility] Rick, Kiran lockhart, Senior Software Developer Address [address] [address] Care Team Providers Name Role Phone David Jane Primary Care Physician Encounter VC Date(s): 04/02/18 - 04/02/18 [facility] Rick, Kiran , Senior Software Developer [id number] [address] [place] Encounter Diagnosis Diabetes type 2, controlled (Discharge Diagnosis) - 04/02/18 Liver cancer (Discharge Diagnosis) - 04/02/18 Ascites (Discharge Diagnosis) - 04/02/18 Discharge Disposition: 01-Home or Self Care Attending Physician: Ksenia Ho MS, CURT, LD Admitting Physician: Ksenia Ho MS, RD, LD Referring Physician: Selvin Weiner MD Problem List Condition Effective Dates Status Health Status Informant Acute bronchitis(Confirmed) Active Maxillary sinusitis, Active acute(Confirmed) Acute pharyngitis(Confirmed) Active Allergic rhinitis/Hay Active fever(Confirmed) anal fissure(Confirmed) Resolved Asthma(Confirmed) Active Hx of elevated BUN, and Active creatinine(Confirmed) Chronic back pain(Confirmed) Active Chronic kidney disease Active (CKD)(Confirmed) Chronic obstructive pulmonary Active disease (COPD)(Confirmed) Compression fracture(Confirmed) Active Coronary artery disease(Confirmed) Resolved jail current use of Active insulin(Confirmed) Benign essential hypertension Active (disorder)(Confirmed) High sun exposure 2-3 serious Active sunburns(Confirmed) Headaches(Confirmed) Resolved S/p cholecystectomy(Confirmed) Active hx polyps, tubular Resolved adenoma(Confirmed) HYPERTENSION(Confirmed) Resolved Hypertension(Confirmed) Active Kidney stones(Confirmed) Resolved Hepatocellular carcinoma(Confirmed) Active Migraine headaches(Confirmed) Active Hyperlipidemia(Confirmed) Active Obesity(Confirmed) Active patient Obstructive sleep apnea, Active adult(Confirmed) Osteoarthritis(Confirmed) Resolved Prostatism(Confirmed) Resolved RLS(Confirmed) Active Stable angina(Confirmed) Active Stroke(Confirmed) Resolved Tension headaches(Confirmed) Active Diabetes type 2, Active controlled(Confirmed) Type II diabetes mellitus Active uncontrolled (finding)(Confirmed) Right distal ureteral Active calculus(Confirmed) Allergies, Adverse Reactions, Alerts Substance Reaction Severity Status iodine containing compounds Nausea Active Medications aspirin 81 mg, Oral, Daily, 0 Refill(s) Start Date: 04/26/14 Status: OrderedBenadryl 25 mg oral tablet See Instructions, as needed for allergy symptoms, TAKES PRN, 0 Refill(s) Start Date: 03/08/17 Status: OrderedFlomax 0.4 mg oral capsule 0.4 mg 1 caps, Oral, Daily, # 90 caps, 1 Refill(s), Pharmacy: [id number], 1 caps Oral Daily,x90 days Start Date: 05/01/17 Stop Date: 10/28/17 Status: Orderedketoconazole 2% topical cream 1 cheryle, Topical, Daily, # 30 g, 2 Refill(s), Pharmacy: [id number] Start Date: 04/03/17 Status: OrderedNorco 5 mg-325 mg oral tablet 1-2 tabs, Oral, TID, # 60 tabs, 0 Refill(s) Start Date: 08/30/17 Status: OrderedrOPINIRole 0.5 mg oral tablet 0.5 mg 1 tabs, Oral, Daily, # 90 tabs, 1 Refill(s), Pharmacy: [id number], 1 tabs Oral Daily Start Date: 05/01/17 Status: Orderedsimvastatin 20 mg oral tablet 20 mg 1 tabs, Oral, Bedtime (once a day), # 90 tabs, 1 Refill(s), Pharmacy: [facility], 1 tabs Oral Bedtime (once a day) Start Date: 05/01/17 Status: OrderedSORAfenib 200 mg oral tablet 400 mg 2 tabs, Oral, BID, from [facility], # 120 tabs, 0 Refill(s) Start Date: 06/07/17 Status: OrderedTresiba FlexTouch 100 units/mL subcutaneous solution See Instructions, 10 units daily, # 1 boxes, 10 Refill(s), Pharmacy: [id number], 10 units daily Start Date: 05/29/17 Status: Ordered Immunizations Given and Recorded Vaccine Date Status Refusal Reason influenza virus vaccine, inactivated 10/15/14 Recorded pneumococcal 23-polyvalent vaccine 10/19/13 Given pneumococcal 23-polyvalent vaccine 07/08/01 Recorded zoster vaccine live 10/19/13 Given pneumococcal 13-valent conjugate vaccine1 10/19/13 Given tetanus/diphth/pertuss (Tdap) adult/adol 10/19/13 Recorded influenza virus vaccine, live 09/24/13 Given influenza virus vaccine, live 11/20/12 Given tetanus-diphth toxoids (Td) adult/adol 06/29/02 Given 1Result Comment: [07/12/2015 Uncharted] Uploaded in Error - CC Procedures Procedure Date Related Diagnosis Body Site Status Colonoscopy 10/14/17 Completed Laparoscopic cholecystectomy1 03/01/17 Completed Colonoscopy, flexible; with removal of 10/29/15 Completed tumor(s), polyp(s), or other lesion(s) by hot biopsy forceps Colonoscopy 2013 Completed Colonoscopy 2012 Completed eye lid surgery blepth/ptosis ou 08/24/11 Completed left temporal artery biopsy 01/26/10 Completed heart cath 04/25/09 Completed fissurectomy with Completed sphincterectomy/colonoscopy pylonidal cystectomy Completed rt carpal tunnel release Completed rt knee scope, torn miniscus Completed 1necrotic, acute cholecystitis cholelithiasis Social History Social History Type Response Smoking Status Former smoker1 entered on: 09/09/14 1Quit smoking about 25 years ago. Assessment and Plan Extracted from: Title: Office Visit Note Author: Ksenia Ho MS, RD, LD Date: 04/02/18 Ga[place] is too decrease ascites and water retention, good blood sugar control and avoid fast weight loss. Goal weight 180 to 190 pounds. Diabetes type 2, controlled Eat 3 meals and 1 to 3 snacks a day. Include lean protein at all meals and evening snack, continue with increasing vegetables, plant base protein and use chicken, fish and nuts more often than red m eats. Use low fat cheese or daily foods.Discussed recipe ideas and low sodium seasoning and low fatideas. Handouts:plate method for portion control, low sodium guidelines,label tips and Oncology res ource handouts for education today.Follow up as needed, patient seems to have a good understanding of the information presented today.Spent [id number] minutes with patient today.Referring physi laura Weiner MD Supervising physician Daria Lange MD Location [address]
--- OUTSIDE RECORDS SUMMARY | 2018-06-12 16:39 | External Medical Summary | Referral Summary ---
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 current 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 (Discharge Diagnosis) - 06/04/18 Benign essential hypertension (disorder) (Discharge Diagnosis) - 06/04/18 Screening for thyroid disorder (Discharge Diagnosis) - 06/04/18 Discharge Disposition: 01-Home or Self Care Attending Physician: Arabella Varghese APRN Admitting Physician: Arabella Varghese APRN Vital Signs Most recent to oldest [Reference Range]: 1 Peripheral Pulse Rate [60-100 bpm] 76 bpm (06/04/18 9:41 AM) Blood Pressure [90-140/60-90 mmHg] 128/60 mmHg (06/04/18 9:41 AM) Problem List Condition Effective Dates Status Health Status Informant Acute bronchitis(Confirmed) Active Maxillary sinusitis, Active acute(Confirmed) Acute pharyngitis(Confirmed) Active Allergic rhinitis/Hay Active fever(Confirmed) anal fissure(Confirmed) Resolved Asthma(Confirmed) Active Hx of elevated BUN, and Active creatinine(Confirmed) Chronic back pain(Confirmed) Active Chronic kidney disease Active (CKD)(Confirmed) Chronic obstructive pulmonary Active disease (COPD)(Confirmed) Compression fracture(Confirmed) Active Coronary artery disease(Confirmed) Resolved buttermaker current use of Active insulin(Confirmed) Benign essential [...] Daily, # 90 caps, 1 Refill(s), Pharmacy: [facility], 1 caps Oral Daily,x90 days Start Date: 05/01/17 Stop Date: 10/28/17 Status: Orderedketoconazole 2% topical cream 1 cheryle, Topical, Daily, # 30 g, 2 Refill(s), Pharmacy: [facility] Start Date: 04/03/17 Status: OrderedNorco 5 mg-325 mg oral tablet 1-2 tabs, Oral, TID, # 60 tabs, 0 Refill(s) Start Date: 08/30/17 Status: OrderedrOPINIRole 0.5 mg oral tablet 0.5 mg 1 tabs, Oral, Daily, # 90 tabs, 1 Refill(s), Pharmacy: [facility], 1 tabs Oral Daily Start Date: 05/01/17 Status: Orderedsimvastatin 20 mg oral tablet 20 mg 1 tabs, Oral, Bedtime (once a day), # 90 tabs, 1 Refill(s), Pharmacy: [facility], 1 tabs Oral Bedtime (once a day) Start Date: 05/01/17 Status: OrderedSORAfenib 200 mg oral tablet 400 mg 2 tabs, Oral, BID, from [facility], # 120 tabs, 0 Refill(s) Start Date: 06/07/17 Status: OrderedTresiba FlexTouch 100 units/mL subcutaneous solution See Instructions, 6 units daily, # 1 boxes, 10 Refill(s), Pharmacy: [facility] Start Date: 05/29/17 Status: Ordered Results Chemistry Most recent to oldest [Reference Range]: 1 Sodium Lvl [135-144 mEq/L] 138 mEq/L (06/04/18 10:22 AM) Potassium Lvl [3.5-5.2 mEq/L] 3.6 mEq/L (06/04/18 10:22 AM) Chloride [99-111 mEq/L] 109 mEq/L (06/04/18 10:22 AM) CO2 [23-31 mEq/L] 22 mEq/L *LOW* (06/04/18 10:22 AM) AGAP [3-20 mEq/L] 7 mEq/L (06/04/18 10:22 AM) BUN [8-26 mg/dL] 17 mg/dL (06/04/18 10:22 AM) Glucose Lvl [70-99 mg/dL] 160 mg/dL *HI* (06/04/18 10:22 AM) Creatinine Lvl [0.72-1.25 mg/dL] 1.02 mg/dL (06/04/18 10:22 AM) eGFR [>60 mL/min] >60 mL/min 1 (06/04/18 10:22 AM) Calcium Lvl [8.4-10.2 mg/dL] 8.4 mg/dL (06/04/18 10:22 AM) T4 Free [0.7-1.5 ng/dL] 0.9 ng/dL (06/04/18 10:22 AM) TSH [0.35-4.94 mcIU/mL] 1.50 mcIU/mL (06/04/18 10:22 AM) Hgb A1c [4.1-5.6 %] 5.1 % (06/04/18 10:22 AM) eAvg Glucose 99.7 mg/dL (06/04/18 10:22 AM) 1Result Comment: Multiply eGFR results by 1.21 for race. Immunizations Given and Recorded Vaccine Date Status [...] Title: Office Visit Note Author: Arabella Varghese ELECTRICIAN STATION ASSISTANT Date: 06/04/18 1.Diabetes type 2, controlled 1.check blood sugars fasting and 2 hours after meals 3-7 days per week 2.continue current dose of insulin 3.rotate injection sites 4.monitor diet and exercise 5.monitor feet daily I discussed the patient with the preceptor. Ordered: Albumin/Creatinine Ratio, Urine Basic Metabolic Panel Free T4 Hemoglobin A1c Return to Clinic TSH 3rd Generation 2.buttermaker current 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 Ordered: Albumin/Creatinine Ratio, Urine Basic Metabolic Panel Free T4 Hemoglobin A1c Return to Clinic TSH 3rd Generation 3.Benign essential hypertension (disorder) Ordered: Albumin/Creatinine Ratio, Urine Basic Metabolic Panel Free T4 Hemoglobin A1c Return to Clinic TSH 3rd Generation 4.Screening for thyroid disorder Ordered: Albumin/Creatinine Ratio, Urine Basic Metabolic Panel Free T4 Hemoglobin A1c Return to Clinic TSH 3rd Generation 5.Hepatocellular carcinoma Extracted from: Title: Ambulatory Patient Education Author: Arabella Varghese APRN Date: 06/04 The following Patient Education Materials have been given to the patient: Preventive Health Blood Glucose Monitoring, Adult Monitoring your blood glucose (also known as blood sugar) helps you to manage [...] or the types of medicines you are t aking. Be sure to write down all of your blood glucose readings so that this information can be reviewed with your health care provider. See below for examples of testing times that your health care provider may suggest. Type 1 Diabetes Test your blood glucose at least 2 times a day. Also test your blood glucose: Before every insulin injection. Before and after exercise. Between meals. 2 hours after a meal. Between 2:00 a.m. and 3:00 a.m. on occasional days. You may need to test your blood glucose more often: If you use an insulin pump. If you need multiple daily injections. If your diabetes is not well controlled. If you are ill. Type 2 Diabetes If you are taking [...] with your meter for inserting the test strip , applying blood to the strip, and using [...] Some meters come with the ability to downl oad your records to your home computer. Keeping a record of your blood glucose readings is especially helpful if you are wanting to look for patterns. Make notes to go along with the blood glucose readi ngs because you might forget what happened at that exact time. Keeping good records helps you and your health care provider to work together to achieve good diabetes management. This information is not intended to replace advice given to you by your health care provider. Make sure you discuss any questions you have with your health care provider. Document Released: 10/30/2004 Document Revised: 02/18/2017 Document Reviewed: 03/22/2014 [employer] Interactive Patient Education 2017 [employer] No follow up information was provided. Referrals to Other Providers Referred by: Arabella Varghese APRN
--- OUTSIDE RECORDS SUMMARY | 2018-06-12 16:39 | External Medical Summary | Referral Summary ---
:1950 Author Organization [facility] Rick [address] [place] [address] Care Team Providers Name Role Phone David Jane Primary Care Physician Encounter VC Date(s): 03/01/17 - 03/01/17 [facility] Rick [address] [place] [address] Discharge Diagnosis: Abdominal pain, RUQ Discharge Diagnosis: Constipation Discharge Diagnosis: Kidney stones Discharge Diagnosis: Coronary artery disease Discharge Diagnosis: Diabetes type 2, controlled Discharge Diagnosis: Chronic back pain Discharge Diagnosis: Chronic obstructive pulmonary disease (COPD) Discharge Diagnosis: Asthma Discharge Diagnosis: Benign essential hypertension (disorder) Discharge Diagnosis: Chronic kidney disease (CKD) Discharge Diagnosis: Gallstones Discharge Diagnosis: Obstructive sleep apnea, adult Discharge Disposition: 01-Home or Self Care Attending Physician: David Jane MD Admitting Physician: David Jane MD Vital Signs Most recent to oldest [Reference Range]: 1 Blood Pressure [90-140/60-90 mmHg] 140/70 mmHg (03/01/17 11:21 AM) Problem List Condition Effective Dates Status Health Status Informant Acute bronchitis(Confirmed) Active Maxillary sinusitis, Active acute(Confirmed) Acute pharyngitis(Confirmed) Active Allergic rhinitis/Hay Active fever(Confirmed) anal fissure(Confirmed) Resolved Asthma(Confirmed) Active Benign essential hypertension Active (disorder)(Confirmed) Hx of elevated BUN, and Active creatinine(Confirmed) Chronic back pain(Confirmed) Active Chronic kidney disease Active (CKD)(Confirmed) Chronic obstructive pulmonary Active disease (COPD)(Confirmed) Compression fracture(Confirmed) Active Coronary artery disease(Confirmed) Resolved [facility] current use of Active insulin(Confirmed) High sun exposure 2-3 serious Active sunburns(Confirmed) Headaches(Confirmed) Resolved hx polyps, tubular Resolved adenoma(Confirmed) HYPERTENSION(Confirmed) Resolved Hypertension(Confirmed) Active Kidney stones(Confirmed) Resolved Migraine headaches(Confirmed) Active Hyperlipidemia(Confirmed) Active Obesity(Confirmed) Active [...] Daily, 0 Refill(s) Start Date: 04/26/14 Status: Ordereddesonide 0.05% topical gel 1 cheryle, Topical, apply to face bid prn, # 60 g, 0 Refill(s) Start Date: 04/26/14 Status: OrderedFlomax 0.4 mg oral capsule 1 caps, Oral, Daily, # 90 caps, 1 Refill(s), Pharmacy: [facility] [id number], 1 caps Oral Daily,[id number] Start Date: 03/01/15 Stop Date: 08/28/15 Status: OrderedNorco 5 mg-325 mg oral tablet 1-2 tabs, Oral, TID, # 60 tabs, 0 Refill(s) Start Date: 06/21/16 Status: OrderedrOPINIRole 0.5 mg oral tablet See Instructions, TAKE ONE TABLET BY MOUTH ONCE DAILY, # 90 tabs, 0 Refill(s), Pharmacy: [facility] [id number], TAKE ONE TABLET BY MOUTH ONCE DAILY Start Date: 11/29/16 Status: Orderedsimvastatin 20 mg oral tablet See Instructions, TAKE ONE TABLET BY MOUTH ONCE DAILY AT BEDTIME, # 30 tabs, eRx : [facility] Start Date: 02/22/17 Status: OrderedVictoza 18 mg/3 mL subcutaneous solution See Instructions, INJECT 1.2MG SUB-Q DAILY, # 6 unknown unit, 4 Refill(s), eRx: [facility] [id number] Start Date: 12/19/16 Status: Ordered Results No data available for this section Immunizations Given and Recorded Vaccine Date Status Refusal Reason tetanus/diphth/pertuss (Tdap) adult/adol 10/19/13 Recorded influenza virus vaccine, inactivated 10/15/14 Recorded influenza virus vaccine, live 09/24/13 Given influenza virus vaccine, live 11/20/12 Given pneumococcal 13-valent conjugate vaccine1 10/19/13 Given pneumococcal 23-polyvalent vaccine 10/19/13 Given pneumococcal 23-polyvalent vaccine 07/08/01 Recorded tetanus-diphth toxoids (Td) adult/adol 06/29/02 Given zoster vaccine live 10/19/13 Given 1Result Comment: [07/12/2015 Uncharted] Uploaded in Error - CC Procedures Procedure Date Related Diagnosis Body Site Colonoscopy, flexible; with removal of tumor(s), 10/29/15 polyp(s), or other lesion(s) by hot biopsy [...] cause of the pain can be found. Be fore that point, your health care provider may not know if you need more testing or further treatment. HOME CARE INSTRUCTIONS Monitor your abdominal pain for any changes. The following actions may help to alleviate any discomfort you are experiencing: Only take [id number] or prescription medicines as directed by your [...] that is worsened with eating fatty foods. You have a fever. SEEK IMMEDIATE MEDICAL CARE IF: Your pain does not go away within 2 hours. You keep throwing up (vomiting). Your pain is felt only in portions [...] with your health care provider. Document Released: 08/07/2006 Document Revised: 07/18/2016 Document Reviewed: 07/07/2014 [employer] Interactive Patient Education 2016 [employer] No follow up information was provided. Extracted from: Title: Office Visit Note Author: David Jane MD Date: 03/01/17 Assessment/Plan Abdominal pain, RUQ I personally talked with [facility] [place] and the patient will bes[facility] for evaluation. IMPRESSION: 1. Cholelithiasis. 2. There are multiple bilateral nonobstructing renal stones present. 3. There is diverticulosis of the colon with no CT evidence of diverticulitis. 4. No acute abnormality is seen. [1] Impression: No acute abnormality. There has been no significant change since the previous study. [2] Nursing staff took him to the ER. Asthma This issue was reviewed, appears stable, and current therapy continued except as mentioned. Appropriate lab was reviewed from the most recent appropriate entry and lab was ordered if needed in the c [place]/nursing orders, and follow up recommended generally in 90 days and no later then six months. Benign essential hypertension (disorder) This issue was reviewed, appears stable, and current therapy continued except as mentioned. Appropriate lab was reviewed from the most recent appropriate entry and lab was ordered if needed in the c [place]/nursing orders, and follow up recommended generally in 90 days and no later then six months. The patient reports their blood pressure has been stable at home and is not having any significant or related problems. There has been no chest pain, chest pressure, soa/sahni. The patient had an elevated blood pressure reading and is to monitor their bp and call with a report if consistently > 140/90. Chronic back pain This issue was reviewed, appears stable, and current therapy continued except as mentioned. Appropriate lab was reviewed from the most recent appropriate entry and lab was ordered if needed in the c [place]/nursing orders, and follow up recommended generally in 90 days and no later then six months. IMPRESSION: 1. Facet arthropathy and degenerative disc disease along with bilateral spondylolysis and grade I anterior listhesis at L5/S1 results in mild foraminal narrowing bilaterally, slightly worse on the right. 2. Facet arthropathy and mild degenerative disc bulge at L4/L5 results in mild right foraminal narrowing. 3. Multilevel facet degenerative changes. Please see above detailed discussion by level. [3] Chronic kidney disease (CKD) This issue was reviewed, appears stable, and current therapy continued except as mentioned. Appropriate lab was reviewed from the most recent appropriate entry and lab was ordered if needed in the c [place]/nursing orders, and follow up recommended generally in 90 days and no later then six months. Limit nsaids. Chronic obstructive pulmonary disease (COPD) This issue was reviewed, appears stable, and current therapy continued except as mentioned. Appropriate lab was reviewed from the most recent appropriate entry and lab was ordered if needed in the c [place]/nursing orders, and follow up recommended generally in 90 days and no later then six months. Constipation We discussed several options for treatment for this condition. The patient declined any changes or other treatments at this time. Coronary artery disease This issue was reviewed, appears stable, and current therapy continued except as mentioned. Appropriate lab was reviewed from the most recent appropriate entry and lab was ordered if needed in the c [place]/nursing orders, and follow up recommended generally in 90 days and no later then six months. No recent cp. Diabetes type 2, controlled The patient was notified for the need for regular quarterly f/u of their diabetes. Further any pertinent medication, supplies, etc were refilled. Additionally, they are to have annual eye exams, foot exams, and regular care. Assessment/Plan 1.Diabetes type 2, controlled 1.check blood sugars fasting and 2 hours after meals 3-7 days per week 2.continue current doses of victoza 3.rotate injection sites 4.monitor diet and exercise 5.monitor feet daily I discussed the patient with the preceptor. Ordered: Albumin/Creatinine Ratio, Urine [4] Gallstones Likely cause of today's pain. Sent to [facility]. Kidney stones This issue was reviewed, appears stable, and current therapy continued except as mentioned. Appropriate lab was reviewed from the most recent appropriate entry and lab was ordered if needed in the c [place]/nursing orders, and follow up recommended generally in 90 days and no later then six months. Lab pending at [facility]. Obstructive sleep apnea, adult This issue was reviewed, appears stable, and current therapy continued except as mentioned. Appropriate lab was reviewed from the most recent appropriate entry and lab was ordered if needed in the c [place]/nursing orders, and follow up recommended generally in 90 days and no later then six months. Assessment/Plan 1.Obstructive sleep apnea, adult -Adequate treatment with CPAP symptomatically and objectively at current pressure withexcellent adherence to therapy. Continue CPAP with all sleep at 7-15cm. Order to [facility] for supplies. -CPAP download reviewed with the patient and patient is complying with and benefitting from treatment. -Avoid driving, partaking in hazardous activities, or operating heavy machinery if drowsy. -Continue appropriate cleaning of the machine/humidifier and update of all supplies including mask, tubing, and filters. -Return for follow-up in 1 year. Return/call sooner if any problems arise in the meantime. [5]
--- OUTSIDE RECORDS SUMMARY | 2018-06-12 16:39 | External Medical Summary | Referral Summary ---
:1950 Author Organization [facility] Address [address] [place] [address] Care Team Providers Name Role Phone David Jane Primary Care Physician Encounter [facility] Date(s): 05/20/17 - 05/20/17 [facility] [address] [place] [address]- [place] Discharge Diagnosis: History of hoarseness Discharge Disposition: 01-Home or Self Care Attending Physician: Fili Hernandez MD Admitting Physician: Fili Hernandez MD Vital Signs Most recent to oldest [Reference Range]: 1 Temperature Tympanic [36.6-38.1 degC] 36.4 degC *LOW* (05/20/17 9:28 AM) Blood Pressure [90-140/60-90 mmHg] 120/62 mmHg (05/20/17 9:28 AM) Problem List Condition Effective Dates Status Health Status Informant Acute bronchitis(Confirmed) Active Maxillary sinusitis, Active acute(Confirmed) Acute pharyngitis(Confirmed) Active Allergic rhinitis/Hay Active fever(Confirmed) anal fissure(Confirmed) Resolved Asthma(Confirmed) Active Benign essential hypertension Active (disorder)(Confirmed) Hx of elevated BUN, and Active creatinine(Confirmed) Chronic back pain(Confirmed) Active Chronic kidney disease Active (CKD)(Confirmed) Chronic obstructive pulmonary Active disease (COPD)(Confirmed) Compression fracture(Confirmed) Active Coronary artery disease(Confirmed) Resolved long-term current use of Active insulin(Confirmed) High sun [...] Daily, # 90 caps, 1 Refill(s), Pharmacy: [facility], 1 caps Oral Daily,x90 days Start Date: 05/01/17 Stop Date: 10/28/17 Status: Orderedketoconazole 2% topical cream 1 cheryle, Topical, Daily, # 30 g, 2 Refill(s), Pharmacy: [facility] Start Date: 04/03/17 Status: OrderedMisc Medication See Instructions, PT. IS CURRENTLY ON AN ABTX., 0 Refill(s) Start Date: 03/08/17 Status: OrderedNorco 5 mg-325 mg oral tablet 1-2 tabs, Oral, TID, # 60 tabs, 0 Refill(s) Start Date: 05/01/17 Status: OrderedrOPINIRole 0.5 mg oral tablet 0.5 mg 1 tabs, Oral, Daily, # 90 tabs, 1 Refill(s), Pharmacy: [facility], 1 tabs Oral Daily Start Date: 05/01/17 Status: Orderedsimvastatin 20 mg oral tablet 20 mg 1 tabs, Oral, Bedtime (once a day), # 90 tabs, 1 Refill(s), Pharmacy: [facility], 1 tabs Oral Bedtime (once a day) Start Date: 05/01/17 Status: OrderedVictoza 18 mg/3 mL subcutaneous solution 1.2 mg, SubCutaneous, Daily, # 18 mL, 1 Refill(s), Pharmacy: [facility], 1.2 mg SubCutaneous Daily Start Date: 05/01/17 Status: Ordered Results No data available for [...] Procedures Procedure Date Related Diagnosis Body Site Laryngoscopy, flexible; diagnostic 05/20/17 Laparoscopic cholecystectomy1 03/01/17 Colonoscopy, flexible; with removal of tumor(s), 10/29/15 polyp(s), or other lesion(s) by hot biopsy forceps Colonoscopy 2013 Colonoscopy 2012 eye lid surgery blepth/ptosis ou 08/24/11 left temporal artery biopsy 01/26/10 heart cath 04/25/09 fissurectomy with sphincterectomy/colonoscopy pylonidal cystectomy rt carpal tunnel release rt knee scope, torn miniscus 1necrotic, acute cholecystitis cholelithiasis Social History Social History Type Response Smoking Status Former smoker1 1Quit smoking about 25 years ago. Assessment and Plan Extracted from: Title: Ambulatory Patient Education Author: Fili Hernandez MD Date: 05/20/17 No follow up information was provided.
--- OUTSIDE RECORDS SUMMARY | 2018-06-12 16:39 | External Medical Summary | Referral Summary ---
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 Discharge Diagnosis: Seborrheic dermatitis Discharge Diagnosis: Rhinophyma Discharge Disposition: 01-Home or Self Care Attending Physician: Per Julio MD Vital Signs No [...] Compression fracture(Confirmed) Active Coronary artery disease(Confirmed) Resolved [facility] current use of Active insulin(Confirmed) High sun [...] PRN, 0 Refill(s) Start Date: 03/08/17 Status: Ordereddesonide 0.05% topical gel 1 cheryle, Topical, apply to face bid prn, # 60 g, 0 Refill(s) Start Date: 04/26/14 Status: OrderedFlomax 0.4 mg oral capsule 1 caps, Oral, Daily, # 90 caps, 1 Refill(s), Pharmacy: [facility] [id number], 1 caps Oral Daily,[id number] Start Date: 03/01/15 Stop Date: 08/28/15 Status: Orderedketoconazole 2% topical cream 1 cheryle, Topical, Daily, # 30 g, 2 Refill(s), Pharmacy: [facility] [id number] Start Date: 04/03/17 Status: OrderedMisc Medication See Instructions, PT. IS CURRENTLY ON AN ABTX., 0 Refill(s) Start Date: 03/08/17 Status: OrderedNorco 5 mg-325 mg oral tablet 1-2 tabs, Oral, TID, # 60 tabs, 0 Refill(s) Start Date: 06/21/16 Status: OrderedrOPINIRole 0.5 mg oral tablet See Instructions, TAKE ONE TABLET BY MOUTH ONCE DAILY, # 90 tabs, eRx: [facility] Start Date: 03/07/17 Status: Orderedsimvastatin 20 mg oral tablet See Instructions, TAKE ONE TABLET BY MOUTH ONCE DAILY AT BEDTIME, # 30 tabs, eRx : [facility]27 Start Date: 03/27/17 Status: OrderedVictoza 18 mg/3 mL subcutaneous solution See Instructions, INJECT 1.2MG SUB-Q DAILY, # 6 unknown unit, 4 Refill(s), eRx: [facility]27 Start Date: 12/19/16 Status: Ordered Results No [...] Procedures Procedure Date Related Diagnosis Body Site Laparoscopic cholecystectomy1 03/01/17 Colonoscopy, flexible; with removal [...] Visit Note Author: Per Julio MD Date: 04/03/17 Assessment/Plan Capillary hemangioma Nevus Rhinophyma Seborrheic dermatitis Telangiectasia of face
--- OUTSIDE RECORDS SUMMARY | 2018-06-12 16:40 | External Medical Summary | Referral Summary ---
:1950 Author Organization [facility] Address [address] [place] [address] Care Team Providers Name Role Phone David Jane Primary Care Physician Encounter [facility] Date(s): 01/24/18 - 01/24/18 [facility] [address] [place] [address] [place] Encounter Diagnosis residential current 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 (Discharge Diagnosis) - 01/24/18 Diabetes type 2, controlled (Discharge Diagnosis) - 01/24/18 Benign essential hypertension (disorder) (Discharge Diagnosis) - 01/24/18 Hyperlipidemia (Discharge Diagnosis) - 01/24/18 Discharge Disposition: 01-Home or Self Care Attending Physician: Arabella Varghese APRN Admitting Physician: Arabella Varghese APRN Vital Signs Most recent to oldest [Reference Range]: 1 Peripheral Pulse Rate [60-100 bpm] 80 bpm (01/24/18 10:18 AM) Blood Pressure [90-140/60-90 mmHg] 140/70 mmHg (01/24/18 10:18 AM) Problem List Condition Effective Dates Status Health Status Informant Acute bronchitis(Confirmed) Active Maxillary sinusitis, Active acute(Confirmed) Acute pharyngitis(Confirmed) Active Allergic rhinitis/Hay Active fever(Confirmed) anal fissure(Confirmed) Resolved Asthma(Confirmed) Active Hx of elevated BUN, and Active creatinine(Confirmed) Chronic back pain(Confirmed) Active Chronic kidney disease Active (CKD)(Confirmed) Chronic obstructive pulmonary Active disease (COPD)(Confirmed) Compression fracture(Confirmed) Active Coronary artery disease(Confirmed) Resolved residential current use of Active insulin(Confirmed) Benign essential [...] # 90 caps, 1 Refill(s), Pharmacy: [facility], 1 caps Oral Daily,x90 days Start Date: 05/01/17 Stop Date: 10/28/17 Status: Orderedketoconazole 2% topical cream 1 cheryle, Topical, Daily, # 30 g, 2 Refill(s), Pharmacy: [facility] Start Date: 04/03/17 Status: OrderedNorco 5 mg-325 mg oral tablet 1-2 tabs, Oral, TID, # 60 tabs, 0 Refill(s) Start Date: 08/30/17 Status: OrderedrOPINIRole 0.5 mg oral tablet 0.5 mg 1 tabs, Oral, Daily, # 90 tabs, 1 Refill(s), Pharmacy: [facility], 1 tabs Oral Daily Start Date: 05/01/17 Status: Orderedsimvastatin 20 mg oral tablet 20 mg 1 tabs, Oral, Bedtime (once a day), # 90 tabs, 1 Refill(s), Pharmacy: [facility], 1 tabs Oral Bedtime (once a day) Start Date: 05/01/17 Status: OrderedSORAfenib 200 mg oral tablet 400 mg 2 tabs, Oral, BID, from [facility], # 120 tabs, 0 Refill(s) Start Date: 06/07/17 Status: OrderedTresiba FlexTouch 100 units/mL subcutaneous solution See Instructions, 10 units daily, # 1 boxes, 10 Refill(s), Pharmacy: [facility], 10 units daily Start Date: 05/29/17 Status: Ordered Results Chemistry Most recent to oldest [Reference Range]: 1 Hgb A1c [4.1-5.6 %] 5.3 % (01/24/18 11:04 AM) eAvg Glucose 105.4 mg/dL (01/24/18 11:04 AM) Immunizations Given and Recorded Vaccine Date Status [...] Title: Office Visit Note Author: Arabella Varghese BODYWORK THERAPIST Date: 01/24/18 1.Diabetes type 2, controlled 1.check blood sugars fasting and 2 hours after meals 3-7 days per week 2.continue current dose of insulin 3.rotate injection sites 4.monitor diet and exercise 5.monitor feet daily I discussed the patient with the preceptor. 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 Colds , fever, flu, nausea, vomiting, and diarrhea are all examples of common illnesses that can cause problems for people with d iabetes. Loss of body fluids (dehydration) from fever, vomiting, diarrhea, infection, and the stress of a sickness can all cause blood glucose levels to increase. Because of this, it is very important t o take your diabetes medicines and to eat some form of carbohydrate food when you are sick. Liquid or soft foods are often tolerated, and they help to replace fluids. HOME CARE INSTRUCTIONS These main guidelines are intended for managing a short-term (24 hours or less ) sickness: Take your usual dose of insulin [...] your blood glucose more often, generally every 2 4 hours. If you have type 1 diabetes, test your urine for ketones every 4 hours. If you have type 2 diabetes, test your urine for ketones as directed by your health care provider. Eat some form of food that contains carbohydrates. The carbohydrates can be in solid or liquid form. You should eat 45 50 g of carbohydrates every 3 4 hours. [...] sugar such as water. Be careful with [id number] medicines. Read the labels. They may contain [...] Released: 10/30/2004 Document Revised: 02/18/2017 Document Reviewed: 04/06/2014 [employer] Interactive Patient Education 2017 [employer] No follow up information was provided. Referrals to Other Providers Referred by: Arabella Varghese APRN
--- OUTSIDE RECORDS SUMMARY | 2018-06-12 16:40 | External Medical Summary | Referral Summary ---
:1950 Author Organization [facility] Address [address] [place] [address] Care Team Providers Name Role Phone David Jane Primary Care Physician Encounter [facility] [id number] Date(s): 05/29/17 - 05/29/17 [facility] [address] [place] [address] - [place] Discharge Diagnosis: Benign essential hypertension (disorder) Discharge Diagnosis: Diabetes type 2, controlled Discharge Diagnosis: Mixed hyperlipidemia Discharge Disposition: 01-Home or Self Care Attending Physician: Arabella Varghese APRN Admitting Physician: Arabella Varghese APRN Vital Signs Most recent to oldest [Reference Range]: 1 Peripheral Pulse Rate [60-100 bpm] 72 bpm (05/29/17 9:27 AM) Blood Pressure [90-140/60-90 mmHg] 126/80 mmHg (05/29/17 9:27 AM) Problem List Condition Effective Dates [...] Compression fracture(Confirmed) Active Coronary artery disease(Confirmed) Resolved shelter current use of Active insulin(Confirmed) High sun [...] Daily, # 90 caps, 1 Refill(s), Pharmacy: [facility], 1 caps Oral Daily,x90 days Start Date: 05/01/17 Stop Date: 10/28/17 Status: Orderedketoconazole 2% topical cream 1 cheryle, Topical, Daily, # 30 g, 2 Refill(s), [facility] Start Date: 04/03/17 Status: OrderedMisc Medication See Instructions, PT. IS CURRENTLY ON AN ABTX., 0 Refill(s) Start Date: 03/08/17 Status: OrderedNorco 5 mg-325 mg oral tablet 1-2 tabs, Oral, TID, # 60 tabs, 0 Refill(s) Start Date: 05/01/17 Status: OrderedrOPINIRole 0.5 mg oral tablet 0.5 mg 1 tabs, Oral, Daily, # 90 tabs, 1 Refill(s), [facility], 1 tabs Oral Daily Start Date: 05/01/17 Status: Orderedsimvastatin 20 mg oral tablet 20 mg 1 tabs, Oral, Bedtime (once a day), # 90 tabs, 1 Refill(s), Pharmacy: [facility], 1 tabs Oral Bedtime (once a day) Start Date: 05/01/17 Status: OrderedTresiba FlexTouch 100 units/mL subcutaneous solution See Instructions, 10 units daily, # 1 boxes, 10 Refill(s), Pharmacy: [facility], 10 units daily Start Date: 05/29/17 Status: Ordered Results Chemistry Most recent to oldest [Reference Range]: 1 Hgb A1c [4.1-5.6 %] 6.7 % *HI* (05/29/17 10:38 AM) eAvg Glucose 145.6 mg/dL (05/29/17 10:38 AM) Immunizations Given and Recorded Vaccine Date [...] Title: Office Visit Note Author: Arabella Varghese DRUG ABUSE SOCIAL WORKER Date: 05/29/17 Assessment/Plan 1.Diabetes type 2, controlled 1.discussed pt status with Dr. Castro and will need to stop victoza and start basal insulin. Start Tresiba U100 at 10 units every evening. 2.check blood sugars fasting and 2 hours after meals 3-7 days per week 3.reviewed signs/symptoms and treatment for hypoglycemia 4.monitor diet and exercise 5.monitor feet daily I discussed the patient with the preceptor. Ordered: Hemoglobin A1c Return to Clinic 2.Benign essential hypertension (disorder) Ordered: Hemoglobin A1c Return to Clinic 3.Mixed hyperlipidemia Ordered: Hemoglobin A1c Return to Clinic Extracted from: Title: Ambulatory Patient Education Author: Arabella Varghese APRN Date: 05/29 Home Health Care Diabetes and Sick Day [...] sugar such as water. Be careful with atua-vtk-iualtls medicines. Read the labels. They may contain [...] care provider. Document Released: 10/30/2004 Document Revised: 11/18/2015 Document Reviewed: 04/06/2014 [employer] Interactive Patient Education 2016 [employer] No follow up information was provided. Referrals to Other Providers Referred by: Arabella Varghese APRN
--- OUTSIDE RECORDS SUMMARY | 2018-06-12 16:40 | External Medical Summary | Referral Summary ---
:1950 Author Organization [facility] [address] [place] [address] Care Team Providers Name Role Phone David Jane Primary Care Physician Encounter [facility] [id number] Date(s): 06/26/17 - 06/26/17 [facility] [address] [place] [address] [place] Discharge Diagnosis: Diabetes type 2, controlled Discharge Diagnosis: Cancer of liver Discharge Diagnosis: Coronary artery disease Discharge Diagnosis: Acute diarrhea Discharge Diagnosis: Chronic back pain Discharge Diagnosis: Chronic kidney disease (CKD) Discharge Disposition: 01-Home or Self Care Attending Physician: David Jane MD Admitting Physician: David Jane MD Vital Signs Most recent to oldest [Reference Range]: 1 Blood Pressure [90-140/60-90 mmHg] 140/70 mmHg (06/26/17 3:34 PM) Problem List Condition Effective Dates Status Health Status Informant Acute bronchitis(Confirmed) Active Maxillary sinusitis, Active acute(Confirmed) Acute pharyngitis(Confirmed) Active Allergic rhinitis/Hay Active fever(Confirmed) anal fissure(Confirmed) Resolved Asthma(Confirmed) Active Benign essential hypertension Active (disorder)(Confirmed) Hx of elevated BUN, and Active creatinine(Confirmed) Chronic back pain(Confirmed) Active Chronic kidney disease Active (CKD)(Confirmed) Chronic obstructive pulmonary Active disease (COPD)(Confirmed) Compression fracture(Confirmed) Active Coronary artery disease(Confirmed) Resolved [facility] current use of Active insulin(Confirmed) High sun [...] Daily, # 90 caps, 1 Refill(s), Pharmacy: [facility], 1 caps Oral Daily,x90 days Start Date: 05/01/17 Stop Date: 10/28/17 Status: Orderedketoconazole 2% topical cream 1 cheryle, Topical, Daily, # 30 g, 2 Refill(s), Pharmacy: [facility] Start Date: 04/03/17 Status: OrderedMisc Medication See Instructions, PT. IS CURRENTLY ON AN ABTX., 0 Refill(s) Start Date: 03/08/17 Status: OrderedNorco 5 mg-325 mg oral tablet 1-2 tabs, Oral, TID, # 60 tabs, 0 Refill(s) Start Date: 05/01/17 Status: OrderedrOPINIRole 0.5 mg oral tablet 0.5 mg 1 tabs, Oral, Daily, # 90 tabs, 1 Refill(s), Pharmacy: [facility], 1 tabs Oral Daily Start Date: 05/01/17 Status: Orderedsimvastatin 20 mg oral tablet 20 mg 1 tabs, Oral, Bedtime (once a day), # 90 tabs, 1 Refill(s), Pharmacy: [facility], 1 tabs Oral Bedtime (once a day) Start Date: 05/01/17 Status: OrderedSORAfenib 200 mg oral tablet 200 mg 1 tabs, Oral, BID, from [facility], # 120 tabs, 0 Refill(s) Start Date: 06/07/17 Status: OrderedTresiba FlexTouch 100 units/mL subcutaneous solution See Instructions, 10 units daily, # 1 boxes, 10 Refill(s), Pharmacy: [facility], 10 units daily [...] Patient Education Author: David Jane MD Date: Allergy Allergies An allergy is an abnormal reaction to a substance by the body's defense system (immune system). Allergies can develop at any age. WHAT CAUSES ALLERGIES? An allergic reaction happens when the immune system mistakenly reacts to a normally harmless substance, called an allergen, as if it were harmful. The immune system releases antibodies to fight the subs tance. Antibodies eventually release a chemical called histamine into the bloodstream. The release of histamine is meant to protect the body from infection, but it also causes discomfort. An allergic reaction can be triggered by: Eating an allergen. Inhaling an allergen. Touching an allergen. WHAT TYPES OF ALLERGIES ARE THERE? There are many types of allergies. Common types include: Seasonal allergies. People with this type of allergy are usually allergic to substances that are only present during certain seasons, such as molds and pollens. Food allergies. Drug allergies. Insect allergies. Animal dander allergies. WHAT ARE SYMPTOMS OF ALLERGIES? Possible allergy symptoms include: Swelling of the lips, face, tongue, mouth, or throat. Sneezing, coughing, or wheezing. Nasal congestion. Tingling in the mouth. Rash. Itching. Itchy, red, swollen areas of skin (hives). Watery eyes. Vomiting. Diarrhea. Dizziness. Lightheadedness. Fainting. Trouble breathing or swallowing. Chest tightness. Rapid heartbeat. HOW ARE ALLERGIES DIAGNOSED? Allergies are diagnosed with a medical and family history and one or more of the following: Skin tests. Blood tests. A food diary. A food diary is a record of all the foods and drinks you have in a day and of all the symptoms you experience. The results of an elimination diet. An elimination diet involves eliminating foods from your diet and then adding them back in one by one to find out if a certain food causes an allergic reaction. HOW ARE ALLERGIES TREATED? There is no cure for allergies, but allergic reactions can be treated with medicine. Severe reactions usually need to be treated at a hospital. HOW CAN REACTIONS BE PREVENTED? The best way to prevent an allergic reaction is by avoiding the substance you are allergic to. Allergy shots and medicines can also help prevent reactions in some cases. People with severe allergic reac tions may be able to prevent a life-threatening reaction called anaphylaxis with a medicine given right after exposure to the allergen. This information is not intended to replace advice given to you by your health care provider. Make sure you discuss any questions you have with your health care provider. Document Released: 01/21/2004 Document Revised: 11/18/2015 Document Reviewed: 08/09/2015 [employer] Interactive Patient Education 2016 [employer] No follow up information was provided. Extracted from: Title: Office Visit Note Author: David Jane MD Date: 06/26/17 Acute diarrhea Has norco. Has imodium and is working well up to qid. Stool forcdiff and o/p pending. Abx discussed and declined. To [facility] if worse in any way. Possibly partially related to his recent GB removal/recent cancer andhis cpap causing some of the gas. He needs a mouth strap for the cpap. Ordered: C diff Battery Parasitic Examination-[place] Cancer of liver This issue was reviewed, appears stable, and current therapy continued except as mentioned. Appropriate lab was reviewed from the most recent appropriate entry and lab was ordered if needed in the cp oe/nursing orders, and follow up recommended generally in 90 days and no later then six months. [address] Dr[address] Weiner and Dr. Garfield Shaikh? Chronic back pain This issue was reviewed, appears stable, and current therapy continued except as mentioned. Appropriate lab was reviewed from the most recent appropriate entry and lab was ordered if needed in the cp oe/nursing orders, and follow up recommended generally in 90 days and no later then six months. Has norco. Chronic kidney disease (CKD) This issue was reviewed, appears stable, and current therapy continued except as mentioned. Appropriate lab was reviewed from the most recent appropriate entry and lab was ordered if needed in the cp oe/nursing orders, and follow up recommended generally in 90 days and no later then six months. Limitnsaids. Coronary artery disease This issue was reviewed, appears stable, and current therapy continued except as mentioned. Appropriate lab was reviewed from the most recent appropriate entry and lab was ordered if needed in the cp oe/nursing orders, and follow up recommended generally in 90 days and no later then six months. Diabetes type 2, controlled This issue was reviewed, appears stable, and current therapy continued except as mentioned. Appropriate lab was reviewed from the most recent appropriate entry and lab was ordered if needed in the cp oe/nursing orders, and follow up recommended generally in 90 days and no later then six months. The patient was notified for the need for regular quarterly f/u of their diabetes. Further any pertinent medication, supplies, etc were refilled. Additionally, they are to have annual eye exams, foot exams, and regular care. A work/school note was offered and deferred by the patient.
--- OUTSIDE RECORDS SUMMARY | 2018-06-12 16:40 | External Medical Summary | Referral Summary ---
:1950 Author Organization [facility] Newton[address] [place] [address] Care Team Providers Name Role Phone David Jane Primary Care Physician Encounter VC Date(s): 05/01/17 - 05/01/17 [facility] [place] [id number]- Discharge Diagnosis: Obstructive sleep apnea, adult Discharge Diagnosis: Coronary artery disease Discharge Diagnosis: S/p cholecystectomy Discharge Diagnosis: Kidney stones Discharge Diagnosis: Hoarseness Discharge Diagnosis: RLS Discharge Diagnosis: Benign essential hypertension (disorder) Discharge Diagnosis: Chronic obstructive pulmonary disease (COPD) Discharge Diagnosis: Diabetes type 2, controlled Discharge Diagnosis: Chronic back pain Discharge Disposition: 01-Home or Self Care Attending Physician: David Jane MD Admitting Physician: David Jane MD Vital Signs Most recent to oldest [Reference Range]: 1 Blood Pressure [90-140/60-90 mmHg] 120/70 mmHg (05/01/17 11:02 AM) Problem List Condition Effective Dates Status Health Status Informant Acute bronchitis(Confirmed) Active Maxillary sinusitis, Active acute(Confirmed) Acute pharyngitis(Confirmed) Active Allergic rhinitis/Hay Active fever(Confirmed) anal fissure(Confirmed) Resolved Asthma(Confirmed) Active Benign essential hypertension Active (disorder)(Confirmed) Hx of elevated BUN, and Active creatinine(Confirmed) Chronic back pain(Confirmed) Active Chronic kidney disease Active (CKD)(Confirmed) Chronic obstructive pulmonary Active disease (COPD)(Confirmed) Compression fracture(Confirmed) Active Coronary artery disease(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 IS CURRENTLY ON AN ABTX., 0 Refill(s) Start Date: 03/08/17 Status: OrderedNorco 5 mg-325 mg oral tablet 1-2 tabs, Oral, TID, # 60 tabs, 0 Refill(s) Start Date: 05/01/17 Status: OrderedrOPINIRole 0.5 mg oral tablet 0.5 mg 1 tabs, Oral, Daily, # 90 tabs, 1 Refill(s), Pharmacy: [facility], 1 tabs Oral Daily Start Date: 05/01/17 Status: Orderedsimvastatin 20 mg oral tablet 20 mg 1 tabs, Oral, Bedtime (once a day), # 90 tabs, 1 Refill(s), Pharmacy: [facility], 1 tabs Oral Bedtime (once a day) Start Date: 05/01/17 Status: OrderedVictoza 18 mg/3 mL subcutaneous solution 1.2 mg, SubCutaneous, Daily, # 18 mL, 1 Refill(s), Pharmacy: [facility], 1.2 mg SubCutaneous Daily Start Date: 05/01/17 Status: Ordered Results Hematology Most recent to oldest [Reference Range]: 1 WBC [4.8-10.8 10*3/uL] 8.8 10*3/uL (05/01/17 11:28 AM) RBC [4.60-6.20] 4.44 *LOW* (05/01/17 11:28 AM) Hgb [14.0-18.0 gm/dL] 13.6 gm/dL *LOW* (05/01/17 11:28 AM) Hct [42.0-52.0 %] 41.6 % *LOW* (05/01/17 11:28 AM) MCV [82.0-99.0 fL] 93.7 fL (05/01/17 11:28 AM) MCH [27.0-32.0 pg] 30.6 pg (05/01/17 11:28 AM) MCHC [32.0-36.0 gm/dL] 32.7 gm/dL (05/01/17 11:28 AM) RDW [11.5-14.5 %] 14.6 % *HI* (05/01/17 11:28 AM) Platelet [150-400 10*3/uL] 139 10*3/uL *LOW* (05/01/17 11:28 AM) MPV [8.8-14.8 fL] 11.8 fL (05/01/17 11:28 AM) Immature Granulocytes [0.0-1.0 %] 0.2 % (05/01/17 11:28 AM) Neutrophils [51-75 %] 64 % (05/01/17 11:28 AM) Lymphocytes [20-46 %] 23 % (05/01/17 11:28 AM) Monocytes [4-11 %] 10 % (05/01/17 11:28 AM) Eosinophils [0-4 %] 3 % (05/01/17 11:28 AM) Basophils [0-2 %] 1 % (05/01/17 11:28 AM) Neutro Absolute [1.90-7.00] 5.61 (05/01/17: AM) Lymph Absolute [0.80-3.30] 1.99 (05/01/17 11:28 AM) Kimball Absolute [0.30-1.00] 0.88 (05/01/17: AM) Eos Absolute [0.00-0.50] 0.29 (05/01/17 AM) Baso Absolute [0.00-0.20] 0.04 (05/01/17: AM) Chemistry Most recent to oldest [Reference Range]: 1 Sodium Lvl [135-144 mEq/L] 138 mEq/L (05/01/17 AM) Potassium Lvl [3.5-5.2 mEq/L] 3.9 mEq/L (05/01/17 AM) Chloride [99-111 mEq/L] 105 mEq/L (05/01/17 AM) CO2 [23-31 mEq/L] 25 mEq/L (05/01/17 AM) AGAP [3-20 mEq/L] 8 mEq/L (05/01/17 AM) BUN [8-26 mg/dL] 16 mg/dL (05/01/17 AM) Glucose Lvl [70-99 mg/dL] 119 mg/dL *HI* (05/01/17 AM) Creatinine Lvl [0.72-1.25 mg/dL] 1.23 mg/dL (05/01/17 AM) eGFR [>60 mL/min] 58 mL/min 1 *ABN* (05/01/17 AM) Calcium Lvl [8.4-10.2 mg/dL] 9.2 mg/dL (05/01/17 AM) Albumin Lvl [3.4-4.8 gm/dL] 3.6 gm/dL (05/01/17 AM) Total Protein [6.0-7.6 gm/dL] 7.4 gm/dL (05/01/17 AM) Globulin [1.8-4.0 gm/dL] 3.8 gm/dL (05/01/17 11:28 AM) ALT [0-55 U/L] 36 U/L (05/01/17 11:28 AM) AST [5-34 U/L] 42 U/L *HI* (05/01/17 11:28 AM) Alk Phos [40-150 U/L] 231 U/L *HI* (05/01/17 11:28 AM) Bili Total [0.2-1.2 mg/dL] 1.0 mg/dL (05/01/17 11:28 AM) Lipase Lvl [8-78 U/L] 46 U/L (05/01/17 11:28 AM) Amylase Lvl [20-160 U/L] 49 U/L (05/01/17 11:28 AM) Chol [0-199 mg/dL] 157 mg/dL (05/01/17 11:28 AM) Trig [0-149 mg/dL] 148 mg/dL (05/01/17 11:28 AM) HDL [40-84 mg/dL] 31 mg/dL *LOW* (05/01/17 11:28 AM) LDL [0-130 mg/dL] 96 mg/dL (05/01/17 11:28 AM) VLDL Cholesterol [0-28 mg/dL] 30 mg/dL *HI* (05/01/17 11:28 AM) Cardiac Risk [0.0-5.7] 5.1 (05/01/17 11:28 AM) TSH with Reflex Free T4 [0.35-4.94] 1.83 (05/01/17 11:28 AM) 1Result Comment: Multiply eGFR results by 1.21 for race.Urinalysis Most recent to oldest [Reference Range]: 1 UA Color Yellow (05/01/17 11:30 AM) UA Appear Clear (05/01/17 11:30 AM) UA pH [5.0-8.0] 5.0 (05/01/17 11:30 AM) UA Leuk Est [Negative] Negative (05/01/17 11:30 AM) UA Nitrite [Negative] Negative (05/01/17 11:30 AM) UA Protein [Negative] Negative (05/01/17 11:30 AM) UA Glucose [Negative] Negative (05/01/17 11:30 AM) UA Ketones [Negative] Negative (05/01/17 11:30 AM) UA Urobilinogen [<1.0 mg/dL] 1.0 mg/dL (05/01/17 11:30 AM) UA Bili [Negative] Negative (05/01/17 11:30 AM) UA Blood [Negative] Negative (05/01/17 11:30 AM) UA Spec Grav [1.003-1.030] 1.016 (05/01/17 11:30 AM) Type Voided (05/01/17 11:30 AM) Immunizations Given and Recorded Vaccine Date [...] any discomfort you are experiencing: Only take [id number] or prescription medicines as directed by your [...] 08/07/2006 Document Revised: 07/18/2016 Document Reviewed: 07/07/2014 [employer] Patient Education 2016 [employer] No follow up information was provided. Extracted from: Title: Office Visit Note Author: David Jane MD Date: 05/01/17 Assessment/Plan Abdominal pain Cause unclear. CT scan abd/pelvis with and w/o with premedication regimen if wiling. To ER if worse in any way. Appt with Dr. CAMARGO when interested. Lab pending. Ordered: Amylase Level CBC w/ Differential Comprehensive Metabolic Panel CT Abdomen Pelvis w/ +w/o Contrast Lipase Level Urinalysis with Culture if Indicated Benign essential hypertension (disorder) This issue was [...] been no chest pain, chest pressure, soa/sahni. Refill meds. Chronic back pain This issue was reviewed, appears stable, and current therapy continued except as mentioned. Appropriate lab was reviewed from the most recent appropriate entry and lab was ordered if needed in the c [place]/nursing orders, and follow up recommended generally in 90 days and no later then six months. Refill norco. Chronic obstructive pulmonary disease (COPD) This issue was reviewed, appears stable, and current therapy continued except as mentioned. Appropriate lab was reviewed from the most recent appropriate entry and lab was ordered if needed in the c [place]/nursing orders, and follow up recommended generally in 90 days and no later then six months. Coronary artery disease This issue was reviewed, appears stable, and current therapy continued except as mentioned. Appropriate lab was reviewed from the most recent appropriate entry and lab was ordered if needed in the c [place]/nursing orders, and follow up recommended generally in 90 days and no later then six months. Seeing Cardiology. Sees Dr. Malik. Diabetes type 2, controlled The patient was notified for the need for regular quarterly f/u of their diabetes. Further any pertinent medication, supplies, etc were refilled. Additionally, they are to have annual eye exams, foot exams, and regular care. Seeing Dr. Castro. Assessment/Plan 1.Diabetes type 2, controlled 1.check blood sugars fasting and 2 hours after meals 3-7 days per week 2.continue current doses of victoza 3.rotate injection sites 4.monitor diet and exercise 5.monitor feet daily [1] High blood sugar This issue was reviewed, appears stable, and current therapy continued except as mentioned. Appropriate lab was reviewed from the most recent appropriate entry and lab was ordered if needed in the c [place]/nursing orders, and follow up recommended generally in 90 days and no later then six months. Lab pending. Ordered: TSH with Reflex Free T4 High cholesterol This issue was reviewed, appears stable, and current therapy continued except as mentioned. Appropriate lab was reviewed from the most recent appropriate entry and lab was ordered if needed in the c [place]/nursing orders, and follow up recommended generally in 90 days and no later then six months. Lab pending. Meds refilled. 60 minutes were utilized in care and coordination for this patient. Greater then 50% of the time was used for counseling and/or coordination of the patients care. Ordered: Lipid Panel Hoarseness To [facility] for evaluation. Ordered: Internal Referral to ENT Kidney stones This issue was reviewed, appears stable, and current therapy continued except as mentioned. Appropriate lab was reviewed from the most recent appropriate entry and lab was ordered if needed in the c [place]/nursing orders, and follow up recommended generally in 90 days and no later then six months. Lab and CT pending. IMPRESSION: 1. Cholelithiasis. 2. There are multiple bilateral nonobstructing renal stones present. 3. There is diverticulosis of the colon with no CT evidence of diverticulitis. 4. No acute abnormality is seen. [2] Obstructive sleep apnea, adult This issue was reviewed, appears stable, and current therapy continued except as mentioned. Appropriate lab was reviewed from the most recent appropriate entry and lab was ordered if needed in the c [place]/nursing orders, and follow up recommended generally in 90 days and no later then six months. Assessment/Plan 1.Obstructive sleep apnea, adult -Adequate treatment with CPAP symptomatically and objectivelyat current pressure withexcellent adherence to therapy. Continue CPAP with all sleep at 12cm. Order to [facility] to establish for supplies. -CPAP download reviewed with the patient and patient is complying with and benefitting from treatment. -Avoid driving, partaking in hazardous activities, or operating heavy machinery if drowsy. -Continue appropriate cleaning of the machine/humidifier and update of all supplies including mask, tubing, and filters. -Return for follow-up in 1 year. Return/call sooner if any problems arise in the meantime. [3] RLS This issue was reviewed, appears stable, and current therapy continued except as mentioned. Appropriate lab was reviewed from the most recent appropriate entry and lab was ordered if needed in the c [place]/nursing orders, and follow up recommended generally in 90 days and no later then six months. Refill meds. S/p cholecystectomy This issue was reviewed, appears stable, and current therapy continued except as mentioned. Appropriate lab was reviewed from the most recent appropriate entry and lab was ordered if needed in the c [place]/nursing orders, and follow up recommended generally in 90 days and no later then six months. Assessment/Plan 1.S/p laparoscopic cholecystectomy Pathology indicatesacute hemorrhagic cholecystitiswith reactive mucosal changes, cholelithiasis. No atypia or malignant neoplasm identified. It would be fine to return to the chiropractor on an as-needed basis for adjustments. Continue to use common sense. If an activity is causing pain, that is a sign that you need to "back off" and wait a little longer before lifting something that heavy or doing that activity. Do no t hesitate to contact us with any surgical concerns. Continue with your general medical care through your primary care physician. [4]
--- OUTSIDE RECORDS SUMMARY | 2018-06-12 16:40 | External Medical Summary | Referral Summary ---
:1950 Author Organization [facility], Surgery Address [address] [place] [address] [place] [address] Care Team Providers Name Role Phone David Jane Primary Care Physician Encounter VC Date(s): 03/08/17 - 03/08/17 [facility], Too, Surgery [address] [place] [address] [place] [address] [place] Discharge Diagnosis: S/p laparoscopic cholecystectomy Discharge Disposition: 01-Home or Self Care Attending Physician: Kervin Roy MD Admitting Physician: Kervin Roy MD Vital Signs Most recent to oldest [Reference Range]: 1 Temperature Tympanic [36.6-38.1 degC] 37.2 degC (03/08/17 9:45 AM) Problem List Condition Effective Dates Status Health Status Informant Acute bronchitis(Confirmed) Active Maxillary sinusitis, Active acute(Confirmed) Acute pharyngitis(Confirmed) Active Allergic rhinitis/Hay Active fever(Confirmed) anal fissure(Confirmed) Resolved Asthma(Confirmed) Active Benign essential hypertension Active (disorder)(Confirmed) Hx of elevated BUN, and Active creatinine(Confirmed) Chronic back pain(Confirmed) Active Chronic kidney disease Active (CKD)(Confirmed) Chronic obstructive pulmonary Active disease (COPD)(Confirmed) Compression fracture(Confirmed) Active Coronary artery disease(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 IS CURRENTLY ON AN ABTX., 0 Refill(s) Start Date: 03/08/17 Status: OrderedNorco 5 mg-325 mg oral tablet 1-2 tabs, Oral, TID, # 60 tabs, 0 Refill(s) Start Date: 06/21/16 Status: OrderedrOPINIRole 0.5 mg oral tablet See Instructions, TAKE ONE TABLET BY MOUTH ONCE DAILY, # 90 tabs, eRx: [facility] Start Date: 03/07/17 Status: Orderedsimvastatin 20 mg oral tablet See Instructions, TAKE ONE TABLET BY MOUTH ONCE DAILY AT BEDTIME, # 30 tabs, eRx : [facility] Start Date: 02/22/17 Status: OrderedVictoza 18 mg/3 mL subcutaneous solution See Instructions, INJECT 1.2MG SUB-Q DAILY, # 6 unknown unit, 4 Refill(s), eRx: [facility] Start Date: 12/19/16 Status: Ordered Results [...] Extracted from: Title: Office Visit Note Author: Kervin Roy MD Date: 03/08/17 Assessment/Plan 1.S/p laparoscopic cholecystectomy Ordered: Postoperative Est 36716 Plan:Patient was informed that I am pleased visitimprovement. He was instructed toreturn in about 2 weeks for staple removalor sooner if problems should arise.
--- OUTSIDE RECORDS SUMMARY | 2018-06-12 16:40 | External Medical Summary | Referral Summary ---
:1950 Author Organization [facility], Surgery Address [address] [place] [address] [place] [address] Care Team Providers Name Role Phone David Jane Primary Care Physician Encounter VC Date(s): 05/15/17 - 05/15/17 [facility] Newton, [address] [place] [address] [place] Discharge Diagnosis: Abnormal CT scan Discharge Diagnosis: RUQ abdominal pain Discharge Disposition: 01-Home or Self Care Attending Physician: Kervin Roy MD Admitting Physician: Kervin Roy MD Referring Physician: David Jane MD Vital Signs Most recent to oldest [Reference Range]: 1 Temperature Tympanic [36.6-38.1 degC] 36.4 degC *LOW* (05/15/17 2:34 PM) Peripheral Pulse Rate [60-100 bpm] 62 bpm (05/15/17 2:34 PM) Blood Pressure [90-140/60-90 mmHg] 118/70 mmHg (05/15/17 2:34 PM) SpO2 99 % (05/15/17 2:34 PM) Problem List Condition Effective Dates Status Health Status Informant Acute bronchitis(Confirmed) Active Maxillary sinusitis, Active acute(Confirmed) Acute pharyngitis(Confirmed) Active Allergic rhinitis/Hay Active fever(Confirmed) anal fissure(Confirmed) Resolved Asthma(Confirmed) Active Benign essential hypertension Active (disorder)(Confirmed) Hx of elevated BUN, and Active creatinine(Confirmed) Chronic back pain(Confirmed) Active Chronic kidney disease Active (CKD)(Confirmed) Chronic obstructive pulmonary Active disease (COPD)(Confirmed) Compression fracture(Confirmed) Active Coronary artery disease(Confirmed) Resolved emt intermediate current use of Active insulin(Confirmed) High sun [...] Daily, # 90 caps, 1 Refill(s), Pharmacy: [facility], 1 caps Oral Daily,x90 days Start Date: 05/01/17 Stop Date: 10/28/17 Status: Orderedketoconazole 2% topical cream 1 cheryle, Topical, Daily, # 30 g, 2 Refill(s), Pharmacy: [facility] Start Date: 04/03/17 Status: OrderedMisc Medication See Instructions, PT. IS CURRENTLY ON AN ABTX., 0 Refill(s) Start Date: 03/08/17 Status: OrderedNorco 5 mg-325 mg oral tablet 1-2 tabs, Oral, TID, # 60 tabs, 0 Refill(s) Start Date: 05/01/17 Status: OrderedrOPINIRole 0.5 mg oral tablet 0.5 mg 1 tabs, Oral, Daily, # 90 tabs, 1 Refill(s), Pharmacy: [facility], 1 tabs Oral Daily Start Date: 05/01/17 Status: Orderedsimvastatin 20 mg oral tablet 20 mg 1 tabs, Oral, Bedtime (once a day), # 90 tabs, 1 Refill(s), Pharmacy: [facility], 1 tabs Oral Bedtime (once a day) Start Date: 05/01/17 Status: OrderedVictoza 18 mg/3 mL subcutaneous solution 1.2 mg, SubCutaneous, Daily, # 18 mL, 1 Refill(s), Pharmacy: [facility], 1.2 mg SubCutaneous Daily Start Date: 05/01/17 Status: Ordered Results Coagulation Most recent to oldest [Reference Range]: 1 PT Venous (05/15/17 4:20 PM) INR [0.8-1.2] 1.1 1 (05/15/17 4:20 PM) 1Result Comment: Normal (no anticoagulant): 0.8 - 1.2 Units Routine Therapeutic Range: 2.0 - 3.0 Units High Risk Therapeutic Range: 2.5 - 3.5 Units Immunizations Given and Recorded Vaccine Date Status [...] Visit Note Author: Kervin Roy MD Date: 05/15/17 Assessment/Plan 1.Abnormal CT scan Ordered: Office Visit Level 4 Est 98824 2.RUQ abdominal pain Ordered: Office Visit Level 4 Est 47623 Plan:PercutaneousCT-guided biopsy ofliver mass. Patient did see oncology earlier today who has ordered a PET scan the beginning of next week. I didreview office note performed by his PCP from May 06, 2017. Reviewedrepeat CT scanper formed on May 03, 2017 that revealedinterval development of multiple hypodense masslesions scattered throughout both lobes of liver. Liver appeared cirrhotic in nature. Dominant lesion measure d 4.3 x 4.9 cm. I informed the patient that unfortunately he has developed severallesions within his liver that are worrisome for an underlying malignant process. I would recommend that we proceed with a PET scan as ordered. I would also recommend that we set him upnext week to undergo aCT-guidedpercutaneous liver biopsy performed by radiology. We will obtain a PT and INR prior tohi sliver biopsy. We'll await hisneedle biopsy results and PET scan results and proceed accordingly.
--- OUTSIDE RECORDS SUMMARY | 2018-06-12 16:40 | External Medical Summary | Referral Summary ---
:1950 Author Organization [facility], [facility], [facility] Address [address] [place] [address] Care Team Providers Name Role Phone David Jane Primary Care Physician Encounter Date(s): 04/18/17 - 04/18/17 [facility], [facility], [facility] [address] [place] [address]- [phone] Discharge Disposition: 01-Home or Self Care Attending Physician: Amira Soto PA-C Vital Signs No data available for this [...] Compression fracture(Confirmed) Active Coronary artery disease(Confirmed) Resolved halfway current use of Active insulin(Confirmed) High sun [...] Daily, # 90 caps, 1 Refill(s), Pharmacy: [facility], 1 caps Oral Daily,[id number] Start Date: 03/01/15 Stop Date: 08/28/15 Status: Orderedketoconazole 2% topical cream 1 cheryle, Topical, Daily, # 30 g, 2 Refill(s), Pharmacy: [facility] [address] Start Date: 04/03/17 Status: OrderedMisc Medication See Instructions, PT. IS CURRENTLY ON AN ABTX., 0 Refill(s) Start Date: 03/08/17 Status: OrderedNorco 5 mg-325 mg oral tablet 1-2 tabs, Oral, TID, # 60 tabs, 0 Refill(s) Start Date: 06/21/16 Status: OrderedrOPINIRole 0.5 mg oral tablet See Instructions, TAKE ONE TABLET BY MOUTH ONCE DAILY, # 90 tabs, eRx: [facility] Start Date: 03/07/17 Status: Orderedsimvastatin 20 mg oral tablet See Instructions, TAKE ONE TABLET BY MOUTH ONCE DAILY AT BEDTIME, # 30 tabs, eRx : [facility] Start Date: 03/27/17 Status: OrderedVictoza 18 mg/3 mL subcutaneous solution See Instructions, INJECT 1.2MG SUB-Q DAILY, # 6 unknown unit, 4 Refill(s), eRx: [facility]placed [facility] Start Date: 12/19/16 Status: Ordered Results [...]
--- OUTSIDE RECORDS SUMMARY | 2018-06-12 16:40 | External Medical Summary | Referral Summary ---
:1950 Author Organization [facility] Address [address] [place] [address] Care Team Providers Name Role Phone David Jane Primary Care Physician Encounter Date(s): 10/14/17 - 10/14/17 [facility] [address] [place] [address]- [place] Discharge Diagnosis: Encounter for screening colonoscopy Discharge Disposition: 01-Home or Self Care Attending Physician: Christophe Estevez MD Admitting Physician: Christophe Estevez MD Vital Signs Most recent to oldest [Reference Range]: 1 Temperature Temporal Artery [36.3-37.8 degC] 36.6 degC (10/14/17 7:52 AM) Peripheral Pulse Rate [60-100 bpm] 87 bpm (10/14/17 7:52 AM) Respiratory Rate [14-20 br/min] 16 br/min (10/14/17 7:52 AM) Blood Pressure [90-140/60-90 mmHg] 150/90 mmHg *HI* (10/14/17 7:52 AM) SpO2 95 % (10/14/17 7:52 AM) Problem List Condition Effective Dates Status [...] 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) Benign essential [...] Daily, # 90 caps, 1 Refill(s), Pharmacy: [facility], 1 caps Oral Daily,x90 days Start Date: 05/01/17 Stop Date: 10/28/17 Status: Orderedketoconazole 2% topical cream 1 cheryle, Topical, Daily, # 30 g, 2 Refill(s), Pharmacy: [facility] Start Date: 04/03/17 Status: OrderedNorco 5 mg-325 mg oral tablet 1-2 tabs, Oral, TID, # 60 tabs, 0 Refill(s) Start Date: 08/30/17 Status: OrderedrOPINIRole 0.5 mg oral tablet 0.5 mg 1 tabs, Oral, Daily, # 90 tabs, 1 Refill(s), Pharmacy: [facility], 1 tabs Oral Daily Start Date: 05/01/17 Status: Orderedsimvastatin 20 mg oral tablet 20 mg 1 tabs, Oral, Bedtime (once a day), # 90 tabs, 1 Refill(s), Pharmacy: [facility], 1 tabs Oral Bedtime (once a day) Start Date: 05/01/17 Status: OrderedSORAfenib 200 mg oral tablet 400 mg 2 tabs, Oral, BID, from [facility], # 120 tabs, 0 Refill(s) Start Date: 06/07/17 Status: OrderedTresiba FlexTouch 100 units/mL subcutaneous solution See Instructions, 10 units daily, # 1 boxes, 10 Refill(s), Pharmacy: [facility], 10 units daily Start Date: 05/29/17 Status: Ordered Results Chemistry Most recent to oldest [Reference Range]: 1 Blood Glucose, Capillary [74-106 mg/dL] 130 mg/dL *HI* (10/14/17 8:06 AM) Immunizations Given and Recorded Vaccine Date [...] Procedure Date Related Diagnosis Body Site Colonoscopy 10/14/17 Laparoscopic cholecystectomy1 03/01/17 Colonoscopy, flexible; with removal [...] Extracted from: Title: Ambulatory Patient Education Author: Zarina Saab RN, ACLS, BLS, Date: 10/14/17 PALS The following Patient Education Materials have been given to the patient: [facility] [phone] [facility] [phone] Endoscopy discharge instructions Diet Start with liquids, then light foods, then progress to normal foods. Medication Resume routine medications. Follow- up Care If any problems occur or if you have any further questions, please contact your physician. In an emergency, call [phone] ([phone]), if you cannot reach your physician. If you find that you cannot contact your physician, but feel that your signs and symptoms warrant a physician s attention, go to an Emergency room which is the closest to you. You have had: X Colonoscopy You should rest today. You have had [...] vomiting. Excessive blood with bowel movement. Findings: No polyps! I recommend another colonoscopy in 3 years. No follow up information was provided.
--- OUTSIDE RECORDS SUMMARY | 2018-06-12 16:40 | External Medical Summary | Referral Summary ---
:1950 Author Organization [facility] [address] [place] [address] Care Team Providers Name Role Phone David Jane Primary Care Physician Encounter [facility] Date(s): 05/06/17 - 05/06/17 [facility] [address] [place] [address]- Discharge Diagnosis: S/p cholecystectomy Discharge Diagnosis: Chronic kidney disease (CKD) Discharge Diagnosis: Diabetes type 2, controlled Discharge Diagnosis: Obstructive sleep apnea, adult Discharge Diagnosis: Abdominal pain, RUQ Discharge Diagnosis: Chronic obstructive pulmonary disease (COPD) Discharge Diagnosis: Benign essential hypertension (disorder) Discharge Diagnosis: Abnormal CT scan Discharge Diagnosis: Chronic back pain Discharge Disposition: 01-Home or Self Care Attending Physician: David Jane MD Admitting Physician: David Jane MD Vital Signs Most recent to oldest [Reference Range]: 1 Blood Pressure [90-140/60-90 mmHg] 110/60 mmHg (05/06/17 8:18 AM) Problem List Condition Effective Dates Status Health Status Informant Acute bronchitis(Confirmed) Active Maxillary sinusitis, Active acute(Confirmed) Acute pharyngitis(Confirmed) Active Allergic rhinitis/Hay Active fever(Confirmed) anal fissure(Confirmed) Resolved Asthma(Confirmed) Active Benign essential hypertension Active (disorder)(Confirmed) Hx of elevated BUN, and Active creatinine(Confirmed) Chronic back pain(Confirmed) Active Chronic kidney disease Active (CKD)(Confirmed) Chronic obstructive pulmonary Active disease (COPD)(Confirmed) Compression fracture(Confirmed) Active Coronary artery disease(Confirmed) Resolved 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 IS CURRENTLY ON AN ABTX., 0 Refill(s) Start Date: 03/08/17 Status: OrderedNorco 5 mg-325 mg oral tablet 1-2 tabs, Oral, TID, # 60 tabs, 0 Refill(s) Start Date: 05/01/17 Status: OrderedrOPINIRole 0.5 mg oral tablet 0.5 mg 1 tabs, Oral, Daily, # 90 tabs, 1 Refill(s), Pharmacy: [facility], 1 tabs Oral Daily Start Date: 05/01/17 Status: Orderedsimvastatin 20 mg oral tablet 20 mg 1 tabs, Oral, Bedtime (once a day), # 90 tabs, 1 Refill(s), Pharmacy: [facility], 1 tabs Oral Bedtime (once a day) Start Date: 05/01/17 Status: OrderedVictoza 18 mg/3 mL subcutaneous solution 1.2 mg, SubCutaneous, Daily, # 18 mL, 1 Refill(s), Pharmacy: [facility], 1.2 mg SubCutaneous Daily [...] any discomfort you are experiencing: Only take [id number] or prescription medicines as directed by your [...] 08/07/2006 Document Revised: 07/18/2016 Document Reviewed: 07/07/2014 [employer] Interactive Patient Education 2016 [employer] No follow up information was provided. Extracted from: Title: Office Visit Note Author: David Jane MD Date: 05/06/17 Assessment/Plan Abdominal pain, RUQ Cause unclear. CT reviewed. After much discussion, he has seen Dr. Weiner in the past and another consultation for the abnormal CT will be started. GI consultation discussed and declined. The patient is comfortablewith waiting to see Dr. CAMARGO for a possible liver biopsy. He is to go to [facility] ER for anything that can not wait for further work up. He has plentyof norco for pain control per him at this time. I personally took him to Dr. Estrella for consultation. The patient has family members present who are agreeable with today's plan and have no additional concerns or requests. here. Abnormal CT scan See above. IMPRESSION: 1. Interval development of multiple hypodense mass type lesions scattered throughout both lobes of the liver. Given the background of cirrhosis, multifocal hepatocellular carcinoma should be considered. Metastatic disease is also within the differential. The lesions do appear amenable to CT-guided biopsy. 2. Mild splenomegaly, which may be on the basis of underlying portal venous hypertension. 3. Colonic diverticulosis, but no CT evidence of acute diverticulitis. 4. Multiple nonobstructive bilateral renal calculi. [1] IMPRESSION: 1. Cholelithiasis. 2. There are multiple bilateral nonobstructing renal stones present. 3. There is diverticulosis of the colon with no CT evidence of diverticulitis. 4. No acute abnormality is seen. [2] A third scan is supposedly available at [facility] from February 2017 that I do not have at this time. Impression: No acute abnormality. There has been no significant change since the previous study. [3] Benign essential hypertension (disorder) This issue was [...] then six months. Diabetes type 2, controlled The patient was notified for the need for regular quarterly f/u of their diabetes. Further any pertinent medication, supplies, etc were refilled. Additionally, they are to have annual eye exams, foot exams, and regular care. Obstructive sleep apnea, adult This issue was reviewed, appears stable, and current therapy continued except as mentioned. Appropriate lab was reviewed from the most recent appropriate entry and lab was ordered if needed in th e cpoe/nursing orders, and follow up recommended generally [...] if any problems arise in the meantime. [1] S/p cholecystectomy The patient's issue is nearly or completely resolved. There is no further issues or testing desired by them at this time. Assessment/Plan 1.S/p laparoscopic cholecystectomy Pathology indicatesacute hemorrhagic [...] medical care through your primary care physician. Ordered: Postoperative Est [id number] [4]
--- OUTSIDE RECORDS SUMMARY | 2018-06-12 16:40 | External Medical Summary | Referral Summary ---
:1950 Author Organization [facility] Address [address] [place] [address] [place] [address] Care Team Providers Name Role Phone David Jane Primary Care Physician Encounter [facility] Date(s): 03/19/17 - 03/19/17 [facility] [address] [place] [address] [place] [address] [place] Discharge Diagnosis: S/p laparoscopic cholecystectomy Discharge Disposition: 01-Home or Self Care Attending Physician: Charissa Palacios APRN Admitting Physician: Charissa Palacios APRN Vital Signs Most recent to oldest [Reference Range]: 1 Temperature Tympanic [36.6-38.1 degC] 37.0 degC (03/19/17 9:27 AM) Problem List Condition Effective Dates [...] Compression fracture(Confirmed) Active Coronary artery disease(Confirmed) Resolved FDC current use of Active insulin(Confirmed) High sun [...] 90 caps, 1 Refill(s), Pharmacy: [facility] , 1 caps Oral Daily,[id number] Start Date: 03/01/15 Stop Date: 08/28/15 Status: OrderedMisc Medication See Instructions, PT. IS CURRENTLY ON AN ABTX., 0 Refill(s) Start Date: 03/08/17 Status: OrderedNorco 5 mg-325 mg oral tablet 1-2 tabs, Oral, TID, # 60 tabs, 0 Refill(s) Start Date: 06/21/16 Status: OrderedrOPINIRole 0.5 mg oral tablet See Instructions, TAKE ONE TABLET BY MOUTH ONCE DAILY, # 90 tabs, eRx: [facility] Start Date: 03/07/17 Status: Orderedsimvastatin 20 mg oral tablet See Instructions, TAKE ONE TABLET BY MOUTH ONCE DAILY AT BEDTIME, # 30 tabs, eRx : [facility] Start Date: 02/22/17 Status: OrderedVictoza 18 mg/3 mL subcutaneous solution See Instructions, INJECT 1.2MG SUB-Q DAILY, # 6 unknown unit, 4 Refill(s), eRx: [facility] Start Date: 12/19/16 Status: Ordered [...] Extracted from: Title: Office Visit Note Author: Charissa Palacios [employer] Date: 03/19/17 Assessment/Plan 1.S/p laparoscopic cholecystectomy Pathology indicatesacute hemorrhagic [...] that heavy or doing that activity. Do not he sitate to contact us with any surgical concerns. Continue with your general medical care through your primary care physician. Ordered: Postoperative Est [id number]
--- OUTSIDE RECORDS SUMMARY | 2018-06-12 16:40 | External Medical Summary | Referral Summary ---
:1950 Author Organization [facility] Address [address] [place] [address] Care Team Providers Name Role Phone David Jane Primary Care Physician Encounter [facility] [id number] Date(s): 09/25/17 - 09/25/17 [facility] [address] [place] [address] - [place] Discharge Diagnosis: Benign essential hypertension (disorder) Discharge Diagnosis: Hepatocellular carcinoma Discharge Diagnosis: Diabetes type 2, controlled Discharge Diagnosis: longterm current 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 Discharge Disposition: 01-Home or Self Care Attending Physician: Arabella Varghese APRN Admitting Physician: Arabella Varghese APRN Vital Signs Most recent to oldest [Reference Range]: 1 Peripheral Pulse Rate [60-100 bpm] 64 bpm (09/25/17 10:01 AM) Blood Pressure [90-140/60-90 mmHg] 120/80 mmHg (09/25/17 10:01 AM) Problem List Condition Effective Dates Status Health Status Informant Acute bronchitis(Confirmed) Active Maxillary sinusitis, Active acute(Confirmed) Acute pharyngitis(Confirmed) Active Allergic rhinitis/Hay Active fever(Confirmed) anal fissure(Confirmed) Resolved Asthma(Confirmed) Active Hx of elevated BUN, and Active creatinine(Confirmed) Chronic back pain(Confirmed) Active Chronic kidney disease Active (CKD)(Confirmed) Chronic obstructive pulmonary Active disease (COPD)(Confirmed) Compression fracture(Confirmed) Active Coronary artery disease(Confirmed) Resolved longterm current use of Active insulin(Confirmed) Benign essential [...] Daily, # 90 caps, 1 Refill(s), Pharmacy: [facility], 1 caps Oral Daily,x90 days Start Date: 05/01/17 Stop Date: 10/28/17 Status: Orderedketoconazole 2% topical cream 1 cheryle, Topical, Daily, # 30 g, 2 Refill(s), Pharmacy: [facility] Start Date: 04/03/17 Status: OrderedMisc Medication See Instructions, PT. IS CURRENTLY ON AN ABTX., 0 Refill(s) Start Date: 03/08/17 Status: OrderedNorco 5 mg-325 mg oral tablet 1-2 tabs, Oral, TID, # 60 tabs, 0 Refill(s) Start Date: 08/30/17 Status: OrderedrOPINIRole 0.5 mg oral tablet 0.5 mg 1 tabs, Oral, Daily, # 90 tabs, 1 Refill(s), Pharmacy: [facility], 1 tabs Oral Daily Start Date: 05/01/17 Status: Orderedsimvastatin 20 mg oral tablet 20 mg 1 tabs, Oral, Bedtime (once a day), # 90 tabs, 1 Refill(s), Pharmacy: [facility], 1 tabs Oral Bedtime (once a day) Start Date: 05/01/17 Status: OrderedSORAfenib 200 mg oral tablet 400 mg 2 tabs, Oral, BID, from [facility], # 120 tabs, 0 Refill(s) Start Date: 06/07/17 Status: OrderedTresiba FlexTouch 100 units/mL subcutaneous solution See Instructions, 10 units daily, # 1 boxes, 10 Refill(s), Pharmacy: [facility], 10 units daily Start Date: 05/29/17 Status: Ordered Results Chemistry Most recent to oldest [Reference Range]: 1 Hgb A1c [4.1-5.6 %] 6.5 % *HI* (09/25/17 10:50 AM) eAvg Glucose 139.9 mg/dL (09/25/17 10:50 AM) Immunizations Given and Recorded Vaccine Date [...] Title: Office Visit Note Author: Arabella Varghese APRN Date: 09/25/17 1.Diabetes type 2, controlled 1.check blood sugars fasting and 2 hours after meals 3-7 days per week 2.continue current dose of tresiba 3.rotate injection sites 4.monitor diet and exercise 5.monitor feet daily I discussed the patient with the preceptor. Ordered: Hemoglobin A1c Return to Clinic 2.longterm current 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 Ordered: Hemoglobin A1c Return to Clinic 3.Hepatocellular carcinoma Ordered: Hemoglobin A1c Return to Clinic Extracted from: Title: Ambulatory Patient Education Author: Arabella Varghese APRN Date: The following Patient Education Materials have been given to the patient: Preventive Health Diabetes and Foot Care Diabetes may cause you to have problems because of poor blood supply ( circulation) to your feet and legs. This may cause the skin on your feet to become thinner, break easier, and heal more slowly. Your skin may become dry, and the skin may peel and crack. You may also have nerve damage in your legs and feet causing decreased feeling in them. You may not notice minor injuries to your feet that could l ead to infections or more serious problems. Taking care of your feet is one of the most important things you can do for yourself. HOME CARE INSTRUCTIONS Wear shoes at all times, even in the house. Do not go barefoot. Bare feet are easily injured. Check your feet daily for blisters, cuts, and redness. If you cannot see the bottom of your feet, use a mirror or ask someone for help. Wash your feet with warm water (do not use hot water) and mild soap. Then pat your feet and the areas between your toes until they are completely dry. Do not soak your feet as this can dry your skin. Apply a moisturizing lotion or petroleum jelly (that does not contain alcohol and is unscented) to the skin on your feet and to dry, brittle toenails. Do not apply lotion between your toes. Trim your toenails straight across. Do not dig under them or around the cuticle. File the edges of your nails with an emery board or nail file. Do not cut corns or calluses or try to remove them with medicine. Wear clean socks or stockings every day. Make sure they are not too tight. Do not wear knee-high stockings since they may decrease blood flow to your legs. Wear shoes that fit properly and have enough cushioning. To break in new shoes , wear them for just a few hours a day. This prevents you from injuring your feet. Always look in your shoes before you put them on to be sure there are no objects inside. Do not cross your legs. This may decrease the blood flow to your feet. If you find a minor scrape, cut, or break in the skin on your feet, keep it and the skin around it clean and dry. These areas may be cleansed with mild soap and water. Do not cleanse the area with peroxide, alcohol, or iodine. When you remove an adhesive bandage, be sure not to damage the skin around it. If you have a wound, look at it several times a day to make sure it is healing. Do not use heating pads or hot water bottles. They may burn your skin. If you have lost feeling in your feet or legs, you may not know it is happening until it is too late. Make sure your health care provider performs a complete foot exam at least annually or more often if you have foot problems. Report any cuts, sores, or bruises to your health care provider immediately. SEEK MEDICAL CARE IF: You have an injury that is not healing. You have cuts or breaks in the skin. You have an ingrown nail. You notice redness on your legs or feet. You feel burning or tingling in your legs or feet. You have pain or cramps in your legs and feet. Your legs or feet are numb. Your feet always feel cold. SEEK IMMEDIATE MEDICAL CARE IF: There is increasing redness, swelling, or pain in or around a wound. There is a red line that goes up your leg. Pus is coming from a wound. You develop a fever or as directed by your health care provider. You notice a bad smell coming from an ulcer or wound. This information is not intended to replace advice given to you by your health care provider. Make sure you discuss any questions you have with your health care provider. Document Released: 10/25/2001 Document Revised: 02/18/2017 Document Reviewed: 04/06/2014 [employer] Interactive Patient Education 2017 [employer] No follow up information was provided. Referrals to Other Providers Referred by: Arabella Varghese APRN
--- OUTSIDE RECORDS SUMMARY | 2018-06-12 16:40 | External Medical Summary | Referral Summary ---
:1950 Author Organization [facility] Address [address] [place] [address] Care Team Providers Name Role Phone David Jane Primary Care Physician Encounter [facility] [id number] Date(s): 04/18/17 - 04/18/17 [facility] [address] [place] [address]- [phone] Discharge Diagnosis: Obstructive sleep apnea, adult Discharge Disposition: 01-Home or Self Care Attending Physician: Amira Soto Admitting Physician: Amira Soto Vital Signs Most recent to oldest [Reference Range]: 1 Peripheral Pulse Rate [60-100 bpm] 74 bpm (04/18/17 9:01 AM) Blood Pressure [90-140/60-90 mmHg] 122/64 mmHg (04/18/17 9:01 AM) SpO2 97 % (04/18/17 9:01 AM) Problem List Condition Effective Dates Status Health Status Informant Acute bronchitis(Confirmed) Active Maxillary sinusitis, Active acute(Confirmed) Acute pharyngitis(Confirmed) Active Allergic rhinitis/Hay Active fever(Confirmed) anal fissure(Confirmed) Resolved Asthma(Confirmed) Active Benign essential hypertension Active (disorder)(Confirmed) Hx of elevated BUN, and Active creatinine(Confirmed) Chronic back pain(Confirmed) Active Chronic kidney disease Active (CKD)(Confirmed) Chronic obstructive pulmonary Active disease (COPD)(Confirmed) Compression fracture(Confirmed) Active Coronary artery disease(Confirmed) Resolved [employer]P current use of Active insulin(Confirmed) High sun [...] Daily, # 90 caps, 1 Refill(s), Pharmacy: [facility] [address], 1 caps Oral Daily,[id number] Start Date: 03/01/15 Stop Date: 08/28/15 Status: Orderedketoconazole 2% topical cream 1 cheryle, Topical, Daily, # 30 g, 2 Refill(s), Pharmacy: [facility] [address] Start Date: 04/03/17 Status: OrderedMisc Medication See Instructions, PT. IS CURRENTLY ON AN ABTX., 0 Refill(s) Start Date: 03/08/17 Status: OrderedNorco 5 mg-325 mg oral tablet 1-2 tabs, Oral, TID, # 60 tabs, 0 Refill(s) Start Date: 06/21/16 Status: OrderedrOPINIRole 0.5 mg oral tablet See Instructions, TAKE ONE TABLET BY MOUTH ONCE DAILY, # 90 tabs, eRx: [facility] Start Date: 03/07/17 Status: Orderedsimvastatin 20 mg oral tablet See Instructions, TAKE ONE TABLET BY MOUTH ONCE DAILY AT BEDTIME, # 30 tabs, eRx : [facility] Start Date: 03/27/17 Status: OrderedVictoza 18 mg/3 mL subcutaneous solution See Instructions, INJECT 1.2MG SUB-Q DAILY, # 6 unknown unit, 4 Refill(s), eRx: [facility] Start Date: 12/19/16 Status: Ordered Results No [...] Title: Office Visit Note Author: Amira Soto PA-C Date: 04/18/17 Assessment/Plan 1.Obstructive sleep apnea, adult -Adequate treatment [...]
--- OUTSIDE RECORDS SUMMARY | 2018-06-12 16:41 | External Medical Summary | Referral Summary ---
:1950 Author Organization [facility] Rick Newton[address] [place] [address] Care Team Providers Name Role Phone David Jane Primary Care Physician Encounter VC Date(s): 07/18/17 - 07/18/17 [facility] Newton[address] [place] [phone] [place] Discharge Diagnosis: Chronic obstructive pulmonary disease (COPD) Discharge Diagnosis: Diabetes type 2, controlled Discharge Diagnosis: Chronic kidney disease (CKD) Discharge Diagnosis: Hepatocellular carcinoma Discharge Diagnosis: Coronary artery disease Discharge Diagnosis: Acute bronchitis Discharge Diagnosis: Chronic back pain Discharge Disposition: 01-Home or Self Care Attending Physician: David Jane MD Admitting Physician: David Jane MD Vital Signs Most recent to oldest [Reference Range]: 1 Temperature Tympanic [36.6-38.1 degC] 36.6 degC (07/18/17 4:02 PM) Peripheral Pulse Rate [60-100 bpm] 62 bpm (07/18/17 4:02 PM) Blood Pressure [90-140/60-90 mmHg] 130/58 mmHg (07/18/17 4:02 PM) SpO2 97 % (07/18/17 4:02 PM) Problem List Condition Effective Dates [...] # 90 caps, 1 Refill(s), [facility], 1 caps Oral Daily,x90 days Start Date: 05/01/17 Stop Date: 10/28/17 Status: Orderedketoconazole 2% topical cream 1 cheryle, Topical, Daily, # 30 g, 2 Refill(s), Pharmacy: [facility] Start Date: 04/03/17 Status: OrderedMisc Medication See Instructions, PT. IS CURRENTLY ON AN ABTX., 0 Refill(s) Start Date: 03/08/17 Status: OrderedNorco 5 mg-325 mg oral tablet 1-2 tabs, Oral, TID, # 60 tabs, 0 Refill(s) Start Date: 05/01/17 Status: OrderedrOPINIRole 0.5 mg oral tablet 0.5 mg 1 tabs, Oral, Daily, # 90 tabs, 1 Refill(s), [facility], 1 tabs Oral Daily Start Date: 05/01/17 Status: Orderedsimvastatin 20 mg oral tablet 20 mg 1 tabs, Oral, Bedtime (once a day), # 90 tabs, 1 Refill(s), Pharmacy: [facility], 1 tabs Oral Bedtime (once a day) Start Date: 05/01/17 Status: OrderedSORAfenib 200 mg oral tablet 200 mg 1 tabs, Oral, BID, from [facility], # 120 tabs, 0 Refill(s) Start Date: 06/07/17 Status: OrderedTresiba FlexTouch 100 units/mL subcutaneous solution See Instructions, 10 units daily, # 1 boxes, 10 Refill(s), Pharmacy: [facility], 10 units daily Start Date: 05/29/17 Status: OrderedZithromax Z-Jordy 250 mg oral tablet 1 packets, Oral, Daily, as directed on package labeling, X 5 days, # 6 tabs, 0 Refill(s), Pharmacy: [facility], 1 packets Oral Daily,x5 days,Instr: as directed on package labeling Start Date: 07/18/17 Stop Date: 07/23/17 Status: Ordered Immunizations Given and Recorded Vaccine [...] Education Author: David Jane MD Date: Allergy Allergic Rhinitis Allergic rhinitis is when the mucous membranes in the nose respond to allergens. Allergens are particles in the air that cause your body to have an allergic reaction. This causes you to release allergic antibodies. Through a chain of events, these eventually cause you to release histamine into the blood stream. Although meant to protect the body, it is this release of histamine that causes your discom fort, such as frequent sneezing, congestion, and an itchy, runny nose. CAUSES Seasonal allergic rhinitis (hay fever) is caused by pollen allergens that may come from grasses, trees, and weeds. Year-round allergic rhinitis (perennial allergic rhinitis) is caused by allergens such as house dust mites, pet dander, and mold spores. SYMPTOMS Nasal stuffiness (congestion). Itchy, runny nose with sneezing and tearing of the eyes. DIAGNOSIS Your health care provider can help you determine the allergen or allergens that trigger your symptoms. If you and your health care provider are unable to determine the allergen, skin or blood testing ma y be used. Your health care provider will diagnose your condition after taking your health history and performing a physical exam. Your health care provider may assess you for other related conditions, such as asthma, pink eye, or an ear infection. TREATMENT Allergic rhinitis does not have a cure, but it can be controlled by: Medicines that block allergy symptoms. These may include allergy shots, nasal sprays, and oral antihistamines. Avoiding the allergen. Hay fever may often be treated with antihistamines in pill or nasal spray forms. Antihistamines block the effects of histamine. There are over-the- counter medicines that may help with nasal congestion a nd swelling around the eyes. Check with your health care provider before taking or giving this medicine. If avoiding the allergen or the medicine prescribed do not work, there are many new medicines your health care provider can prescribe. Stronger medicine may be used if initial measures are ineffective. Desensitizing injections can be used if medicine and avoidance does not work. Desensitization is when a patient is given ongoing shots until the body becomes less sensitive to the allergen. Make sure yo u follow up with your health care provider if problems continue. HOME CARE INSTRUCTIONS It is not possible to completely avoid allergens, but you can reduce your symptoms by taking steps to limit your exposure to them. It helps to know exactly what you are allergic to so that you can avoid your specific triggers. SEEK MEDICAL CARE IF: You have a fever. You develop a cough that does not stop easily (persistent). You have shortness of breath. You start wheezing. Symptoms interfere with normal daily activities. This information is not intended to replace advice given to you by your health care provider. Make sure you discuss any questions you have with your health care provider. Document Released: 07/23/2002 Document Revised: 11/18/2015 Document Reviewed: 07/05/2014 [employer] Patient Education 2016 [employer] No follow up information was provided. Extracted from: Title: Office Visit Note Author: David Jane MD Date: 07/18/17 Acute bronchitis Zpack at his request. CXR if not improving. To [facility] ifworse in any way. Chronic back pain This issue was reviewed, appears stable, and current therapy continued except as mentioned. Appropriate lab was reviewed from the most recent appropriate entry and lab was ordered if needed in the cp oe/nursing orders, and follow up recommended generally in 90 days and no later then six months. Chronic kidney disease (CKD) This issue was reviewed, appears stable, and current therapy continued except as mentioned. Appropriate lab was reviewed from the most recent appropriate entry and lab was ordered if needed in the cp oe/nursing orders, and follow up recommended generally in 90 days and no later then six months. Chronic obstructive pulmonary disease (COPD) This issue [...] regular care. Assessment/Plan 1.Diabetes type 2, controlled 1.discussed pt [...] to Clinic 3.Mixed hyperlipidemia Ordered: Hemoglobin A1c [1] Hepatocellular carcinoma This issue was reviewed, appears stable, and current therapy continued except as mentioned. Appropriate lab was reviewed from the most recent appropriate entry and lab was ordered if needed in the cp oe/nursing orders, and follow up recommended generally in 90 days and no later then six months. Seeing Dr. Weiner and specialist in [place]. IMPRESSION: 1. Interval development of multiple hypodense [...] diverticulitis. 4. Multiple nonobstructive bilateral renal calculi. [2]
--- OUTSIDE RECORDS SUMMARY | 2018-06-12 16:41 | External Medical Summary | Referral Summary ---
:1950 Author Organization [facility] Rick Newton [address] [place] [address] Care Team Providers Name Role Phone David Jane Primary Care Physician Encounter VC Date(s): 08/30/17 - 08/30/17 [facility] [address] [place] [phone] [place] Discharge Diagnosis: Chronic kidney disease (CKD) Discharge Diagnosis: Sore throat Discharge Diagnosis: Hepatocellular carcinoma Discharge Diagnosis: Chronic back pain Discharge Diagnosis: Diabetes type 2, controlled Discharge Diagnosis: Chronic obstructive pulmonary disease (COPD) Discharge Disposition: 01-Home or Self Care Attending Physician: David Jane MD Admitting Physician: David Jane MD Vital Signs Most recent to oldest [Reference Range]: 1 Blood Pressure [90-140/60-90 mmHg] 120/80 mmHg (08/30/17 4:05 PM) Problem List Condition Effective Dates Status [...] Daily, # 90 caps, 1 Refill(s), Pharmacy: [facility], 1 caps Oral Daily,x90 days Start Date: 05/01/17 Stop Date: 10/28/17 Status: Orderedketoconazole 2% topical cream 1 cheryle, Topical, Daily, # 30 g, 2 Refill(s), Pharmacy: [facility] Start Date: 04/03/17 Status: OrderedMisc Medication See Instructions, PT. IS CURRENTLY ON AN ABTX., 0 Refill(s) Start Date: 03/08/17 Status: OrderedNorco 5 mg-325 mg oral tablet 1-2 tabs, Oral, TID, # 60 tabs, 0 Refill(s) Start Date: 08/30/17 Status: OrderedrOPINIRole 0.5 mg oral tablet 0.5 mg 1 tabs, Oral, Daily, # 90 tabs, 1 Refill(s), Pharmacy: [facility], 1 tabs Oral Daily Start Date: 05/01/17 Status: Orderedsimvastatin 20 mg oral tablet 20 mg 1 tabs, Oral, Bedtime (once a day), # 90 tabs, 1 Refill(s), Pharmacy: [facility], 1 tabs Oral Bedtime (once a day) Start Date: 05/01/17 Status: OrderedSORAfenib 200 mg oral tablet 200 mg 1 tabs, Oral, BID, from [facility], # 120 tabs, 0 Refill(s) Start Date: 06/07/17 Status: OrderedTresiba FlexTouch 100 units/mL subcutaneous solution See Instructions, 10 units daily, # 1 boxes, 10 Refill(s), Pharmacy: [facility], 10 units daily [...] Patient Education Author: David Jane MD Date: 08/30 Emergency Medicine Asthma, Adult Asthma is a recurring condition in which the airways tighten and narrow. Asthma can make it difficult to breathe. It can cause coughing, wheezing, and shortness of breath. Asthma episodes, also called a sthma attacks, range from minor to life-threatening. Asthma cannot be cured, but medicines and lifestyle changes can help control it. CAUSES Asthma is believed to be caused by inherited (genetic) and environmental factors, but its exact cause is unknown. Asthma may be triggered by allergens, lung infections, or irritants in the air. Asthma t riggers are different for each person. Common triggers include: Animal dander. Dust mites. Cockroaches. Pollen from trees or grass. Mold. Smoke. Air pollutants such as dust, household director of donor relations, hair sprays, aerosol sprays, paint fumes, strong chemicals, or strong odors. Cold air, weather changes, and winds (which increase molds and pollens in the air). Strong emotional expressions such as crying or laughing hard. Stress. Certain medicines (such as aspirin) or types of drugs (such as beta-blockers). Sulfites in foods and drinks. Foods and [...] later. Symptoms include: Wheezing. Excessive nighttime or reforestation worker coughing. Frequent or severe coughing with a [...] includes a list of your asthma triggers an d how they may be avoided. It also [...] dust mask from a hardware store, a double-lay ered or microfilter vacuum overhead cleaner maintainer bag, or a vacuum overhead cleaner maintainer with a HEPA filter. Replace carpet with [...] related to the medicines you are taking ( such as a rash, itching, swelling, or trouble breathing). You are using a reliever medicine more than 2 3 times per week. Your peak flow is still at 50 79% of your personal best after following your [...] less than 50% of your personal best. This information is not intended to replace advice given to you by your health care provider. Make sure you discuss any questions you have with your health care provider. Document Released: 10/28/2006 Document Revised: 07/18/2016 Document Reviewed: 05/27/2014 [employer] Patient Education 2017 [employer] No follow up information was provided. Extracted from: Title: Office Visit Note Author: David Jane MD Date: 08/30/17 Chronic back pain This issue was reviewed, appears stable, and current therapy continued except as mentioned. Appropriate lab was reviewed from the most recent appropriate entry and lab was ordered if needed in the cp oe/nursing orders, and follow up recommended generally in 90 days and no later then six months. [place] 5 number sixty refilled per contract. Chronic kidney disease (CKD) This issue was reviewed, appears stable, and current therapy continued except as mentioned. Appropriate lab was reviewed from the most recent appropriate entry and lab was ordered if needed in the cp oe/nursing orders, and follow up recommended generally in 90 days and no later then six months. Avoid nsaids. Chronic obstructive pulmonary disease (COPD) This [...] eye exams, foot exams, and regular care. SeeingEndocrinology. Hepatocellular carcinoma This issue was reviewed, appears stable, and current therapy continued except as mentioned. Appropriate lab was reviewed from the most recent appropriate entry and lab was ordered if needed in the cp oe/nursing orders, and follow up recommended generally in 90 days and no later then six months. Recent ablation and doing ok. Sore throat Zpack. Discussed differential. If worse he needs to go to the [facility].Using otc chloraseptic with good control per him.
--- OUTSIDE RECORDS SUMMARY | 2018-06-12 16:41 | External Medical Summary | Referral Summary ---
:1950 Author Organization [facility], Surgery Address [address] [place] [address] [place] [address] Care Team Providers Name Role Phone David Jane Primary Care Physician Encounter VC Date(s): 03/06/17 - 03/06/17 [facility], Too, [address] [place] [phone] [place] Discharge Diagnosis: Encounter for attention to surgical dressings and sutures Discharge Disposition: 01-Home or Self Care Attending Physician: Charissa Palacios APRN Admitting Physician: Charissa Palacios APRN Vital Signs Most recent to oldest [Reference Range]: 1 Temperature Tympanic [36.6-38.1 degC] 37.1 degC (03/06/17 10:38 AM) Problem List Condition Effective Dates Status Health Status Informant Acute bronchitis(Confirmed) Active Maxillary sinusitis, Active acute(Confirmed) Acute pharyngitis(Confirmed) Active Allergic rhinitis/Hay Active fever(Confirmed) anal fissure(Confirmed) Resolved Asthma(Confirmed) Active Benign essential hypertension Active (disorder)(Confirmed) Hx of elevated BUN, and Active creatinine(Confirmed) Chronic back pain(Confirmed) Active Chronic kidney disease Active (CKD)(Confirmed) Chronic obstructive pulmonary Active disease (COPD)(Confirmed) Compression fracture(Confirmed) Active Coronary artery disease(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) 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(Confirmed) High sun [...] 90 caps, 1 Refill(s), Pharmacy: [facility], 1 caps Oral Daily,[id number] Start Date: 03/01/15 Stop Date: 08/28/15 Status: OrderedNorco 5 mg-325 mg oral tablet 1-2 tabs, Oral, TID, # 60 tabs, 0 Refill(s) Start Date: 06/21/16 Status: OrderedrOPINIRole 0.5 mg oral tablet See Instructions, TAKE ONE TABLET BY MOUTH ONCE DAILY, # 90 tabs, 0 Refill(s), Pharmacy: [facility], TAKE ONE TABLET BY MOUTH ONCE DAILY Start Date: 11/29/16 Status: Orderedsimvastatin 20 mg oral tablet See Instructions, TAKE ONE TABLET BY MOUTH ONCE DAILY AT BEDTIME, # 30 tabs, eRx : [facility] Start Date: 02/22/17 Status: OrderedVictoza 18 mg/3 mL subcutaneous solution See Instructions, INJECT 1.2MG SUB-Q DAILY, # 6 unknown unit, 4 Refill(s), eRx: [facility] Start Date: 12/19/16 Status: Ordered Results No [...] Date Related Diagnosis Body Site Laparoscopic cholecystectomy1 02/25/17 Colonoscopy, flexible; with removal of tumor(s), 10/29/15 [...] Title: Office Visit Note Author: Charissa Palacios APRN Date: 03/06/17 Assessment/Plan 1.Encounter for attention to surgical dressings and sutures Ordered: Postoperative Est [id number] We will leave the drain on the right side intact and continue to monitor for any bile leak. I prefer that she stillsponge bath until we get the second drain outthis coming Saturday, March 08. Turn to the office on March 08 for drain management. Pathology should be available at that time.
[2018-06-12] MEDS ORDERED: ONDANSETRON 4 MG/2 ML INJECTION IVP PRN (17:16)
--- NOTE | 2018-06-12 17:26 | History & Physical Report ---
History of Present Illness Date: 06/12/18 Chief complaint: Black stools, Anemia HPI: Mr Kim is a pleasant 68-year-old male who has been under the primary care of Dr. Jane, and under oncology care of Dr. Weiner. Patient unfortunately was diagnosed with metastatic hepatic carcinoma approximately one year ago. He underwent chemotherapy, however, is currently taking Opdivo tx. He reports that he had a difficult night last night, he reports waking up with chills and sweats. He actually felt himself "floating above the bed" reports he was dizzy and weak. This morning he got up out of bed continued to feel weak and was noted to have a fever of 100.7. He then had 2 episodes of black tarry stools. Late this morning, he presented for routine visit to Dr. Weiner for Opdivo. He explained his symptoms overnight and he was given a liter of IV fluids. Labs were obtained at the clinic, and hemoglobin was found to be low at 7.2 with a hematocrit 22.7. Last blood draw was on 06/10/18 at which time hemoglobin was 9.8 with a hematocrit of 31.0. Given the acute symptomatic anemia, accompanied with his dark tarry stools, the hospitalist services were contacted and accepted patient for direct admission to for further medical evaluation and treatment. Patient is seen on arrival to . He is alert, oriented and pleasant. He is accompanied with his and daughter. He is noted to be pale in color. Temperature 99.2, pulse 100, respiration rate 14, blood pressure 136/ 72 with room saturations of 99%. Patient currently reports feeling weak, generalized. He reports minimal appetite and minimal oral intake today. He describes diffuse abdominal pain which is not new given his history of hepatic carcinoma with metastatic disease. Did discuss advance directives with patient and , patient does wish to be a do not resuscitate. Review of Systems All systems PM: 10-point ROS was reviewed, no additional remarkable complaints except - Constitutional Constitutional: Present: anorexia, chills, fatigue, fever(s), lethargy, malaise , night sweats, weakness - Gastrointestinal Gastrointestinal: Present: change in bowel habits, melena Past Medical History Medical History: Medical History (Last Updated 06/12/18 @ 19:42 by Jamila Santos MD) COPD (chronic obstructive pulmonary disease) Chronic back pain Chronic kidney disease Cirrhosis Coronary artery disease Former tobacco use Hyperlipidemia Hypertension Kidney stones Liver cancer hepatocellular carcinoma, dx 05/27. Initial rx sorafenib Metastatic disease TANIKA (obstructive sleep apnea) CPAP 12 cm Restless leg syndrome Type II diabetes mellitus Surgical History: Cholecystectomy-2016. Colonoscopy-2014, 2014, 2012. Eyelid surgery-2010. Temporal artery biopsy-2009. Cardiac catheterization-2008. Fissurectomy with sphincterotomy. Cardiac: cardiac stent Family History: Mother-dementia Father-vasculitis Family History: As Above - Social History Smoking status: Former smoker (quit 30 yrs ago) Substance use type: does not use Alcohol intake frequency: holidays/special occasions only Housing: house Household members: spouse Social history: Primary care provider-Dr. David Jane Oncologist-Dr. Weiner General surgeon-Dr. Roy Medications Home Medications Medication Instructions Recorded Confirmed Type Ropinirole HCl [Requip] 0.5 mg PO HS #0 01/26/10 06/12/18 History Simvastatin 20 mg PO HS #0 02/22/15 06/12/18 History diphenhydrAMINE HCl [Benadryl] 50 mg PO HS #0 03/01/17 06/12/18 History Aspirin Chewable [ASA] 81 mg PO HS 01/13/18 06/12/18 History Hydrocodone/APAP 5/325 [[place] 1 - 2 tab PO Q4H PRN #20 tab 01/13/18 06/12/18 Rx 5/325] Insulin Degludec *U100* [Tresiba 6 unit SQ HS 01/13/18 06/12/18 History Flextouch U-100 Pen] Tamsulosin HCl [Flomax] 0.4 mg PO HS 01/13/18 06/12/18 History Furosemide [Lasix 20 mg Tab] 20 mg PO BID 04/19/18 06/12/18 History Levofloxacin [Levaquin] 500 mg PO DAILY 04/19/18 04/19/18 History Opdivo 1 dose IV Q2WKS 04/19/18 06/12/18 History Oxycodone *IR* [Roxicodone *Ir*] 5 - 10 mg PO Q4H PRN #10 tab 04/19/18 Rx Oxycodone CR [OxyCONTIN] 5 mg PO Q12H PRN #10 tab.er.12h 04/19/18 Rx Spironolactone [Aldactone 50 mg] 50 mg PO DAILY 04/19/18 04/19/18 History Vitamin D3 5,000 unit PO HS 06/12/18 06/12/18 History Allergies Allergy/AdvReac Type Severity Reaction Status Date / Time hydrochlorothiazide Allergy Unknown Verified 04/19/18 16:25 iodine AdvReac Severe VOMITING Verified 04/19/18 16:25 metoprolol succinate Allergy Unknown Uncoded 05/24/17 08:30 Exam - Constitutional Present: no acute distress, well nourished, well developed - Routine HEENT Exam Eye: Present: EOMI ENT: Present: mucous membranes moist, dentition normal - Routine Respiratory Exam Present: CTA bilaterally. Absent: wheezes - Routine Cardiovascular Exam Present: RRR, S1, S2, no murmur. Absent: murmur - Routine Abdominal Exam Present: soft, normoactive bowel sounds, tenderness (diffuse), non distended - Routine Extremities Exam Present: no edema, full ROM, pulses intact - Routine Skin Exam Present: intact, dry, warm - Routine Neurological Exam Present: alert, oriented X3, CN II-XII intact, moving all extremities - Routine Psychiatric Exam Present: normal affect, normal thought process, cooperative Results - Labs CBC & Chem 7: 06/12/18 18:08 06/12/18 18:08 Assessment and Plan (1) GI bleed Current visit: Yes Status: Acute (2) Fever Current visit: Yes Status: Acute Assessment and Plan: Impression GI bleed/Melena- Acute black stools Acute anemia- hemoglobin dropped from 9.8--> 7.2 in 3 days Metastatic hepatic carcinoma Cirrhosis Hypokalemia-POA Type II diabetes Hypertension Chronic kidney disease Hyperlipidemia COPD Chronic back pain Former tobacco user- quit 30 yrs ago Plan Admit patient, inpatient status under care of Dr. Santos On arrival to [facility] we will obtain CBC, CMP, blood cultures 2, (one from port site if able). Venous lactate, pro-calcitonin, urinalysis and chest x- ray. Will work pt up for infectious process and sepsis given reported fever and chills. Will type/screen and cross match patient 1 unit of leuko-reduced irradiated packed red blood cells. Tonics 40 milligrams IV twice a day for GI protection Patient did receive 1 liter of fluid at the oncology office. Will continue normal saline at 100 mL per hour. Zofran and Reglan as needed for nausea Morphine as needed for abdominal pain Consultation placed to Dr Roy for surgical evaluation and recommendation SCD to bilateral lower ext for DVT ppx He does wish to be a DNR and this order is written. Will discuss further orders and plan of care with attending, Dr. Santos At time of discharge medical care will return to primary care provider, Dr Jane and Oncologist, Dr Weiner DVT Prophylaxis: SCD's GI Prophylaxis: Protonix Resuscitation Status: Do Not Resuscitate - Physician Narrative Physician: Jamila Santos MD Narrative: Date: 06/12/18 Time: 1949 I have independently evaluated and examined this patient. I reviewed the chart, the patient's history, and the [employer]/PA's documented findings as above. We discussed and formulated the assessment and plan as above with additions as below: Mr. Kim is a 68-year-old male currently undergoing therapy for hepatocellular carcinoma with underlying cirrhosis of uncertain etiology. Malignancy was identified a year ago and initially treated with chemotherapy; tumor progressed earlier this year resulting in conversion to Opdivo, last dose 2 weeks ago. He developed fevers overnight as described but denies cough, sputum production, sore throat, joint pain, rashes, dysuria, emesis, abdominal pain, or diarrhea although he reports having 1 or 2 black stools today. White count was not elevated when seen in the office today but blood cultures were obtained. Hemoglobin dropped from 9.8 2 days ago to 7.2 today prompting decision to admit for probable GI bleed. The patient acknowledges having occasional heartburn and using Tums once in a while-possibly 2 tablets in the past week. He doesn't believe symptoms have been significantly increased recently. No nonsteroidal use or chronic alcohol use. Generalized pallor; oropharynx clear Respirations nonlabored, crackles at the left base Regular rhythm Abdomen soft, moderately distended, mild generalized tenderness without focal finding Skin without generalized rash, no evidence of cellulitis on the arms or the legs below the knees bilaterally Repeat hemoglobin 6.9, INR 1.34; potassium 3.4, GFR 83, alkaline phosphatase 556 -slightly lower than recent outpatient data; AST/ALT both elevated & essentially unchanged from recent outpatient data. Chest x-ray pending; CT abdomen/pelvis to be obtained looking for source of infection. Patient had another bowel movement after arrival followed by lightheadedness; hemoglobin was 6.9 prior to this stool. 2 units packed red blood cells to be transfused tonight. Afebrile on arrival, white count is not significantly elevated although ability to mount normal white cell response is unclear. Broad- spectrum antibiotics to be initiated with cefepime/vancomycin pending further data. Blood cultures obtained earlier today in the office and on arrival at the hospital. Potassium being replaced orally. Discussed with Dr. Roy-tentatively plan EGD in the morning. Old records reviewed. Hospital Course Summary Disclaimer: The visit summary below is not to be considered part of the above Progress Note. Hospital Course: Impression GI bleed/Melena- Acute black stools Acute anemia- hemoglobin dropped from 9.8--> 7.2 in 3 days Metastatic hepatic carcinoma Cirrhosis Type II diabetes Hypertension Chronic kidney disease Hyperlipidemia COPD Chronic back pain Former tobacco user- quit 30 yrs ago Plan Admit patient, inpatient status under care of Dr. Santos On arrival to [facility]. We will obtain CBC, CMP, blood cultures 2. Venous lactate, pro-calcitonin, urinalysis and chest x-ray. Will work pt up for infectious process and sepsis given reported fever and chills. Vancomycin/cefepime empirically pending initial results. Will type/screen and cross match patient 2 unit of leuko-reduced irradiated packed red blood cells. Protonix 40 milligrams IV twice a day for GI protection Patient did receive 1 liter of fluid at the oncology office. Will continue normal saline at 100 mL per hour. Zofran and Reglan as needed for nausea Morphine as needed for abdominal pain Consultation placed to Dr Roy for surgical evaluation and recommendation SCD to bilateral lower ext for DVT ppx He does wish to be a DNR and this order is written. At time of discharge medical care will return to primary care provider, Dr Jane and Oncologist, Dr Weiner
[2018-06-12] MEDS ORDERED: METOCLOPRAMIDE 10mg/2ml INJECTION IVP PRN (17:32)
[2018-06-12] MEDS ORDERED: NS FLUSH BAG 500ml IV PRN (17:35)
[2018-06-12] MEDS: NS 1,000 ML IV SCH (17:41)
--- NOTE | 2018-06-12 18:23 | General Surgery Consult Note ---
Consult date: 06/12/18 Attending Physician: Jamila Santos MD [facility] Patient Stated Medical History Transient Ischemic Attacks ( Yes: x3 TIA) Cataracts Yes Cardiac Arrhythmia Yes: HX OF AFIB Hypertension Yes Myocardial Infarction Yes Valvular Heart Disease Yes: MVP Sleep Apnea Yes Diabetes Mellitus Type 2 Yes Gastroesophageal Reflux Yes Disease Hiatal Hernia Yes Hx Kidney Stones Yes Anemia Yes Osteoarthritis Yes Anesthesia Reactions Yes: AWAKE STILL DURING INTUBATION Clinic Medical History (Last Updated 06/12/18 @ 17:28 by Sandra Kinsey APRN) COPD (chronic obstructive pulmonary disease) (Acute Medical) Chronic back pain (Acute Medical) Chronic kidney disease (Acute Medical) Coronary artery disease (Acute Medical) Former tobacco use (Acute Social Hx) Hyperlipidemia (Acute Medical) Hypertension (Acute Medical) Kidney stones (Acute Medical) Liver cancer (Acute Medical) Metastatic disease (Acute Medical) Type II diabetes mellitus (Acute Medical) Surgical History: Robotic Cholecystectomy-difficult, 03/01/2017. Colonoscopy- 2014, 2013, 2012. Eyelid surgery-2010. Left Temporal artery biopsy-01/27/2010. Cardiac catheterization-drug eluding stent LAD 04/25/2009. Fissurectomy with sphincterotomy. Right Carpal Sánchez release. Right knee arthroscopy for torn meniscus Family History: Father age 78 "unspecified vasculitis" mother age 78 dementia - Social History Smoking status: Former smoker (quit 1988) Substance use type: does not use Alcohol intake frequency: holidays/special occasions only Housing: house Household members: spouse Medications Home Medications Medication Instructions Recorded Confirmed Type Ropinirole HCl [Requip] 0.5 mg PO HS #0 01/26/10 06/12/18 History Simvastatin 20 mg PO HS #0 02/22/15 06/12/18 History diphenhydrAMINE HCl [Benadryl] 50 mg PO HS #0 03/01/17 06/12/18 History Aspirin Chewable [ASA] 81 mg PO HS 01/13/18 06/12/18 History Hydrocodone/APAP 5/325 [[place] 1 - 2 tab PO Q4H PRN #20 tab 01/13/18 06/12/18 Rx 5/325] Insulin Degludec *U100* [Tresiba 6 unit SQ HS 01/13/18 06/12/18 History Flextouch U-100 Pen] Tamsulosin HCl [Flomax] 0.4 mg PO HS 01/13/18 06/12/18 History Furosemide [Lasix 20 mg Tab] 20 mg PO BID 04/19/18 06/12/18 History Levofloxacin [Levaquin] 500 mg PO DAILY 04/19/18 04/19/18 History Opdivo 1 dose IV Q2WKS 04/19/18 06/12/18 History Oxycodone *IR* [Roxicodone *Ir*] 5 - 10 mg PO Q4H PRN #10 tab 04/19/18 Rx Oxycodone CR [OxyCONTIN] 5 mg PO Q12H PRN #10 tab.er.12h 04/19/18 Rx Spironolactone [Aldactone 50 mg] 50 mg PO DAILY 04/19/18 04/19/18 History Vitamin D3 5,000 unit PO HS 06/12/18 06/12/18 History Allergies Allergy/AdvReac Type Severity Reaction Status Date / Time hydrochlorothiazide Allergy Unknown Verified 04/19/18 16:25 iodine AdvReac Severe VOMITING Verified 04/19/18 16:25 metoprolol succinate Allergy Unknown Uncoded 05/24/17 08:30 Review of Systems 10-point ROS: negative except for HPI and the following: - Cardiovascular Cardiovascular: Present: irregular heart beat (occasional) - Respiratory Respiratory: Present: sleep apnea, use of CPAP - Gastrointestinal Gastrointestinal: Present: constipation, other (tarry stools) - Musculoskeletal Musculoskeletal: Present: back pain, joint pain - Neurological Neurological: Present: other (restless leg) - Psychiatric Psychiatric: Present: depression - Endocrine Endocrine: Present: diabetes - Hematologic/Lymphatic Hematologic/Lymphatic: Present: easy bruising - Vital Signs Last Vital Signs Temp 99.2 F 06/12/18 17:18 Pulse 100 06/12/18 17:18 Resp 14 06/12/18 17:18 BP 136/72 06/12/18 17:18 Pulse Ox 99 06/12/18 17:18 - Laboratory Result Diagrams: 06/12/18 18:08 06/12/18 18:08
[2018-06-12 18:33] VITALS: BMI 27.9
[2018-06-12] MEDS ORDERED: VANCOMYCIN - PHARMACY CONSULT MC ONE (19:26)
--- NOTE | 2018-06-12 20:19 | Consultation ---
DATE OF CONSULTATION 06/12/2018 FINDINGS Mr. Kim is a 68-year-old gentleman whom I was asked to see today as a result of his finding of progressive anemia upon laboratory evaluation in conjunction with his history for probable melanotic stools. Patient informs me that he has had the misfortune of developing metastatic liver cancer. He has been undergoing chemotherapy. Patient states that last night he began to notice that he was feeling ill. He states that he was running a fever and was feeling chilled. He also had a component of some sweats associated with his fever and chills. Patient states that this morning he had awakened and noted that he was feeling quite dizzy. He states he then had a bowel movement and that initially the bowel movement was fairly brown but as the bowel movement continued it became dark-black in nature. Patient states that he had an additional black stool in conjunction with this earlier stool that was black this morning. He states that he has been having a component of abdominal discomfort as a result of his metastatic liver cancer. His abdominal pain is overall stable per his report. The patient denies any nonsteroidal use such as ibuprofen or aspirin. He did present to his oncologist today with the above complaints. He did undergo laboratory evaluation and was found to be progressively anemic in nature. . Last week the patient's hemoglobin was around 10 and today his hemoglobin was around 7. As a result of his progressive anemia, night sweats, fevers and chills the patient was admitted to [facility] for further care. PAST MEDICAL HISTORY, PAST SURGICAL HISTORY, MEDICATIONS, ALLERGIES, SOCIAL HISTORY, FAMILY HISTORY, REVIEW OF SYSTEMS Performed by my nurse practitioner, Julio Cesar Palacios APRN. PHYSICAL EXAMINATION Mr. Kim is a 68-year-old male who this evening did not appear to be in acute distress. VITAL SIGNS: Temperature 99.2, pulse 100, respirations 14, blood pressure 136/ 72, SAO2 99% room air. HEENT: Normocephalic. Pupils are equally round and react to light and accommodation. NECK: Supple without lymphadenopathy. CHEST: Clear to auscultation bilaterally. HEART: Regular rate and rhythm. Normal S1 and S2 without gallops, murmurs or clicks. ABDOMEN: Abdomen soft. Patient did have some tenderness within the epigastric region as well as within the right upper quadrant. He did not, however, have any evidence for involuntary guarding or rebound tenderness. It did appear that he had a slight component of ascites upon palpation. EXTREMITIES: Without clubbing, cyanosis, or edema. NEURO: Cranial nerves II-XII grossly intact. Patient is without focal motor or sensory deficits. LABORATORY/RADIOGRAPHIC EVALUATION/REVIEW OF PATIENT'S CHART The patient did have a CBC and his hemoglobin is now 6.9. White count is 9.3. CMP was obtained and his AST, ALT, alkaline phosphatase are elevated at 313, 77 and 556, respectively. Total bilirubin was not markedly elevated at 1.3. BUN was elevated at 31.0 consistent with a GI bleed. Creatinine was normal at 0.9. Plasma lactate was normal at 1.4. Coags will be obtained and are pending at time of dictation. ASSESSMENT 68-year-old gentleman with known metastatic hepatic carcinoma who presents with melanotic stools and progressive anemia. PLAN From general surgical standpoint I agree with current management of this patient. The patient is going to receive blood transfusion. Will check a PT/ INR given his known liver disease and presentation of GI bleed. The patient is being treated empirically for peptic ulcer disease and was placed on Protonix 40 mg IV b.i.d. I do believe the patient could have some clear liquids sparingly this evening. It is my recommendation that tomorrow we go ahead and proceed with esophagogastroduodenoscopy for further evaluation of his melanotic stools and progressive anemia. I discuss this evening with the patient and his family who was present what an EGD would entail and its associated risks which included but were not inclusive of bleeding and/or perforation requiring surgery. The patient and his family understood and agreed to proceed with endoscopic evaluation tomorrow. [facility]
[2018-06-12] MEDS: TAMSULOSIN 0.4 MG CAPSULE PO SCH (21:45)
[2018-06-12] MEDS: PANTOPRAZOLE 40 MG INJECTION IVP SCH (21:45)
[2018-06-13] MEDS: CEFEPIME 1 GM in NS 100 ML IV SCH ×4 (00:32→16:40)
[2018-06-13] MEDS: HYDROCODONE/APAP 5mg/325mg TABLET PO PRN (01:08)
[2018-06-13] MEDS: NS 1,000 ML IV SCH ×3 (05:18→12:45)
[2018-06-13] MEDS ORDERED: LIDOCAINE VISCOUS 2% ORAL LIQUID 15ml ONE (07:01)
[2018-06-13] MEDS: MORPHINE SULFATE 2mg INJECTION IVP PRN ×2 (07:56→15:28)
[2018-06-13] MEDS: PANTOPRAZOLE 40 MG INJECTION IVP SCH ×2 (08:04→20:21)
--- NOTE | 2018-06-13 08:27 | CT Scan Report ---
Indication: fever, hepatocellular ca, melena PROCEDURE: CT abdomen pelvis wo con: Encounter: Initial Comparison: Renal CT dated April 19, 2018 Technique: Axial CT images were performed through the abdomen and pelvis without intravenous contrast. Coronal and sagittal two-dimensional reformats. Automated Exposure Control and Iterative Reconstruction dose reducing techniques were utilized. Findings: Minimal scarring in the lung bases. Small volume ascites. Nodular cirrhotic liver is seen with multiple ill-defined hypodense lesions scattered throughout both lobes consistent with the patient's history of hepatocellular carcinoma. The gallbladder is absent. Spleen, pancreas and adrenal glands are within normal limits. Multiple bilateral nonobstructing renal stones. No abdominal or pelvic lymphadenopathy. Fluid containing right inguinal hernia. Sigmoid diverticulosis without acute diverticulitis. No bowel obstruction. Bone windows show degenerative change in the spine. Impression: Increasing ascites. No clear acute inflammatory process seen in the abdomen or pelvis. There is a preliminary report by [facility]. .
--- NOTE | 2018-06-13 09:57 | Anesthesia Preoperative Report ---
Anesthesia Preoperative Record - Date and Time Date: 06/13/18 Preoperative Diagnosis: GI Bleed Proposed Procedure: EGD NPO Since Date: 06/13/18 NPO Since Time: 00:00 Allergies/Adverse Reactions: Allergies Allergy/AdvReac Type Severity Reaction Status Date / Time hydrochlorothiazide Allergy Unknown Verified 04/19/18 16:25 iodine AdvReac Severe VOMITING Verified 04/19/18 16:25 metoprolol succinate Allergy Unknown Uncoded 05/24/17 08:30 - Vital Signs Vital Signs: Temperature 97.2 F 06/13/18 07:57 Pulse Rate 99 06/13/18 08:24 Respiratory Rate 16 06/13/18 07:57 Blood Pressure 116/67 06/13/18 07:57 Pulse Oximetry 98 06/13/18 07:57 Height and Weight: Height 1.83 m Weight 94.4 kg Body Mass Index 27.9 - Medications Inpatient Medications: Current Medications Hydrocodone Bitart/Acetaminophen ([place] 5/325) 1 - 2 tab PO Q4H PRN PRN Reason: Pain Last Admin: 06/13/18 01:08 Dose: 1 tab Sodium Chloride (Normal Saline) 1,000 mls @ 100 mls/hr IV .Q10H [facility] Last Infusion: 06/13/18 08:12 Dose: 100 mls/hr Cefepime HCl 1 gm/ Sodium (Chloride) 100 mls @ 200 mls/hr IV Q8H [facility] Last Infusion: 06/13/18 08:10 Dose: Infused Vancomycin HCl 2,000 mg/ (Sodium Chloride) 500 mls @ 250 mls/hr IV Q12H [facility] Last Infusion: 06/13/18 00:02 Dose: Infused Metoclopramide HCl (Reglan) 10 mg IVP Q6H PRN Morphine Sulfate (Morphine Sulf 2 Mg Inj) 2 mg IVP Q3-4HR PRN PRN Reason: Pain Last Admin: 06/13/18 07:56 Dose: 2 mg Ondansetron HCl (Zofran) 4 mg IVP Q6H PRN PRN Reason: Nausea &/or vomiting Pantoprazole Sodium (Protonix Iv) 40 mg IVP BID [facility] Last Admin: 06/13/18 08:04 Dose: 40 mg Sodium Chloride (Normal Saline) 500 ml IV PRN PRN Tamsulosin HCl (Flomax) 0.4 mg PO HS [facility] Last Admin: 06/12/18 21:45 Dose: 0.4 mg Home Medications: Home Medications Medication Instructions Recorded Confirmed Type Ropinirole HCl [Requip] 0.5 mg PO HS #0 01/26/10 06/12/18 History Simvastatin 20 mg PO HS #0 02/22/15 06/12/18 History diphenhydrAMINE HCl [Benadryl] 50 mg PO HS #0 03/01/17 06/12/18 History Aspirin Chewable [ASA] 81 mg PO HS 01/13/18 06/12/18 History Hydrocodone/APAP 5/325 [[place] 1 - 2 tab PO Q4H PRN #20 tab 01/13/18 06/12/18 Rx 5/325] Insulin Degludec *U100* [Tresiba 6 unit SQ HS 01/13/18 06/12/18 History Flextouch U-100 Pen] Tamsulosin HCl [Flomax] 0.4 mg PO HS 01/13/18 06/12/18 History Furosemide [Lasix 20 mg Tab] 20 mg PO BID 04/19/18 06/12/18 History Levofloxacin [Levaquin] 500 mg PO DAILY 04/19/18 04/19/18 History Opdivo 1 dose IV Q2WKS 04/19/18 06/12/18 History Oxycodone *IR* [Roxicodone *Ir*] 5 - 10 mg PO Q4H PRN #10 tab 04/19/18 Rx Oxycodone CR [OxyCONTIN] 5 mg PO Q12H PRN #10 tab.er.12h 04/19/18 Rx Spironolactone [Aldactone 50 mg] 50 mg PO DAILY 04/19/18 04/19/18 History Vitamin D3 5,000 unit PO HS 06/12/18 06/12/18 History Is Patient on Beta Rhea?: No - Medical History Respiratory: Reports: Bronchitis (1982), Sleep Apnea Cardiovascular: Reports: Abnormal EKG, Angina, Arrhythmia (HX OF AFIB), Hypertension, Hypotension, Myocardial Infarction, Valvular Heart Disease (MVP) Gastrointestional: Reports: Cirrhosis, Gastroesophageal Reflux Disease, Hiatal Hernia Neuro/Musculoskeletal: Reports: Back Problems, Headaches, Muscle Weakness Renal/Endocrine: Reports: Diabetes Mellitus Type 2 Other History: Reports: Anesthesia Reactions (AWAKE STILL DURING INTUBATION), Cancer (COLON POLPS STAGE 3 REMOVED, LIVER) - Surgical History HEENT Surgeries: Reports: Eye Surgery (BILATERAL CATARACTS) Cardiac Surgeries/Treatments: Reports: Cardiac Catheterization (STENT) Respiratory Surgery/Treatments: Reports: CPAP Use GI Surgery/Treatments: Reports: Cholecystectomy, Colonoscopy, Other (CYST REMOVED FROM TAILBONE) Musculoskeletal Surgery/Tx: Reports: Carpal Tunnel Release (RIGHT), Knee Arthroscopy (RIGHT (TORN MINISCUS)) Anesthesia Reactions: None Hx Family Anesthesia Reaction: No History of Motion Sickness: No - Social History Smoking Status: Former smoker Hx Chewing Tobacco Use: No Second Hand Exposure: No Substance Use Type: does not use Alcohol Intake Frequency: holidays/special occasions only - Pertinent Findings Laboratory: CBC and BMP 06/13/18 05:53 06/13/18 05:53 BMP 06/12/18 06/13/18 18:08 05:53 Sodium 140 141 Potassium 3.4 L 3.8 Chloride 109 H 112 H Carbon Dioxide 22 22 BUN 31.0 H 33.0 H Creatinine 0.9 0.9 Glucose 162 H 138 H Calcium 8.2 L 7.8 L Liver Function 06/12/18 Range/Units 18:08 Total Bilirubin 1.30 (0.20-1.30) MG/DL AST 313 H (17-59) U/L ALT 77 H (1-50) U/L Alkaline Phosphatase 556 H (38-126) U/L Albumin 2.8 L (3.5-5.0) g/dL Urine 06/12/18 Range/Units 20:08 Urine Color Yellow (YELLOW) Urine Clarity Clear Urine pH 6.0 (5.0-8.0) Ur Specific [place] 1.010 L (1.015-1.025) Urine Protein Negative (NEGATIVE) Urine Glucose (UA) Negative (NEGATIVE) EKG: Sinus Rhythm - Physical Exam Respiratory Exam: Present: lungs clear Cardiovascular Exam: Present: regular rate and rhythm - Airway Assessment Mallampati Score: II TMD: 3 Fingerbreadths Neck Extension: fair Overall Assessment: may be difficult mask vent, may be difficult intubation - ASA ASA Score: 3 - Plan Anesthesia: General TIVA - Discussion Discussion: Discussed risks/options/alternatives of anesthesia and questions answered. Patient consents. Nursing pain assessment noted. Attestation Statement: Prior to the delivery of any anesthetic medication, I examined the patient, developed the plan, obtained the patient's consent and discussed the risk and benefits of the procedure with the patient/guardian.
[2018-06-13] MEDS ORDERED: PROPOFOL 500 MG/50 ML VIAL ONE (10:04)
--- NOTE | 2018-06-13 10:29 | XRay Report ---
INDICATION: fever, GI bleeding PROCEDURE: CHEST 2-VIEWS UPRIGHT (PA & LAT) Encounter: Initial COMPARISON: February 22, 2015 FINDINGS: The lungs are clear without evidence of focal abnormal airspace opacity. There is no pleural effusion or pneumothorax. The heart size, mediastinal contours and pulmonary vascularity are within normal limits. IMPRESSION: No acute cardiopulmonary disease. .
--- NOTE | 2018-06-13 10:55 | Pharmacy Consult-Antibiotics ---
Pharmacy Consult-Vancomycin - Laboratory Information WBC 11.5 T/MM3 (4.5-11.0) H 06/13/18 05:53 BUN 33.0 MG/DL (9-20) H 06/13/18 05:53 Creatinine 0.9 mg/dL (0.8-1.5) 06/13/18 05:53 Procalcitonin 0.58 NG/ML 06/12/18 18:08 VANCOMYCIN THERAPY: 68yo M with Acute GI Bleed, anemia, Cirrhosis, Metastatic Hepatitic Carcinoma, T2DM, HTN, CKD, COPD, HLD. Started on Cefepime + Vancomycin. Started Vancomycin 2gm last night at 2200, and repeated dose today at 1100. Then adjusted regimen to Vancomycin 1500mg IV q12hr. This gives calculated peak / trough of 41 & 16 mcg/ml respectively. Will confirm trough levels prior to 0900 dose tomorrow (06/14). Thank you
[2018-06-13] MEDS ORDERED: LIDOCAINE VISCOUS 2% ORAL LIQUID 15ml PO ONE (12:14)
--- NOTE | 2018-06-13 12:39 | Procedure Note ---
- Procedure Date/Time: Date: 06/13/18 Time: 1236 Surgeon: Kirill ASA Score: 3 Proceure: EGD - Postoperative EGD Diagnosis Postoperative EGD Diagnosis: Gastritis, Other (Esophageal varices) - Complications Estimated Blood Loss: See Anesthesia Record. Vital Signs: See Anesthesia and PACU record.
--- NOTE | 2018-06-13 12:58 | Anesthesia Postoperative Note ---
- Date and Time Date: 06/13/18 Time: 12:58 - Status Patient Participated in Evaluation: Patient Participated in Person Vital Signs: Temperature 98.2 F 06/13/18 12:31 Pulse Rate 97 06/13/18 12:55 Respiratory Rate 24 06/13/18 12:55 Blood Pressure 107/63 06/13/18 12:55 Pulse Oximetry 96 06/13/18 12:55 Respiratory Function: Airway Patent Cardiovascular Function: Regular Pulse EKG: Sinus Rhythm Mental Status: Alert and Oriented Pain Intensity: 0 Hydration: IV Infusing Nausea/Vomiting: None Complications During Recover: None Apparent - Follow-Up Instructions Instructions: Per Surgeon
--- NOTE | 2018-06-13 15:18 | Progress Note ---
- Date 06/13/18 Subjective: Alcides is seen this afternoon following EGD. His color has much improved today following blood transfusion. He reports having minimal abdominal discomfort compared to yesterday. He does complain of having some right knee pain that has been intermittent. Slight remains in the 90s, blood pressure has been stable 130s over 70s. Room air saturations are adequate. He did receive 1 unit of packed red blood cells last night, hemoglobin today was 7.2. He is tolerating liquid diet postoperatively. Objective Vital signs: Temperature 96.5 F L 06/13/18 14:39 Pulse Rate 97 06/13/18 14:39 Respiratory Rate 18 06/13/18 14:39 Blood Pressure 138/71 06/13/18 14:39 Pulse Oximetry 100 06/13/18 14:39 Height/Weight/BMI: Height 1.83 m Weight 94.4 kg Body Mass Index 27.9 - Constitutional Present: no acute distress, well nourished, well developed - Routine HEENT Exam Eye: Present: EOMI ENT: Present: mucous membranes moist, dentition normal - Routine Respiratory Exam Present: CTA bilaterally. Absent: wheezes - Routine Cardiovascular Exam Present: RRR, S1, S2. Absent: murmur - Routine Abdominal Exam Present: soft, normoactive bowel sounds, non distended. Absent: tenderness - Routine Extremities Exam Present: no edema Comments: Pain to the right knee with range of motion. No evidence of trauma or erythema - Routine Skin Exam Present: dry, warm - Routine Neurological Exam Present: alert, oriented X3, CN II-XII intact - Routine Lymphatic Exam Lymphatic: Absent: adenopathy - Routine Psychiatric Exam Present: normal affect Results - Labs CBC & Chem 7: 06/13/18 05:53 06/13/18 05:53 Microbiology Results: Microbiology 06/12/18 18:11 Peripheral/Iv Start Blood Culture - Preliminary Culture Initiated - Results Pending 06/12/18 18:08 Peripheral/Iv Start Blood Culture - Preliminary Culture Initiated - Results Pending Assessment and Plan (1) GI bleed Current visit: Yes Status: Acute (2) Fever Current visit: Yes Status: Acute Assessment and Plan: Impression GI bleed/Melena- Acute black stools Acute anemia- hemoglobin dropped from 9.8--> 7.2 in 3 days Esophageal varices Gastritis Metastatic hepatic carcinoma Cirrhosis Hypokalemia-POA Type II diabetes Hypertension Chronic kidney disease Hyperlipidemia COPD Chronic back pain Former tobacco user- quit 30 yrs ago Plan EGD did reveal esophageal varices, however, no evidence of acute active bleeding. Transfusing 1 unit of packed red blood cells again this afternoon. Given hemoglobin 7.2 this morning. Follow blood counts carefully Continue Protonix 40 milligrams IV twice a day for GI protection Zofran and Reglan as needed for nausea Morphine as needed for abdominal pain Benadryl to help with sleep tonight. As per patient request He decided that he wanted to be a Full code pre-op this morning and that order was changed DVT Prophylaxis: SCD's GI Prophylaxis: Protonix Resuscitation Status: Do Not Resuscitate - Physician Narrative Physician: Jamila Santos MD Narrative: Date: 06/13/18 Time: 1619 I have independently evaluated and examined this patient. I reviewed the chart, the patient's history, and the TELEVISION PRODUCTION CLERK/PA's documented findings as above. We discussed and formulated the assessment and plan as above with additions as below: Mr. Kim received 2 units of blood overnight with subsequent hemoglobin 7.2 this morning; he continued to have black formed stools through the night with his last stool at about 5 AM at which time he described a small amount of red blood in the water. Overall he feels significantly improved and has had no fevers since arrival. EGD late this morning revealed varices and gastritis without evidence of active bleeding or ulceration. Suggestion that some varices may have bled recently but no current bleeding. NAD, alert Respirations nonlabored, good airflow, breath sounds clear Abdomen soft, nontender, bowel sounds present Receiving 1 unit packed red blood cells at present-third unit total. WBC unremarkable; blood cultures here are negative to date. Chest x-ray last night negative on formal read as was CT abdomen/pelvis although increasing ascites reported. Call placed to [facility] for blood culture results for samples drawn there yesterday- have not heard back at this time. Continue current antibiotics pending 48 hour blood culture reports. Recheck hemoglobin posttransfusion and in a.m. If evidence of reactive rebleeding will require transfer to [facility] due to concern about variceal bleed. Discussed with Dr. Roy. Hospital Course Summary Disclaimer: The visit summary below is not to be considered part of the above Progress Note. Hospital Course: Impression GI bleed/Melena- Acute black stools Acute anemia- hemoglobin dropped from 9.8--> 7.2 in 3 days Metastatic hepatic carcinoma Cirrhosis Type II diabetes Hypertension Chronic kidney disease Hyperlipidemia COPD Chronic back pain Former tobacco user- quit 30 yrs ago Plan Admit patient, inpatient status under care of Dr. Santos On arrival to [facility]. We will obtain CBC, CMP, blood cultures 2. Venous lactate, pro-calcitonin, urinalysis and chest x-ray. Will work pt up for infectious process and sepsis given reported fever and chills. Vancomycin/cefepime empirically pending initial results. Will type/screen and cross match patient 2 unit of leuko-reduced irradiated packed red blood cells. Protonix 40 milligrams IV twice a day for GI protection Patient did receive 1 liter of fluid at the oncology office. Will continue normal saline at 100 mL per hour. Zofran and Reglan as needed for nausea Morphine as needed for abdominal pain Consultation placed to Dr Roy for surgical evaluation and recommendation SCD to bilateral lower ext for DVT ppx He does wish to be a DNR and this order is written. At time of discharge medical care will return to primary care provider, Dr Jane and Oncologist, Dr Weiner 06/13/18 EGD did reveal esophageal varices, however, no evidence of acute active bleeding. Transfusing 1 unit of packed red blood cells again this afternoon given hemoglobin 7.2 this morning. Total 3 units packed cells thus far. Follow blood counts carefully Continue Protonix 40 milligrams IV twice a day for GI protection Zofran and Reglan as needed for nausea Morphine as needed for abdominal pain Benadryl to help with sleep tonight. As per patient request He decided that he wanted to be a Full code pre-op this morning and that order was changed. Has follow-up appointments next week with Dr. Nino regarding gastric varices and Dr. Angulo regarding kidney stones.
[2018-06-13] MEDS ORDERED: DiphenhydrAMINE 25 MG CAPSULE PO PRN (15:45)
--- NOTE | 2018-06-13 16:07 | Operative Note ---
DATE OF SERVICE 06/13/2018 SURGEON Kervin Roy MD PREOPERATIVE DIAGNOSIS Personal history for hepatocellular carcinoma, recent onset of progressive anemia, melanotic stools. POSTOPERATIVE DIAGNOSES Personal history for hepatocellular carcinoma, recent onset of progressive anemia, melanotic stools, esophageal varices, gastritis. PROCEDURE Esophagogastroduodenoscopy. ANESTHESIA TIVA BRIEF HISTORY/INDICATIONS Mr. Kim is a 68-year-old gentleman whom I was asked to see yesterday evening as a result of his history for melanotic stools and the finding of progressive anemia upon laboratory evaluation. The patient was begun on empiric medical therapy for suspected peptic ulcer disease. He did receive blood transfusion. He did undergo coags and was not found to be coagulopathic with his known history for hepatocellular carcinoma. Patient does have a prior history for ascites indicative for portal hypertension associated with his hepatocellular carcinoma. As a result of the above indications it was recommended that he undergo an EGD for further evaluation. FINDINGS Upon upper endoscopy the patient was found to have marked esophageal varices. No active bleeding was noted. There was a component of some diffuse gastritis within the stomach. No yaneli ulcerations were noted. Duodenum was also without mucosal abnormalities. NARRATIVE OF PROCEDURE After informed consent was obtained the patient was brought to the endoscopy suite and placed in the left lateral decubitus position. Patient subsequently underwent total intravenous anesthesia by the nurse horse identifier at my request. Formal timeout was then completed. Next, an Olympus gastroscope was inserted in the oral hypopharynx and subsequently the esophagus under direct visualization. The gastroscope was advanced through the esophagus, stomach, pylorus, bulb, second portion of the duodenum. Scope was slowly withdrawn. First and second portions of the duodenum were without noted abnormalities. No evidence of duodenitis or ulcerations was noted. Scope was drawn back to the prepyloric region and antrum. Again, no mucosal abnormalities were noted. J-maneuver was performed. Cardia and fundus were within normal limits. Endoscopically there was no evidence for hiatal hernia. I did not appreciate any evidence for portal gastropathy. Scope was allowed to straighten and was slowly withdrawn. The remaining corpus of the stomach was well visualized. There was a diffuse component of erythema throughout the corpus of the stomach consistent with that of a gastritis. No active bleeding was present. No ulcerations were present. There was no evidence for old blood upon the surface of the esophagus, stomach or duodenum. Scope was drawn back to the level of the diaphragm. Squamocolumnar junction was located at the level of the diaphragm. One could see quite prominent esophageal varices circumferentially. There were a few varices that had a reddish weal overlying them suggestive of perhaps recent bleeding. Again, no active bleeding was present. Gastroscope was slowly withdrawn and varices did extend up into the mid thoracic region but no additional mucosal abnormalities were noted. Gastroscope was then removed from the patient's oral hypopharynx. Patient tolerated the procedure without difficulty and was sent back to preop area in stable condition. The patient does see Dr. Nino from a gastroenterology standpoint. The patient' s family informed me postoperatively that the patient has an appointment with Dr. Nino next week. I informed the patient's family that the patient may benefit from banding of his distal esophageal varices. Will defer further treatment of his varices to Gastroenterology. MTDBeth
[2018-06-13] MEDS: TAMSULOSIN 0.4 MG CAPSULE PO SCH (20:21)
[2018-06-14] MEDS: CEFEPIME 1 GM in NS 100 ML IV SCH ×2 (00:12→07:36)
[2018-06-14] MEDS: NS 1,000 ML IV SCH ×2 (02:05→11:57)
[2018-06-14] MEDS: HYDROCODONE/APAP 5mg/325mg TABLET PO PRN (04:45)
[2018-06-14] MEDS ORDERED: NS FLUSH BAG 500ml IV PRN (05:50)
[2018-06-14] MEDS: PANTOPRAZOLE 40 MG INJECTION IVP SCH (08:21)
--- NOTE | 2018-06-14 10:28 | Progress Note ---
- Date 06/14/18 Subjective: Alcides was resting in bed, being transfused another unit of blood. He denies feeling weak or dizzy or short of breath. He denies abdominal pain, nausea or vomiting and would like for his diet to be advanced. He had a black/bloody stool early yesterday morning. His states that he looks bloated, but doesn' t feel hard like ascites. He has a chronic cough and doesn't feel like it's worse than usual. He states that his normal HR is 70 and SBP is 110 Objective Vital signs: Temperature 97.2 F 06/14/18 07:24 Pulse Rate 91 06/14/18 08:25 Respiratory Rate 16 06/14/18 04:00 Blood Pressure 125/68 06/14/18 08:25 Pulse Oximetry 97 06/14/18 07:24 Height/Weight/BMI: Height 1.83 m Weight 99.1 kg Body Mass Index 27.9 - Constitutional Present: no acute distress, well nourished, well developed - Routine HEENT Exam Head: Present: normocephalic Eye: Absent: conjunctival icterus, scleral injection ENT: Present: oropharynx clear - Routine Respiratory Exam Present: crackles (B/L bases) - Routine Cardiovascular Exam Present: RRR, S1, S2 - Routine Abdominal Exam Present: normoactive bowel sounds, non tender, distended - Routine Extremities Exam Present: edema (trace BLE) - Routine Back/Spine/Pelvis Exam Back/Spine: Present: full ROM - Routine Musculoskeletal Exam Musculoskeletal: Present: moving extremities well - Routine Skin Exam Present: intact, dry, warm - Routine Neurological Exam Present: alert, oriented X3, CN II-XII intact, moving all extremities, vision grossly intact, hearing grossly intact, normal speech. Absent: sensory deficit , motor deficit, altered mental status, facial asymmetry - Routine Psychiatric Exam Present: normal affect, normal thought process, cooperative Results - Labs CBC & Chem 7: 06/14/18 12:35 06/14/18 08:48 Microbiology Results: Microbiology 06/12/18 18:11 Peripheral/Iv Start Blood Culture - Preliminary No Growth After 1 Day 06/12/18 18:08 Peripheral/Iv Start Blood Culture - Preliminary No Growth After 1 Day Assessment and Plan (1) GI bleed Current visit: Yes Status: Acute (2) Fever Current visit: Yes Status: Acute Assessment and Plan: Impression GI bleed/Melena- Acute black stools Acute anemia- hemoglobin dropped from 9.8--> 7.2 in 3 days Esophageal varices Gastritis Metastatic hepatic carcinoma Cirrhosis Hypokalemia-POA Leukocytosis, not POA Type II diabetes Hypertension Chronic kidney disease Hyperlipidemia COPD Chronic back pain Former tobacco user- quit 30 yrs ago Plan Hgb back down to 7.3; receiving another unit of blood. HR remains 20-30 beats/ min above baseline. BP stable; no orthostasis. Weight is up 5.5 kg and crackles were auscultated on exam -- will give Lasix 40 mg IV x1. K 3.5 - will give 40 mEq PO. Leukocytosis, WBC 11.5 --> 13. Continue vanco/cefepime. Advance diet to regular. Considering BB d/t varices, per discussion with Dr. Santos - will need to clarify allergy to metoprolol. DVT Prophylaxis: SCD's GI Prophylaxis: Protonix Resuscitation Status: Do Not Resuscitate - Physician Narrative Physician: Jamila Santos MD Narrative: Date: 06/14/18 Time: 1440 I have independently evaluated and examined this patient. I reviewed the chart, the patient's history, and the APPLICATION SUPPORT CONSULTANT/PA's documented findings as above. We discussed and formulated the assessment and plan as above with additions as below: Generally doing well, no recurrent fevers although feels warm occasionally. Denies abdominal pain. Respirations nonlabored with clear lung iyer; abdomen soft, nontender although abdomen is distended consistent with ascites. Blood cultures drawn Saturday morning at Dr. Weiner's office are negative-data faxed from [facility] early this afternoon. Blood cultures drawn here are negative at just under 48 hours. Stable for discharge; given absence of identified infection do not believe IV antibiotics need to be continued. Patient said occasional low-grade temperatures up to maximum of 99.5 since hospitalization. Chest x-ray today unremarkable by my review. Continue Levaquin on precautionary basis due to immunocompromise state. Repeat hemoglobin 9.2 after unit of blood this morning; total of 3 units of blood given during hospital course. Last bowel movement greater than 24 hours ago and no indication of active bleeding at EGD yesterday. To follow up with Dr. Nino on Saturday; will defer beta morgan until that time given uncertainty about allergy to metoprolol. Continue oral PPI. Hospital Course Summary Disclaimer: The visit summary below is not to be considered part of the above Progress Note. Hospital Course: Impression GI bleed/Melena- Acute black stools Acute anemia- hemoglobin dropped from 9.8--> 7.2 in 3 days Metastatic hepatic carcinoma Cirrhosis Type II diabetes Hypertension Chronic kidney disease Hyperlipidemia COPD Chronic back pain Former tobacco user- quit 30 yrs ago Plan Admit patient, inpatient status under care of Dr. Santos On arrival to [facility]. We will obtain CBC, CMP, blood cultures 2. Venous lactate, pro-calcitonin, urinalysis and chest x-ray. Will work pt up for infectious process and sepsis given reported fever and chills. Vancomycin/cefepime empirically pending initial results. Will type/screen and cross match patient 2 unit of leuko-reduced irradiated packed red blood cells. Protonix 40 milligrams IV twice a day for GI protection Patient did receive 1 liter of fluid at the oncology office. Will continue normal saline at 100 mL per hour. Zofran and Reglan as needed for nausea Morphine as needed for abdominal pain Consultation placed to Dr Roy for surgical evaluation and recommendation SCD to bilateral lower ext for DVT ppx He does wish to be a DNR and this order is written. At time of discharge medical care will return to primary care provider, Dr Jane and Oncologist, Dr Weiner 06/13/18 EGD did reveal esophageal varices, however, no evidence of acute active bleeding. Transfusing 1 unit of packed red blood cells again this afternoon given hemoglobin 7.2 this morning. Total 3 units packed cells thus far. Follow blood counts carefully Continue Protonix 40 milligrams IV twice a day for GI protection Zofran and Reglan as needed for nausea Morphine as needed for abdominal pain Benadryl to help with sleep tonight. As per patient request He decided that he wanted to be a Full code pre-op this morning and that order was changed. Has follow-up appointments next week with Dr. Nino regarding gastric varices and Dr. Angulo regarding kidney stones. 06/14/18 Hgb back down to 7.3; receiving another unit of blood. HR remains 20-30 beats/ min above baseline. BP stable; no orthostasis. Weight is up 5.5 kg and crackles were auscultated on exam -- will give Lasix 40 mg IV x1. K 3.5 - will give 40 mEq PO. Leukocytosis, WBC 11.5 --> 13. Continue vanco/cefepime. Advance diet to regular. Addendum entered and electronically signed by Ivonne Centeno APRN 06/14/18 11: 48: Neither patient nor his remember what type of allergic reaction he had to metoprolol.
[2018-06-14] MEDS ORDERED: FUROSEMIDE 20 MG/2 ML INJECTION IVP ONE (10:30)
--- NOTE | 2018-06-14 11:07 | Pharmacy Consult-Antibiotics ---
Pharmacy Consult-Vancomycin - Laboratory Information WBC 13.0 T/MM3 (4.5-11.0) H 06/14/18 04:15 BUN 20.0 MG/DL (9-20) 06/14/18 04:15 Creatinine 0.8 mg/dL (0.8-1.5) 06/14/18 08:48 Procalcitonin 0.57 NG/ML 06/14/18 08:48 Vancomycin Trough 24.37 ug/mL (15-20) H* 06/14/18 08:48 - Consult Information VANCOMYCIN CONSULT: DAY 3 Vancomycin 1500 mg IV q12hrs. Vancomycin Trough = 24.37 mcg/ml. Today's SCr = 0.8 mg/dl. Vancomycin dose held. New dose calculated. Will give Vancomycin 1250 mg IV q12hrs. Will continue to monitor and make adjustments accordingly. Thank you. Palak Florentino, PharmD
[2018-06-14 11:30] VITALS: BP 130/64; PULSE 98; RESP 12; O2SAT 99
[2018-06-14] MEDS ORDERED: PNEUMOCOCCAL 13 VACCINE 0.5ml INJECTION IM ONE (12:00)
--- NOTE | 2018-06-14 12:02 | Progress Note ---
DATE OF SERVICE 06/14/2018 FINDINGS Mr. Kim was seen this morning on rounds. He was resting comfortably. He did awaken easily and was appropriately conversant. Denied significant abdominal pain. States he has not had any additional bowel movements. He states that he is hungry. PHYSICAL EXAM VITAL SIGNS: Afebrile, normotensive. Last recorded vitals include temperature 97.2, pulse 93, respirations 16, blood pressure 111/63. HEENT: Normocephalic. Pupils are equally round and react to light and accommodation. CHEST: Clear to auscultation bilaterally. HEART: Regular rate and rhythm. Normal S1 and S2 without gallops, murmurs or clicks. ABDOMEN: Soft, nontender. No evidence for guarding or rebound. LABORATORY/RADIOGRAPHIC EVALUATION The patient's hemoglobin was down slightly today at 7.3. Yesterday it was 8.5. Patient informs me that did receive an additional unit of blood this morning. BMP obtained and found to be without marked abnormalities. ASSESSMENT 68-year-old gentleman with hepatocellular carcinoma with associated cirrhosis of the liver. Patient with finding of marked esophageal varices upon upper endoscopy. Patient with history for GI bleed most likely secondary to esophageal varices. The patient is stable from a surgical standpoint. PLAN Continue with current care. Patient informs me that he is to see his manager site early next week. As stated previously, will defer endoscopic intervention in regards to his varices to his manager site. The patient may benefit from banding of his varices. I agree with additional transfusion and ongoing care. DIONNE
[2018-06-14 13:10] VITALS: TEMP 98.2
[2018-06-14] MEDS ORDERED: LEVOFLOXACIN 500 MG TABLET PO SCH (15:04)
--- NOTE | 2018-06-14 16:31 | Discharge Summary ---
Discharge Information Date of admission: 06/12/18 16:29 Anticipated date of discharge: 06/14/18 Attending Physician: Jamila Santos MD Primary care physician: David Jane MD Consults: Kervin Roy M.D. - Discharge Diagnosis (1) GI bleed Status: Acute GI bleed/Melena Acute blood loss anemia Esophageal varices Gastritis Metastatic hepatic carcinoma Cirrhosis with ascites Hypokalemia Leukocytosis Type II diabetes Hypertension Nephrolithiasis, nonobstructing Hyperlipidemia COPD - Procedures Procedures: EGD on 06/13/18 demonstrating marked esophageal varices. There were a few varices that had a reddish weal overlying them suggestive of perhaps recent bleeding. No active bleeding was noted. There was a component of some diffuse gastritis within the stomach. No yaneli ulcerations were noted. Duodenum was also without mucosal abnormalities. - Laboratory Labs: On admission 06/12/18: White count 9.3, hemoglobin 6.9, platelet count 178,000. INR 1.34, potassium 3.4, creatinine 0.9, bilirubin 1.3, AST 313, ALT 77, alk phosphatase 556, lactic acid 1.4, procalcitonin 0.53. Urinalysis unremarkable. Hemoccult 1 positive for occult blood. Laboratory Tests 06/14/18 04:15 WBC 13.0 H Hgb 7.3 L D Hct 22.5 L Plt Count 178 06/14/18 12:35 06/14/18 08:48 - Microbiology Microbiology 06/12/18 18:11 Peripheral/Iv Start Blood Culture - Preliminary No Growth After 1 Day 06/12/18 18:08 Peripheral/Iv Start Blood Culture - Preliminary No Growth After 1 Day Blood cultures drawn on the morning of 06/12/18 both negative at 48 hours - Radiology Radiology: CT abdomen and pelvis on 06/12/18: Minimal scarring in the lung bases. Small volume ascites. Nodular cirrhotic liver is seen with multiple ill-defined hypodense lesions scattered throughout both lobes consistent with the patient's history of hepatocellular carcinoma. The gallbladder is absent. Spleen, pancreas and adrenal glands are within normal limits. Multiple bilateral nonobstructing renal stones. No abdominal or pelvic lymphadenopathy. Fluid containing right inguinal hernia. Sigmoid diverticulosis without acute diverticulitis. No bowel obstruction. Bone windows show degenerative change in the spine. Impression: Increasing ascites. No clear acute inflammatory process seen in the abdomen or pelvis. ----- Chest x-ray on admission was without acute cardiopulmonary disease; repeat film on 06/14/18 was unchanged. History of Present Illness HPI: Mr Kim is a pleasant 68-year-old male who has been under the primary care of Dr. Jane, and under oncology care of Dr. Weiner. Patient unfortunately was diagnosed with metastatic hepatic carcinoma approximately one year ago. He underwent chemotherapy, however, is currently taking Opdivo tx. He reports that he had a difficult night last night, he reports waking up with chills and sweats. He actually felt himself "floating above the bed" reports he was dizzy and weak. This morning he got up out of bed continued to feel weak and was noted to have a fever of 100.7. He then had 2 episodes of black tarry stools. Late this morning, he presented for routine visit to Dr. Weiner for Opdivo. He explained his symptoms overnight and he was given a liter of IV fluids. Labs were obtained at the clinic, and hemoglobin was found to be low at 7.2 with a hematocrit 22.7. Last blood draw was on 06/10/18 at which time hemoglobin was 9.8 with a hematocrit of 31.0. Given the acute symptomatic anemia, accompanied with his dark tarry stools, the hospitalist services were contacted and accepted patient for direct admission to [facility] for further medical evaluation and treatment. Patient is seen on arrival to [facility]. He is alert, oriented and pleasant. He is accompanied with his and daughter. He is noted to be pale in color. Temperature 99.2, pulse 100, respiration rate 14, blood pressure 136/ 72 with room saturations of 99%. Patient currently reports feeling weak, generalized. He reports minimal appetite and minimal oral intake today. He describes diffuse abdominal pain which is not new given his history of hepatic carcinoma with metastatic disease. Objective Vital signs: Temperature 98.2 F 06/14/18 13:09 Pulse Rate 98 06/14/18 11:28 Respiratory Rate 12 06/14/18 11:28 Blood Pressure 130/64 06/14/18 11:28 Pulse Oximetry 99-RA 06/14/18 11:28 NAD, color improved following transfusion 3 units packed red blood cells Respirations nonlabored, clear lung iyer anteriorly Abdomen soft, nontender, moderately distended consistent with ascites Height/Weight/BMI: Height 1.83 m Weight 99.1 kg Body Mass Index 27.9 Hospital Course This is a general summary of the patient's hospital course. For more details refer to the complete medical record. Hospital course: Mr. Kim was admitted with combined concerns of fever in immunocompromised patient and melanotic stools with drop in hemoglobin over 48 hours time. He was empirically started on vancomycin and cefepime following preliminary lab work and blood cultures on admission. Blood cultures had also been drawn earlier in the day when he saw Dr. Weiner. White count increased slightly to 13.0 prior to discharge but he had no recurrent fever of concern (temperature 99.5) and no other symptoms or workup suggested a source for the infection. IV antibiotics were discontinued on 06/14 after blood cultures drawn in Dr. Weiner's office were negative at 48 hours; blood cultures drawn on admission remain negative at ~44 hours and it was felt that the patient could convert to oral Levaquin as a precaution for outpatient management. Hemoglobin had dropped further to 6.9 on presentation and the patient was typed/ crossed and transfused with 2 units leuko-poor irradiated packed red blood cells on the initial night of hospitalization increasing to only 7.2 following morning. He was seen in consultation by Dr. Roy and underwent EGD on 06/13 demonstrating gastritis and esophageal varices without any evidence of active bleeding site although there was some suggestion of recent bleeding from the varices. One additional unit of blood was transfused on the morning of 06/14 for hemoglobin of 7.3 with posttransfusion hemoglobin 9.2. The patient has a vague history of allergy to Toprol-XL but neither he or his recalls what the reaction was. He is scheduled for follow-up with Dr. Nino in 2 days and I subsequently elected not to initiate beta blockade at this time. He will be maintained on a proton pump inhibitor in light of gastritis. Following admission the patient had 2 dark stools the night of admission with no bowel movements for 36 hours prior to discharge. Mr. Kim was felt stable to discharge on the afternoon of 06/14 plans to follow- up Dr. Nino on 06/16 as previously scheduled. He'll follow up with Dr. Weiner as previously scheduled and is asked to follow up with Dr. Jane in 1-2 weeks. Time spent with patient: discharge greater than 30 minutes Resuscitation Status: Full Code Discharge Plan - Discharge Disposition Discharge Date: 06/14/18 Disposition: 01 Discharged Home, Self-Care *Condition: Stable Reason For Visit (Visit label in EMR): GI Bleed - Discharge Medications *Discharge Medications: New Levofloxacin [Levaquin] 500 mg PO DAILY #7 tab Pantoprazole Sodium [Protonix] 1 tab PO ACB #30 tab Continue Simvastatin 20 mg PO HS #0 diphenhydrAMINE HCl [Benadryl] 50 mg PO HS #0 Tamsulosin HCl [Flomax] 0.4 mg PO HS Aspirin Chewable [ASA] 81 mg PO HS Insulin Degludec *U100* [Tresiba Flextouch U-100 Pen] 6 unit SQ HS Hydrocodone/APAP 5/325 [[place] 5/325] 1 - 2 tab PO Q4H PRN #20 tab PRN Reason: Pain Furosemide [Lasix 20 mg Tab] 20 mg PO BID Opdivo 1 dose IV Q2WKS Ropinirole HCl [Requip] 0.5 mg PO HS #0 Vitamin D3 5,000 unit PO HS - Discharge Packet/Instructions *Diet: Regular *Activity: As tolerate *Pain Management/Treatment: [place] or Tylenol as in the past *Wound Care: Not applicable Additional Instructions: Keep appointments with physicians on Saturday, follow-up with Dr. Weiner as scheduled next week. Two new medications started: 1. Protonix 40 mg daily for gastritis and to decrease stomach acid and 2. Levaquin an antibiotic for 1 week due to low grade fever experienced. Testing during hospitalization did not reveal source of fever and blood cultures are negative. *Expected Signs/Symptoms: No new symptoms expected *Notify Physician if: Recurrent fevers or bleeding, dizziness or passing out *During Business Hours Contact: Dr. Jane or Dr. Weiner *After Business Hours Contact: Call [facility] at [phone] and ask that the on-call physician be paged for Dr. Jane or Dr. Weiner *Pending Lab/Results: Follow up w/Provider (final blood culture results) - Referrals/Follow Up *Referrals/Follow Up: David Jane MD [Primary Care Provider] - (1-2 weeks) Selvin Weiner MD [Physician] - (as scheduled) David Angulo MD [Physician] - (on Saturday) Ines Nino MD [Physician] - (on Saturday) - Patient Handouts Patient Handouts: Gastrointestinal Bleeding (GEN), Esophageal Varices (GEN) - Dismissal Complete Discharge Instructions are:: Complete Physician Narrative - Narrative Attestation Narrative: Date: 06/14/18 Time: 2161
[2018-06-14] MEDS ORDERED: VANCOMYCIN 1,250 MG in NS 250 ML IV SCH (18:00)
--- NOTE | 2018-06-15 14:26 | XRay Report ---
Indication: b/l crackles PROCEDURE: XR chest 1V: Encounter: Initial Comparison: June 12, 2018 Findings: The lungs are stable in appearance without new focal airspace consolidation. There is no pleural effusion or pneumothorax. The heart size, pulmonary vascularity and mediastinal contours are unchanged. IMPRESSION: Stable appearance of the chest without acute cardiopulmonary disease. .
== END 2018-06-14 15:30 | disposition home or self-care (01) | DRG 432 ==
LOC: MED 16:29
PROVIDERS: ADMIT Internal Medicine; ATTEND Internal Medicine
PROC: END.EGD (2018-06-13 11:05)